=== PATIENT | female | born 1955 | race Caucasian/White ===

== ENCOUNTER → 2018-03-25 21:23 | Outpatient (CLI) | payer OTHER, SELFPAY ==
[2018-03-25 21:36] LABS: Absolute Lymphocyte Count 1.68 X10^3/ul (0.83-4.51); Absolute Neutrophil Count 6.5 X10^3/uL (2.0-7.7); Basophil# 0.03 X10^3/uL; Basophil% 0.3 % (0-1); Eosinophil# 0.35 X10^3/uL; Eosinophils% 3.7 % (0-5); Hematocrit 43.3 % (37-47); Hemoglobin 15.4 g/dl (12.0-15.0); Lymphocyte # 1.68 X10^3/ul (4.0); Mean Corp Hgb Conc 35.6 g/gl (32-36); Mean Corpuscular Hgb 33.6 pg (27.0-32.0); Mean Corpuscular Volume 94.3 fL (81-99); Mean Platelet Vol. 11.6 fl (6.2-12.0); Monocyte# 0.79 X10^3/uL; Monocyte% 8.5 % (0-10); Neutrophil # 6.46 X10^3/uL (2.7-7.7); Neutrophil % 69.2 % (47-70); Platelet Count 276 K/mm3 (150-450); RBC Distribution Width CV 12.7 % (11.6-14.6); Red Blood Count 4.59 M/mm3 (4.2-5.4); White Blood Count 9.3 K/mm3 (4.4-11.0)
[2018-03-25 21:37] LABS: POSITIVE COUNT NO; POSITIVE DIFFERENTIAL NO; POSITIVE MORPHOLOGY NO
[2018-03-25 21:49] LABS: ALB/GLOB Ratio 1.1 RATIO (0.9-2.4); AST(SGOT) 16 U/L (15-37); Alanine Aminotransfer ALT/SGPT 25 U/L (13-56); Alkaline Phosphatase 50 U/L (45-117); Anion Gap 10 (5-15); BUN 32 mg/dL (7-18); BUN/Creat Ratio 21.5 RATIO (10-20); Calcium,Total 9.5 mg/dL (8.5-10.1); Chloride 104 mmol/L (98-107); Cholesterol 195 mg/dL (200); Creatinine, Serum 1.49 mg/dL (0.55-1.02); EST Glomerular Filtration Rate 38 mL/min (>60); Est Glom Filt Rate - Afr Amer 45 mL/min (>60); Globulin 3.6 g/dL (2.2-4.2); Glucose 101 mg/dL (74-106); High Density Lipoprotein 28 mg/dL; Magnesium 1.8 mg/dL (1.6-2.6); Potassium 4.2 mmol/L (3.5-5.1); Protein, Total 7.6 g/dL (6.4-8.2); Sodium Level 136 mmol/L (136-145); Triglycerides 344 mg/dL; Very Low Density Lipoprotein 69 mg/dL (5-40)
== END ==
PROVIDERS: Visit Provider Nurse Practitioner
DX: E83.42 Hypomagnesemia (principal); E78.5 Hyperlipidemia, unspecified; I10 Essential (primary) hypertension
CPT/HCPCS: 80053; 80061; 83735; 85025

== ENCOUNTER → 2018-08-09 14:17 | Outpatient (CLI) | payer OTHER, SELFPAY ==
[2018-05-20 20:04] VITALS: BMI 33.1
[2018-08-09 14:41] LABS: Cholesterol 203 mg/dL (200); High Density Lipoprotein 33 mg/dL; Triglycerides 214 mg/dL; Very Low Density Lipoprotein 43 mg/dL (5-40)
== END ==
PROVIDERS: Family Provider Nurse Practitioner; PCP Nurse Practitioner; Referring Provider Nurse Practitioner; Visit Provider Nurse Practitioner
DX: I10 Essential (primary) hypertension (principal)
CPT/HCPCS: 80061

== ENCOUNTER 2019-02-12 22:00 | Inpatient (IN) | payer OTHER, SELFPAY ==
[2019-02-06 18:35] VITALS: BMI 32.1
[2019-02-12 22:01] VITALS: BP 99/73; PULSE 90; RESP 18; TEMP 36.6; O2SAT 92; BMI 32.1
--- NOTE | 2019-02-12 22:46 | EKG12_ITS ---
Test Reason : DYSRHYTHMIA Blood Pressure : / mmHG Vent. Rate : 091 BPM Atrial Rate : 091 BPM P-R Int : 142 ms QRS Dur : 082 ms QT Int : 334 ms P-R-T Axes : 046 059 032 degrees QTc Int : 410 ms Normal sinus rhythm Normal ECG Confirmed by AAMIR OLVERA, ELLIE ([id number]), social media editor ZACH FRAZIER ([id number]) on 02/17/2019 10:35:59 AM Referred By: NED Confirmed By:NADYA RUTLEDGE MD
--- NOTE | 2019-02-12 22:50 | ED.RN ---
NO OLD EKGS IN MUSE
--- NOTE | 2019-02-12 22:54 | ED.DCSUM_ITS ---
History of Present Illness Chief Complaint: Anxiety Informant: Patient, Family Onset: Weeks - 2 Narrative: Patient presents with other daughter for increasing anxiety symptoms. Symptoms started 2 weeks ago after being and is normal. Started on a second round of steroids with injection. Reports that sciatica symptoms a month ago went through what sounds like Kenalog injection from PCP office and a 10-day course of steroids. States shortly after symptoms return in follow-up, reports was given another injection and after 2 doses of steroids, had increasing anxiety symptoms with palpitations and feeling jittery. Reports treated with Xanax twice a day for symptoms. States initially helping, however last couple days symptoms not improving. Reports had to return from vacation today came directly here due to symptoms. Daughter reports was having tingling numbness fingers and toes. Patient reports indigestion symptoms. Denies any amnesia or confusion. Denies suicidal homicidal ideations. Patient on thyroid medicines along with blood pressure Xarelto for history of PE. Patient denies any urinary symptoms. Denies chest pains or cough. Prior similar symptoms: No Past Medical History - Allergies and Home Meds Allergies/Adverse Reactions: Allergies simvastatin [From Zocor] Adverse Reaction (Severe, Verified 02/12/19 22:04) muscle cramps niapsan Allergy (Severe, Uncoded 02/12/19 22:04) Anaphylaxis Primary Care Physician: Teresa Rowe NP-C [Primary Care Provider] - Smoking Status: Former smoker Review of Systems All systems negative except as indicated General: Denies: Chills, Fever, Sweats Eyes: Denies: Visual changes - bilaterally, Diplopia ENT: Denies: Rhinorrhea, Sore throat Cardiovascular: Reports: Palpitations. Denies: Chest pain Respiratory: Denies: Dyspnea, Cough, Dyspnea on exertion Gastrointestinal: Denies: Abdominal pain, Nausea, Vomiting, Diarrhea, Melena, Hematochezia Genitourinary: Denies: Dysuria, Hematuria, Frequency Musculoskeletal: Denies: Back pain, Extremity Pain Skin: Denies: Rash, Wounds Neurological: Reports: Parasthesia. Denies: Headache, Weakness, Numbness Psych: Reports: Anxiety. Denies: Depression, Suicidal thoughts, Suicidal ideati ons Physical Exam Vital Signs/Narrative: Vital Signs Temp Pulse Resp BP Pulse Ox 02/12/19 22:01 97.8 F 90 18 99/73 92 Inital Vital Signs reviewed: Yes General: Well nourished, Well developed, No Acute Distress Head: Normocephalic, Atraumatic, - Eyes: Perrl, EOMI ENT: No rhinorrhea, - - Mild dry mucosa membranes. Neck: Supple, Nontender Cardiovascular: Regular rate, Regular rhythm, No murmurs Respiratory: No distress, CTA bilaterally, Chest nontender Abdomen: Soft, Nontender, Nondistended, Normal bowel sounds Back: Nontender, Normal Inspection Extremities: Nontender, No edema Skin: Normal color, No rash Neurological: Alert, Oriented x3, Cranial nerves II-XII grossly intact, Normal Strength, Normal Sensation Psychological: - - Affect mildly flat, no suicidal homicidal ideations. Diagnostic/Tx/Re-eval Abnormal Lab Results 02/12/19 02/12/19 02/12/19 23:05 23:05 23:13 WBC 10.9 RBC 3.83 L Hgb 11.7 L Hct 35.3 L MCV 92.2 MCH 30.5 MCHC 33.1 RDW Std Deviation 46.5 H RDW Coeff of Meka 13.7 Plt Count 347 MPV 10.5 Immature Gran % (Auto) 0.600 Neut % (Auto) 69.8 Lymph % (Auto) 15.1 L [place] % (Auto) 9.7 Eos % (Auto) 4.3 Baso % (Auto) 0.5 Absolute Neuts (auto) 7.6 Absolute Lymphs (auto) 1.64 Nucleated RBC % 0 Sodium 142 Potassium 6.1 H* Chloride 109 H Carbon Dioxide 24.0 Anion Gap 9 BUN 72 H Creatinine 2.90 H Estim Creat Clear Calc 16.92 Est GFR (MDRD) Af Amer 21 L Est GFR (MDRD) Non-Af 17 L BUN/Creatinine Ratio 24.8 H Glucose 97 Calcium 10.7 H TSH 19.90 H Free T4 0.93 Urine Color Yellow Urine Clarity Clear Urine pH 6.0 Ur Specific [place] 1.020 Urine Protein Negative Urine Glucose (UA) Normal Urine Ketones 5 H Urine Occult Blood 25 H Urine Nitrite Positive H Urine Bilirubin Negative Urine Urobilinogen Normal Ur Leukocyte Esterase 25 H Urine RBC 5-10 SEEN Urine WBC 0-5 SEEN Ur Squamous Epith Cells 0 SEEN Urine Bacteria 3+ Urine Mucus 0 SEEN - EKG Initial EKG Interpretation: Sinus Rhythm - Sinus rate of 91, no ST or T wave changes. - Medical Decision Making Patient vital signs stable, nontoxic. No suicidal homicidal ideations. Patient palpitations EKG was obtained shows no acute process. Reports vague symptoms with her medications, her symptoms appear side effects from her prednisone use and Xanax which were new to her. Discussed with patient family will screen out with laboratory studies and urine. Results did note urinary tract infection, daughter present states she had a significant UTI in the past without symptoms. I did send for urine culture and Rocephin was started. In addition her BMP was abnormal. She had acute kidney injury with creatinine of 2.9, was 1.49 in March 2018. She reports decreased oral intake, recent loose stools however not significant. Potassium nonhemolyzed was 6.1, she has a normal EKG. He was treated with aerosol treatments, Kayexalate secondary to this. Due to her acute kidney injury and her hyperkalemia will speak with hospitalist for admission. ED Disposition - Plan for ED Patient: Disposition: Acute Care Hospital [facility] Diagnosis: Acute kidney injury, Hyperkalemia, Urinary tract infection, Medication side effects Referrals: Teresa Rowe NP-C [Primary Care Provider] -
[2019-02-12 23:14] LABS: Absolute Lymphocyte Count 1.64 X10^3/uL (0.83-4.51); Absolute Neutrophil Count 7.6 X10^3/uL (2.0-7.7); Basophil# 0.05 X10^3/uL; Basophil% 0.5 % (0-1); Eosinophil# 0.47 X10^3/uL; Eosinophils% 4.3 % (0-5); Hematocrit 35.3 % (37-47); Hemoglobin 11.7 g/dL (12.0-15.0); Lymphocyte # 1.64 X10^3/ul (4.0); Lymphocyte % 15.1 % (19-41); Mean Corp Hgb Conc 33.1 g/dL (32-36); Mean Corpuscular Hgb 30.5 pg (27.0-32.0); Mean Corpuscular Volume 92.2 fL (81-99); Mean Platelet Vol. 10.5 fl (6.2-12.0); Monocyte# 1.05 X10^3/uL; Monocyte% 9.7 % (0-10); NRBC Flagged by Analyzer 0 % (0-5); Neutrophil # 7.61 X10^3/uL (2.7-7.7); Neutrophil % 69.8 % (47-70); Platelet Count 347 K/mm3 (150-450); RBC Distribution Width CV 13.7 % (11.6-14.6); RBC Distribution Width SD 46.5 fl (35.1-43.9); Red Blood Count 3.83 M/mm3 (4.2-5.4); White Blood Count 10.9 K/mm3 (4.4-11.0)
[2019-02-12 23:17] LABS: Mucous, Urine 0 SEEN /hpf (<or=2+); Squamous Epithelial Cells - UA 0 SEEN /hpf (5-10)
[2019-02-12 23:30] LABS: Color, Urine Yellow (Yellow); Glucose, Dipstick Normal (Normal); Ketone-Dipstick 5 mg/dl (Negative); Leukocyte Esterase-Dipstick 25 /ul (Negative); Nitrite-Dipstick Positive (Negative); Occult Blood-Urine 25 /ul (Negative); Protein-Dipstick Negative (Negative); Urine Bilirubin Dipstick Negative (Negative); Urine Clarity Clear (Clear); Urine Urobilinogen Normal (Normal)
[2019-02-12 23:37] LABS: White Blood Cells 0-5 SEEN /hpf (0-5)
[2019-02-12 23:38] LABS: Bacteria 3+ /hpf (None Seen); Red Blood Cells-Urine 5-10 SEEN /hpf (0-5)
[2019-02-12 23:50] LABS: Anion Gap 9 (5-15); BUN 72 mg/dL (7-18); BUN/Creat Ratio 24.8 RATIO (10-20); Calcium,Total 10.7 mg/dL (8.5-10.1); Chloride 109 mmol/L (98-107); EST Glomerular Filtration Rate 17 mL/min (>60); Est Glom Filt Rate - Afr Amer 21 mL/min (>60); Estimated Creatinine Clearance 16.92 ml/min; Glucose 97 mg/dL (74-106); Potassium 6.1 mmol/L (3.5-5.1); Sodium Level 142 mmol/L (136-145); T4 Free Direct 0.93 ng/dL (0.76-1.46)
--- NOTE | 2019-02-12 23:52 | ED.RN ---
lab called with critical lab results. potassium level 6.1. Dr. ambriz made aware no new orders at this time
[2019-02-13] VITALS (13 sets, daily range): BP systolic 96–111; BP diastolic 55–73; PULSE 77–92; RESP 16–23; TEMP 36.3–36.7; O2SAT 96–100; BMI 33.0; BMI 33.1
[2019-02-13] MEDS: Sodium Polystyrene Sulfonate 15 GM/60 ML UDC 30 GM PO (00:12)
[2019-02-13] MEDS: Polyethylene Glycol 3350 17 GM PACKET 34 GM PO (00:14)
--- NOTE | 2019-02-13 00:23 | HP.PCM_ITS ---
Problem List (1) Acute kidney injury Status: Acute (2) Hyperkalemia Status: Acute (3) Urinary tract infection Status: Acute Qualifiers: Urinary tract infection type: site unspecified (4) Hypothyroidism (acquired) Status: Chronic (5) Hyperlipidemia LDL goal <130 Status: Chronic (6) Tobacco abuse Status: Resolved (7) Hypertension Status: Chronic Qualifiers: Hypertension type: essential hypertension Qualified Code(s): I10 - Essential (primary) hypertension History of Present Illness Date of Admission: 02/13/19 Chief Complaint: Malaise, nausea, fatigue, anxiety The patient is a 63 y/o F w/ PMHx: HTN, Tobacco use, Fe Deficiency Anemia, Anxiety, Hypothyroidism, Idiopathic Parathyroidism, Hx PE who presents to the [facility] ED on 02/13/19 with history of approximately 10-day history of progressively worsening fatigue, malaise, nausea without emesis as well as anorexia with recent history of steroid burst therapy x2 per PCP for sciatica with notably increased anxiety following this however ongoing and myriad of symptoms with return recently from out of town where she had been vacationing. Work-up in the ED included T 97.8, heart rate 90, BP 99/73, respiratory rate 18, 92% on room air, CBC with W BC 10.9, hemoglobin 11.7, platelet 347 without market left shift, BMP with potassium 6.1, chloride 109, BUN/creatinine 72/2.90, calcium 10.7, TSH 19.90, free T4 0.93, urinalysis notable for acute UTI with urine culture pending per ED. Medications administered in the ED included Kayexalate, normal saline, polyethylene glycol, albuterol, Rocephin IV. Past Medical History Past Medical History (Chronic Problems): Chronic Problems (Last Updated 02/06/19 @ 18:51 by MARK Hardin) Hypothyroidism (acquired) (Chronic) Hyperlipidemia LDL goal <130 (Chronic) Hypertension (Chronic) Medical History: Medical History (Last Updated 02/06/19 @ 18:51 by MARK Hardin) Tobacco abuse (Acute) Z72.0 Anxiety F41.9 Hypothyroid E03.9 Idiopathic parathyroidism E20.9 Pulmonary embolism I26.99 Hypertension I10 Allergies simvastatin [From Zocor] Adverse Reaction (Severe, Verified 08/29/19 22:04) muscle cramps niapsan Allergy (Severe, Uncoded 02/12/19 22:04) Anaphylaxis Home Medications: Ambulatory Orders Medication Instructions Recorded cholecalciferol (vitamin D3) 2,000 2,000 unit PO QDAY 01/27/18 unit capsule ferrous sulfate 325 mg (65 mg 325 mg PO QDAY tab 01/27/18 iron) tablet,delayed release magnesium 400 mg (as magnesium 400 mg PO QDAY cap 01/27/18 oxide) capsule omega 6-qax-jep-fish oil 1,000 mg 3 cap PO DAILY cap 01/27/18 (120 mg-180 mg) capsule vitamin C 500 mg-multivitamin with 500 tab PO DAILY 01/27/18 minerals chewable tablet lisinopril 10 mg tablet 10 mg PO QDAY #90 tab 03/25/18 metoprolol succinate ER 50 mg 50 mg PO QDAY #90 tab 03/25/18 tablet,extended release 24 hr calcitriol 0.25 mcg capsule 0.25 mcg PO BID #180 cap 03/27/18 azelastine 137 mcg (0.1 %) nasal 2 spray INTRANASAL BID #30 ml 05/20/18 spray aerosol ezetimibe 10 mg tablet 10 mg PO QDAY #90 tab 08/11/18 bupropion HCl SR 150 mg tablet,12 150 mg PO QDAY 30 Days #30 tab 09/15/18 hr sustained-release alprazolam 0.5 mg tablet 0.5 mg PO BID PRN #60 tab 02/06/19 Levothyroxine Sodium 100 mcg PO MOTUWETHFRSA 02/12/19 Levothyroxine [Synthroid] 50 mcg PO FLETCHER 02/12/19 Surgical History: Surgical History (Last Reviewed 02/06/19 @ 14:47 by Ayala Duran) History of elective section Z98.891 S/P rotator cuff repair Z98.890 Surgical History: - - Right rotator cuff repair, x1, parathyroidectomy. Psychiatric History: Anxiety, Depression INSOLE REINFORCER History: No pertinent INSOLE REINFORCER history Lives: Spouse/ Significant Other Smoking Status: Former smoker - Patient quit cigarette tobacco usage approximately 1 year prior, prior to this with smoking 1/2 pack/day but in her youth had been smoking more and since a teenager. Tobacco Use: Non-smoker Alcohol: Occasional Drugs: None - *Family History Maternal Family History: Family History (Last Reviewed 02/06/19 @ 14:47 by Ayala Duran) Father Heart disease Mother Diabetes History Items: Diabetes, Hypertension Paternal Family History: Family History (Last Reviewed 02/06/19 @ 14:47 by Ayala Duran) Father Heart disease Mother Diabetes History Items: Heart Disease - Father with a history of DC, age is 78. Review of Systems Constitutional: Reports: Anorexia, Malaise, Weakness, Fatigue. Denies: Chills, Fever, Weight Change HEENT: Denies: Head Aches, Sinus Congestion, Sinus Drainage Cardiovascular: Denies: Chest Pain, Palpitations Respiratory: Denies: Cough, Shortness of breath at rest, Sputum production Gastrointestinal: Reports: Nausea. Denies: Abdominal Pain, Vomiting Genitourinary: Denies: Dysuria Musculoskeletal: Reports: Joint Pain, Leg Pain. Denies: Joint Tenderness Skin: Denies: Rash, Wounds Neurological: Denies: Numbness, Tingling, Focal weakness Psychiatric: Reports: Anxiety. Denies: Depression, Homicidal Ideations, Suicidal Ideations Hematologic/ Lymphatic: Reports: Anemia. Denies: Easy Bruising, Easy Bleeding VTE Information - Inpt Only VTE Present on Admission: No VTE Mechan Device Prophylaxis: SCD's VTE Pharm Prophylaxis ordered?: Yes Patient Problems: Active and Suspected Problems (Last Updated 02/06/19 @ 18:51 by MARK Hardin) Acute kidney injury (Acute) Hyperkalemia (Acute) Urinary tract infection (Acute) Medication side effects (Acute) Subjective: Seated upright in ED bed, fatigued appearance, no acute distress aside from noted nausea. Objective: Physical Examination: General: awake, alert, oriented x 3 and cooperative, seated upright in the ED bed, no acute distress aside from noted nausea. Skin: Very tanned skin color, turgor, no icterus, cyanosis. HEENT: AT/NC, EOMI, PERRLA, dry MM, no carotid bruits or JVD noted. Lungs: CTA bilaterally, moderate effort, moderate decrease BL bases, no rales, ronchi or wheezing. Heart: Regular rate and rhythm; no gallop, rub audible. Abdomen: soft, obese, NTTP, ND, normal BS, no HSM. Extremities: no cyanosis, clubbing, or edema. Neurological: patient awake, alert, oriented x 3; cognitive function intact; pupils equally reactive to light and accomodation; cranial nerves II-XII grossly normal, moving all 4 extremities, no focal deficits, strength moderately global decrease secondary to acute presentation. Psychiatric: affect appears fatigued, no acute evidence of depressive or anxiety feelings. - Physical Exam Vital Signs Temp Pulse Resp BP Pulse Ox 97.8 F 90 18 99/73 92 02/12/19 22:01 02/12/19 22:01 02/12/19 22:01 02/12/19 22:01 02/12/19 22:01 Oxygen Delivery Method Room Air Weight: 187 lb Body Mass Index (BMI) 32.1 Laboratory Tests Past 24 Hrs 02/12/19 02/12/19 02/12/19 23:05 23:05 23:13 WBC 10.9 RBC 3.83 L Hgb 11.7 L Hct 35.3 L MCV 92.2 MCH 30.5 MCHC 33.1 RDW Std Deviation 46.5 H RDW Coeff of Meka 13.7 Plt Count 347 MPV 10.5 Immature Gran % (Auto) 0.600 Neut % (Auto) 69.8 Lymph % (Auto) 15.1 L [place] % (Auto) 9.7 Eos % (Auto) 4.3 Baso % (Auto) 0.5 Absolute Neuts (auto) 7.6 Absolute Lymphs (auto) 1.64 Nucleated RBC % 0 Sodium 142 Potassium 6.1 H* Chloride 109 H Carbon Dioxide 24.0 Anion Gap 9 BUN 72 H Creatinine 2.90 H Estim Creat Clear Calc 16.92 Est GFR (MDRD) Af Amer 21 L Est GFR (MDRD) Non-Af 17 L BUN/Creatinine Ratio 24.8 H Glucose 97 Calcium 10.7 H TSH 19.90 H Free T4 0.93 Urine Color Yellow Urine Clarity Clear Urine pH 6.0 Ur Specific [place] 1.020 Urine Protein Negative Urine Glucose (UA) Normal Urine Ketones 5 H Urine Occult Blood 25 H Urine Nitrite Positive H Urine Bilirubin Negative Urine Urobilinogen Normal Ur Leukocyte Esterase 25 H Urine RBC 5-10 SEEN Urine WBC 0-5 SEEN Ur Squamous Epith Cells 0 SEEN Urine Bacteria 3+ Urine Mucus 0 SEEN Assessment/Plan All Active Problems (Last Updated 02/06/19 @ 18:51 by Teresa Rowe NP-C) Acute kidney injury (Acute) Hyperkalemia (Acute) Urinary tract infection (Acute) Medication side effects (Acute) Muscle spasm (Acute) Recurrent pain of right knee (Acute) Sciatica of left side (Acute) Anxiety (Acute) Pulmonary embolism (Acute) Bilateral hearing loss (Acute) Allergic rhinitis with postnasal drip (Acute) Bronchitis (Acute) Bilateral otitis media (Acute) Maxillary sinusitis (Acute) Adverse reaction to antidepressant drug (Acute) Tobacco abuse (Resolved) The patient is a 63 y/o F w/ PMHx: HTN, Tobacco use, Fe Deficiency Anemia, Anxiety, Hypothyroidism, Idiopathic Parathyroidism, Hx PE who presents to the [facility] ED on 02/13/19 with history of approximately 10-day history of progressively worsening fatigue, malaise, nausea without emesis as well as anorexia with recent history of steroid burst therapy x2 per PCP for sciatica with notably increased anxiety following this however ongoing and myriad of symptoms. 1. Acute Urinary Tract Infection: Will admit to PCU given noted hyperkalemia concurrently, UA upon ED evaluation remarkable, pending UCx, continue IVFs, monitor I/Os, continue IV Rocephin w/ transition as able pending sensitivities and speciation. 2. Acute kidney injury on possibly chronic kidney disease, unclear stage: Secondary to acute UTI as well as possibly nephrotoxic regimen for poor oral intake. Admission BUN/Cr 72/2.90, prior baseline creatinine noted to be 0.49 but only one single lab value noted. Will hydrate, continue treatment of noted UTI, hold nephrotoxic medications and repeat chemistry in AM. If no improvement would plan FeNa assessment. 3. Hyperkalemia: Admission potassium 6.1, kayexalate administered, will repeat BMP shortly and in a.m. 4. Hypercalcemia with history of idiopathic parathyroidism: s/p partial resection remotely. Admission calcium 10.7, dehydrated state with acute kidney injury, will aggressively hydrate, repeat BMP in a.m., last noted lab value remotely 9.5. Continued on calcitriol regimen. 5. Hypothyroidism: Patient was radiated in her youth. Patient TSH notably elevated however free T4 is normal and this is in the acute illness setting therefore would consider continuation of home Synthroid regimen with repeat thyroid function studies once acute illness has been resolved to determine if adjustments needed. 6. Anxiety and depression: Continue home bupropion regimen. 7. Hypertension: Continue home regimen including metoprolol, holding lisinopril given acute kidney injury as noted, PRN hydralazine. 8. Hyperlipidemia: We will continue home ezetimibi regimen. 9. Former tobacco use: Continue to encourage tobacco cessation. 10. Iron deficiency anemia: Admission hemoglobin 11.7, continue iron supplementation. 11. DVT prophylaxis: SCDs, heparin. Code Visit Inpatient E&M: 52074 Init Hosp L3
[2019-02-13] MEDS: Ceftriaxone 1 GM/50 ML BAG IV ×2 (00:33→21:43)
[2019-02-13] MEDS: Ondansetron 4 MG/2 ML Vial IV (00:52)
[2019-02-13] MEDS: 0.9% Normal Saline 1,000 ML 999 ML IV ×2 (02:50→04:07)
[2019-02-13 03:29] LABS: Absolute Lymphocyte Count 1.15 X10^3/uL (0.83-4.51); Absolute Neutrophil Count 6.2 X10^3/uL (2.0-7.7); Basophil# 0.04 X10^3/uL; Basophil% 0.5 % (0-1); Eosinophil# 0.24 X10^3/uL; Eosinophils% 2.8 % (0-5); Hemoglobin 11.2 g/dL (12.0-15.0); Lymphocyte # 1.15 X10^3/ul (4.0); Lymphocyte % 13.6 % (19-41); Mean Corp Hgb Conc 32.9 g/dL (32-36); Mean Corpuscular Hgb 30.6 pg (27.0-32.0); Mean Corpuscular Volume 92.9 fL (81-99); Mean Platelet Vol. 10.5 fl (6.2-12.0); Monocyte# 0.83 X10^3/uL; Monocyte% 9.8 % (0-10); NRBC Flagged by Analyzer 0 % (0-5); Neutrophil # 6.15 X10^3/uL (2.7-7.7); Neutrophil % 72.8 % (47-70); Platelet Count 260 K/mm3 (150-450); RBC Distribution Width CV 13.6 % (11.6-14.6); RBC Distribution Width SD 46.6 fl (35.1-43.9); Red Blood Count 3.66 M/mm3 (4.2-5.4); White Blood Count 8.5 K/mm3 (4.4-11.0)
[2019-02-13 03:56] LABS: Anion Gap 7 (5-15); BUN 72 mg/dL (7-18); BUN/Creat Ratio 29.1 RATIO (10-20); Calcium,Total 9.6 mg/dL (8.5-10.1); Chloride 113 mmol/L (98-107); Creatinine, Serum 2.47 mg/dL (0.55-1.02); EST Glomerular Filtration Rate 21 mL/min (>60); Est Glom Filt Rate - Afr Amer 25 mL/min (>60); Estimated Creatinine Clearance 19.03 ml/min; Glucose 111 mg/dL (74-106); Magnesium 1.3 mg/dL (1.6-2.6); Phosphorus 3.6 mg/dL (2.5-4.9); Potassium 5.2 mmol/L (3.5-5.1); Sodium Level 141 mmol/L (136-145)
[2019-02-13] MEDS: 0.9% Normal Saline 1,000 ML 150 ML IV ×3 (05:11→19:53)
[2019-02-13] MEDS: Levothyroxine 100 MCG Tablet PO (05:12)
[2019-02-13] MEDS: Ferrous Sulfate 325 MG Tablet PO (09:11)
[2019-02-13] MEDS: Heparin Injection (Vial) 5,000 UNIT/ML VIAL 5000 UNIT SC ×2 (09:11→21:40)
[2019-02-13] MEDS: Calcitriol 0.25 MCG Capsule PO ×2 (09:12→21:40)
[2019-02-13] MEDS: Ezetimibe 10 MG Tablet PO (09:12)
[2019-02-13] MEDS: buPROPion (SR) 150 MG Tablet.SA PO (09:12)
[2019-02-13] MEDS: Metoprolol(XL)Succ 50 MG Tablet PO (09:12)
--- NOTE | 2019-02-13 12:03 | CASEMGMT ---
MICHAEL GRIFFIN assessment: Face to Face with patient for initial transition planning/care coordination assessment. MICHAEL GRIFFIN introduced self and role at [facility], pt voices understanding and consents to assessment at this time. Pt is lying in bed in no distress at this time. Pt is A/Ox4 at this time and answers all questions appropriately at this time. Care providers, pharmacy, and demographics verified at this time. PCP: [facility] Specialists: Pt states no current specialists at this time. Preferred Pharmacy: [facility] Insurance: [employer] Prescription Benefit: [employer] Living Will/HPOA: Pt states does not have LW/HPOA but would like to complete at this time. Anthony SW aware, voices understanding. LNOK: Eagle Nichole, ; Argelia Pierre, daughter Living Arrangements: Pt states lives with in 2 story home and states no concerns at home at this time. Pt is independent with ADL's. Transportation: Pt states drives self and states no transportation concerns at this time. DME/HHC: Pt states does not have any DME and denies need for any at this time. Pt states no hx of HHC or SNF in the past. Pt states no concerns with going home at time of discharge. 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 Pt states does not smoke but does drink ETOH socially. Pt states no further concerns/needs at this time. CM to follow for any further discharge planning/needs. Advised pt to ask for CM if any further questions/concerns/needs arise, voices understanding. Pt Goal: Home Plan[place] MICHAEL GRIFFIN
--- NOTE | 2019-02-13 12:53 | CASEMGMT ---
SW assisted pt in completing LW/POA forms. Pt listed her Eagle Nichole as POA and her children as alternates. Originals and copies given to pt, and copies placed in chart. KRANTHI Smith
--- NOTE | 2019-02-13 14:01 | PN_ITS ---
<Swathi Davis - Last Filed: 02/13/19 14:07> Patient Problems: Active and Suspected Problems (Last Updated 02/06/19 @ 18:51 by MARK Hardin) Acute kidney injury (Acute) Hyperkalemia (Acute) Urinary tract infection (Acute) Medication side effects (Acute) Subjective: Patient seen and examined. Denies urinary symptoms. Denies fever, chills. Reports nausea has resolved. - Physical Exam General: Alert, Oriented x3, Cooperative HEENT: Atraumatic, PERRLA, EOMI, Normocephalic Neck: Supple, No JVD, Negative Carotid Bruits Lungs: Clear to auscultation, Normal air movement Cardiovascular: Regular rate, Regular Rhythm, Normal S1, Normal S2, No murmurs Abdomen: Bowel Sounds Present, Soft, Non Tender, Non-Distended, Obese Extremities: No clubbing, No cyanosis, No edema, Capillary Refill Less than 3 Seconds Skin: No rashes, No breakdown Musculoskeletal: No Tenderness to Palpation of Joints or Extremities Neurological: Cranial nerves II-XII grossly intact, Neuro grossly intact Psych/Mental Status: Normal Affect, Appropriate Vital Signs Temp Pulse Resp BP Pulse Ox 97.9 F 80 18 106/55 L 96 02/13/19 06:26 02/13/19 09:12 02/13/19 06:26 02/13/19 06:26 02/13/19 06:26 Oxygen Delivery Method Room Air Weight: 186 lb 11.704 oz Body Mass Index (BMI) 33.0 Intake and Output for Last 24 Hours 02/11/19 02/12/19 02/13/19 23:59 23:59 23:59 Intake Total 4742 / 4742 Balance 4742 / 4742 Microbiology Past 72 Hours 02/12/19 23:13 Urine Culture - Preliminary Urine, Clean Catch Presumptive E. coli Laboratory Tests Past 24 Hrs 02/12/19 02/12/19 02/12/19 23:05 23:05 23:13 WBC 10.9 RBC 3.83 L Hgb 11.7 L Hct 35.3 L MCV 92.2 MCH 30.5 MCHC 33.1 RDW Std Deviation 46.5 H RDW Coeff of Meka 13.7 Plt Count 347 MPV 10.5 Immature Gran % (Auto) 0.600 Neut % (Auto) 69.8 Lymph % (Auto) 15.1 L [place] % (Auto) 9.7 Eos % (Auto) 4.3 Baso % (Auto) 0.5 Absolute Neuts (auto) 7.6 Absolute Lymphs (auto) 1.64 Nucleated RBC % 0 Sodium 142 Potassium 6.1 H* Chloride 109 H Carbon Dioxide 24.0 Anion Gap 9 BUN 72 H Creatinine 2.90 H Estim Creat Clear Calc 16.92 Est GFR (MDRD) Af Amer 21 L Est GFR (MDRD) Non-Af 17 L BUN/Creatinine Ratio 24.8 H Glucose 97 Calcium 10.7 H Phosphorus Magnesium TSH 19.90 H Free T4 0.93 Urine Color Yellow Urine Clarity Clear Urine pH 6.0 Ur Specific [place] 1.020 Urine Protein Negative Urine Glucose (UA) Normal Urine Ketones 5 H Urine Occult Blood 25 H Urine Nitrite Positive H Urine Bilirubin Negative Urine Urobilinogen Normal Ur Leukocyte Esterase 25 H Urine RBC 5-10 SEEN Urine WBC 0-5 SEEN Ur Squamous Epith Cells 0 SEEN Urine Bacteria 3+ Urine Mucus 0 SEEN 02/13/19 02/13/19 03:22 03:22 WBC 8.5 RBC 3.66 L Hgb 11.2 L Hct 34.0 L MCV 92.9 MCH 30.6 MCHC 32.9 RDW Std Deviation 46.6 H RDW Coeff of Meka 13.6 Plt Count 260 MPV 10.5 Immature Gran % (Auto) 0.500 Neut % (Auto) 72.8 H Lymph % (Auto) 13.6 L [place] % (Auto) 9.8 Eos % (Auto) 2.8 Baso % (Auto) 0.5 Absolute Neuts (auto) 6.2 Absolute Lymphs (auto) 1.15 Nucleated RBC % 0 Sodium 141 Potassium 5.2 H Chloride 113 H Carbon Dioxide 21.0 Anion Gap 7 BUN 72 H Creatinine 2.47 H Estim Creat Clear Calc 19.03 Est GFR (MDRD) Af Amer 25 L Est GFR (MDRD) Non-Af 21 L BUN/Creatinine Ratio 29.1 H Glucose 111 H Calcium 9.6 Phosphorus 3.6 Magnesium 1.3 L TSH Free T4 Urine Color Urine Clarity Urine pH Ur Specific [place] Urine Protein Urine Glucose (UA) Urine Ketones Urine Occult Blood Urine Nitrite Urine Bilirubin Urine Urobilinogen Ur Leukocyte Esterase Urine RBC Urine WBC Ur Squamous Epith Cells Urine Bacteria Urine Mucus Medical Necessity - Tobacco Use Smoking Status: Former smoker Tobacco Use: Non-smoker Assessment/Plan All Active Problems (Last Updated 02/06/19 @ 18:51 by MARK Hardin) Acute kidney injury (Acute) Hyperkalemia (Acute) Urinary tract infection (Acute) Medication side effects (Acute) Muscle spasm (Acute) Recurrent pain of right knee (Acute) Sciatica of left side (Acute) Anxiety (Acute) Pulmonary embolism (Acute) Bilateral hearing loss (Acute) Allergic rhinitis with postnasal drip (Acute) Bronchitis (Acute) Bilateral otitis media (Acute) Maxillary sinusitis (Acute) Adverse reaction to antidepressant drug (Acute) Tobacco abuse (Resolved) 1. Acute E. coli urinary tract infection-urine culture with greater than 100,000 presumptive E. coli. Continue IV Rocephin. 2. Acute kidney injury on suspected chronic kidney disease, unclear stage- improving with IV fluids. Trend BMP. Bladder scan unremarkable. 3. Hyperkalemia as a result of HANS-IV fluids. Kayexalate 30 g x 1. Potassium improving. Trend BMP. 4. Hypercalcemia with history of idiopathic parathyroidism status post partial resection-continue Calcitrol regimen. IV fluids. Trend BMP. 5. Hypothyroidism-TSH elevated, T4 normal. Continue Synthroid regimen. Recommend repeat TSH as outpatient. 6. Anxiety/depression-continue home bupropion regimen. 7. Hypertension-stable, continue home metoprolol regimen. Lisinopril on hold given acute kidney injury. 8. Hyperlipidemia-continue home ezetimibe regimen. 9. Former tobacco use-encouraged continued cessation. 10. Iron deficiency anemia-at baseline, continue iron supplementation. DVT prophylaxis-heparin subcu This patient was seen by MARK Barton under the supervision of Dr. Delatorre. <David Delatrore - Last Filed: 02/13/19 14:16> Subjective: Seen and examined. Patient denies burning micturition, increased frequency or urgency, suprapubic/perineal pain or heaviness/discomfort. No fever or chills. Denies systemic symptoms of nausea, vomiting, headache or fever. Patient denies history of recent urethral instrumentation/catheterization or history of kidney stone or stricture. - Physical Exam General: Alert, Oriented x3, Cooperative HEENT: Atraumatic, PERRLA, EOMI, Normocephalic Neck: Supple, No JVD, Negative Carotid Bruits Lungs: Clear to auscultation, Normal air movement Cardiovascular: Regular rate, Regular Rhythm, Normal S1, Normal S2, No murmurs Abdomen: Bowel Sounds Present, Soft, Non Tender, Non-Distended, Obese Extremities: Capillary Refill Less than 3 Seconds, Edema Skin: No rashes, No breakdown Musculoskeletal: No Tenderness to Palpation of Joints or Extremities, Arthritic Changes Lymphatic: No Cervical, Supraclavicular, or Inguinal Adenopathy Neurological: Cranial nerves II-XII grossly intact, Deep Tendon Reflexes 2+/4 and Symmetrical, Neuro grossly intact, Motor Exam 5/5 strength throughout Psych/Mental Status: Normal Affect, Appropriate Vital Signs Temp Pulse Resp BP Pulse Ox 97.9 F 80 18 106/55 L 96 02/13/19 06:26 02/13/19 09:12 02/13/19 06:26 02/13/19 06:26 02/13/19 06:26 Oxygen Delivery Method Room Air Weight: 186 lb 11.704 oz Body Mass Index (BMI) 33.0 Intake and Output for Last 24 Hours 02/11/19 02/12/19 02/13/19 23:59 23:59 23:59 Intake Total 4742 / 4742 Balance 4742 / 4742 Microbiology Past 72 Hours 02/12/19 23:13 Urine Culture - Preliminary Urine, Clean Catch Presumptive E. coli Laboratory Tests Past 24 Hrs 02/12/19 02/12/19 02/12/19 23:05 23:05 23:13 WBC 10.9 RBC 3.83 L Hgb 11.7 L Hct 35.3 L MCV 92.2 MCH 30.5 MCHC 33.1 RDW Std Deviation 46.5 H RDW Coeff of Meka 13.7 Plt Count 347 MPV 10.5 Immature Gran % (Auto) 0.600 Neut % (Auto) 69.8 Lymph % (Auto) 15.1 L [place] % (Auto) 9.7 Eos % (Auto) 4.3 Baso % (Auto) 0.5 Absolute Neuts (auto) 7.6 Absolute Lymphs (auto) 1.64 Nucleated RBC % 0 Sodium 142 Potassium 6.1 H* Chloride 109 H Carbon Dioxide 24.0 Anion Gap 9 BUN 72 H Creatinine 2.90 H Estim Creat Clear Calc 16.92 Est GFR (MDRD) Af Amer 21 L Est GFR (MDRD) Non-Af 17 L BUN/Creatinine Ratio 24.8 H Glucose 97 Calcium 10.7 H Phosphorus Magnesium TSH 19.90 H Free T4 0.93 Urine Color Yellow Urine Clarity Clear Urine pH 6.0 Ur Specific [place] 1.020 Urine Protein Negative Urine Glucose (UA) Normal Urine Ketones 5 H Urine Occult Blood 25 H Urine Nitrite Positive H Urine Bilirubin Negative Urine Urobilinogen Normal Ur Leukocyte Esterase 25 H Urine RBC 5-10 SEEN Urine WBC 0-5 SEEN Ur Squamous Epith Cells 0 SEEN Urine Bacteria 3+ Urine Mucus 0 SEEN 02/13/19 02/13/19 03:22 03:22 WBC 8.5 RBC 3.66 L Hgb 11.2 L Hct 34.0 L MCV 92.9 MCH 30.6 MCHC 32.9 RDW Std Deviation 46.6 H RDW Coeff of Meka 13.6 Plt Count 260 MPV 10.5 Immature Gran % (Auto) 0.500 Neut % (Auto) 72.8 H Lymph % (Auto) 13.6 L [place] % (Auto) 9.8 Eos % (Auto) 2.8 Baso % (Auto) 0.5 Absolute Neuts (auto) 6.2 Absolute Lymphs (auto) 1.15 Nucleated RBC % 0 Sodium 141 Potassium 5.2 H Chloride 113 H Carbon Dioxide 21.0 Anion Gap 7 BUN 72 H Creatinine 2.47 H Estim Creat Clear Calc 19.03 Est GFR (MDRD) Af Amer 25 L Est GFR (MDRD) Non-Af 21 L BUN/Creatinine Ratio 29.1 H Glucose 111 H Calcium 9.6 Phosphorus 3.6 Magnesium 1.3 L TSH Free T4 Urine Color Urine Clarity Urine pH Ur Specific [place] Urine Protein Urine Glucose (UA) Urine Ketones Urine Occult Blood Urine Nitrite Urine Bilirubin Urine Urobilinogen Ur Leukocyte Esterase Urine RBC Urine WBC Ur Squamous Epith Cells Urine Bacteria Urine Mucus Assessment/Plan This patient was seen in conjunction with RESAW MACHINE OPERATOR, Swathi. I have independently interviewed and examined the patient and reviewed pertinent history, examination findings, laboratory and plan of management. I have reviewed the note and agree with the documented findings with the few additional points. In brief, patient is admitted for nonspecific symptoms of fatigue, malaise, nausea with anorexia with recent history of a steroid burst therapy for 2 weeks for sciatica. She does not have lower urinary tract symptoms including dysuria, increased frequency or urgency. No prior history of kidney stone or stricture or recent urethral instrumentation/catheterization. UA is positive of nitrite, WBC 0-5, RBC 5-10 cells. Admitted with acute kidney injury, BUN/creatinine 72/2.9, hyperkalemia K6 0.1/2 acute kidney injury on suspected CKD stage III with prior estimated creatinine clearance of 38 mL/min in March 2018. BUN/creatinine ratio suggestive of prerenal etiology and patient kidney function improved with IV fluid. Continue IV fluid. Hyperkalemia improved. In the absence of symptoms, positive nitrite, 3+ bacteriuria suggestive of asymptomatic bacteriuria. Preliminary urine culture is growing more than 100,000 CFU. For now, continue antibiotic until full culture is reported. Patient has other comorbidities of hypercalcemia secondary to idiopathic hyperparathyroidism status post partial resection, hypothyroidism, anxiety/depression, hypertension or dyslipidemia and sciatica. I have discussed my assessment with RESAW MACHINE OPERATORSwathi and orders have been reviewed. Code Visit Inpatient E&M: 45592 Subs Hosp L3
--- NOTE | 2019-02-13 19:17 | CPS ---
Patient sleeping at this time.
[2019-02-13] MEDS: 0.9% NaCl IVPB Med Flush (250 mL) 15 ML IV (19:43)
[2019-02-13] MEDS: 0.9% NaCl Peripheral Flush Adult/Peds IV (19:44)
[2019-02-14] VITALS (7 sets, daily range): BP systolic 113–130; BP diastolic 50–66; PULSE 80–91; RESP 16–18; TEMP 36.4–36.5; O2SAT 95–100
[2019-02-14] MEDS: 0.9% Normal Saline 1,000 ML 150 ML IV (02:35)
[2019-02-14] MEDS: Levothyroxine 100 MCG Tablet PO (06:32)
[2019-02-14 07:08] LABS: Anion Gap 6 (5-15); BUN 33 mg/dL (7-18); BUN/Creat Ratio 24.6 RATIO (10-20); Calcium,Total 7.5 mg/dL (8.5-10.1); Chloride 118 mmol/L (98-107); Creatinine, Serum 1.34 mg/dL (0.55-1.02); EST Glomerular Filtration Rate 42 mL/min (>60); Est Glom Filt Rate - Afr Amer 51 mL/min (>60); Estimated Creatinine Clearance 35.09 ml/min; Glucose 83 mg/dL (74-106); Potassium 4.9 mmol/L (3.5-5.1); Sodium Level 145 mmol/L (136-145)
[2019-02-14] MEDS: Ferrous Sulfate 325 MG Tablet PO (08:30)
--- NOTE | 2019-02-14 09:01 | DCINST_ITS ---
- Discharge Diagnoses Current Active Problems: Current Active and Chronic Problems (Last Updated 02/06/19 @ 18:51 by MARK Hardin) Acute kidney injury (Acute) Hyperkalemia (Acute) Urinary tract infection (Acute) Medication side effects (Acute) You will use the following diet at home:: Cardiac Discharge Activity: Return to Normal Activity Call your doctor if you observe: Shortness of breath, Dizziness, Fainting spells, Chest pain Additional Instructions: Recommend repeat BMP in 1 week by primary care provider. Allergies/Adverse Reactions: Allergies simvastatin [From Zocor] Adverse Reaction (Severe, Verified 02/12/19 22:04) muscle cramps niapsan Allergy (Severe, Uncoded 02/12/19 22:04) Anaphylaxis Medications to take at Discharge cholecalciferol (vitamin D3) 2,000 unit capsule 2,000 unit PO QDAY 01/27/18 ferrous sulfate 325 mg (65 mg iron) tablet,delayed release 325 mg PO QDAY tab 01/27/18 magnesium 400 mg (as magnesium oxide) capsule 400 mg PO QDAY cap 01/27/18 omega 5-osd-ipt-fish oil 1,000 mg (120 mg-180 mg) capsule 3 cap PO DAILY cap 01/27/18 vitamin C 500 mg-multivitamin with minerals chewable tablet 500 tab PO DAILY 01/27/18 lisinopril 10 mg tablet 10 mg PO QDAY #90 tab 03/25/18 metoprolol succinate ER 50 mg tablet,extended release 24 hr 50 mg PO QDAY #90 tab 03/25/18 calcitriol 0.25 mcg capsule 0.25 mcg PO BID #180 cap 03/27/18 azelastine 137 mcg (0.1 %) nasal spray aerosol 2 spray INTRANASAL BID #30 ml 05/20/18 ezetimibe 10 mg tablet 10 mg PO QDAY #90 tab 08/11/18 bupropion HCl SR 150 mg tablet,12 hr sustained-release 150 mg PO QDAY 30 Days #30 tab 09/15/18 alprazolam 0.5 mg tablet 0.5 mg PO BID PRN #60 tab 02/06/19 Levothyroxine Sodium 100 mcg PO MOTUWETHFRSA 02/12/19 Levothyroxine [Synthroid] 50 mcg PO FLETCHER 02/12/19 Cephalexin [Keflex] 500 mg PO Q8 #15 cap 02/14/19 The following prescriptions were given: Cephalexin [Keflex] 500 mg PO Q8 #15 cap Transmission Status: Pending to [facility]- [place], Primary Care Physician: Teresa Rowe NP-C [Primary Care Provider] - Please follow up with your Primary Care Physician in: 1 Week Test Results: Test results from this visit will be discussed in further detail at your follow- up appointment, if applicable. Proposed Discharge Date: 02/14/19
--- NOTE | 2019-02-14 09:04 | DS.PCM_ITS ---
<Swathi Davis - Last Filed: 02/14/19 09:10> Discharge Date and Diagnosis Date of Admission: 02/13/19 Date of Discharge: 02/14/19 - Primary Discharge Diagnosis Active and Suspected Problems (Last Updated 02/06/19 @ 18:51 by MARK Hardin) 1. Acute E. coli urinary tract infection 2. Acute kidney injury on suspected chronic kidney disease stage III 3. Hyperkalemia as a result of HANS, resolved 4. Hypercalcemia with history of idiopathic parathyroidism status post partial resection 5. Hypothyroidism 6. Anxiety/depression 7. Hypertension 8. Hyperlipidemia 9. Former tobacco use 10. Iron deficiency anemia - Secondary Discharge Diagnosis Chronic Problems (Last Updated 02/06/19 @ 18:51 by MARK Hardin) Hypothyroidism (acquired) (Chronic) Hyperlipidemia LDL goal <130 (Chronic) Hypertension (Chronic) Hospital Course and Treatment Operations: None Procedures: None Summary of Care Provided: The patient is a 63 year old F admitted 02/13/2019 due to malaise, nausea, fatigue. 1. Acute E. coli urinary tract infection-urine culture with greater than 100,000 presumptive E. coli. IV Rocephin during admission. Discharge on Keflex 500 mg every 8 hours for 5 days. Follow-up with primary care physician in 1 week. 2. Acute kidney injury on suspected chronic kidney disease, unclear stage- Bladder scan unremarkable. Creatinine improved from 2.9-1.3 with IV fluids. Recommend repeat BMP in 1 week by primary care provider. Suspect patient has chronic kidney disease stage III, recommend referral to senior office support assistant sosa for routine monitoring. 3. Hyperkalemia as a result of HANS-Kayexalate 30 g x 1. Resolved. 4. Hypercalcemia with history of idiopathic parathyroidism status post partial resection-continue Calcitrol regimen. Resolved. 5. Hypothyroidism-TSH elevated, T4 normal. Continue Synthroid regimen. Recommend repeat TSH as outpatient. 6. Anxiety/depression-continue home bupropion regimen. 7. Hypertension-stable, continue home metoprolol, lisinopril regimen. 8. Hyperlipidemia-continue home ezetimibe regimen. 9. Former tobacco use-encouraged continued cessation. 10. Iron deficiency anemia-at baseline, continue iron supplementation. 11. Hypomagnesia-replaced per protocol. General: Alert, Oriented x3, Cooperative HEENT: Atraumatic, PERRLA, EOMI, Normocephalic Neck: Supple, No JVD, Negative Carotid Bruits Lungs: Clear to auscultation, Normal air movement Cardiovascular: Regular rate, Regular Rhythm, Normal S1, Normal S2, No murmurs Abdomen: Bowel Sounds Present, Soft, Non Tender, Non-Distended, Obese Extremities: No clubbing, No cyanosis, No edema, Capillary Refill Less than 3 Seconds Skin: No rashes, No breakdown Musculoskeletal: No Tenderness to Palpation of Joints or Extremities Neurological: Cranial nerves II-XII grossly intact, Neuro grossly intact Psych/Mental Status: Normal Affect, Appropriate Patient seen and examined prior to discharge. Physical assessment as noted above. Patient is stable for discharge with follow up recommendations as noted above. This patient was seen by MARK Barton under the supervision of Dr. Delatorre. - Physical Exam Vital Signs Temp Pulse Resp BP Pulse Ox 97.5 F L 82 18 113/50 L 96 02/14/19 03:40 02/14/19 07:30 02/14/19 03:40 02/14/19 03:40 02/14/19 07:20 Oxygen Delivery Method Room Air Weight: 186 lb 11.704 oz Body Mass Index (BMI) 33.0 Intake and Output for Last 24 Hours 02/12/19 02/13/19 02/14/19 23:59 23:59 23:59 Intake Total 7320.75 / 7320.75 925.25 / 925.25 Balance 7320.75 / 7320.75 925.25 / 925.25 Microbiology Past 72 Hours 02/12/19 23:13 Urine Culture - Final Urine, Clean Catch Presumptive E. coli Laboratory Tests Past 24 Hrs 02/14/19 06:00 Sodium 145 Potassium 4.9 Chloride 118 H Carbon Dioxide 21.0 Anion Gap 6 BUN 33 H Creatinine 1.34 H Estim Creat Clear Calc 35.09 Est GFR (MDRD) Af Amer 51 L Est GFR (MDRD) Non-Af 42 L BUN/Creatinine Ratio 24.6 H Glucose 83 Calcium 7.5 L Discharge Diet: Low fat/ Low Cholesterol Discharge Activity: Return to Normal Activity Call your doctor if you observe: Shortness of breath, Dizziness, Fainting spells, Chest pain Home Medications: Medications to take at Discharge cholecalciferol (vitamin D3) 2,000 unit capsule 2,000 unit PO QDAY 01/27/18 ferrous sulfate 325 mg (65 mg iron) tablet,delayed release 325 mg PO QDAY tab 01/27/18 magnesium 400 mg (as magnesium oxide) capsule 400 mg PO QDAY cap 01/27/18 omega 7-ysa-jbr-fish oil 1,000 mg (120 mg-180 mg) capsule 3 cap PO DAILY cap 01/27/18 vitamin C 500 mg-multivitamin with minerals chewable tablet 500 tab PO DAILY 01/27/18 lisinopril 10 mg tablet 10 mg PO QDAY #90 tab 03/25/18 metoprolol succinate ER 50 mg tablet,extended release 24 hr 50 mg PO QDAY #90 tab 03/25/18 calcitriol 0.25 mcg capsule 0.25 mcg PO BID #180 cap 03/27/18 azelastine 137 mcg (0.1 %) nasal spray aerosol 2 spray INTRANASAL BID #30 ml 05/20/18 ezetimibe 10 mg tablet 10 mg PO QDAY #90 tab 08/11/18 bupropion HCl SR 150 mg tablet,12 hr sustained-release 150 mg PO QDAY 30 Days #30 tab 09/15/18 alprazolam 0.5 mg tablet 0.5 mg PO BID PRN #60 tab 02/06/19 Levothyroxine Sodium 100 mcg PO MOTUWETHFRSA 02/12/19 Levothyroxine [Synthroid] 50 mcg PO FLETCHER 02/12/19 Cephalexin [Keflex] 500 mg PO Q8 #15 cap 02/14/19 Following Prescrptions Were Given to Patient: Cephalexin [Keflex] 500 mg PO Q8 #15 cap Transmission Status: Received by [facility]- [place], Primary Care Physician: Teresa Rowe NP-C [Primary Care Provider] - Please follow up with your Primary Care Physician in: 1 Week Disposition: Home Minutes spent on discharge:: 35 Patient Condition:: Stable Medical Necessity - Tobacco Use Smoking Status: Former smoker Tobacco Use: Non-smoker Meaningful Use Info Meaningful Use Diagnoses (Choose all that apply): None applicable <David Delatorre - Last Filed: 02/14/19 10:14> Discharge Date and Diagnosis - Secondary Discharge Diagnosis Chronic Problems (Last Updated 02/06/19 @ 18:51 by Teresa Rowe, SUPERINTENDENT PLANT-C) Hypothyroidism (acquired) (Chronic) Hyperlipidemia LDL goal <130 (Chronic) Hypertension (Chronic) Hospital Course and Treatment Summary of Care Provided: This patient was seen in conjunction with Swathi GOLDSTEIN. I have independently interviewed and examined the patient and reviewed pertinent history, examination findings, laboratory and plan of management. I have reviewed the note and agree with the documented findings with the few additional points. In brief, patient is admitted for nonspecific symptoms of fatigue, malaise, nausea with anorexia with recent history of a steroid burst therapy for 2 weeks for sciatica. She does not have lower urinary tract symptoms including dysuria, increased frequency or urgency. No prior history of kidney stone or stricture or recent urethral instrumentation/catheterization. UA is positive of nitrite, WBC 0-5, RBC 5-10 cells. Admitted with acute kidney injury, BUN/creatinine 72/2.9, hyperkalemia K 6.1 suggestive of acute kidney injury on suspected CKD stage III with prior estimated creatinine clearance of 38 mL/min in March 2018. BUN/creatinine ratio suggestive of prerenal etiology and patient kidney function improved with IV fluid. Continue IV fluid. Hyperkalemia improved. In the absence of symptoms, positive nitrite, 3+ bacteriuria suggestive of asymptomatic bacteriuria or cystitis/UTI. Urine culture grows E. coli more than 100,000, pansensitive. Because of positive nitrite positivity for UTI and urine culture more than 100,000 colonies, it is decided to fully treat. Patient is discharged on Keflex 500 mg 3 times daily for 5 more days to complete a total of 7 days. Patient has other comorbidities of hypercalcemia secondary to idiopathic hyperparathyroidism status post partial resection, hypothyroidism, anxiety/depression, hypertension or dyslipidemia and sciatica. I have discussed my assessment with Swathi GOLDSTEIN and orders have been reviewed. [] Subjective: Seen and examined. Patient has some nasal allergy with history of chronic allergic rhinosinusitis. Patient denies burning micturition, increased frequency or urgency, suprapubic/perineal pain or heaviness/discomfort. No fever or chills. Denies systemic symptoms of nausea, vomiting, headache or fever. Objective: General: Alert, Oriented x3, Cooperative HEENT: Atraumatic, PERRLA, EOMI, Normocephalic Neck: Supple, No JVD, Negative Carotid Bruits Lungs: Clear to auscultation, Normal air movement Cardiovascular: Regular rate, Regular Rhythm, Normal S1, Normal S2, No murmurs Abdomen: Bowel Sounds Present, Soft, Non Tender, Non-Distended, Obese Extremities: Capillary Refill Less than 3 Seconds, Edema improved. Skin: No rashes, No breakdown Musculoskeletal: No Tenderness to Palpation of Joints or Extremities, Arthritic Changes Lymphatic: No Cervical, Supraclavicular, or Inguinal Adenopathy Neurological: Cranial nerves II-XII grossly intact, Deep Tendon Reflexes 2+/4 and Symmetrical, Neuro grossly intact, Motor Exam 5/5 strength throughout Psych/Mental Status: Normal Affect, Appropriate - Physical Exam General: Alert, Oriented x3, Cooperative HEENT: Atraumatic, PERRLA, EOMI, Normocephalic Neck: Supple, No JVD, Negative Carotid Bruits Lungs: Clear to auscultation, Normal air movement Cardiovascular: Regular rate, Regular Rhythm, Normal S1, Normal S2, No murmurs Abdomen: Bowel Sounds Present, Soft, Non Tender Extremities: Capillary Refill Less than 3 Seconds, Edema Skin: No rashes, No breakdown Musculoskeletal: No Tenderness to Palpation of Joints or Extremities Neurological: Cranial nerves II-XII grossly intact Psych/Mental Status: Normal Affect, Appropriate Vital Signs Temp Pulse Resp BP Pulse Ox 97.5 F L 82 18 113/50 L 96 02/14/19 03:40 02/14/19 07:30 02/14/19 03:40 02/14/19 03:40 02/14/19 07:20 Oxygen Delivery Method Room Air Weight: 186 lb 11.704 oz Body Mass Index (BMI) 33.0 Intake and Output for Last 24 Hours 02/12/19 02/13/19 02/14/19 23:59 23:59 23:59 Intake Total 7320.75 / 7320.75 1924. / 1924.25 Balance 7320.75 / 7320.75 1924. / 1924. Microbiology Past 72 Hours 02/12/19 23:13 Urine Culture - Final Urine, Clean Catch Presumptive E. coli Laboratory Tests Past 24 Hrs 02/14/19 06:00 Sodium 145 Potassium 4.9 Chloride 118 H Carbon Dioxide 21.0 Anion Gap 6 BUN 33 H Creatinine 1.34 H Estim Creat Clear Calc 35.09 Est GFR (MDRD) Af Amer 51 L Est GFR (MDRD) Non-Af 42 L BUN/Creatinine Ratio 24.6 H Glucose 83 Calcium 7.5 L Code Visit Inpatient E&M: 74493 Disch Hosp
[2019-02-14] MEDS: Calcitriol 0.25 MCG Capsule PO (10:12)
[2019-02-14] MEDS: buPROPion (SR) 150 MG Tablet.SA PO (10:13)
[2019-02-14] MEDS: Ezetimibe 10 MG Tablet PO (10:13)
[2019-02-14] MEDS: Metoprolol(XL)Succ 50 MG Tablet PO (10:13)
== END 2019-02-14 11:19 | disposition home or self-care (01) | DRG 690 ==
LOC: ED 02-13 00:17 → PCU 02-13 00:40
PROVIDERS: Nurse Practitioner Family; Admitting Provider Family Medicine; Emergency Provider Emergency Medicine; Family Provider Nurse Practitioner; PCP Nurse Practitioner; Visit Provider Internal Medicine
DX: N39.0 Urinary tract infection, site not specified (principal); N17.9 Acute kidney failure, unspecified; E03.9 Hypothyroidism, unspecified; E87.5 Hyperkalemia; F32.9 Major depressive disorder, single episode, unspecified; F41.9 Anxiety disorder, unspecified; E78.5 Hyperlipidemia, unspecified; B96.20 Unspecified Escherichia coli [E. coli] as the cause of diseases classified elsewhere; D50.9 Iron deficiency anemia, unspecified; I12.9 Hypertensive chronic kidney disease with stage 1 through stage 4 chronic kidney disease, or unspecified chronic kidney disease; N18.3 Chronic kidney disease, stage 3 (moderate); E21.3 Hyperparathyroidism, unspecified; Z87.891 Personal history of nicotine dependence; E83.42 Hypomagnesemia
CPT/HCPCS: 36415; 80048; 81001; 83735; 84100; 84439; 84443; 85025; 87086; 87088; 87186; 93005; 94640; 97802; 99285; 99406; J7030; J7050; A4216; J2405

== ENCOUNTER → 2019-02-23 23:03 | Outpatient (CLI) | payer OTHER, SELFPAY ==
[2019-02-13 02:07] VITALS: BMI 33.0
[2019-02-23 23:32] LABS: ALB/GLOB Ratio 1.1 RATIO (0.9-2.4); AST(SGOT) 16 U/L (15-37); Alanine Aminotransfer ALT/SGPT 25 U/L (13-56); Albumin, Serum 3.7 g/dL (3.2-5.0); Alkaline Phosphatase 44 U/L (45-117); Anion Gap 7 (5-15); BUN 27 mg/dL (7-18); Calcium,Total 9.2 mg/dL (8.5-10.1); Chloride 105 mmol/L (98-107); Creatinine, Serum 1.59 mg/dL (0.55-1.02); EST Glomerular Filtration Rate 35 mL/min (>60); Est Glom Filt Rate - Afr Amer 42 mL/min (>60); Globulin 3.3 g/dL (2.2-4.2); Glucose 89 mg/dL (74-106); Potassium 4.8 mmol/L (3.5-5.1); Sodium Level 134 mmol/L (136-145); Thyroid Stim Hormone (TSH) 7.67 uIU/mL (0.358-3.74)
[2019-02-25 12:19] LABS: Thyroid Peroxidase AB 14 IU/mL (0-34)
== END ==
PROVIDERS: Family Provider Nurse Practitioner; PCP Nurse Practitioner; Referring Provider Nurse Practitioner; Visit Provider Nurse Practitioner
DX: E03.9 Hypothyroidism, unspecified (principal); N17.9 Acute kidney failure, unspecified
CPT/HCPCS: 80053; 84443; 86376

== ENCOUNTER → 2019-04-18 00:04 | Outpatient (CLI) | payer OTHER, SELFPAY ==
[2019-04-17 15:28] VITALS: BMI 31.7
[2019-04-18 00:33] LABS: Absolute Lymphocyte Count 1.91 X10^3/uL (0.83-4.51); Absolute Neutrophil Count 5.6 X10^3/uL (2.0-7.7); Basophil# 0.06 X10^3/uL; Basophil% 0.7 % (0-1); Eosinophils% 3.5 % (0-5); Hematocrit 39.6 % (37-47); Hemoglobin 13.2 g/dL (12.0-15.0); Lymphocyte # 1.91 X10^3/ul (4.0); Lymphocyte % 22.1 % (19-41); Mean Corp Hgb Conc 33.3 g/dL (32-36); Mean Corpuscular Hgb 31.6 pg (27.0-32.0); Mean Corpuscular Volume 94.7 fL (81-99); Mean Platelet Vol. 11.1 fl (6.2-12.0); Monocyte# 0.77 X10^3/uL; Monocyte% 8.9 % (0-10); NRBC Flagged by Analyzer 0 % (0-5); Neutrophil # 5.58 X10^3/uL (2.7-7.7); Neutrophil % 64.3 % (47-70); Platelet Count 286 K/mm3 (150-450); RBC Distribution Width CV 14.6 % (11.6-14.6); RBC Distribution Width SD 48.5 fl (35.1-43.9); Red Blood Count 4.18 M/mm3 (4.2-5.4); White Blood Count 8.7 K/mm3 (4.4-11.0)
[2019-04-18 01:00] LABS: ALB/GLOB Ratio 1.1 RATIO (0.9-2.4); AST(SGOT) 15 U/L (15-37); Alanine Aminotransfer ALT/SGPT 20 U/L (13-56); Albumin, Serum 3.7 g/dL (3.2-5.0); Alkaline Phosphatase 48 U/L (45-117); Anion Gap 6 (5-15); BUN 32 mg/dL (7-18); BUN/Creat Ratio 19.9 RATIO (10-20); Calcium,Total 9.7 mg/dL (8.5-10.1); Chloride 106 mmol/L (98-107); Cholesterol 190 mg/dL (200); Creatinine, Serum 1.61 mg/dL (0.55-1.02); EST Glomerular Filtration Rate 34 mL/min (>60); Est Glom Filt Rate - Afr Amer 41 mL/min (>60); Globulin 3.5 g/dL (2.2-4.2); Glucose 97 mg/dL (74-106); High Density Lipoprotein 31 mg/dL; Potassium 5.3 mmol/L (3.5-5.1); Protein, Total 7.2 g/dL (6.4-8.2); Sodium Level 138 mmol/L (136-145); Thyroid Stim Hormone (TSH) 0.75 uIU/mL (0.358-3.74); Triglycerides 286 mg/dL; Very Low Density Lipoprotein 57 mg/dL (5-40)
== END ==
LOC: OLS.AHF 00:04 → LABSPEC 10:45
PROVIDERS: Family Provider Nurse Practitioner; PCP Nurse Practitioner; Referring Provider Nurse Practitioner; Visit Provider Nurse Practitioner
DX: I10 Essential (primary) hypertension (principal); E03.9 Hypothyroidism, unspecified; E78.5 Hyperlipidemia, unspecified
CPT/HCPCS: 80053; 80061; 84443; 85025

== ENCOUNTER → 2019-07-01 11:15 | Outpatient (CLI) | payer OTHER, SELFPAY ==
[2019-04-17 15:28] VITALS: BMI 31.7
--- NOTE | 2019-07-01 11:25 | US_ITS ---
STUDY: RENAL ULTRASOUND - COMPLETE REASON FOR EXAM: Female, 64 years old. CKD TECHNIQUE: Ultrasound evaluation of the kidneys was performed with real-time and static velazco-scale imaging. COMPARISON: None available. FINDINGS: RIGHT KIDNEY: Normal location of the right kidney, which is normal in size. The right kidney measures cm. There is a 2.3 cm cyst and 1.4 cm cyst. There is no right renal mass or cyst. There are no right renal calculi. There is no right hydronephrosis. LEFT KIDNEY: Normal location of the left kidney, which is normal in size. The left kidney measures cm. There is a 1.6 cm cyst and 1.2 cm cyst. There is no left renal mass or cyst. There are no left renal calculi. There is no left hydronephrosis. AORTA: No evidence of abdominal aortic aneurysm. I.V.C.: The IVC is patent. BLADDER: The urinary bladder is partially distended and appears unremarkable. US/Kidney and Bladder IMPRESSION: No acute renal pathology identified. Bilateral renal cysts. Electronically Signed: Gume Dalal, at 20:55 EST Tel , Service support ,
[2019-07-01 12:34] LABS: Absolute Lymphocyte Count 1.17 X10^3/uL (0.83-4.51); Absolute Neutrophil Count 5.2 X10^3/uL (2.0-7.7); Basophil# 0.05 X10^3/uL; Basophil% 0.7 % (0-1); Eosinophil# 0.23 X10^3/uL; Eosinophils% 3.2 % (0-5); Hemoglobin 13.9 g/dL (12.0-15.0); Lymphocyte # 1.17 X10^3/ul (4.0); Mean Corp Hgb Conc 32.3 g/dL (32-36); Mean Corpuscular Hgb 29.4 pg (27.0-32.0); Mean Corpuscular Volume 90.9 fL (81-99); Mean Platelet Vol. 10.3 fl (6.2-12.0); Monocyte# 0.62 X10^3/uL; Monocyte% 8.5 % (0-10); NRBC Flagged by Analyzer 0 % (0-5); Neutrophil # 5.15 X10^3/uL (2.7-7.7); Neutrophil % 70.6 % (47-70); Platelet Count 278 K/mm3 (150-450); RBC Distribution Width CV 13.2 % (11.6-14.6); RBC Distribution Width SD 43.8 fl (35.1-43.9); Red Blood Count 4.73 M/mm3 (4.2-5.4); White Blood Count 7.3 K/mm3 (4.4-11.0)
[2019-07-01 13:07] LABS: Vitamin D,25 Hydroxy 41.9 ng/mL (29.95-100.01)
[2019-07-01 13:12] LABS: Albumin, Serum 3.7 g/dL (3.2-5.0); BUN 26 mg/dL (7-18); BUN/Creat Ratio 18.3 RATIO (10-20); Calcium,Total 9.5 mg/dL (8.5-10.1); Chloride 108 mmol/L (98-107); Creatinine, Serum 1.42 mg/dL (0.55-1.02); EST Glomerular Filtration Rate 39 mL/min (>60); Est Glom Filt Rate - Afr Amer 48 mL/min (>60); Glucose 99 mg/dL (74-106); Phosphorus 2.5 mg/dL (2.5-4.9); Potassium 4.4 mmol/L (3.5-5.1); Sodium Level 137 mmol/L (136-145)
[2019-07-01 14:39] LABS: Microalbumin,Random Urine < 5.0 mg/L (NO RANGE EST.); Protein, Urine (Random) < 6.0 mg/dL (<11.9)
[2019-07-03 09:51] LABS: Vitamin D 1,25-Dihydroxy 42.2 pg/mL (19.9-79.3)
== END ==
PROVIDERS: Family Provider Nurse Practitioner; PCP Nurse Practitioner; Referring Provider Pediatrics Pediatric Nephrology; Visit Provider Pediatrics Pediatric Nephrology
DX: N18.3 Chronic kidney disease, stage 3 (moderate) (principal); D64.9 Anemia, unspecified; E21.3 Hyperparathyroidism, unspecified
CPT/HCPCS: 36415; 76770; 80069; 82043; 82306; 82570; 82652; 83970; 84156; 84443; 85025

== ENCOUNTER → 2019-07-10 17:26 | Outpatient (CLI) | payer OTHER, SELFPAY ==
[2019-07-10 15:54] VITALS: BMI 32.9
--- NOTE | 2019-07-10 17:38 | RAD_ITS ---
STUDY: X-RAY - RIGHT KNEE REASON FOR EXAM: Female, 64 years old. RIGHT KNEE PAIN TECHNIQUE: 4 view(s) of the knee. COMPARISON: None. FINDINGS: Normal visualized distal femur. Normal visualized proximal tibia and fibula. Normal proximal tibiofibular articulation. There is severe degenerative arthrosis of the medial femorotibial compartment with severe joint space narrowing. There is mild degenerative arthrosis of the lateral femorotibial compartment. There is moderate degenerative arthrosis of the patellofemoral articulation. 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 The soft tissue structures are unremarkable. RAD/Knee 4 or More Views IMPRESSION: CPPD with severe arthrosis per Electronically Signed: Leo Glass MD at 17:07 EST Tel , Service support ,
--- NOTE | 2019-07-10 17:45 | RAD_ITS ---
STUDY: X-RAY - LUMBAR SPINE REASON FOR EXAM: Female, 64 years old. LOWER BACK PAIN TECHNIQUE: 5 view(s) of the lumbar spine were obtained. COMPARISON: None FINDINGS: Normal lumbar lordosis. Moderate levoscoliosis centered at L3. There is a normal alignment of the vertebrae. There is multilevel endplate spondylosis of the lumbar vertebrae. There is multi-level degenerative disc disease with multi-level disc space narrowing. The soft tissue structures are unremarkable. RAD/L/S Spine Min 4 Views IMPRESSION: Moderate levoscoliosis with moderate degenerative disc disease. Electronically Signed: eLo Glass MD at 17:02 EST Tel , Service support ,
== END ==
LOC: RAD 17:28
PROVIDERS: PCP Nurse Practitioner; Referring Provider Nurse Practitioner; Visit Provider Nurse Practitioner
DX: M54.32 Sciatica, left side (principal); M54.14 Radiculopathy, thoracic region; M25.561 Pain in right knee
CPT/HCPCS: 72110; 73564

== ENCOUNTER → 2019-10-21 13:13 | Outpatient (CLI) | payer OTHER, SELFPAY ==
[2019-09-28 15:07] VITALS: BMI 33.6
[2019-10-21 12:03] VITALS: BMI 33.6
--- NOTE | 2019-10-21 13:14 | CT_ITS ---
STUDY: CT SCAN LOWER EXTREMITY RIGHT REASON FOR EXAM: Female, 64 years old. RIGHT KNEE PAIN. DI PROTOCOL RADIATION DOSAGE (If Supplied By Facility): CTDIvol = ( 30.70 ) mGy, DLP = ( 1907.97 ) mGycm. Individualized dose optimization techniques were used for this CT.? TECHNIQUE: Multiple axial tomographic images of the right hip, knee and ankle joints were obtained. Sagittal and coronal reconstruction were obtained as well. COMPARISON: None. FINDINGS: There is evidence of chondrocalcinosis of the right hip joint with marginal bony spur formation along the medial and lateral aspect of the femoral head as well as the acetabulum. Moderate degree of joint space narrowing. Marked degree of joint space narrowing involving the medial compartment of the knee joint with a bony spur formation of the distal medial femoral condyle and medial tibial plateau. Chondrocalcinosis of the medial and lateral menisci. Degenerative spur formation along the lateral femoral condyle as well as the lateral tibial plateau. Mild degree of degenerative changes of the patellofemoral joint. Imaging of the ankle shows no significant degenerative changes. CT/Extremity Lower without Contra IMPRESSION: Marked degree of joint space narrowing involving the medial compartment of knee joint with evidence of bony spur formation and chondrocalcinosis of the medial and lateral menisci. Electronically Signed: Tommie Avalos, at 13:54 EDT , Service support ,
== END ==
PROVIDERS: PCP Nurse Practitioner; Referring Provider Orthopaedic Surgery; Visit Provider Orthopaedic Surgery
DX: M25.561 Pain in right knee (principal)
CPT/HCPCS: 73700

== ENCOUNTER → 2019-11-04 12:30 | Outpatient (CLI) | payer OTHER, SELFPAY ==
[2019-11-03 10:11] VITALS: BMI 33.6
--- NOTE | 2019-11-04 12:32 | ECHOCS_ITS ---
Reason For Study: Abn. EKG, Pre-op clearance Procedure This was a 2D Doppler, Color Flow transthoracic echocardiogram. The study was technically difficult. Exam performed in department. Left Ventricle Normal LV size. Left ventricular systolic function is normal. The estimated ejection fraction is 60 %. No regional wall motion abnormalities noted. Right Ventricle Normal RV size. Normal systolic function. Atria Normal left atrium. Mitral Valve Mitral valve not well visualized. Tricuspid Valve Normal tricuspid valve. Aortic Valve The aortic valve is not well visualized. Great Vessels Normal aortic root. Pericardium/Pleural No pericardial effusion. Medication 22 gauge I.V. with prn adaptor inserted into right arm. Diluted definity 3ml given slow IV push to enhance endocardial definition. MMode/2D Measurements & Calculations LVIDd: 3.4 cm IVSd: 1.2 cm Ao root diam: 3.1 cm LVIDs: 2.2 cm LVPWd: 1.1 cm RVDd: 2.8 cm FS: 34.0 % LAV(MOD-bp): 30.0 ml LA A4 area: 15.4 cm2 LA dimension(2D): 3.9 cm LAV(MOD-bp) Indexed: 15.9 ml/m2 LAV(MOD-sp2): 21.7 ml LAV(MOD-sp4): 36.2 ml RA A4 area: 12.0 cm2 Doppler Measurements & Calculations MV E max jay: 46.7 cm/sec Lat Peak E' Ajy: 7.6 cm/sec Med Peak E' Jay: 6.7 cm/sec MV A max jay: 78.6 cm/sec E/E' lat: 6.2 E/E' med: 7.0 MV E/A: 0.59 Ao V2 max: 101.3 cm/sec LV V1 max: 78.9 cm/sec PA V2 max: 62.0 cm/sec Ao max P.1 mmHg LV V1 max P.5 mmHg Interpretation Summary Normal LV size. Left ventricular systolic function is normal. The estimated ejection fraction is 60 %. Contrast injection was performed. Ordering Physician: Jay Martinez Referring Physician: Teresa Rowe Performed By: Katarina Ch RDCS
== END ==
PROVIDERS: PCP Nurse Practitioner; Referring Provider Internal Medicine Cardiovascular Disease; Visit Provider Internal Medicine Cardiovascular Disease
DX: Z01.818 Encounter for other preprocedural examination (principal); R94.31 Abnormal electrocardiogram [ECG] [EKG]; E78.5 Hyperlipidemia, unspecified; Z86.711 Personal history of pulmonary embolism; M11.861 Other specified crystal arthropathies, right knee; M25.561 Pain in right knee; M54.16 Radiculopathy, lumbar region; I12.9 Hypertensive chronic kidney disease with stage 1 through stage 4 chronic kidney disease, or unspecified chronic kidney disease; N18.9 Chronic kidney disease, unspecified
CPT/HCPCS: 93306; Q9957; A4216; C8929

== ENCOUNTER 2019-11-05 09:45 | Observation (INO) | payer OTHER, SELFPAY ==
[2019-10-21 12:03] VITALS: BMI 33.6
--- NOTE | 2019-10-30 12:50 | EKG12_ITS ---
Test Reason : PRE OP Blood Pressure : / mmHG Vent. Rate : 063 BPM Atrial Rate : 063 BPM P-R Int : 160 ms QRS Dur : 094 ms QT Int : 420 ms P-R-T Axes : 023 001 002 degrees QTc Int : 429 ms Normal sinus rhythm Inferior infarct , age undetermined Abnormal ECG Confirmed by AAMIR OLVERA, ELLIE ([id number]), editorial project manager VIRI TRAMMELL ([id number]) on 11/02/2019 1:11:10 PM Referred By: Wayne Vieira Confirmed By:NADYA RUTLEDGE MD
[2019-10-30 13:00] LABS: Hematocrit 39.9 % (37-47); Hemoglobin 13.3 g/dL (12.0-15.0); Mean Corp Hgb Conc 33.3 g/dL (32-36); Mean Corpuscular Hgb 30.7 pg (27.0-32.0); Mean Corpuscular Volume 92.1 fL (81-99); Mean Platelet Vol. 10.2 fl (6.2-12.0); Platelet Count 191 K/mm3 (150-450); RBC Distribution Width CV 13.5 % (11.6-14.6); RBC Distribution Width SD 44.4 fl (35.1-43.9); Red Blood Count 4.33 M/mm3 (4.2-5.4); White Blood Count 5.5 K/mm3 (4.4-11.0)
[2019-10-30 14:08] LABS: Anion Gap 4 (5-15); BUN 36 mg/dL (7-18); BUN/Creat Ratio 22.1 RATIO (10-20); Calcium,Total 9.5 mg/dL (8.5-10.1); Chloride 106 mmol/L (98-107); Creatinine, Serum 1.63 mg/dL (0.55-1.02); EST Glomerular Filtration Rate 34 mL/min (>60); Est Glom Filt Rate - Afr Amer 41 mL/min (>60); Glucose 89 mg/dL (74-106); Sodium Level 137 mmol/L (136-145); Thyroid Stim Hormone (TSH) 0.79 uIU/mL (0.358-3.74)
[2019-11-03 10:11] VITALS: BMI 33.6
[2019-11-05] VITALS (13 sets, daily range): BP systolic 93–155; BP diastolic 67–95; PULSE 62–91; RESP 14–18; TEMP 36.3–37.1; O2SAT 94–100; BMI 33.3
[2019-11-05] MEDS: Acetaminophen 500 MG Tablet 1000 MG PO ×3 (06:11→21:53)
[2019-11-05] MEDS: Gabapentin 600 MG Tablet PO (06:12)
[2019-11-05] MEDS: Scopolamine 1mg/72hr Patch 1 PATCH TRANSDERM. (06:12)
[2019-11-05] MEDS: Lactated Ringers 1,000 ML 100 ML IV (06:29)
[2019-11-05] MEDS: Lactated Ringers 1,000 ML 125 ML IV ×3 (07:00→19:34)
[2019-11-05 07:10] LABS: Bedside Glucose 98 mg/dL (70-110)
[2019-11-05 07:12] LABS: Magnesium 1.7 mg/dL (1.6-2.6)
--- NOTE | 2019-11-05 07:26 | PCM.HP.BLA ---
History and Physical Date of Admission: 11/05/19 Intake Vital Signs 10/21/19 BMI 33.6 Intake Visit Reasons: right knee Chief Complaint: Referral from Dr. Rowe right knee pain Allergies simvastatin [From Zocor] Adverse Reaction (Severe, Verified 02/12/19 22:04) muscle cramps niapsan Allergy (Severe, Uncoded 02/12/19 22:04) Anaphylaxis HPI right knee: Details: Parts of this documentation were recorded by a scribe, this documentation accurately reflects the service provided and the decisions made by , Wayne Vieira DO 10/21/19 0755. MELONIE LU is a 64 year old F here today for chronic right knee pain her symptoms have getting progressive Joe worse this is significantly affecting her activities of daily living and cannot walk or do things that she enjoys. Ortho Exam Right Knee Knee ROM: No ROM-Extension -20 to 0 (5), No ROM-Flexion 0-140 (105) Examination: Yes Med jt line tenderness, Yes Pain with flexion Stability: 2+: Valgus 30 (4mm gap d/t jt space narrowing) KNEE: Right Knee Skin/Wound: No erythema, No ecchymosis, No swelling Homans Sign: No Knee ROM: Yes ROM-Extension -20 to 0, No ROM-Flexion 0-140 (118) Examination: Yes Med jt line tenderness, Yes Lat jt line tenderness Stability: NML: Anterior Drawer, NML: Posterior Drawer, NML: Varus 30, 2+: Valgus 30 (medial gapping d/t joint space narrowing) Patella Translation: 1 Patella Grind: Yes KNEE: no joint effusion no sign of infection no gross motor deficits intact sensation palpable pedal pulses Office Procedures Iovera Details:: Preoperative diagnosis : Postoperative diagnosis: Same Procedure: Cryotherapy with Iovera device to anterior femoral cutaneous nerve and 2 branches of the infrapatellar saphenous nerve III nerves in total Description of procedure: Patient was brought back to the procedure room the operative extremity was identified by both patient and physician. The PIP flexion crease was measured to the midpoint of the patella and this distance was divided in 3 resulting in 10 cm location proximal to the midpoint of the patella. This line was extended medial and lateral to the extent of the edges of the patella. This was our treatment line for the anterior femoral cutaneous nerve. A second treatment line was made 5 cm medial to the inferior pole of the patella and 5 cm distally. The leg was prepped with alcohol and Betadine. Lidocaine with epi was used along the treatment lines. Using the Iovera device treatment lines were treated with 1 minute cycles. Reproduction of paresthesias was monitored in the area of nerve distribution. Once all 3 nerves were treated across the 2 treatment lines patient was cleaned and a light dressing with 4 x 4 and Raheem wrap was applied. Patient tolerated the procedure without complication. Supplemental Info 07/10/2019 x-ray right knee severe [id number] medial compartment moderate patellofemoral spurring chondrocalcinosis lateral compartment with mild spurring Assessment & Plan Problems 1. Chronic pain of right knee M25.561; G89.29 2. Primary osteoarthritis of right knee M17.11 Plan Iovera treatment performed today without issue. Once again discussed risk benefits alternatives of total knee arthroplasty including risk of bleeding infection nerve artery tissue damage need for further surgery continue pain postoperative stiffness and expected postoperative course. We discussed the use of robotic assisted surgery We discussed the risk of COVID-19 contamination in the hospital and the potential consequences of ventilator assisted support were as a risk. Patient wishes to assume this risk considering her severe worsening symptoms that are affecting her activities of daily living. We will schedule her for November 05, 2019 all NSAIDs need to be stopped 7 days prior to surgery. Orders Orders: Iovera Today M25.569 Coding Level of Care Code Attention Tyler Diagnoses Chronic pain of right knee M25.561; G89.29 ??Laterality: right Primary osteoarthritis of right knee M17.11 ??Osteoarthritis type: primary I have re-examined the patient. There are no clinical changes since date of exam Essential Procedure Criteria Procedure Essential: Yes Criteria Note: [In addition to standard risk risk of COVID-19 exposure and potential consequences including respiratory failure ventilation and patient wishes to assume this risk secondary to ongoing progressive worsening symptoms that are limiting activities of daily living.] Risk to Patient if Procedure Delayed: Presence of severe symptoms causing an inability to perform ADL's
[2019-11-05] MEDS: Cefazolin 2 GM in 0.9% Normal Saline 100 ML IV (07:40)
[2019-11-05] MEDS: dexAMETHasone 10 MG/ML Vial IV (07:51)
[2019-11-05] MEDS: Magnesium Sulfate 4gm/100mL 4 GM/100 ML IV.SOLN. IV (07:58)
[2019-11-05] MEDS: Bupivacaine 0.5% PF 10 ML VIAL (09:07)
[2019-11-05] MEDS: 0.9% Normal Saline (Pres. free 10 ML Vial (09:07)
[2019-11-05] MEDS: Betamethasone/Betamethasone 30 MG/5 ML Vial (09:07)
[2019-11-05] MEDS: Epinephrine (1 mg/ml) 1 MG/ML VIAL (09:07)
--- NOTE | 2019-11-05 09:46 | RAD_ITS ---
STUDY: X-RAY - RIGHT KNEE REASON FOR EXAM: Female, 64 years old. Postop from knee replacement surgery TECHNIQUE: 2 view(s) of the knee. COMPARISON: 07/10/2019 FINDINGS: Patient is status post right knee replacement surgery. Components demonstrate anatomic alignment. No plain film evidence of postoperative complication. Normal postoperative soft tissue swelling and subcutaneous emphysema. RAD/Knee 1 or 2 Views IMPRESSION: Replaced right knee joint demonstrates anatomic alignment. No plain film evidence of postoperative complication Electronically Signed: James Watkins MD at 10:34 EDT , Service support ,
--- NOTE | 2019-11-05 09:53 | OP.PCM_ITS ---
Report of Operation Date of Procedure: 11/05/19 Description of Surgical Findings:: Preoperative diagnosis: Right knee DJD Postoperative diagnosis: Same Procedure: Right total knee arthroplasty CT guided Robotic Assisted Implant: Srinivas triathlon press fit femoral component size 2, press-fit tibial baseplate size 3, press fit asymmetric patella size 29, polyethylene X3 size 9 CS Anesthesia: Spinal with adductor canal block Tourniquet time: 15 minutes at 300 mmHg Complications: None Condition: Stable to PACU Estimated blood loss: 75 cc Indication for procedure: This is a 64-year-old female with long standing degenerative joint disease of the knee who has failed conservative treatment and wished to proceed with elective total knee arthroplasty. Risk benefits and alternatives were reviewed including; risk of bleeding, infection, nerve artery and tissue damage, continued pain, postoperative stiffness, venous thromboembolism, need for postoperative rehabilitation, mechanical feel to the knee, and expected postoperative course. The operative CT and templating was performed with component sizing In addition to standard risk risk of COVID-19 exposure and potential consequences including respiratory failure ventilation and patient wishes to assume this risk secondary to ongoing progressive worsening symptoms that are limiting activities of daily living. Procedure: The patient was met in the preoperative holding area. The operative extremity was identified by both patient and physician and was marked. Patient was met by anesthesia. An adductor canal block was placed by anesthesia postoperatively the patient was brought back to the operating room on a wheeled cart and transferred to the operating table in the supine position. Anesthesia was started. A well-padded tourniquet was placed on the operative extremity. The patient was prepped and draped in the usual sterile fashion. A timeout was called to ensure the proper patient procedure and extremity were being contemplated. An Esmarch was used to exsanguinate the extremity. The tourniquet was inflated. A 10 blade scalpel was used to make a midline incision down through the skin and subcutaneous tissue. Skin retractors placed. Bovie was used to perform meticulous hemostasis. full-thickness flaps were elevated medial and lateral along the joint capsule. A deep blade scalpel was used to perform a medial parapatellar arthrotomy. The knee was brought to full extension. A Bovie was used to release the soft tissues off the most proximal aspect of the medial tibial plateau a three-quarter inch curved osteotome was also used for this process. The infrapatellar fat pad was excised. The fat pad was excised partially anterior lateral portion the anterior medial was elevated from the femur. At this point our intra-articular femoral array was placed of a 45 degree angle proximal and posterior to the medial epicondyle. Our tibial array was placed greater than 1 hands breath below the incision at a 20 degree angle stab incisions were used for this case were attached and checked with the robotic software. Tourniquet was let down . at this point registration hairston were taken throughout the knee as well as checkpoints placed in the femur and tibia once the knee was registered then tensioned the medial and lateral ligaments in extension and 90 degrees of flexion. We then used these numbers to adjust our components within parameters to balance the knee in both flexion and extension once this was done on our monitor we then proceeded with using the robotic arm to make our tibial plateau cut and anterior posterior and chamfer cuts on the femur we then trialed and achieved the desired plan with a well- balanced knee. Lug holes were drilled in the femur the tibia preparation was completed with a fin punch and the patella was prepared by first using a caliper to ensure sufficient bone stock and a patellar reamer to remove the desired amount of bone locals were drilled for an asymmetric poly-. We then brought the knee through range of motion with excellent patellar tracking. We thoroughly irrigated the knee with a trial components were removed a posterior capsular injection with her standard cocktail was performed the aqua Genesis was also used to aid in hemostasis. Betadine rinse was allowed to sit and washed out components were press-fit into place. Aricept rinse was then used followed by several more rate liters of irrigation after it was allowed to sit. Joint capsule was closed with #1 Ethibond [id number]-fyndq's followed by Vicryl in the subcutaneous tissues staple in the skin arrays and checkpoints were removed prior to closure all counts were correct stab incisions were closed with a stable standard dressing in the form of Mepilex for the main incision Xeroform 4 x 4 and Tegaderm over pin site holes thigh-high SHANDRA hose applied over top of dressing. Patient tolerated the procedure well she was directed to PACU in stable condition no intraoperative complications
[2019-11-05] MEDS: Cefazolin 1 GM/50 ML BAG IV ×2 (12:49→22:42)
[2019-11-05] MEDS: HYDROmorphone 0.5 MG/0.5 ML SYRINGE IV (13:11)
[2019-11-05] MEDS: 0.9% Saline Lock 10 ML Syringe IV (13:11)
[2019-11-05] MEDS: Azelastine HCl NASAL.SRY 2 SPRAY NASAL ×2 (13:14→21:52)
[2019-11-05] MEDS: Ferrous Sulfate 325 MG Tablet PO (13:16)
[2019-11-05] MEDS: Ezetimibe 10 MG Tablet PO (13:16)
[2019-11-05] MEDS: oxyCODONE 5 MG Tablet PO ×2 (15:04→19:33)
--- NOTE | 2019-11-05 15:44 | CPS ---
patient had covid swab done yesterday in the drive up clinic, before surgery
[2019-11-05] MEDS: Calcitriol 0.25 MCG Capsule PO (21:53)
[2019-11-05] MEDS: Senna/Docusate Sodium 1 Tablet 2 TABLET PO (21:53)
[2019-11-05] MEDS: buPROPion (SR) 150 MG Tablet.SA PO (21:54)
[2019-11-06] MEDS: oxyCODONE 5 MG Tablet PO ×2 (00:32→06:52)
[2019-11-06 02:02] VITALS: BP 158/91; PULSE 84; RESP 18; TEMP 36.4; O2SAT 97
[2019-11-06] MEDS: cycloBENZAPRine HCl 5 MG TABLET PO (02:02)
[2019-11-06] MEDS: HYDROmorphone 0.5 MG/0.5 ML SYRINGE IV (03:54)
[2019-11-06] MEDS: Rivaroxaban 10 MG Tablet PO (06:12)
[2019-11-06] MEDS: Levothyroxine 112 MCG Tablet PO (06:13)
[2019-11-06] MEDS: Acetaminophen 500 MG Tablet 1000 MG PO ×2 (06:13→13:32)
[2019-11-06] MEDS: Cefazolin 1 GM/50 ML BAG IV (06:13)
[2019-11-06] MEDS: 0.9% Saline Lock 10 ML Syringe IV (06:55)
[2019-11-06 07:43] LABS: Hematocrit 36.6 % (37-47); Hemoglobin 12.2 g/dL (12.0-15.0); Mean Corp Hgb Conc 33.3 g/dL (32-36); Mean Corpuscular Hgb 30.7 pg (27.0-32.0); Mean Platelet Vol. 10.5 fl (6.2-12.0); Platelet Count 234 K/mm3 (150-450); RBC Distribution Width CV 13.2 % (11.6-14.6); RBC Distribution Width SD 43.8 fl (35.1-43.9); Red Blood Count 3.98 M/mm3 (4.2-5.4); White Blood Count 13.6 K/mm3 (4.4-11.0)
[2019-11-06 08:12] LABS: Anion Gap 10 (5-15); BUN 20 mg/dL (7-18); BUN/Creat Ratio 13.9 RATIO (10-20); Calcium,Total 9.4 mg/dL (8.5-10.1); Chloride 104 mmol/L (98-107); Creatinine, Serum 1.44 mg/dL (0.55-1.02); EST Glomerular Filtration Rate 39 mL/min (>60); Est Glom Filt Rate - Afr Amer 47 mL/min (>60); Estimated Creatinine Clearance 32.22 ml/min; Glucose 168 mg/dL (74-106); Potassium 4.1 mmol/L (3.5-5.1); Sodium Level 137 mmol/L (136-145)
[2019-11-06 10:35] VITALS: BP 170/77; PULSE 88; RESP 18; TEMP 36.6; O2SAT 96
[2019-11-06] MEDS: buPROPion (SR) 150 MG Tablet.SA PO (10:35)
[2019-11-06] MEDS: Calcitriol 0.25 MCG Capsule PO (10:35)
[2019-11-06 10:36] VITALS: PULSE 50
[2019-11-06] MEDS: Senna/Docusate Sodium 1 Tablet 2 TABLET PO (10:36)
[2019-11-06] MEDS: Metoprolol(XL)Succ 50 MG Tablet PO (10:36)
[2019-11-06] MEDS: Azelastine HCl NASAL.SRY 2 SPRAY NASAL (10:37)
[2019-11-06] MEDS: Ezetimibe 10 MG Tablet PO (10:37)
[2019-11-06] MEDS: Magnesium Oxide 400 MG Tablet PO (10:48)
--- NOTE | 2019-11-06 10:55 | PCM.DC.ORTHO ---
Discharge Diet: No Restrictions Weight Bearing Status: Weight bearing as tolerated Call your doctor if you observe: Shortness of breath, Chest pain Additional Instructions: Ice and elevate one week while not ambulating. Ambulation is encouraged. Weightbearing as tolerated. Use assistive devise for stability. Encourage FULL knee extension and flexion 1 time EVERY time you get up and down and MULTIPLE times per day. No showering 72 hours after surgery. Begin showering postop day #3. Remove the dressing prior to shower and gently wash with warm water and antibacterial soap then pat dry and place abdominal pad (or plain gauze) and SHANDRA hose over top. This is to be done daily. Do not submerge for 3 weeks. If not showering daily after the initial 72 hours then you must clean incision and change dressing daily. Do not allow animals near the incision area. Keep clean. Follow anticoagulation recommendations as prescribed. Start physical therapy. If you are not currently scheduled for physical therapy or you are unsure of appointment time please call office [facility] to arrange. Call Dr. Vieira with any concerns. Allergies/Adverse Reactions: Allergies simvastatin [From Zocor] Adverse Reaction (Severe, Verified 11/03/19 10:12) muscle cramps niapsan Allergy (Severe, Uncoded 11/03/19 10:12) Anaphylaxis Medications to take at Discharge cholecalciferol (vitamin D3) 50 mcg (2,000 unit) capsule 2,000 unit PO QDAY 01/27/18 ferrous sulfate 325 mg (65 mg iron) tablet,delayed release 325 mg PO QDAY tab 01/27/18 magnesium oxide 400 mg PO QDAY cap 01/27/18 omega 6-sbo-fcg-fish oil 1,000 mg (120 mg-180 mg) capsule 3 cap PO DAILY cap 01/27/18 vitamin F-ulblvynmwbfz-buhwrxg 500 mg-multivitamin with minerals chewable tablet 500 tab PO DAILY 01/27/18 azelastine 137 mcg (0.1 %) nasal spray aerosol 2 spray INTRANASAL BID #30 ml 05/20/18 levothyroxine 112 mcg tablet 112 mcg PO DAILY #90 tab 04/18/19 bupropion HCl 150 mg tablet,12 hr sustained-release 150 mg PO BID #180 tab 07/10/19 calcitriol 0.25 mcg capsule 0.25 mcg PO BID #180 cap 07/10/19 ezetimibe 10 mg tablet 10 mg PO QDAY #90 tab 07/10/19 metoprolol succinate 50 mg tablet,extended release 24 hr 50 mg PO QDAY #90 tab 07/10/19 rivaroxaban 20 mg tablet 20 mg PO QDAY #30 tab 07/10/19 alprazolam 0.5 mg tablet 0.5 mg PO BID PRN #60 tab 07/13/19 cyclobenzaprine 5 mg tablet 5 mg PO TID PRN #90 tab 07/31/19 Acetaminophen [Tylenol] 1,000 mg PO Q6H PRN #100 tab 11/06/19 Oxycodone [Oxyir] 5 - 10 mg PO Q4H PRN PRN #60 tablet 11/06/19 The following prescriptions were given: Oxycodone [Oxyir] 5 - 10 mg PO Q4H PRN PRN #60 tablet PRN Reason: Pain Score 4-10/10 Transmission Status: Received by [id number] Acetaminophen [Tylenol] 1,000 mg PO Q6H PRN #100 tab Transmission Status: Pending to [id number] Orders to be completed after discharge: Basic Metabolic Profile (BMP) Time Frame: 10/23/19, Facility: [facility] [place], Location: Laboratory CBC-Complete Blood Cnt No Diff Time Frame: 10/23/19, Facility: [facility] [place], Location: Laboratory Thyroid Stim Hormone (TSH) Time Frame: 10/23/19, Facility: [facility] [place], Location: Laboratory Primary Care Physician: Teresa Rowe NP-C [Primary Care Provider] - Test Results: Test results from this visit will be discussed in further detail at your follow-up appointment, if applicable. Please Follow Up With: Wayne Vieira DO - 2 weeks
--- NOTE | 2019-11-06 11:20 | CASEMGMT ---
MICHAEL GRIFFIN Face to Face with patient for initial transition planning/care coordination assessment. RN CM introduced self and role at [facility]. Patient sitting in chair, alert and oriented. Patient willing to participate in assessment and is able to answer all questions appropriately. Care providers, pharmacy, and demographics verified. Patient wishes to discharge home and is setup with outpatient therapy at [facility] in [place]. Patient states she has no further needs or concerns at this time. CM to follow for discharge planning needs that may arise. PCP: [facility] Specialists: jes Vieira; melonie Vargas Preferred Pharmacy: [facility] Insurance: [employer] Prescription Benefit: yes Living Will/HPOA: yes, [place] LNOK: Living Arrangements: Patient lives with in multi story house with bed and bath on main level of home with 3 steps and railing. Patient states she is independent at home prior to surgery Transportation: DME/HHC: Patient has raised toilet, cane, and walker at home. Patient is setup with [facility] for outpatient therapy. Disposition Plan: Patient to discharge home with outpatient therapy, family support, and follow-up plans in place. Leeann CAPUTO, RN, CM
--- NOTE | 2019-11-06 12:25 | DS.PCM_ITS ---
Discharge Date and Diagnosis Date of Admission: 11/05/19 Date of Discharge: 11/06/19 - Secondary Discharge Diagnosis Chronic Problems: Chronic Problems (Last Reviewed 11/03/19 @ 11:[address] 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 Patient wished to undergo elective robotic assisted total knee arthroplasty and underwent the aforementioned procedure on the admission date without complications. patient did receive pre-and postoperative antibiotics which were discontinued within 23 hours postoperatively. patient did receive a spinal anesthesia and a adductor canal block and the pain was controlled postoperatively with p.o. and IV pain medication. There was minimal intraoperative blood loss he did receive 2 g of tranexamic acid and his vital signs and labs were stable postoperatively and patient did not require a blood transfusion. patient was seen by physical therapy and did progress with his ambulation. Postoperatively was started on both mechanical and chemical DVT prophylaxis for which patient will continue home dose of Xarelto Mepilex AG dressing will stay on for 72 hours postope ratively at which time patient will begin showering on postop day #3 with daily dressing changes. Encouraged patient to achieve full range of motion as soon as possible, Patient will start outpatient physical therapy and will follow-up in the office in 2 weeks for wound check. There is no intrahospital complications . - Physical Exam Vitals/I&O's: Vital Signs Temp Pulse Resp BP Pulse Ox 97.9 F 50 L 18 170/77 H 96 11/06/19 10:35 11/06/19 10:36 11/06/19 10:35 11/06/19 10:35 11/06/19 10:35 Oxygen Flow Rate (L/min) 6 Oxygen Delivery Method Room Air Weight: 188 lb 4.396 oz Body Mass Index (BMI) 33.3 Intake and Output for Last 24 Hours 11/04/19 11/05/19 11/06/19 23:59 23:59 23:59 Intake Total 4426.25 / 46.1857. / 1857. Balance 44. / 4625.1857. / 1857. General: Alert, Oriented x3, Cooperative, No apparent distress Extremities: - - Dressing clean dry and intact neurovascular intact compartments soft Microbiology Past 72 Hours 11/04/19 11:52 Mucosa - Nasopharyngeal Coronavirus COVID-19 PCR - Final Laboratory Results 11/06/19 07:11: WBC 13.6 H, RBC 3.98 L, Hgb 12.2, Hct 36.6 L, MCV 92.0, MCH 30.7, MCHC 33.3, RDW Std Deviation 43.8, RDW Coeff of Meka 13.2, Plt Count 234, MPV 10.5 11/06/19 07:11: Sodium 137, Potassium 4.1, Chloride 104, Carbon Dioxide 23.0, Anion Gap 10, BUN 20 H, Creatinine 1.44 H, Estim Creat Clear Calc 32.22, Est GFR (MDRD) Af Amer 47 L, Est GFR (MDRD) Non-Af 39 L, BUN/Creatinine Ratio 13.9, Glucose 168 H, Calcium 9.4 Current Medications Acetaminophen (Tylenol) 1,000 mg PO Q8 [facility] Last Admin: 11/06/19 06:13 Dose: 1,000 mg Documented by: Azelastine HCl (Astelin) 2 spray NASAL BID [facility] Last Admin: 11/06/19 10:37 Dose: 2 sprays Documented by: Bupropion HCl (Wellbutrin Sr (150mg Tablets)) 150 mg PO BID [facility] Last Admin: 11/06/19 10:35 Dose: 150 mg Documented by: Calcitriol (Rocaltrol) 0.25 mcg PO BID [facility] Last Admin: 11/06/19 10:35 Dose: 0.25 mcg Documented by: Cyclobenzaprine HCl (Cyclobenzaprine Hcl) 5 mg PO TID PRN PRN PRN Reason: muscle spasm Last Admin: 11/06/19 02:02 Dose: 5 mg Documented by: Ezetimibe (Zetia) 10 mg PO DAILY [facility] Last Admin: 11/06/19 10:37 Dose: 10 mg Documented by: Ferrous Sulfate (Ferrous Sulfate) 325 mg PO DAILY@1200 [facility] Last Admin: 11/05/19 13:16 Dose: 325 mg Documented by: Hydromorphone HCl (Dilaudid Inj) 0.5 mg IV Q2H PRN PRN PRN Reason: Pain Score 6-10/10 Last Admin: 11/06/19 03:54 Dose: 0.5 mg Documented by: Insulin Human Lispro (Humalog Kwikpen (Bkc)) 1 - 6 unit SC Q4H PRN PRN; Protocol PRN Reason: BG>/= 180, SEE PROTOCOL Levothyroxine Sodium (Synthroid) 112 mcg PO DAILY@0600 [facility] Last Admin: 11/06/19 06:13 Dose: 112 mcg Documented by: Magnesium Oxide (Mag-Ox 400) 400 mg PO DAILY [facility] Last Admin: 11/06/19 10:48 Dose: 400 mg Documented by: Metoprolol Succinate (Toprol Xl (Beta Bebo)) 50 mg PO DAILY [facility] Last Admin: 11/06/19 10:36 Dose: 50 mg Documented by: Ondansetron HCl (Zofran) 4 mg IV Q6H PRN PRN PRN Reason: NAUSEA Oxycodone HCl (Oxyir) 5 - 10 mg PO Q4H PRN PRN PRN Reason: Pain Score 4-10/10 Last Admin: 11/06/19 06:52 Dose: 10 mg Documented by: Rivaroxaban (Xarelto) 10 mg PO DAILY [facility] Last Admin: 11/06/19 06:12 Dose: 10 mg Documented by: Senna/Docusate Sodium (Senokot-S, Naomi-Colace) 2 tablet PO BID [facility] Last Admin: 11/06/19 10:36 Dose: 2 tablet Documented by: Sodium Chloride () 10 - 40 ml IV UD PRN PRN Reason: SALINE FLUSH Last Admin: 11/06/19 06:55 Dose: 10 ml Documented by: Discharge Diet: No Restrictions Weight Bearing Status: Weight bearing as tolerated Call your doctor if you observe: Shortness of breath, Chest pain Home Medications: Medications to take at Discharge cholecalciferol (vitamin D3) 50 mcg (2,000 unit) capsule 2,000 unit PO QDAY 01/27/18 ferrous sulfate 325 mg (65 mg iron) tablet,delayed release 325 mg PO QDAY tab 01/27/18 magnesium oxide 400 mg PO QDAY cap 01/27/18 omega 3-nwm-vmt-fish oil 1,000 mg (120 mg-180 mg) capsule 3 cap PO DAILY cap 01/27/18 vitamin J-bxydsqjjrhtu-auzmgoi 500 mg-multivitamin with minerals chewable tablet 500 tab PO DAILY 01/27/18 azelastine 137 mcg (0.1 %) nasal spray aerosol 2 spray INTRANASAL BID #30 ml 05/20/18 levothyroxine 112 mcg tablet 112 mcg PO DAILY #90 tab 04/18/19 bupropion HCl 150 mg tablet,12 hr sustained-release 150 mg PO BID #180 tab 07/10/19 calcitriol 0.25 mcg capsule 0.25 mcg PO BID #180 cap 07/10/19 ezetimibe 10 mg tablet 10 mg PO QDAY #90 tab 07/10/19 metoprolol succinate 50 mg tablet,extended release 24 hr 50 mg PO QDAY #90 tab 07/10/19 rivaroxaban 20 mg tablet 20 mg PO QDAY #30 tab 07/10/19 alprazolam 0.5 mg tablet 0.5 mg PO BID PRN #60 tab 07/13/19 cyclobenzaprine 5 mg tablet 5 mg PO TID PRN #90 tab 07/31/19 Acetaminophen [Tylenol] 1,000 mg PO Q6H PRN #100 tab 11/06/19 Oxycodone [Oxyir] 5 - 10 mg PO Q4H PRN PRN #60 tab 11/06/19 Following Prescrptions Were Given to Patient: Oxycodone [Oxyir] 5 - 10 mg PO Q4H PRN PRN #60 tab PRN Reason: Pain Score 4-10/10 Transmission Status: Received by [id number] Acetaminophen [Tylenol] 1,000 mg PO Q6H PRN #100 tab Transmission Status: Received by [id number] Other Amb Orders: Basic Metabolic Profile (BMP) Time Frame: 10/23/19, Facility: [facility], Location: Laboratory CBC-Complete Blood Cnt No Diff Time Frame: 10/23/19, Facility: [facility], Location: Laboratory Thyroid Stim Hormone (TSH) Time Frame: 10/23/19, Facility: [facility], Location: Laboratory Primary Care Physician: Teresa Rowe NP-C [Primary Care Provider] - Please Follow Up With: Wayne Vieira DO - 2 weeks Additional Instructions: Ice and elevate one week while not ambulating. Ambulation is encouraged. Weightbearing as tolerated. Use assistive devise for stability. Encourage FULL knee extension and flexion 1 time EVERY time you get up and down and MULTIPLE times per day. No showering 72 hours after surgery. Begin showering postop day #3. Remove the dressing prior to shower and gently wash with warm water and antibacterial soap then pat dry and place abdominal pad (or plain gauze) and SHANDRA hose over top. This is to be done daily. Do not submerge for 3 weeks. If not showering daily after the initial 72 hours then you must clean incision and change dressing daily. Do not allow animals near the incision area. Keep clean. Follow anticoagulation recommendations as prescribed. Start physical therapy. If you are not currently scheduled for physical therapy or you are unsure of appointment time please call office [facility] to arrange. Call Dr. Vieira with any concerns. Medical Necessity - Tobacco Use Smoking Status: Former smoker Tobacco Use: Non-smoker Meaningful Use Info Meaningful Use Diagnoses (Choose all that apply): None applicable
[2019-11-06] MEDS: Ferrous Sulfate 325 MG Tablet PO (13:32)
== END 2019-11-06 14:06 | disposition home or self-care (01) ==
LOC: SDC 10:10 → MS3 11-06 07:08
PROVIDERS: Anesthesiology; Admitting Provider Orthopaedic Surgery; PCP Nurse Practitioner; Referring Provider Orthopaedic Surgery; Visit Provider Orthopaedic Surgery
PROC: 0SRC0JZ Replacement of Right Knee Joint with Synthetic Substitute, Open Approach (ICD-10-PCS; CPT 27447; principal; 2019-11-05 07:00)
DX: M17.11 Unilateral primary osteoarthritis, right knee (principal); M25.561 Pain in right knee; G89.29 Other chronic pain; I12.9 Hypertensive chronic kidney disease with stage 1 through stage 4 chronic kidney disease, or unspecified chronic kidney disease; N18.9 Chronic kidney disease, unspecified; E78.5 Hyperlipidemia, unspecified; M54.40 Lumbago with sciatica, unspecified side; Z79.899 Other long term (current) drug therapy; Z87.891 Personal history of nicotine dependence
CPT/HCPCS: 27447; 36415; 73560; 80048; 82962; 83735; 84443; 85027; 87081; 87635; 93005; 96361; 96365; 96366; 96375; 96376; 97110; 97161; 97166; 97530; 97535; 99218; 99251; C1776; G2023; J7120; A4216; G0378; G0379; G0463; J0702; J2405; J3475; J3490; U0004

== ENCOUNTER → 2019-12-01 20:45 | Outpatient (CLI) | payer OTHER, SELFPAY ==
[2019-12-01 18:39] VITALS: BMI 33.8
== END ==
PROVIDERS: PCP Nurse Practitioner; Referring Provider Nurse Practitioner; Visit Provider Nurse Practitioner
DX: R31.9 Hematuria, unspecified (principal)
CPT/HCPCS: 87086; 87088

== ENCOUNTER → 2019-12-07 20:24 | Outpatient (CLI) | payer OTHER, SELFPAY ==
[2019-12-07 17:25] VITALS: BMI 33.5
== END ==
PROVIDERS: PCP Nurse Practitioner; Referring Provider Nurse Practitioner; Visit Provider Nurse Practitioner
DX: R31.9 Hematuria, unspecified (principal)
CPT/HCPCS: 87086; 87088

== ENCOUNTER → 2019-12-11 14:20 | Outpatient (CLI) | payer OTHER, SELFPAY ==
[2019-12-07 17:25] VITALS: BMI 33.5
--- NOTE | 2019-12-11 14:21 | CT_ITS ---
STUDY: CT ABDOMEN AND PELVIS WITHOUT CONTRAST REASON FOR EXAM: Female, 64 years old. HEMATURIA, LOWER ABDOMINAL PAIN. RADIATION DOSAGE (If Supplied By Facility): CTDIvol = ( 10.02 ) mGy, DLP = ( 515.57 ) mGycm TECHNIQUE: Transaxial images were obtained from the dome of the diaphragm to the symphysis pubis without oral contrast, and without intravenous contrast. Sagittal and coronal images were reconstructed. Individualized dose optimization techniques were used for this CT. COMPARISON: None. FINDINGS: There are chronic interstitial fibrotic changes of the lung bases. There are calcified coronary vessels. The first image shows a possible left breast mass that is incompletely imaged. Normal liver. There are multiple gallstones. Normal spleen. Normal pancreas. Normal bilateral adrenal glands. No obstructive uropathy, there are bilateral isodense exophytic likely cysts in both kidneys that cannot be accurately evaluated without IV contrast. Largest on the left side measures 1.28 cm, largest on the right measures 1.22 cm. Normal visualized stomach. Normal small intestine. Normal colon. There is non-visualization of the appendix. There is diffuse atherosclerotic calcification of the abdominal aorta, without a demonstrated aneurysm. Normal inferior vena cava. Normal retroperitoneum. Normal urinary bladder. Uterus is still present, the endometrium cannot be directly evaluated with CT. There is also a 3.4 x 2.4 cm left ovarian cyst that should be further evaluated with dedicated pelvic sonogram. Normal abdominal wall. There are diffuse degenerative changes of the visualized lumbar spine and pelvis. CT/Abdomen/Pelvis without Cont IMPRESSION: No obstructive uropathy or bladder abnormality. There are likely bilateral renal cysts that cannot be accurately evaluated without IV contrast. Colonic diverticulosis Uterus is still present, the endometrium cannot be accurately evaluated with CT. There is also a 3.4 x 2.4 cm left ovarian cyst. Both need further evaluation with dedicated pelvic ultrasound Calcified coronary vessels Degenerative bony changes Possible left breast mass Electronically Signed: James Watkins MD at 14:49 EDT , Service support ,
== END ==
PROVIDERS: PCP Nurse Practitioner; Referring Provider Nurse Practitioner; Visit Provider Nurse Practitioner
DX: N20.0 Calculus of kidney (principal); R31.9 Hematuria, unspecified
CPT/HCPCS: 74176

== ENCOUNTER → 2020-01-14 14:27 | Outpatient (CLI) | payer MEDICARE, OTHER, SELFPAY ==
[2020-01-11 15:44] VITALS: BMI 32.4
[2020-01-16 08:38] LABS: Cancer Antigen 125 11.3 U/mL (0.0-38.1)
== END ==
PROVIDERS: PCP Nurse Practitioner; Visit Provider Obstetrics & Gynecology
DX: N83.209 Unspecified ovarian cyst, unspecified side (principal)
CPT/HCPCS: 36415; 86304

== ENCOUNTER → 2020-01-19 08:53 | Outpatient (CLI) | payer OTHER, MEDICARE, SELFPAY ==
[2020-01-11 15:44] VITALS: BMI 32.4
[2020-01-18 20:09] VITALS: BMI 32.4
--- NOTE | 2020-01-19 08:58 | US_ITS ---
STUDY: ULTRASOUND BREAST - LEFT REASON FOR EXAM: Female, 64 years old. Abnormal mammogram. TECHNIQUE: Axial and longitudinal images of the LEFT breast were performed with a high resolution ultrasound transducer. # OF IMAGES: 49 COMPARISON: Comparison is made with prior mammogram done earlier in the day. FINDINGS: LEFT Breast: The lower half of the left breast was examined by ultrasound. There is homogeneous thyroid gland tissue. No sonographic abnormality is seen. US/Breast Limited Unilateral IMPRESSION: No sonographic abnormality is seen. ASSESSMENT CATEGORY: No sonographic abnormality is seen. Electronically Signed: Tommie Avalos, at 10:57 EDT , Service support ,
--- NOTE | 2020-01-19 08:58 | BI_ITS ---
MAMMOGRAPHY - BILATERAL DIAGNOSTIC REASON FOR EXAM: Female, 64 years old. Possible left breast mass seen on recent CT scan. PERTINENT HISTORY: Non-contributory. TECHNIQUE: Digital bilateral breast manoj (3D mammographic acquisition) in the CC and MLO projections. 2-D mediolateral oblique (MLO) and craniocaudad (CC) views of both breasts were obtained. CAD: Full Field Digital Mammography with Computer Added Detection was performed. COMPARISON: Comparison is made with prior outside examination dated 10/08/2012. FINDINGS: Breast Composition: The breasts are heterogeneously dense, which may obscure small masses. There are no dominant masses or suspicious calcifications. No other significant abnormalities are identified. There has been no significant change since the prior study. BI/DIAG MAMM W/CAD, BILAT IMPRESSION: Stable bilateral diagnostic mammogram. Targeted ultrasound of the inferior half of the left breast is recommended. ASSESSMENT CATEGORY: BIRADS Category 0: Incomplete. Need additional imaging evaluation. A letter regarding these results will be sent to the patient by the facility within 30 days. Approximately 10% of breast cancers are not detected by mammography. A normal mammogram should not delay biopsy of a clinically suspicious abnormality. Electronically Signed: Tommie Avalos, at 10:26 EDT , Service support ,
== END ==
PROVIDERS: PCP Nurse Practitioner; Referring Provider Obstetrics & Gynecology; Visit Provider Obstetrics & Gynecology
DX: R92.8 Other abnormal and inconclusive findings on diagnostic imaging of breast (principal)
CPT/HCPCS: 76642; 77062; 77066; G0279

== ENCOUNTER → 2020-02-01 16:56 | Outpatient (CLI) | payer MEDICARE, OTHER, SELFPAY ==
[2020-01-26 13:46] VITALS: BMI 32.4
--- NOTE | 2020-02-01 17:02 | MRI_ITS ---
STUDY: MRI LUMBAR SPINE WITHOUT CONTRAST REASON FOR EXAM: Female, 64 years old. back pain radiating down L leg x 1 year TECHNIQUE: Standardized fat and water weighted pulse sequences were obtained in the sagittal and axial planes. COMPARISON: Lumbar spine 07/10/2019 FINDINGS: T12-L1: Normal endplates. Normal disc height, desiccation and normal morphology. Normal bilateral facet joints. Normal central canal and bilateral lateral recesses. Normal bilateral intervertebral neural foramina. Normal lumbar lordosis. There is no substantial scoliosis. Normal conus medullaris that terminates at T12-L1 L1-2: Normal endplates. Normal disc height, desiccation and mild annular bulge.. Normal bilateral facet joints. Normal central canal and bilateral lateral recesses. Normal bilateral intervertebral neural foramina. L2-3: Normal endplates. Normal disc height, desiccation and minor annular bulge with tiny left paracentral disc extrusion with inferior migration of disc family.. Normal bilateral facet joints. Normal central canal and bilateral lateral recesses. Normal bilateral intervertebral neural foramina. L3-4: Narrowed disc space with desiccation of the disc and minor annular bulge with small right foraminal disc protrusion. Bilateral facet arthropathy and thickening of ligamenta flava greater on the right. Normal central canal. Mild right lateral recess and moderate neuroforaminal stenosis. Mild left neuroforaminal encroachment. L4-5: Normal endplates. Normal disc height, desiccation and moderate annular bulge. Bilateral facet arthropathy and thickening of ligamenta flava greater on the left. Mild narrowing of the central canal. Moderate bilateral recess and neuroforaminal stenosis slightly greater on the left L5-S1: Normal endplates. Normal disc height, desiccation and mild annular bulge with left foraminal disc protrusion.. Facet arthropathy and thickening of ligamenta flava greater on the left. Normal central canal. Mild right lateral recess and neuroforaminal stenosis. Moderate left lateral recess stenosis and moderate to severe left neuroforaminal stenosis. Normal visualized sacral ala. Small TARLOV cyst noted in the left sacral canal Normal visualized paraspinous soft tissue structures. MRI/Spine Lumbar (Routine) IMPRESSION: No evidence for acute fracture or other significant bony pathology Spondylosis and multilevel spinal stenosis secondary to disc disease and bony hypertrophy most severe on the left at L4-5 and L5-S1. Findings as above Electronically Signed: Gume Camacho MD at 20:11 EDT , Service support ,
== END ==
PROVIDERS: PCP Nurse Practitioner; Referring Provider Anesthesiology Pain Medicine; Visit Provider Anesthesiology Pain Medicine
DX: M54.9 Dorsalgia, unspecified (principal); M79.605 Pain in left leg
CPT/HCPCS: 72148

== ENCOUNTER → 2020-06-06 17:16 | Outpatient (CLI) | payer MEDICARE, OTHER, SELFPAY | PROVIDERS: PCP Nurse Practitioner; Referring Provider Nurse Practitioner; Visit Provider Nurse Practitioner | DX: U07.1 COVID-19 (principal) | CPT/HCPCS: 87635; C9803; U0003 ==

== ENCOUNTER → 2020-07-28 13:06 | Outpatient (CLI) | payer MEDICARE, OTHER, SELFPAY ==
[2020-07-28 15:17] LABS: Amphetamine Urine VISTA NEGATIVE (<1000 ng/mL); Barbiturate Urine VISTA NEGATIVE (< 200 ng/mL); Benzodiazepine Urine VISTA NEGATIVE (< 200 ng/mL); Cocaine Urine VISTA NEGATIVE (< 300 ng/mL); Ecstacy Urine VISTA POSITIVE (< 500 ng/mL); Methadone Urine VISTA NEGATIVE (< 300 ng/mL); PCP Urine VISTA NEGATIVE (< 25 ng/mL); THC Urine VISTA NEGATIVE (< 50 ng/mL); Vista UDS pH Range 5
== END ==
PROVIDERS: PCP Nurse Practitioner; Referring Provider Anesthesiology Pain Medicine; Visit Provider Anesthesiology Pain Medicine
DX: F11.20 Opioid dependence, uncomplicated (principal)
CPT/HCPCS: 80307

== ENCOUNTER → 2020-10-27 21:14 | Outpatient (CLI) | payer MEDICARE, OTHER, SELFPAY ==
[2020-10-27 15:18] VITALS: BMI 33.6
[2020-10-27 21:26] LABS: Absolute Lymphocyte Count 1.07 X10^3/uL (0.83-4.51); Absolute Neutrophil Count 3.5 X10^3/uL (2.0-7.7); Basophil# 0.03 X10^3/uL; Basophil% 0.6 % (0-1); Eosinophil# 0.11 X10^3/uL; Eosinophils% 2.1 % (0-5); Hematocrit 38.1 % (37-47); Hemoglobin 12.4 g/dL (12.0-15.0); Lymphocyte # 1.07 X10^3/ul (0.83-4.51); Lymphocyte % 20.2 % (19-41); Mean Corp Hgb Conc 32.5 g/dL (32-36); Mean Corpuscular Hgb 33.2 pg (27.0-32.0); Mean Corpuscular Volume 101.9 fL (81-99); Mean Platelet Vol. 10.4 fl (6.2-12.0); Monocyte# 0.57 X10^3/uL; Monocyte% 10.8 % (0-10); NRBC Flagged by Analyzer 0 % (0-5); Neutrophil # 3.51 X10^3/uL (2.7-7.7); Neutrophil % 66.1 % (47-70); Platelet Count 295 K/mm3 (150-450); RBC Distribution Width CV 13.5 % (11.6-14.6); RBC Distribution Width SD 49.7 fl (35.1-43.9); Red Blood Count 3.74 M/mm3 (4.2-5.4); White Blood Count 5.3 K/mm3 (4.4-11.0)
[2020-10-27 21:42] LABS: ALB/GLOB Ratio 1.2 RATIO (0.9-2.4); AST(SGOT) 16 U/L (15-37); Alanine Aminotransfer ALT/SGPT 27 U/L (13-56); Albumin, Serum 3.7 g/dL (3.2-5.0); Alkaline Phosphatase 53 U/L (45-117); Anion Gap 7 (5-15); BUN 40 mg/dL (7-18); Calcium,Total 9.1 mg/dL (8.5-10.1); Chloride 107 mmol/L (98-107); Cholesterol 187 mg/dL (200); Creatinine, Serum 1.48 mg/dL (0.55-1.02); EST Glomerular Filtration Rate 38 mL/min (>60); Est Glom Filt Rate - Afr Amer 45 mL/min (>60); Globulin 3.1 g/dL (2.2-4.2); Glucose 94 mg/dL (74-106); High Density Lipoprotein 32 mg/dL; Potassium 4.4 mmol/L (3.5-5.1); Protein, Total 6.8 g/dL (6.4-8.2); Sodium Level 139 mmol/L (136-145); Triglycerides 368 mg/dL; Very Low Density Lipoprotein 74 mg/dL (5-40)
== END ==
PROVIDERS: PCP Nurse Practitioner; Visit Provider Nurse Practitioner
DX: I10 Essential (primary) hypertension (principal); E78.5 Hyperlipidemia, unspecified
CPT/HCPCS: 80053; 80061; 85025

== ENCOUNTER → 2020-12-29 22:18 | Outpatient (CLI) | payer MEDICARE, OTHER, SELFPAY ==
[2020-12-29 16:16] VITALS: BMI 32.1
[2020-12-29 22:48] LABS: International Normalized Ratio 1.9; Prothrombin Time (Protime)PT. 21.3 SECONDS (11.7-14.9)
== END ==
PROVIDERS: PCP Nurse Practitioner; Visit Provider Nurse Practitioner
DX: R79.1 Abnormal coagulation profile (principal); I27.82 Chronic pulmonary embolism
CPT/HCPCS: 85610

== ENCOUNTER → 2021-03-10 22:39 | Outpatient (CLI) | payer MEDICARE, OTHER, SELFPAY ==
[2021-03-10 23:28] LABS: ALB/GLOB Ratio 0.8 RATIO (0.9-2.4); AST(SGOT) 20 U/L (15-37); Alanine Aminotransfer ALT/SGPT 26 U/L (13-56); Albumin, Serum 3.5 g/dL (3.2-5.0); Alkaline Phosphatase 63 U/L (45-117); Anion Gap 5 (5-15); BUN 29 mg/dL (7-18); BUN/Creat Ratio 16.8 RATIO (10-20); Chloride 105 mmol/L (98-107); Cholesterol 200 mg/dL (200); Creatinine, Serum 1.73 mg/dL (0.55-1.02); EST Glomerular Filtration Rate 31 mL/min (>60); Est Glom Filt Rate - Afr Amer 38 mL/min (>60); Globulin 4.2 g/dL (2.2-4.2); Glucose 131 mg/dL (74-106); High Density Lipoprotein 31 mg/dL; Potassium 4.6 mmol/L (3.5-5.1); Protein, Total 7.7 g/dL (6.4-8.2); Sodium Level 137 mmol/L (136-145); Thyroid Stim Hormone (TSH) 0.29 uIU/mL (0.358-3.74); Triglycerides 282 mg/dL; Very Low Density Lipoprotein 56 mg/dL (5-40)
== END ==
PROVIDERS: PCP Nurse Practitioner; Referring Provider Nurse Practitioner; Visit Provider Nurse Practitioner
DX: I10 Essential (primary) hypertension (principal); E03.9 Hypothyroidism, unspecified; E78.5 Hyperlipidemia, unspecified
CPT/HCPCS: 80053; 80061; 84443

== ENCOUNTER 2021-09-04 21:25 | Outpatient (CLI) | payer MEDICARE, OTHER, SELFPAY | END 2021-09-04 23:59 | disposition home or self-care (01) | PROVIDERS: PCP Nurse Practitioner; Visit Provider Nurse Practitioner | DX: N30.90 Cystitis, unspecified without hematuria (principal) | CPT/HCPCS: 87077; 87086; 87088; 87186 ==

== ENCOUNTER → 2022-01-05 | Outpatient (CLI) | payer MEDICARE, OTHER, SELFPAY ==
[2022-01-06 00:25] LABS: Absolute Lymphocyte Count 1.94 X10^3/uL (0.83-4.51); Absolute Neutrophil Count 8.7 X10^3/uL (2.0-7.7); Basophil# 0.03 X10^3/uL; Basophil% 0.2 % (0-1); Eosinophil# 0.24 X10^3/uL; Eosinophils% 1.9 % (0-5); Hematocrit 38.9 % (37-47); Hemoglobin 12.6 g/dL (12.0-15.0); Lymphocyte # 1.94 X10^3/ul (0.83-4.51); Lymphocyte % 15.7 % (19-41); Mean Corp Hgb Conc 32.4 g/dL (32-36); Mean Corpuscular Hgb 30.7 pg (27.0-32.0); Mean Corpuscular Volume 94.6 fL (81-99); Monocyte# 1.34 X10^3/uL; Monocyte% 10.8 % (0-10); NRBC Flagged by Analyzer 0 % (0-5); Neutrophil # 8.71 X10^3/uL (2.7-7.7); Neutrophil % 70.4 % (47-70); Platelet Count 519 K/mm3 (150-450); RBC Distribution Width CV 14.5 % (11.6-14.6); RBC Distribution Width SD 49.3 fl (35.1-43.9); Red Blood Count 4.11 M/mm3 (4.2-5.4); White Blood Count 12.4 K/mm3 (4.4-11.0)
[2022-01-06 00:46] LABS: ALB/GLOB Ratio 0.8 RATIO (0.9-2.4); AST(SGOT) 33 U/L (15-37); Alanine Aminotransfer ALT/SGPT 49 U/L (13-56); Albumin, Serum 3.2 g/dL (3.2-5.0); Alkaline Phosphatase 54 U/L (45-117); Anion Gap 6 (5-15); BUN 27 mg/dL (7-18); BUN/Creat Ratio 17.3 RATIO (10-20); Calcium,Total 9.9 mg/dL (8.5-10.1); Chloride 100 mmol/L (98-107); Creatinine, Serum 1.56 mg/dL (0.55-1.02); EST Glomerular Filtration Rate 35 mL/min (>60); Est Glom Filt Rate - Afr Amer 43 mL/min (>60); Globulin 3.9 g/dL (2.2-4.2); Glucose 80 mg/dL (74-106); Magnesium 1.5 mg/dL (1.6-2.6); Protein, Total 7.1 g/dL (6.4-8.2); Sodium Level 131 mmol/L (136-145)
== END | disposition home or self-care (01) ==
PROVIDERS: PCP Nurse Practitioner; Visit Provider Nurse Practitioner
DX: N28.9 Disorder of kidney and ureter, unspecified (principal); E83.42 Hypomagnesemia; M25.561 Pain in right knee
CPT/HCPCS: 80053; 83735; 85025

== ENCOUNTER → 2022-02-01 | Outpatient (CLI) | payer MEDICARE, OTHER, SELFPAY | END | disposition home or self-care (01) | PROVIDERS: PCP Nurse Practitioner; Visit Provider Nurse Practitioner | DX: N30.90 Cystitis, unspecified without hematuria (principal) | CPT/HCPCS: 87077; 87086; 87088; 87186 ==

== ENCOUNTER → 2022-02-20 | Outpatient (CLI) | payer MEDICARE, OTHER, SELFPAY ==
[2022-02-20 21:55] LABS: Absolute Lymphocyte Count 1.26 X10^3/uL (0.83-4.51); Absolute Neutrophil Count 4.2 X10^3/uL (2.0-7.7); Basophil# 0.05 X10^3/uL; Basophil% 0.8 % (0-1); Eosinophil# 0.25 X10^3/uL; Eosinophils% 3.8 % (0-5); Hematocrit 41.4 % (37-47); Hemoglobin 13.4 g/dL (12.0-15.0); Lymphocyte # 1.26 X10^3/ul (0.83-4.51); Lymphocyte % 19.3 % (19-41); Mean Corp Hgb Conc 32.4 g/dL (32-36); Mean Corpuscular Hgb 30.5 pg (27.0-32.0); Mean Corpuscular Volume 94.3 fL (81-99); Mean Platelet Vol. 11.4 fl (6.2-12.0); Monocyte# 0.76 X10^3/uL; Monocyte% 11.6 % (0-10); NRBC Flagged by Analyzer 0 % (0-5); Neutrophil % 64.2 % (47-70); Platelet Count 271 K/mm3 (150-450); RBC Distribution Width CV 13.5 % (11.6-14.6); RBC Distribution Width SD 46.7 fl (35.1-43.9); Red Blood Count 4.39 M/mm3 (4.2-5.4); White Blood Count 6.5 K/mm3 (4.4-11.0)
[2022-02-20 22:21] LABS: AST(SGOT) 24 U/L (15-37); Alanine Aminotransfer ALT/SGPT 40 U/L (13-56); Albumin, Serum 3.8 g/dL (3.2-5.0); Alkaline Phosphatase 61 U/L (45-117); Anion Gap 6 (5-15); BUN 36 mg/dL (7-18); BUN/Creat Ratio 18.8 RATIO (10-20); Calcium,Total 10.8 mg/dL (8.5-10.1); Chloride 106 mmol/L (98-107); Cholesterol 182 mg/dL (200); Creatinine, Serum 1.91 mg/dL (0.55-1.02); EST Glomerular Filtration Rate 28 mL/min (>60); Est Glom Filt Rate - Afr Amer 34 mL/min (>60); Globulin 3.7 g/dL (2.2-4.2); Glucose 90 mg/dL (74-106); High Density Lipoprotein 36 mg/dL; Potassium 5.4 mmol/L (3.5-5.1); Protein, Total 7.5 g/dL (6.4-8.2); Sodium Level 138 mmol/L (136-145); Thyroid Stim Hormone (TSH) 0.06 uIU/mL (0.358-3.74); Triglycerides 177 mg/dL; Very Low Density Lipoprotein 35 mg/dL (5-40)
[2022-02-22 14:16] LABS: Magnesium 1.5 mg/dL (1.6-2.6)
== END | disposition home or self-care (01) ==
PROVIDERS: Visit Provider Nurse Practitioner
DX: E83.42 Hypomagnesemia (principal); I27.82 Chronic pulmonary embolism; I10 Essential (primary) hypertension; E03.9 Hypothyroidism, unspecified
CPT/HCPCS: 80053; 80061; 83735; 84443; 85025

== ENCOUNTER → 2022-03-06 | Outpatient (CLI) | payer MEDICARE, OTHER, SELFPAY ==
[2022-03-06 16:37] LABS: Amphetamine Urine VISTA NEGATIVE (<1000 ng/mL); Barbiturate Urine VISTA NEGATIVE (< 200 ng/mL); Benzodiazepine Urine VISTA POSITIVE (< 200 ng/mL); Cocaine Urine VISTA NEGATIVE (< 300 ng/mL); Ecstacy Urine VISTA POSITIVE (< 500 ng/mL); Methadone Urine VISTA NEGATIVE (< 300 ng/mL); PCP Urine VISTA NEGATIVE (< 25 ng/mL); THC Urine VISTA NEGATIVE (< 50 ng/mL); Vista UDS pH Range 7
== END | disposition home or self-care (01) ==
PROVIDERS: PCP Nurse Practitioner; Visit Provider Anesthesiology Pain Medicine
DX: F11.20 Opioid dependence, uncomplicated (principal)
CPT/HCPCS: 80307

== ENCOUNTER → 2022-03-07 | Outpatient (CLI) | payer MEDICARE, OTHER, SELFPAY ==
[2022-03-07 21:33] LABS: Absolute Lymphocyte Count 1.05 X10^3/uL (0.83-4.51); Absolute Neutrophil Count 5.2 X10^3/uL (2.0-7.7); Basophil# 0.03 X10^3/uL; Basophil% 0.4 % (0-1); Eosinophil# 0.22 X10^3/uL; Hematocrit 40.2 % (37-47); Hemoglobin 13.2 g/dL (12.0-15.0); Lymphocyte # 1.05 X10^3/ul (0.83-4.51); Lymphocyte % 14.4 % (19-41); Mean Corp Hgb Conc 32.8 g/dL (32-36); Mean Corpuscular Hgb 30.7 pg (27.0-32.0); Mean Corpuscular Volume 93.5 fL (81-99); Mean Platelet Vol. 11.1 fl (6.2-12.0); Monocyte# 0.77 X10^3/uL; Monocyte% 10.6 % (0-10); NRBC Flagged by Analyzer 0 % (0-5); Neutrophil # 5.18 X10^3/uL (2.7-7.7); Neutrophil % 71.2 % (47-70); Platelet Count 274 K/mm3 (150-450); RBC Distribution Width SD 43.8 fl (35.1-43.9); White Blood Count 7.3 K/mm3 (4.4-11.0)
[2022-03-07 21:47] LABS: ALB/GLOB Ratio 0.9 RATIO (0.9-2.4); AST(SGOT) 22 U/L (15-37); Alanine Aminotransfer ALT/SGPT 44 U/L (13-56); Albumin, Serum 3.5 g/dL (3.2-5.0); Alkaline Phosphatase 66 U/L (45-117); Anion Gap 8 (5-15); BUN 31 mg/dL (7-18); BUN/Creat Ratio 20.3 RATIO (10-20); Calcium,Total 10.1 mg/dL (8.5-10.1); Chloride 105 mmol/L (98-107); Creatinine, Serum 1.53 mg/dL (0.55-1.02); EST Glomerular Filtration Rate 36 mL/min (>60); Est Glom Filt Rate - Afr Amer 43 mL/min (>60); Globulin 3.7 g/dL (2.2-4.2); Glucose 103 mg/dL (74-106); Magnesium 1.5 mg/dL (1.6-2.6); Potassium 4.4 mmol/L (3.5-5.1); Protein, Total 7.2 g/dL (6.4-8.2); Sodium Level 140 mmol/L (136-145)
== END | disposition home or self-care (01) ==
PROVIDERS: PCP Nurse Practitioner; Visit Provider Nurse Practitioner
DX: E83.42 Hypomagnesemia (principal); N28.9 Disorder of kidney and ureter, unspecified; I10 Essential (primary) hypertension
CPT/HCPCS: 80053; 83735; 85025

== ENCOUNTER → 2022-04-11 | Outpatient (CLI) | payer MEDICARE, OTHER, SELFPAY ==
[2022-04-11 22:11] LABS: Absolute Neutrophil Count 23.4 X10^3/uL (2.0-7.7); Basophil% 0.4 % (0-1); Eosinophil# 0.17 X10^3/uL; Eosinophils% 0.6 % (0-5); Hematocrit 43.5 % (37-47); Hemoglobin 14.4 g/dL (12.0-15.0); Lymphocyte % 3.3 % (19-41); Mean Corp Hgb Conc 33.1 g/dL (32-36); Mean Corpuscular Hgb 30.4 pg (27.0-32.0); Mean Corpuscular Volume 91.8 fL (81-99); Mean Platelet Vol. 10.3 fl (6.2-12.0); Monocyte# 2.56 X10^3/uL; Monocyte% 9.3 % (0-10); NRBC Flagged by Analyzer 0 % (0-5); Neutrophil % 84.7 % (47-70); POSITIVE DIFFERENTIAL YES; Platelet Count 329 K/mm3 (150-450); RBC Distribution Width CV 13.2 % (11.6-14.6); RBC Distribution Width SD 44.5 fl (35.1-43.9); Red Blood Count 4.74 M/mm3 (4.2-5.4); White Blood Count 27.6 K/mm3 (4.4-11.0)
[2022-04-11 22:12] LABS: Differential Indicated SCAN CRITERIA MET
[2022-04-11 22:26] LABS: ALB/GLOB Ratio 0.7 RATIO (0.9-2.4); AST(SGOT) 10 U/L (15-37); Alanine Aminotransfer ALT/SGPT 22 U/L (13-56); Alkaline Phosphatase 92 U/L (45-117); Anion Gap 7 (5-15); BUN 34 mg/dL (7-18); BUN/Creat Ratio 17.5 RATIO (10-20); Calcium,Total 9.5 mg/dL (8.5-10.1); Chloride 99 mmol/L (98-107); Creatinine, Serum 1.94 mg/dL (0.55-1.02); EST Glomerular Filtration Rate 27 mL/min (>60); Est Glom Filt Rate - Afr Amer 33 mL/min (>60); Globulin 4.2 g/dL (2.2-4.2); Glucose 111 mg/dL (74-106); Lipase 67 U/L (73-393); Protein, Total 7.2 g/dL (6.4-8.2); Sodium Level 130 mmol/L (136-145)
[2022-04-11 22:38] LABS: Differential Comment SCANNED
[2022-04-13 15:42] LABS: Pathologist Review Reviewed
== END | disposition home or self-care (01) ==
PROVIDERS: PCP Nurse Practitioner; Visit Provider Nurse Practitioner
DX: R10.30 Lower abdominal pain, unspecified (principal); R11.10 Vomiting, unspecified; R19.7 Diarrhea, unspecified
CPT/HCPCS: 80053; 83690; 85025

== ENCOUNTER 2022-04-12 11:29 | Inpatient (IN) | payer MEDICARE, OTHER, SELFPAY ==
[2022-04-12 11:30] VITALS: BP 111/67; PULSE 111; RESP 16; TEMP 36.6; O2SAT 95; BMI 28.3
--- NOTE | 2022-04-12 11:48 | CT_ITS ---
STUDY: CT ABDOMEN AND PELVIS WITHOUT CONTRAST REASON FOR EXAM: Female, 66 years old. 4 day history of lower abdominal pain and diarrhea. Chronic kidney disease. RADIATION DOSAGE (If Supplied By Facility): CTDIvol = ( 13.03 ) mGy, DLP = ( 610.44 ) mGycm TECHNIQUE: Transaxial images were obtained from the dome of the diaphragm to the symphysis pubis without oral contrast, and without intravenous contrast. Sagittal and coronal images were reconstructed. Individualized dose optimization techniques were used for this CT. COMPARISON: Comparison is made with prior study dated 12/11/2019. FINDINGS: The visualized lung bases are unremarkable. The visualized portions of the heart are within normal limits. Normal liver. There are multiple small gallstones. Normal spleen. Normal pancreas. Normal bilateral adrenal glands. Stable small bilateral renal cysts. Nonspecific bilateral perinephric stranding. Normal visualized stomach. Normal small intestine. Circumferential thickening with increased markings in the surrounding peritoneal fat involving the colon more pronounced in the left hemicolon suggestive of colitis. Sigmoid diverticulosis. The appendix is visualized and appears normal. There is diffuse atherosclerotic calcification of the abdominal aorta and its major visceral branches, without a demonstrated aneurysm. Normal inferior vena cava. Normal retroperitoneum. Normal urinary bladder. There is a 3.4 cm x 3.2 cm cyst in the left ovary. This is essentially unchanged. Normal abdominal wall. Normal osseous structures. CT/Abdomen/Pelvis without Cont IMPRESSION: Findings suggestive of colitis. Small bilateral renal cysts and nonspecific bilateral perinephric stranding. Left ovarian cyst. Electronically Signed: Tommie Avalos MD at 12:52 EDT ,
--- NOTE | 2022-04-12 11:59 | EDS_ITS ---
HPI History of Present Illness Chief Complaint: Abn Labs Narrative Narrative: 66-year-old female presented with diarrhea and high white blood cell count of 27,000. She was referred to the ER by her primary care physician. She had lab work done yesterday which shows she is dehydrated as well. Patient admits to having diarrhea. She has a history of C. difficile colitis several months ago which resolved. She was weaned from oral vancomycin. Patient also states that she had recent antibiotics by her ENT doctor last week. She states she was on cefdinir for an otitis media. Now she has diarrhea. She does states she has abdominal pain in the lower abdomen as well as nausea and dry heaves. She has history of DVT/PE and is on Coumadin. [facility] Medical History Acute kidney injury Adverse reaction to antidepressant drug Allergic rhinitis with postnasal drip Anxiety Anxiety Bilateral hearing loss C. 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 Deep vein thrombosis, lower left extremity Diverticulitis Essential (primary) hypertension History of pulmonary embolus (PE) (2009) Hyperkalemia Hyperlipidemia LDL goal <130 Hypomagnesemia Hypothyroidism (acquired) Idiopathic parathyroidism Iron deficiency anemia Knee pain, right Medication side effects Polycystic kidney disease Home Medications cholecalciferol (vitamin D3) 50 mcg (2,000 unit) capsule 2,000 unit PO QDAY vitamin 01/27/18 [History Last Taken 02/12/19] omega 9-zmp-sur-fish oil 1,000 mg (120 mg-180 mg) capsule (Fish Oil) 3 cap PO DAILY heart health 01/27/18 [History Last Taken 02/12/19] vitamin C 500 mg-multivitamin with minerals chewable tablet 500 tab PO DAILY vitamin 01/27/18 [History Last Taken Unknown] acetaminophen 500 mg tablet 1,000 mg PO Q6H PRN #100 tabs 11/06/19 [Rx Last Taken Unknown] tramadol 50 mg tablet 50 mg PO TID PRN Pain 10/27/20 [History Last Taken Unknown] albuterol sulfate 90 mcg/actuation aerosol inhaler (ProAir HFA) 2 puff inhalation Q4H PRN shortness of breath or wheezing #8.5 grams 07/05/21 [Rx Last Taken Unknown] calcitriol 0.25 mcg capsule 0.25 mcg PO BID #180 caps 07/05/21 [Rx Last Taken Unknown] bupropion HCl 150 mg tablet,12 hr sustained-release 150 mg PO BID #180 tabs 11/02/21 [Rx Last Taken Unknown] cyclobenzaprine 5 mg tablet 5 mg PO BID PRN muscle spasm #180 tabs 11/02/21 [Rx Last Taken Unknown] alprazolam 0.5 mg tablet 0.5 mg PO DAILY PRN anxiety #30 tabs 02/20/22 [Rx Last Taken Unknown] ezetimibe 10 mg tablet 10 mg PO QDAY #90 tabs 02/20/22 [Rx Last Taken Unknown] metoprolol succinate 50 mg tablet,extended release 24 hr 50 mg PO QDAY #90 tabs 02/20/22 [Rx Last Taken Unknown] levothyroxine 100 mcg tablet 100 mcg PO QDAY #90 tabs 02/23/22 [Rx Last Taken Unknown] ondansetron 8 mg disintegrating tablet 8 mg PO Q12H PRN nausea and vomiting #30 tabs 04/11/22 [Rx Last Taken Unknown] cefdinir 300 mg capsule 300 mg PO BID 04/12/22 [History Last Taken Unknown] warfarin 5 mg tablet 2.5 mg PO THSA 04/12/22 [History Last Taken Unknown] warfarin 5 mg tablet 5 mg PO SUMOTUWEFR 04/12/22 [History Last Taken Unknown] Allergy/AdvReac Type Severity Reaction Status Date / Time metronidazole [From Flagyl] AdvReac Severe diarrhea Verified 04/12/22 11:32 and hypokalcemia peripheral neuropathy simvastatin [From Zocor] AdvReac Severe muscle Verified 04/12/22 11:32 cramps niapsan Allergy Severe Anaphylaxis Uncoded 03/24/21 12:54 Family History Father , at age 78 of [place] Heart disease Mother Diabetes Surgical History History of elective section History of repair of rotator cuff History of total right knee replacement (TKR) S/P rotator cuff repair Social History Smoking Status: Former smoker quit date: 03/30/18 Electronic Cigarette Use: not used second hand exposure: No alcohol intake: current alcohol intake frequency: a few times a month substance use type: does not use ROS ROS ED Constitutional Constitutional ED: Denies chills or fever(s) Eyes Eyes: Denies change in vision ENT ENT ED: Denies rhinorrhea or sore throat Cardiovascular Cardiovascular: Denies chest pain or palpitations Respiratory/Chest Respiratory/Chest: Denies cough or dyspnea Gastrointestinal Gastrointestinal: Reports abdominal pain, diarrhea and nausea Genitourinary Genitourinary ED: Denies dysuria or hematuria Musculoskeletal Musculoskeletal: Denies arthralgias or back pain Integumentary Denies abscess or Abrasions Neurologic Neurologic: Denies headache(s) Psychiatric Psychiatric: Denies anxiety or depression Endocrine Endocrinology: Denies cold intolerance or heat intolerance EXAM Physical Exam Const Vital Signs: 04/12/22 11:30 04/12/22 11:39 04/12/22 13:29 Temperature 97.9 F Temperature Source Temporal Pulse Rate 111 H 80 Respiratory Rate 16 Respiratory Effort Normal Non-Labored Respiratory Pattern Normal Blood Pressure 111/67 100/79 Blood Pressure Mean 81 86 Pulse Ox 95 Oxygen Delivery Method Room Air 04/12/22 14:58 Temperature 97.8 F Temperature Source Temporal Pulse Rate 87 Respiratory Rate 16 Respiratory Effort Respiratory Pattern Blood Pressure 112/71 Blood Pressure Mean 84 Pulse Ox 98 Oxygen Delivery Method Room Air Positive well nourished General Appearance ED: NAD; Negative for pallor HEENT Reports dry mucous membranes Mouth ED: Yes dry mucous membranes Mouth: dry mucous membranes Eyes PERRL and EOMs intact bilaterally General Eye ED: Negative for pale conjunctiva or scleral icterus Neck no lymphadenopathy Chest Wall inspection of chest normal Resp normal respiratory effort and clear to auscultation bilaterally Auscultation: Negative for rales, rhonchi or wheezes Cardio regular rate and regular rhythm GI Palpation: tender LLQ and suprapubic Back/Spine no CVA tenderness Neuro oriented x3 and CN's II-XII intact bilaterally Sensorium / Orientation: alert Motor Exam: strength 5/5 throughout Psych mental status grossly normal Skin no rashes or lesions noted and no wounds General Skin Exam: Negative for jaundice or pallor MDM MDM MDM Narrative Medical decision making narrative: Patient with history of C. difficile a few months ago presenting with diarrhea and abdominal pain as well as nausea. She was on cefdinir last week for otitis media. There is a high suspicion for C. difficile colitis given her white blood cell count is 27,000. Creatinine tested yesterday was 1.94 which is elevated. Patient will be given IV fluids, morphine, Zofran. Blood work is obtained and patient still has a leukocytosis of 26.7. Hemoglobin hematocrit are stable. Platelets are normal. Creatinine slightly increased at 2.08 and is higher than her baseline. She is given IV fluids. Sodium slightly low at 132. Bilirubin that was high yesterday but is normal now. Urinalysis negative for infection. INR is normal at 2.4. CT of the abdomen pelvis shows colitis. Given the patient has a history of C. difficile colitis and was on antibiotics last week with a leukocytosis of 27,000 and diarrhea I suspect she likely has C. difficile again. This was sent but is pending. Patient required another dose of Dilaudid to control her pain while she was here. I recommended admission to the hosp ital. She is amenable to this. I spoke with the hospitalist who will admit her. Impression: 1. Abdominal pain 2. History of C. difficile colitis 3. Diarrhea 4. Leukocytosis 5. HANS Lab Data Attestation: I reviewed the patient's lab results. Labs: Laboratory Results - last 24 hr 04/12/22 04/12/22 04/12/22 12:10 12:10 12:10 WBC 26.7 H RBC 4.51 Hgb 14.0 Hct 40.3 MCV 89.4 MCH 31.0 MCHC 34.7 RDW Std Deviation 42.9 RDW Coeff of [place] 13.2 Plt Count 277 MPV 9.9 Immature Gran % (Auto) 1.100 H Neut % (Auto) 89.8 H Lymph % (Auto) 2.4 L [place] % (Auto) 6.1 Eos % (Auto) 0.3 Baso % (Auto) 0.3 Absolute Neuts (auto) 24.0 H Absolute Lymphs (auto) 0.65 L Nucleated RBC % 0 Differential Comment SCANNED Diff Path Review October foll PT 26.1 H INR 2.4 Sodium 132 L Potassium 4.1 Chloride 101 Carbon Dioxide 21.0 Anion Gap 10 BUN 39 H Creatinine 2.08 H Estim Creat Clear Calc 21.71 Est GFR (MDRD) Af Amer 31 L Est GFR (MDRD) Non-Af 25 L BUN/Creatinine Ratio 18.8 Glucose 112 H Calcium 9.2 Total Bilirubin 0.80 AST 11 L ALT 18 Alkaline Phosphatase 77 Total Protein 6.7 Albumin 2.5 L Globulin 4.2 Albumin/Globulin Ratio 0.6 L Urine Color Urine Clarity Urine pH Ur Specific [place] Urine Protein Urine Glucose (UA) Urine Ketones Urine Occult Blood Urine Nitrite Urine Bilirubin Urine Urobilinogen Ur Leukocyte Esterase Urine RBC Urine WBC Ur Squamous Epith Cells Urine Bacteria Urine Mucus 04/12/22 13:05 WBC RBC Hgb Hct MCV MCH MCHC RDW Std Deviation RDW Coeff of [place] Plt Count MPV Immature Gran % (Auto) Neut % (Auto) Lymph % (Auto) [place] % (Auto) Eos % (Auto) Baso % (Auto) Absolute Neuts (auto) Absolute Lymphs (auto) Nucleated RBC % Differential Comment Diff Path Review PT INR Sodium Potassium Chloride Carbon Dioxide Anion Gap BUN Creatinine Estim Creat Clear Calc Est GFR (MDRD) Af Amer Est GFR (MDRD) Non-Af BUN/Creatinine Ratio Glucose Calcium Total Bilirubin AST ALT Alkaline Phosphatase Total Protein Albumin Globulin Albumin/Globulin Ratio Urine Color YELLOW Urine Clarity Clear Urine pH 5.0 Ur Specific [place] 1.020 Urine Protein 15 H Urine Glucose (UA) Normal Urine Ketones Negative Urine Occult Blood Negative Urine Nitrite Negative Urine Bilirubin Negative Urine Urobilinogen 1 H Ur Leukocyte Esterase Negative Urine RBC 0 SEEN Urine WBC 0 SEEN Ur Squamous Epith Cells 0 SEEN Urine Bacteria 0 SEEN Urine Mucus 0 SEEN Radiography Diagnostic Testing: Clinical Impression(s) from Imaging Studies Abdomen/Pelvis CT 04/12/22 11:48 IMPRESSION: Findings suggestive of colitis. Small bilateral renal cysts and nonspecific bilateral perinephric stranding. Left ovarian cyst. Electronically Signed: Tommie Avalos MD at 12:52 EDT , Discharge Plan Triage Chief Complaint: Abn Labs ED Provider: Medardo Johnson Dx/Rx/DC Orders Prescriptions: No Action omega 4-njl-kos-fish oil [Fish Oil] 1,000 mg (120 mg-180 mg) capsule 3 cap PO DAILY cholecalciferol (vitamin D3) 2,000 unit capsule 2,000 unit PO QDAY vitamin C 500 mg-multivitamin with minerals chewable tablet 500 mg tablet,chewable 500 tab PO DAILY tramadol 50 mg tablet 50 mg PO TID PRN (Reason: Pain) calcitriol 0.25 mcg capsule 0.25 mcg PO BID Qty: 180 2RF albuterol sulfate [ProAir HFA] 90 mcg/actuation HFA aerosol inhaler 2 puff INHALATION Q4H PRN (Reason: shortness of breath or wheezing) Qty: 8.5 3RF metoprolol succinate 50 mg tablet extended release 24 hr 50 mg PO QDAY Qty: 90 3RF ezetimibe 10 mg tablet 10 mg PO QDAY Qty: 90 3RF alprazolam 0.5 mg tablet 0.5 mg PO DAILY PRN (Reason: anxiety) Qty: 30 5RF ondansetron 8 mg tablet,disintegrating 8 mg PO Q12H PRN (Reason: nausea and vomiting) Qty: 30 0RF acetaminophen 500 MG tablet 1,000 mg PO Q6H PRN Qty: 100 0RF cefdinir 300 mg capsule 300 mg PO BID warfarin 5 mg tablet 2.5 mg PO THSA warfarin 5 mg tablet 5 mg PO SUMOTUWEFR bupropion HCl 150 mg tablet sustained-release 12 hr 150 mg PO BID Qty: 180 3RF cyclobenzaprine 5 mg tablet 5 mg PO BID PRN (Reason: muscle spasm) Qty: 180 3RF levothyroxine 100 mcg tablet 100 mcg PO QDAY Qty: 90 3RF Primary Care Provider: Teresa Rowe NP Referrals: Teresa Rowe NP, [employer] [Primary Care Provider] -
[2022-04-12] MEDS: Morphine 4 MG/ML Syringe IV (12:07)
[2022-04-12] MEDS: Ondansetron 4 MG/2 ML Vial IV (12:07)
[2022-04-12] MEDS: 0.9% Normal Saline 1,000 ML 999 ML IV (12:07)
[2022-04-12 12:23] LABS: Absolute Lymphocyte Count 0.65 X10^3/uL (0.83-4.51); Basophil# 0.09 X10^3/uL; Basophil% 0.3 % (0-1); Eosinophil# 0.09 X10^3/uL; Eosinophils% 0.3 % (0-5); Hematocrit 40.3 % (37-47); Lymphocyte # 0.65 X10^3/ul (0.83-4.51); Lymphocyte % 2.4 % (19-41); Mean Corp Hgb Conc 34.7 g/dL (32-36); Mean Corpuscular Volume 89.4 fL (81-99); Mean Platelet Vol. 9.9 fl (6.2-12.0); Monocyte# 1.63 X10^3/uL; Monocyte% 6.1 % (0-10); NRBC Flagged by Analyzer 0 % (0-5); Neutrophil # 23.95 X10^3/uL (2.7-7.7); Neutrophil % 89.8 % (47-70); POSITIVE DIFFERENTIAL YES; Platelet Count 277 K/mm3 (150-450); RBC Distribution Width CV 13.2 % (11.6-14.6); RBC Distribution Width SD 42.9 fl (35.1-43.9); Red Blood Count 4.51 M/mm3 (4.2-5.4); White Blood Count 26.7 K/mm3 (4.4-11.0)
[2022-04-12 12:26] LABS: Differential Indicated SCAN CRITERIA MET
[2022-04-12 12:33] LABS: ALB/GLOB Ratio 0.6 RATIO (0.9-2.4); AST(SGOT) 11 U/L (15-37); Alanine Aminotransfer ALT/SGPT 18 U/L (13-56); Albumin, Serum 2.5 g/dL (3.2-5.0); Alkaline Phosphatase 77 U/L (45-117); Anion Gap 10 (5-15); BUN 39 mg/dL (7-18); BUN/Creat Ratio 18.8 RATIO (10-20); Calcium,Total 9.2 mg/dL (8.5-10.1); Chloride 101 mmol/L (98-107); Creatinine, Serum 2.08 mg/dL (0.55-1.02); EST Glomerular Filtration Rate 25 mL/min (>60); Est Glom Filt Rate - Afr Amer 31 mL/min (>60); Estimated Creatinine Clearance 21.71 ml/min; Globulin 4.2 g/dL (2.2-4.2); Glucose 112 mg/dL (74-106); Potassium 4.1 mmol/L (3.5-5.1); Protein, Total 6.7 g/dL (6.4-8.2); Sodium Level 132 mmol/L (136-145)
[2022-04-12 12:50] LABS: International Normalized Ratio 2.4; Prothrombin Time (Protime)PT. 26.1 SECONDS (11.7-14.9)
[2022-04-12 12:53] LABS: Differential Comment SCANNED
[2022-04-12 13:19] LABS: Bacteria 0 SEEN /hpf (None Seen); Mucous, Urine 0 SEEN /hpf (<or=2+); Red Blood Cells-Urine 0 SEEN /hpf (0-5); Squamous Epithelial Cells - UA 0 SEEN /hpf (5-10); White Blood Cells 0 SEEN /hpf (0-5)
[2022-04-12 13:29] VITALS: BP 100/79; PULSE 80
[2022-04-12] MEDS: HYDROmorphone 1 MG/ML Syringe IV (13:29)
[2022-04-12 13:35] LABS: Color, Urine YELLOW (Yellow); Glucose, Dipstick Normal (Normal); Ketone-Dipstick Negative (Negative); Leukocyte Esterase-Dipstick Negative /ul (Negative); Nitrite-Dipstick Negative (Negative); Occult Blood-Urine Negative /ul (Negative); Protein-Dipstick 15 mg/dl (Negative); Urine Bilirubin Dipstick Negative (Negative); Urine Clarity Clear (Clear); Urine Urobilinogen 1 mg/dl (Normal)
[2022-04-12 14:58] VITALS: BP 112/71; PULSE 87; RESP 16; TEMP 36.6; O2SAT 98
--- NOTE | 2022-04-12 15:10 | PCM.HP.STD ---
HPI - General General Date of Admission: 04/12/22 HPI Narrative MELONIE LU, is a 66 F who presents to the hospital with 4 days of cramping abdominal pain and diarrhea. She has currently been on cefdinir so far for 7 days for otitis media and a perforated eardrum. She did not take her dose of cefdinir last night secondary to her diarrhea. She does have a history of C. difficile colitis, she was admitted to the hospital in [place] a few months ago for C. difficile and was treated with oral vancomycin. She states that she did not have the severity of abdominal cramping and that the diarrhea this time is different than it was the last time. She denies any blood in her stools, she has been having some dry heaves but no emesis. In the ER she was found to have a significant leukocytosis and a slight bump in her creatinine. CT scan demonstrated circumferential thickening in her left colon with some stranding on both the right side and the left side of her colon. REPLACED BY [facility] Medical History Acute kidney injury Adverse reaction to antidepressant drug Allergic rhinitis with postnasal drip Anxiety Anxiety Bilateral hearing loss C. 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 Deep vein thrombosis, lower left extremity Diverticulitis Essential (primary) hypertension History of pulmonary embolus (PE) (2009) Hyperkalemia Hyperlipidemia LDL goal <130 Hypomagnesemia Hypothyroidism (acquired) Idiopathic parathyroidism Iron deficiency anemia Knee pain, right Medication side effects Polycystic kidney disease Home Medications cholecalciferol (vitamin D3) 50 mcg (2,000 unit) capsule 2,000 unit PO QDAY vitamin 01/27/18 [History Last Taken 02/12/19] omega 5-sct-oez-fish oil 1,000 mg (120 mg-180 mg) capsule (Fish Oil) 3 cap PO DAILY heart health 01/27/18 [History Last Taken 02/12/19] vitamin C 500 mg-multivitamin with minerals chewable tablet 500 tab PO DAILY vitamin 01/27/18 [History Last Taken Unknown] acetaminophen 500 mg tablet 1,000 mg PO Q6H PRN #100 tabs 11/06/19 [Rx Last Taken Unknown] tramadol 50 mg tablet 50 mg PO TID PRN Pain 10/27/20 [History Last Taken Unknown] albuterol sulfate 90 mcg/actuation aerosol inhaler (ProAir HFA) 2 puff inhalation Q4H PRN shortness of breath or wheezing #8.5 grams 07/05/21 [Rx Last Taken Unknown] calcitriol 0.25 mcg capsule 0.25 mcg PO BID #180 caps 07/05/21 [Rx Last Taken Unknown] bupropion HCl 150 mg tablet,12 hr sustained-release 150 mg PO BID #180 tabs 11/02/21 [Rx Last Taken Unknown] cyclobenzaprine 5 mg tablet 5 mg PO BID PRN muscle spasm #180 tabs 11/02/21 [Rx Last Taken Unknown] alprazolam 0.5 mg tablet 0.5 mg PO DAILY PRN anxiety #30 tabs 02/20/22 [Rx Last Taken Unknown] ezetimibe 10 mg tablet 10 mg PO QDAY #90 tabs 02/20/22 [Rx Last Taken Unknown] metoprolol succinate 50 mg tablet,extended release 24 hr 50 mg PO QDAY #90 tabs 02/20/22 [Rx Last Taken Unknown] levothyroxine 100 mcg tablet 100 mcg PO QDAY #90 tabs 02/23/22 [Rx Last Taken Unknown] ondansetron 8 mg disintegrating tablet 8 mg PO Q12H PRN nausea and vomiting #30 tabs 04/11/22 [Rx Last Taken Unknown] cefdinir 300 mg capsule 300 mg PO BID 04/12/22 [History Last Taken Unknown] warfarin 5 mg tablet 2.5 mg PO THSA 04/12/22 [History Last Taken Unknown] warfarin 5 mg tablet 5 mg PO SUMOTUWEFR 04/12/22 [History Last Taken Unknown] Allergy/AdvReac Type Severity Reaction Status Date / Time metronidazole [From Flagyl] AdvReac Severe diarrhea Verified 04/12/22 11:32 and hypokalcemia peripheral neuropathy simvastatin [From Zocor] AdvReac Severe muscle Verified 04/12/22 11:32 cramps niapsan Allergy Severe Anaphylaxis Uncoded 03/24/21 12:54 Family History Father , at age 78 of [place] Heart disease Mother Diabetes Surgical History History of elective section History of repair of rotator cuff History of total right knee replacement (TKR) S/P rotator cuff repair Social History Smoking Status: Former smoker quit date: 03/30/18 Electronic Cigarette Use: not used second hand exposure: No alcohol intake: current alcohol intake frequency: a few times a month substance use type: does not use ROS Constitutional Constitutional: Denies chills, fatigue, fever(s) or malaise Eyes Eyes: Denies blurry vision ENT HEENT: Denies headache(s) or nasal discharge Cardiovascular Cardiovascular: Denies chest pain, dyspnea on exertion or syncope Respiratory/Chest Respiratory/Chest: Denies cough, shortness of breath at rest or shortness of breath with exertion Gastrointestinal Gastrointestinal: Reports abdominal pain, diarrhea and nausea; Denies constipation, hematemesis, hematochezia, melena or vomiting Genitourinary Genitourinary: Denies dysuria Neurologic Neurologic: Denies focal weakness, numbness or tremor(s) Psychiatric Psychiatric: Denies anxiety or depression Vital Signs Vital Signs Vital Signs: 04/12/22 11:30 04/12/22 11:39 04/12/22 13:29 Temperature 97.9 F Temperature Source Temporal Pulse Rate 111 H 80 Respiratory Rate 16 Respiratory Effort Normal Non-Labored Respiratory Pattern Normal Blood Pressure 111/67 100/79 Blood Pressure Mean 81 86 Pulse Ox 95 Oxygen Delivery Method Room Air 04/12/22 14:58 Temperature 97.8 F Temperature Source Temporal Pulse Rate 87 Respiratory Rate 16 Respiratory Effort Respiratory Pattern Blood Pressure 112/71 Blood Pressure Mean 84 Pulse Ox 98 Oxygen Delivery Method Room Air Weight Weight: 160 lb Body Mass Index (BMI) 28.3 Physical Exam Narrative General: Alert, Oriented x3, Cooperative, No apparent distress HEENT: Atraumatic, PERRLA, EOMI, Normocephalic Oral: Dry mucosa Neck: Supple, No JVD Lungs: Clear to auscultation, Normal air movement, No rhonchi, No wheeze, No rales Cardiovascular: Regular rate, Regular Rhythm, Normal S1, Normal S2, No murmurs Abdomen: Soft, left lower quadrant tenderness, Non-Distended, No Hepato-splenomegaly Extremities: No edema, Capillary Refill Less than 3 Seconds Skin: No rashes, No breakdown Musculoskeletal: No Tenderness to Palpation of Joints or Extremities Neurological: Cranial nerves II-XII grossly intact, Motor Exam 5/5 strength throughout, Sensory exam intact to light touch and pain Psych/Mental Status: Normal Affect, Appropriate Results Lab / Micro Data Result Diagrams: 04/12/22 12:10 04/12/22 12:10 Labs: Laboratory Results - last 24 hr 04/12/22 12:10: PT 26.1 H, INR 2.4 04/12/22 12:10: WBC 26.7 H, RBC 4.51, Hgb 14.0, Hct 40.3, MCV 89.4, MCH 31.0, MCHC 34.7, RDW Std Deviation 42.9, RDW Coeff of [place]ek[place] 13.2, Plt Count 277, MPV 9.9, Immature Gran % (Auto) 1.100 H, Neut % (Auto) 89.8 H, Lymph % (Auto) 2.4 L, [place] % (Auto) 6.1, Eos % (Auto) 0.3, Baso % (Auto) 0.3, Absolute Neuts (auto) 24.0 H, Absolute Lymphs (auto) 0.65 L, Nucleated RBC % 0, Differential Comment SCANNED, Diff Path Review October04/12/22 12:10: Sodium 132 L, Potassium 4.1, Chloride 101, Carbon Dioxide 21.0, Anion Gap 10, BUN 39 H, Creatinine 2.08 H, Estim Creat Clear Calc 21.71, Est GFR (MDRD) Af Amer 31 L, Est GFR (MDRD) Non-Af 25 L, BUN/Creatinine Ratio 18.8, Glucose 112 H, Calcium 9.2, Total Bilirubin 0.80, AST 11 L, ALT 18, Alkaline Phosphatase 77, Total Protein 6.7, Albumin 2.5 L, Globulin 4.2, Albumin/Globulin Ratio 0.6 L 04/12/22 13:05: Urine Color YELLOW, Urine Clarity Clear, Urine pH 5.0, Ur Specific [place] 1.020, Urine Protein 15 H, Urine Glucose (UA) Normal, Urine Ketones Negative, Urine Occult Blood Negative, Urine Nitrite Negative, Urine Bilirubin Negative, Urine Urobilinogen 1 H, Ur Leukocyte Esterase Negative, Urine RBC 0 SEEN, Urine WBC 0 SEEN, Ur Squamous Epith Cells 0 SEEN, Urine Bacteria 0 SEEN, Urine Mucus 0 SEEN Micro: Microbiology 04/12/22 13:05 Stool Stool Lactoferrin - Final Radiology Impression Abdomen/Pelvis CT 04/12/22 11:48 IMPRESSION: Findings suggestive of colitis. Small bilateral renal cysts and nonspecific bilateral perinephric stranding. Left ovarian cyst. Electronically Signed: Tommie Avalos MD at 12:52 EDT , Assessment & Plan Assessment/Plan (1) Colitis: PLAN: Plan 1. Infectious colitis with dehydration ? Will place on a clear liquid diet and start on IV fluids ? Her stool lactoferrin is positive, will start her on Zosyn as she has a peripheral neuropathy whenever she takes Flagyl ? C. difficile testing and enteric pathogens are pending ? Continue with pain meds 2. History of PE ? This was around 2009, she was advised to remain on anticoagulation indefinitely ? Resume her warfarin will follow INR 3. HTN/HLD ? Blood pressure current stable ? Continue with her home metoprolol ? Continue with her Zetia 4. Hypothyroidism ? Stable ? Continue with Synthroid 5. Anxiety/depression/chronic back pain ? Stable ? Can resume her Flexeril as well as her psych meds DVT: Coumadin Charges/Coding Visit Charges Inpatient E&M: 10878 Init Hosp L2
[2022-04-12 16:04] VITALS: BP 112/71; PULSE 87; RESP 16; TEMP 36.6; O2SAT 98
--- NOTE | 2022-04-12 16:16 | NURSING ---
MED SURG KOTSONIS INFECTIOUS COLILTIS
[2022-04-12 16:42] VITALS: BMI 29.2
[2022-04-12 17:24] VITALS: BP 125/73; PULSE 106; RESP 18; TEMP 37.9; O2SAT 97
[2022-04-12] MEDS: 0.9% Normal Saline 1,000 ML 100 ML IV (17:41)
[2022-04-12] MEDS: Morphine 2 MG/ML Syringe IV (20:22)
[2022-04-12] MEDS: 0.9% Saline Lock 10 ML Syringe IV (20:22)
[2022-04-12 20:27] VITALS: BP 131/90; PULSE 106; RESP 18; TEMP 37.7; O2SAT 93
[2022-04-12] MEDS: buPROPion (SR) 150 MG Tablet.SA PO (21:55)
[2022-04-12] MEDS: ALPRAZolam 0.5 MG Tablet PO (22:07)
[2022-04-12] MEDS: traMADol 50 MG Tablet PO (22:07)
[2022-04-13] VITALS (10 sets, daily range): BP systolic 94–149; BP diastolic 48–106; PULSE 106–115; RESP 16–18; TEMP 36.6–38.8; O2SAT 93–97
[2022-04-13] MEDS: 0.9% Normal Saline 1,000 ML 100 ML IV ×3 (03:23→21:27)
[2022-04-13] MEDS: Morphine 2 MG/ML Syringe IV (03:24)
[2022-04-13] MEDS: 0.9% Saline Lock 10 ML Syringe IV (03:24)
[2022-04-13 05:09] LABS: Absolute Lymphocyte Count 0.34 X10^3/uL (0.83-4.51); Absolute Neutrophil Count 27.4 X10^3/uL (2.0-7.7); Basophil% 0.3 % (0-1); Eosinophil# 0.01 X10^3/uL; Hematocrit 36.2 % (37-47); Hemoglobin 12.2 g/dL (12.0-15.0); Lymphocyte # 0.34 X10^3/ul (0.83-4.51); Lymphocyte % 1.1 % (19-41); Mean Corp Hgb Conc 33.7 g/dL (32-36); Mean Corpuscular Hgb 30.6 pg (27.0-32.0); Mean Corpuscular Volume 90.7 fL (81-99); Mean Platelet Vol. 10.3 fl (6.2-12.0); Monocyte% 7.5 % (0-10); NRBC Flagged by Analyzer 0 % (0-5); Neutrophil # 27.36 X10^3/uL (2.7-7.7); Neutrophil % 88.9 % (47-70); POSITIVE COUNT YES; POSITIVE DIFFERENTIAL YES; Platelet Count 235 K/mm3 (150-450); RBC Distribution Width CV 13.1 % (11.6-14.6); RBC Distribution Width SD 42.7 fl (35.1-43.9); Red Blood Count 3.99 M/mm3 (4.2-5.4)
[2022-04-13 05:12] LABS: Differential Indicated SCAN CRITERIA MET
[2022-04-13 05:13] LABS: White Blood Count 30.8 K/mm3 (4.4-11.0)
[2022-04-13 05:14] LABS: International Normalized Ratio 2.5
[2022-04-13 05:31] LABS: Anion Gap 10 (5-15); BUN 34 mg/dL (7-18); BUN/Creat Ratio 19.9 RATIO (10-20); Chloride 105 mmol/L (98-107); Creatinine, Serum 1.71 mg/dL (0.55-1.02); EST Glomerular Filtration Rate 32 mL/min (>60); Est Glom Filt Rate - Afr Amer 38 mL/min (>60); Estimated Creatinine Clearance 26.41 ml/min; Glucose 137 mg/dL (74-106); Sodium Level 133 mmol/L (136-145)
[2022-04-13 05:32] LABS: Differential Comment SCANNED
[2022-04-13] MEDS: Levothyroxine 100 MCG Tablet PO (05:53)
[2022-04-13] MEDS: traMADol 50 MG Tablet PO ×3 (05:58→21:25)
[2022-04-13] MEDS: buPROPion (SR) 150 MG Tablet.SA PO ×2 (10:50→21:25)
[2022-04-13] MEDS: Acetaminophen 325 MG Tablet 650 MG PO (10:50)
[2022-04-13] MEDS: Vancomycin 125 MG/5 ML Susp PO.SYRINGE PO ×2 (10:50→18:17)
[2022-04-13] MEDS: Ezetimibe 10 MG Tablet PO (10:50)
--- NOTE | 2022-04-13 12:00 | CASEMGMT ---
RN CM Face to Face with patient for initial transition planning/care coordination assessment. RN CM introduced self and role at [facility]. Patient lying in bed, alert and oriented, at bedside. Patient willing to participate in assessment and is able to answer all questions appropriately. Care providers, pharmacy, and demographics verified. Patient wishes to discharge home, denies need for home health at this time. Patient states she has no further needs or concerns at this time. CM to follow for discharge planning needs that may arise. PCP: Jae GOLDSTEIN Specialists: NEGRA Mohamud; Jen, Pain Preferred Pharmacy: [facility]; [facility] retail at discharge Insurance: [facility], [facility] Prescription Benefit: yes Living Will/HPOA: yes, YENNI Alcaraz LNOK: Living Arrangements: Patient lives with in a 3 story home. Patient is independent and able to ambulate stairs. Transportation: self, DME/HHC: patient states she has shower chair. Patient has had [facility] in the past. Disposition Plan: Patient to discharge home with family support and follow-up plans in place. Leeann CAPUTO, RN, CM
[2022-04-13 15:52] LABS: Pathologist Review Reviewed
--- NOTE | 2022-04-13 16:11 | CON.PCM.ID_ITS ---
Assessment & Plan Assessment/Plan (1) C. difficile colitis: PLAN: 2nd episode of cdiff. Given long vanc taper with first episode. CT sh owed colitis. On po vanc. Ok to stop zosyn tomorrow if improving. Will follow, thank you HPI Consult Data Date of Consult: 04/13/22 HPI Narrative HPI Narrative: MELONIE LU, is a 66 F who presented with about 4 days mild diarrhea and progressive severe lower abd pain. No fever, no blood in stool. Dx with cdiff towards end of January, given long vanc taper. This was 1st cdiff episode. Recently dx with bilat ear infection, given omnicef then diarrhea started. Admitted here, CT showed colitis, put on po vanc and iv zosyn. Feeling about t he same. Full ROS performed and neg except as noted above. [facility] Medical History Acute kidney injury Adverse reaction to antidepressant drug Allergic rhinitis with postnasal drip Anxiety Anxiety Bilateral hearing loss C. 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 Deep vein thrombosis, lower left extremity Diverticulitis Essential (primary) hypertension History of pulmonary embolus (PE) (2009) Hyperkalemia Hyperlipidemia LDL goal <130 Hypomagnesemia Hypothyroidism (acquired) Idiopathic parathyroidism Iron deficiency anemia Knee pain, right Medication side effects Polycystic kidney disease Home Medications cholecalciferol (vitamin D3) 50 mcg (2,000 unit) capsule 2,000 unit PO DAILY vitamin 01/27/18 [History Last Taken 2 Days Ago ~04/10/22] tramadol 50 mg tablet 50 mg PO BID PRN Pain 10/27/20 [History Last Taken 2 Days Ago ~04/10/22] albuterol sulfate 90 mcg/actuation aerosol inhaler (ProAir HFA) 2 puff inhalation Q4H PRN shortness of breath or wheezing #8.5 grams 07/05/21 [Rx Last Taken Unknown] calcitriol 0.25 mcg capsule 0.25 mcg PO BID #180 caps 07/05/21 [Rx Last Taken 2 Days Ago ~04/10/22] alprazolam 0.5 mg tablet 0.5 mg PO DAILY PRN anxiety #30 tabs 02/20/22 [Rx Last Taken Unknown] ondansetron 8 mg disintegrating tablet 8 mg PO Q12H PRN nausea and vomiting #30 tabs 04/11/22 [Rx Last Taken 04/12/22] acetaminophen 500 mg tablet 1,000 mg PO DAILY PRN PRN Pain 04/12/22 [History Las t Taken 04/12/22] bupropion HCl 150 mg tablet,12 hr sustained-release 150 mg PO BID DEPRESSION 04/12/22 [History Last Taken 2 Days Ago ~04/10/22] cefdinir 300 mg capsule 300 mg PO BID 04/12/22 [History Last Taken 2 Days Ago ~04/10/22] ezetimibe 10 mg tablet 10 mg PO DAILY 04/12/22 [History Last Taken 2 Days Ago ~04/10/22] levothyroxine 100 mcg tablet 100 mcg PO DAILY THYROID 04/12/22 [History Last Taken 04/11/22] metoprolol succinate 50 mg tablet,extended release 24 hr 50 mg PO DAILY BLOOD PRESSURE 04/12/22 [History Last Taken 2 Days Ago ~04/10/22] warfarin 5 mg tablet 2.5 mg PO THSA 04/12/22 [History Last Taken 04/07/22] warfarin 5 mg tablet 5 mg PO SUMOTUWEFR 04/12/22 [History Last Taken 04/11/22] Allergy/AdvReac Type Severity Reaction Status Date / Time metronidazole [From Flagyl] AdvReac Severe diarrhea Verified 04/12/22 11:32 and hypokalcemia peripheral neuropathy simvastatin [From Zocor] AdvReac Severe muscle Verified 04/12/22 11:32 cramps niapsan Allergy Severe Anaphylaxis Uncoded 03/24/21 12:54 Family History Father , at age 78 of [place] Heart disease Mother Diabetes Surgical History History of elective section History of repair of rotator cuff History of total right knee replacement (TKR) S/P rotator cuff repair Social History Smoking Status: Former smoker quit date: 03/30/18 Electronic Cigarette Use: not used second hand exposure: No alcohol intake: current alcohol intake frequency: a few times a month substance use type: does not use Physical Exam Const alert and oriented x3 Constitutional Narrative: uncomfortable General Appearance: cooperative HEENT normocephalic and head/scalp atraumatic Eyes PERRL and EOMs intact bilaterally Neck supple and No nodes Resp normal air movement and clear to auscultation bilaterally Cardio regular rate and regular rhythm GI soft to palpation and non-distended GI Narrative: moderately tender to touch Extremity General Extremity: Negative for edema Skin no rashes or lesions noted Neuro CN's II-XII intact bilaterally Lab / Micro Data Attestation: I reviewed the patient's lab results. Result Diagrams: 04/13/22 04:25 04/13/22 04:25 Labs: Laboratory Results - last 24 hr 04/12/22 12:10: Diff Path Review Reviewed 04/13/22 04:25: WBC 30.8 H*, RBC 3.99 L, Hgb 12.2, Hct 36.2 L, MCV 90.7, MCH 30.6, MCHC 33.7, RDW Std Deviation 42.7, RDW Coeff of [place] 13.1, Plt Count 235, MPV 10.3, Immature Gran % (Auto) 2.200 H, Neut % (Auto) 88.9 H, Lymph % (Auto) 1.1 L, [place] % (Auto) 7.5, Eos % (Auto) 0.0, Baso % (Auto) 0.3, Absolute Neuts (auto) 27.4 H, Absolute Lymphs (auto) 0.34 L, Nucleated RBC % 0, Differential Comment SCANNED, Diff Path Review October04/13/22 04:25: PT 27.0 H, INR 2.5 04/13/22 04:25: Sodium 133 L, Potassium 4.0, Chloride 105, Carbon Dioxide 18.0 L , Anion Gap 10, BUN 34 H, Creatinine 1.71 H, Estim Creat Clear Calc 26.41, Est GFR (MDRD) Af Amer 38 L, Est GFR (MDRD) Non-Af 32 L, BUN/Creatinine Ratio 19.9, Glucose 137 H, Calcium 8.0 L Micro: Microbiology 04/12/22 13:05 Stool Stool Lactoferrin - Final 04/12/22 13:05 Stool Enteric Bacteriology - Final 04/12/22 13:05 Stool C. difficile GDH Antigen & Toxins - Final 04/12/22 13:05 Stool C. difficile DNA Amplification - Final
--- NOTE | 2022-04-13 16:28 | PCM.PN.HOSP ---
Subjective Subjective Patient was seen and examined today, her white blood cell count today was 30.8. I talked with the patient and her who was in the room at the time my examination. Patient's C. difficile antigen was positive but the toxin was negative, after discussing the case with infectious diseases, it was recommended that the patient be treated for C. difficile colitis, I stopped her Zosyn and placed her on oral vancomycin. Objective Data Objective Data Vital Signs: Vital Signs Temp Pulse Resp BP Pulse Ox O2 Del Method 98.5 F 106 H 16 114/64 97 Room Air 04/13/22 14:52 04/13/22 14:52 04/13/22 14:52 04/13/22 14:52 04/13/22 14:52 04/13/22 14:52 Oxygen Delivery Method Room Air Weight: 75 kg Body Mass Index (BMI) 29.2 Intake & Output: Intake and Output for Last 24 Hours 04/11/22 04/12/22 04/13/22 23:59 23:59 23:59 Intake Total 1250 / 1750 3925 / 3925 Balance 1250 / 1750 3925 / 3925 Lab / Micro Data Result Diagrams: 04/13/22 04:25 04/13/22 04:25 Labs: Laboratory Results - last 24 hr 04/12/22 12:10: Diff Path Review Reviewed 04/13/22 04:25: WBC 30.8 H*, RBC 3.99 L, Hgb 12.2, Hct 36.2 L, MCV 90.7, MCH 30.6, MCHC 33.7, RDW Std Deviation 42.7, RDW Coeff of [place] 13.1, Plt Count 235, MPV 10.3, Immature Gran % (Auto) 2.200 H, Neut % (Auto) 88.9 H, Lymph % (Auto) 1.1 L, [place] % (Auto) 7.5, Eos % (Auto) 0.0, Baso % (Auto) 0.3, Absolute Neuts (auto) 27.4 H, Absolute Lymphs (auto) 0.34 L, Nucleated RBC % 0, Differential Comment SCANNED, Diff Path Review October04/13/22 04:25: PT 27.0 H, INR 2.5 04/13/22 04:25: Sodium 133 L, Potassium 4.0, Chloride 105, Carbon Dioxide 18.0 L, Anion Gap 10, BUN 34 H, Creatinine 1.71 H, Estim Creat Clear Calc 26.41, Est GFR (MDRD) Af Amer 38 L, Est GFR (MDRD) Non-Af 32 L, BUN/Creatinine Ratio 19.9, Glucose 137 H, Calcium 8.0 L Micro: Microbiology 04/12/22 13:05 Stool Stool Lactoferrin - Final 04/12/22 13:05 Stool Enteric Bacteriology - Final 04/12/22 13:05 Stool C. difficile GDH Antigen & Toxins - Final 04/12/22 13:05 Stool C. difficile DNA Amplification - Final Physical Exam Const alert, oriented x3, no apparent distress and healthy appearing General Appearance: cooperative, well kempt and well developed Orientation / Consciousness: awake, oriented to person, oriented to place and oriented to time HEENT normocephalic and moist oral mucous membranes HEENT Narrative: Patient is hard of hearing Head and Scalp: normocephalic Eyes PERRL, EOMs intact bilaterally and conjunctivae normal Neck supple, no JVD, thyroid normal and no carotid bruits General: trachea midline Resp normal respiratory effort, no retractions, no use of accessory muscles and clear to auscultation bilaterally Auscultation: Negative for rales, rhonchi or wheezes Cardio regular rate, regular rhythm, S1 normal heart sound, S2 normal heart sound, no murmurs, no rub and no gallops GI normal to inspection, nondistended, normoactive bowel sounds and non-distended Extremity no clubbing, cyanosis or edema Skin no rashes or lesions noted General Skin Exam: no breakdown Neuro oriented x3, CN's II-XII intact bilaterally, no focal motor deficits and no sensory deficits noted Sensorium / Orientation: awake and alert Speech: speech normal Psych affect normal Assessment & Plan Assessment/Plan (1) C. difficile colitis: PLAN: Plan 1. C. difficile colitis-patient will remain on oral vancomycin, she is on IV fluids presently, repeat labs in a.m. #2 chronic anticoagulation with warfarin secondary to past history of PE #3 Stage IIIb chronic kidney disease-complicates care, management, recovery, and prognosis #4 essential hypertension-patient will remain on present medication #5 hyperlipidemia-patient will remain on present medication Charges/Coding Visit Charges Inpatient E&M: 05331 Subs Hosp L2
[2022-04-13] MEDS: ALPRAZolam 0.5 MG Tablet PO (21:25)
[2022-04-14] MEDS: Vancomycin 125 MG/5 ML Susp PO.SYRINGE PO ×4 (00:40→17:13)
[2022-04-14] MEDS: Morphine 2 MG/ML Syringe IV ×2 (00:40→08:07)
[2022-04-14 05:06] VITALS: BP 111/53; PULSE 95; RESP 18; TEMP 36.4; O2SAT 97
[2022-04-14 05:11] VITALS: BP 111/53; PULSE 95; RESP 18; TEMP 36.4; O2SAT 97
[2022-04-14] MEDS: Levothyroxine 100 MCG Tablet PO (05:13)
[2022-04-14] MEDS: traMADol 50 MG Tablet PO (05:13)
[2022-04-14 06:04] LABS: Absolute Lymphocyte Count 0.42 X10^3/uL (0.83-4.51); Absolute Neutrophil Count 27.8 X10^3/uL (2.0-7.7); Basophil# 0.09 X10^3/uL; Basophil% 0.3 % (0-1); Eosinophil# 0.06 X10^3/uL; Eosinophils% 0.2 % (0-5); Hematocrit 33.8 % (37-47); Hemoglobin 11.3 g/dL (12.0-15.0); Lymphocyte # 0.42 X10^3/ul (0.83-4.51); Lymphocyte % 1.4 % (19-41); Mean Corp Hgb Conc 33.4 g/dL (32-36); Mean Corpuscular Hgb 30.7 pg (27.0-32.0); Mean Corpuscular Volume 91.8 fL (81-99); Mean Platelet Vol. 10.1 fl (6.2-12.0); Monocyte# 1.38 X10^3/uL; Monocyte% 4.6 % (0-10); NRBC Flagged by Analyzer 0 % (0-5); Neutrophil # 27.82 X10^3/uL (2.7-7.7); Neutrophil % 92.1 % (47-70); POSITIVE COUNT YES; POSITIVE DIFFERENTIAL YES; Platelet Count 231 K/mm3 (150-450); RBC Distribution Width CV 13.2 % (11.6-14.6); RBC Distribution Width SD 44.9 fl (35.1-43.9); Red Blood Count 3.68 M/mm3 (4.2-5.4)
[2022-04-14 06:10] LABS: Differential Indicated SCAN CRITERIA MET; International Normalized Ratio 3.5; Prothrombin Time (Protime)PT. 35.2 SECONDS (11.7-14.9); White Blood Count 30.2 K/mm3 (4.4-11.0)
[2022-04-14 06:29] LABS: Anion Gap 8 (5-15); BUN 30 mg/dL (7-18); BUN/Creat Ratio 19.5 RATIO (10-20); Calcium,Total 7.4 mg/dL (8.5-10.1); Chloride 105 mmol/L (98-107); Creatinine, Serum 1.54 mg/dL (0.55-1.02); EST Glomerular Filtration Rate 36 mL/min (>60); Est Glom Filt Rate - Afr Amer 43 mL/min (>60); Estimated Creatinine Clearance 29.32 ml/min; Glucose 91 mg/dL (74-106); Potassium 3.7 mmol/L (3.5-5.1); Sodium Level 133 mmol/L (136-145)
[2022-04-14 06:38] LABS: Differential Comment SCANNED
[2022-04-14] MEDS: 0.9% Normal Saline 1,000 ML 100 ML IV (07:49)
[2022-04-14 08:00] VITALS: BP 134/65; PULSE 95; RESP 18; TEMP 37.2; O2SAT 96
[2022-04-14 09:47] VITALS: PULSE 95
[2022-04-14] MEDS: buPROPion (SR) 150 MG Tablet.SA PO ×2 (09:47→21:41)
[2022-04-14] MEDS: Metoprolol(XL)Succ 50 MG Tablet PO (09:47)
[2022-04-14] MEDS: Ezetimibe 10 MG Tablet PO (09:47)
[2022-04-14] MEDS: Morphine 4 MG/ML Syringe IV ×3 (12:17→21:46)
[2022-04-14] MEDS: 0.9% Saline Lock 10 ML Syringe IV (12:18)
[2022-04-14 14:00] VITALS: BP 105/77; PULSE 82; RESP 18; TEMP 36.6; O2SAT 100
--- NOTE | 2022-04-14 15:59 | PCM.PN.HOSP ---
Subjective Subjective Patient was seen and examined today, she is still complaining of abdominal discomfort but she states she is having less diarrhea. White count today was still elevated at 30.2. Her creatinine today was 1.54 which I believe is close to her baseline. Objective Data Objective Data Vital Signs: Vital Signs Temp Pulse Resp BP Pulse Ox O2 Del Method 98 F 82 18 105/77 100 Room Air 04/14/22 14:00 04/14/22 14:00 04/14/22 14:00 04/14/22 14:00 04/14/22 14:00 04/14/22 14:00 Oxygen Delivery Method Room Air Weight: 75 kg Body Mass Index (BMI) 29.2 Intake & Output: Intake and Output for Last 24 Hours 04/12/22 04/13/22 04/14/22 23:59 23:59 23:59 Intake Total 1250 / 1750 5026.67 / 5526.67 1999 Balance 1250 / 1750 5026.67 / 5526.67 1999 Lab / Micro Data Result Diagrams: 04/14/22 05:19 04/14/22 05:19 Labs: Laboratory Results - last 24 hr 04/14/22 05:19: PT 35.2 H, INR 3.5 04/14/22 05:19: WBC 30.2 H*, RBC 3.68 L, Hgb 11.3 L, Hct 33.8 L, MCV 91.8, MCH 30.7, MCHC 33.4, RDW Std Deviation 44.9 H, RDW Coeff of Mek[place] 13.2, Plt Count 231, MPV 10.1, Immature Gran % (Auto) 1.400 H, Neut % (Auto) 92.1 H, Lymph % (Auto) 1.4 L, [place] % (Auto) 4.6, Eos % (Auto) 0.2, Baso % (Auto) 0.3, Absolute Neuts (auto) 27.8 H, Absolute Lymphs (auto) 0.42 L, Nucleated RBC % 0, Differential Comment SCANNED, Diff Path Review October04/14/22 05:19: Sodium 133 L, Potassium 3.7, Chloride 105, Carbon Dioxide 20.0 L, Anion Gap 8, BUN 30 H, Creatinine 1.54 H, Estim Creat Clear Calc 29.32, Est GFR (MDRD) Af Amer 43 L, Est GFR (MDRD) Non-Af 36 L, BUN/Creatinine Ratio 19.5, Glucose 91, Calcium 7.4 L Micro: Microbiology 04/12/22 13:05 Stool Stool Lactoferrin - Final 04/12/22 13:05 Stool Enteric Bacteriology - Final 04/12/22 13:05 Stool C. difficile GDH Antigen & Toxins - Final 04/12/22 13:05 Stool C. difficile DNA Amplification - Final Physical Exam Narrative alert, oriented x3, no apparent distress and healthy appearing General Appearance: cooperative, well kempt and well developed Orientation / Consciousness: awake, oriented to person, oriented to place and oriented to time HEENT normocephalic and moist oral mucous membranes HEENT Narrative: Patient is hard of hearing Head and Scalp: normocephalic Eyes PERRL, EOMs intact bilaterally and conjunctivae normal Neck supple, no JVD, thyroid normal and no carotid bruits General: trachea midline Resp normal respiratory effort, no retractions, no use of accessory muscles and clear to auscultation bilaterally Auscultation: Negative for rales, rhonchi or wheezes Cardio regular rate, regular rhythm, S1 normal heart sound, S2 normal heart sound, no murmurs, no rub and no gallops GI normal to inspection, nondistended, normoactive bowel sounds and non-distended Extremity no clubbing, cyanosis or edema Skin no rashes or lesions noted General Skin Exam: no breakdown Neuro oriented x3, CN's II-XII intact bilaterally, no focal motor deficits and no sensory deficits noted Sensorium / Orientation: awake and alert Speech: speech normal Psych affect normal Assessment & Plan Assessment/Plan (1) C. difficile colitis: PLAN: Plan 1. C. difficile colitis-patient will remain on oral vancomycin, she is on IV fluids presently-I have decreased the IV fluids to 75 an hour, repeat labs in a.m. #2 chronic anticoagulation with warfarin secondary to past history of PE, INR remains therapeutic #3 Stage IIIb chronic kidney disease-complicates care, management, recovery, and prognosis #4 essential hypertension-patient will remain on present medication #5 hyperlipidemia-patient will remain on present medication Charges/Coding Visit Charges Inpatient E&M: 90124 Subs Hosp L2
[2022-04-14] MEDS: 0.9% Normal Saline 1,000 ML 75 ML IV (17:13)
[2022-04-14 21:35] VITALS: BP 125/69; PULSE 75; RESP 14; TEMP 36.8; O2SAT 96
[2022-04-15] VITALS (7 sets, daily range): BP systolic 127–142; BP diastolic 67–87; PULSE 70–82; RESP 16–18; TEMP 36–36.9; O2SAT 97–99
[2022-04-15] MEDS: ALPRAZolam 0.5 MG Tablet PO (00:04)
[2022-04-15] MEDS: Vancomycin 125 MG/5 ML Susp PO.SYRINGE PO ×4 (00:04→17:08)
[2022-04-15] MEDS: Levothyroxine 100 MCG Tablet PO (06:15)
[2022-04-15] MEDS: Morphine 4 MG/ML Syringe IV ×3 (06:16→21:06)
[2022-04-15] MEDS: 0.9% Normal Saline 1,000 ML 75 ML IV ×2 (06:18→21:08)
[2022-04-15 06:29] LABS: Absolute Lymphocyte Count 0.61 X10^3/uL (0.83-4.51); Absolute Neutrophil Count 19.8 X10^3/uL (2.0-7.7); Basophil# 0.07 X10^3/uL; Basophil% 0.3 % (0-1); Eosinophil# 0.26 X10^3/uL; Eosinophils% 1.2 % (0-5); Hematocrit 33.9 % (37-47); Hemoglobin 11.4 g/dL (12.0-15.0); Lymphocyte # 0.61 X10^3/ul (0.83-4.51); Lymphocyte % 2.7 % (19-41); Mean Corp Hgb Conc 33.6 g/dL (32-36); Mean Corpuscular Hgb 30.7 pg (27.0-32.0); Mean Corpuscular Volume 91.4 fL (81-99); Mean Platelet Vol. 9.8 fl (6.2-12.0); Monocyte# 1.31 X10^3/uL; Monocyte% 5.9 % (0-10); NRBC Flagged by Analyzer 0 % (0-5); Neutrophil # 19.83 X10^3/uL (2.7-7.7); Neutrophil % 88.5 % (47-70); Platelet Count 242 K/mm3 (150-450); RBC Distribution Width CV 13.6 % (11.6-14.6); RBC Distribution Width SD 45.9 fl (35.1-43.9); Red Blood Count 3.71 M/mm3 (4.2-5.4); White Blood Count 22.4 K/mm3 (4.4-11.0)
[2022-04-15 06:42] LABS: Prothrombin Time (Protime)PT. 39.8 SECONDS (11.7-14.9)
[2022-04-15 06:49] LABS: International Normalized Ratio 4.1
[2022-04-15] MEDS: buPROPion (SR) 150 MG Tablet.SA PO ×2 (09:33→21:00)
[2022-04-15] MEDS: Ezetimibe 10 MG Tablet PO (09:33)
[2022-04-15] MEDS: Metoprolol(XL)Succ 50 MG Tablet PO (09:33)
--- NOTE | 2022-04-15 11:48 | PCM.PN.HOSP ---
Subjective Subjective Patient was seen and examined today, she is still complaining of generalized abdominal pain, abdomen appears to be slightly distended today and tympanic. I encouraged the patient to get up and walk around today. Patient is still having diarrhea, her white blood cell count is improved today. I have decided to place the patient on Bentyl 20 mg 3 times daily for colon spasm. Objective Data Objective Data Vital Signs: Vital Signs Temp Pulse Resp BP Pulse Ox O2 Del Method 97.9 F 70 18 142/67 H 99 Room Air 04/15/22 09:28 04/15/22 09:33 04/15/22 09:28 04/15/22 09:28 04/15/22 09:28 04/15/22 09:35 Oxygen Delivery Method Room Air Weight: 75 kg Body Mass Index (BMI) 29.2 Intake & Output: Intake and Output for Last 24 Hours 04/13/22 04/14/22 04/15/22 23:59 23:59 23:59 Intake Total 5026.67 / 5526.67 3812.5 / 4087.5 1556.25 / 1556.25 Balance 5026.67 / 5526.67 3812.5 / 4087.5 1556.25 / 1556.25 Lab / Micro Data Result Diagrams: 04/15/22 05:40 04/14/22 05:19 Labs: Laboratory Results - last 24 hr 04/15/22 05:40: PT 39.8 H, INR 4.1 H* 04/15/22 05:40: WBC 22.4 H, RBC 3.71 L, Hgb 11.4 L, Hct 33.9 L, MCV 91.4, MCH 30.7, MCHC 33.6, RDW Std Deviation 45.9 H, RDW Coeff of [place] 13.6, Plt Count 242, MPV 9.8, Immature Gran % (Auto) 1.400 H, Neut % (Auto) 88.5 H, Lymph % (Auto) 2.7 L, [place] % (Auto) 5.9, Eos % (Auto) 1.2, Baso % (Auto) 0.3, Absolute Neuts (auto) 19.8 H, Absolute Lymphs (auto) 0.61 L, Nucleated RBC % 0 Micro: Microbiology 04/12/22 13:05 Stool Stool Lactoferrin - Final 04/12/22 13:05 Stool Enteric Bacteriology - Final 04/12/22 13:05 Stool C. difficile GDH Antigen & Toxins - Final 04/12/22 13:05 Stool C. difficile DNA Amplification - Final Physical Exam Narrative alert, oriented x3, no apparent distress and healthy appearing General Appearance: cooperative, well kempt and well developed Orientation / Consciousness: awake, oriented to person, oriented to place and oriented to time HEENT normocephalic and moist oral mucous membranes HEENT Narrative: Patient is hard of hearing Head and Scalp: normocephalic Eyes PERRL, EOMs intact bilaterally and conjunctivae normal Neck supple, no JVD, thyroid normal and no carotid bruits General: trachea midline Resp normal respiratory effort, no retractions, no use of accessory muscles and clear to auscultation bilaterally Auscultation: Negative for rales, rhonchi or wheezes Cardio regular rate, regular rhythm, S1 normal heart sound, S2 normal heart sound, no murmurs, no rub and no gallops GI Abdomen is slightly distended and tympanic, bowel sounds are present in all 4 quadrants, no rebound abdominal tenderness was noted Extremity no clubbing, cyanosis or edema Skin no rashes or lesions noted General Skin Exam: no breakdown Neuro oriented x3, CN's II-XII intact bilaterally, no focal motor deficits and no sensory deficits noted Sensorium / Orientation: awake and alert Speech: speech normal Psych affect normal Assessment & Plan Assessment/Plan (1) C. difficile colitis: PLAN: Plan 1. C. difficile colitis-patient will remain on oral vancomycin, she is on IV fluids presently-I have decreased the IV fluids to 75 an hour, repeat labs in a.m. I have decided to place patient on Bentyl 20 mg 3 times daily for colon spasm #2 chronic anticoagulation with warfarin secondary to past history of PE, INR today was elevated at 4.1, I will hold her Coumadin and recheck her INR tomorrow morning #3 Stage IIIb chronic kidney disease-complicates care, management, recovery, and prognosis #4 essential hypertension-patient will remain on present medication #5 hyperlipidemia-patient will remain on present medication Charges/Coding Visit Charges Inpatient E&M: 23090 Subs Hosp L2
[2022-04-15] MEDS: 0.9% Saline Lock 10 ML Syringe IV (12:18)
[2022-04-15] MEDS: Dicyclomine 10 MG Capsule 20 MG PO (15:34)
[2022-04-15] MEDS: BENZOCAINE/MENTHOL 1 LOZENGE MUCOUS MEM (15:34)
[2022-04-16] VITALS (7 sets, daily range): BP systolic 93–125; BP diastolic 58–65; PULSE 68–75; RESP 15–16; TEMP 36.3–36.8; O2SAT 97–100
[2022-04-16] MEDS: Vancomycin 125 MG/5 ML Susp PO.SYRINGE PO ×5 (00:02→23:30)
[2022-04-16] MEDS: ALPRAZolam 0.5 MG Tablet PO ×2 (00:02→23:30)
[2022-04-16] MEDS: BENZOCAINE/MENTHOL 1 LOZENGE MUCOUS MEM (04:23)
[2022-04-16] MEDS: Dicyclomine 10 MG Capsule 20 MG PO ×3 (05:30→16:10)
[2022-04-16] MEDS: Levothyroxine 100 MCG Tablet PO (05:30)
[2022-04-16 06:54] LABS: Absolute Lymphocyte Count 0.78 X10^3/uL (0.83-4.51); Absolute Neutrophil Count 10.9 X10^3/uL (2.0-7.7); Basophil# 0.04 X10^3/uL; Basophil% 0.3 % (0-1); Eosinophil# 0.25 X10^3/uL; Eosinophils% 1.9 % (0-5); Hematocrit 33.6 % (37-47); Hemoglobin 11.4 g/dL (12.0-15.0); Lymphocyte # 0.78 X10^3/ul (0.83-4.51); Lymphocyte % 5.9 % (19-41); Mean Corp Hgb Conc 33.9 g/dL (32-36); Mean Corpuscular Hgb 30.7 pg (27.0-32.0); Mean Corpuscular Volume 90.6 fL (81-99); Mean Platelet Vol. 10.1 fl (6.2-12.0); Monocyte# 1.09 X10^3/uL; Monocyte% 8.2 % (0-10); NRBC Flagged by Analyzer 0 % (0-5); Neutrophil # 10.94 X10^3/uL (2.7-7.7); Neutrophil % 82.7 % (47-70); Platelet Count 281 K/mm3 (150-450); RBC Distribution Width CV 13.7 % (11.6-14.6); RBC Distribution Width SD 45.3 fl (35.1-43.9); Red Blood Count 3.71 M/mm3 (4.2-5.4); White Blood Count 13.2 K/mm3 (4.4-11.0)
[2022-04-16 07:01] LABS: Prothrombin Time (Protime)PT. 47.8 SECONDS (11.7-14.9)
[2022-04-16 07:06] LABS: International Normalized Ratio 5.2
[2022-04-16] MEDS: Morphine 4 MG/ML Syringe IV (08:43)
[2022-04-16 09:09] LABS: Anion Gap 10 (5-15); BUN 16 mg/dL (7-18); BUN/Creat Ratio 14.8 RATIO (10-20); Calcium,Total 7.8 mg/dL (8.5-10.1); Chloride 109 mmol/L (98-107); Creatinine, Serum 1.08 mg/dL (0.55-1.02); EST Glomerular Filtration Rate 54 mL/min (>60); Est Glom Filt Rate - Afr Amer 65 mL/min (>60); Estimated Creatinine Clearance 41.81 ml/min; Glucose 79 mg/dL (74-106); Sodium Level 138 mmol/L (136-145)
[2022-04-16 09:38] LABS: Pathologist Review Reviewed
[2022-04-16] MEDS: Metoprolol(XL)Succ 50 MG Tablet PO (10:11)
[2022-04-16] MEDS: Ezetimibe 10 MG Tablet PO (10:11)
[2022-04-16] MEDS: buPROPion (SR) 150 MG Tablet.SA PO ×2 (10:12→21:04)
--- NOTE | 2022-04-16 10:12 | PCM.PN.HOSP ---
Subjective Subjective DOS: 04/16/2022 CC: Continued diarrhea Reports she continues to have significant amount of diarrhea, no nausea and has been tolerating her liquid diet but feels she could eat more. Abdominal pain still present and diffuse, she thinks may have slightly improved. Has been frustrated with her lack of significant improvement. Denies chest pain or shortness of breath. No problems with urination. Objective Data Objective Data Vital Signs: Vital Signs Temp Pulse Resp BP Pulse Ox O2 Del Method 98.3 F 70 16 125/63 H 100 Room Air 04/16/22 09:00 04/16/22 09:00 04/16/22 09:00 04/16/22 09:00 04/16/22 09:00 04/16/22 09:00 Oxygen Delivery Method Room Air Weight: 75 kg Body Mass Index (BMI) 29.2 Intake & Output: Intake and Output for Last 24 Hours 04/14/22 04/15/22 04/16/22 23:59 23:59 23:59 Intake Total 3812.5 / 4087.5 4156.25 / 4606.25 790 / 790 Balance 3812.5 / 4087.5 4156.25 / 4606.25 790 / 790 Lab / Micro Data Result Diagrams: 04/16/22 05:57 04/16/22 08:15 Labs: Laboratory Results - last 24 hr 04/13/22 04:25: Diff Path Review Reviewed 04/16/22 05:57: PT 47.8 H, INR 5.2 H* 04/16/22 05:57: WBC 13.2 H, RBC 3.71 L, Hgb 11.4 L, Hct 33.6 L, MCV 90.6, MCH 30.7, MCHC 33.9, RDW Std Deviation 45.3 H, RDW Coeff of [place] 13.7, Plt Count 281, MPV 10.1, Immature Gran % (Auto) 1.000 H, Neut % (Auto) 82.7 H, Lymph % (Auto) 5.9 L, [place] % (Auto) 8.2, Eos % (Auto) 1.9, Baso % (Auto) 0.3, Absolute Neuts (auto) 10.9 H, Absolute Lymphs (auto) 0.78 L, Nucleated RBC % 0 04/16/22 08:15: Sodium 138, Potassium 3.0 L, Chloride 109 H, Carbon Dioxide 19.0 L, Anion Gap 10, BUN 16, Creatinine 1.08 H, Estim Creat Clear Calc 41.81, Est GFR (MDRD) Af Amer 65, Est GFR (MDRD) Non-Af 54 L, BUN/Creatinine Ratio 14.8, Glucose 79, Calcium 7.8 L Micro: Microbiology 04/12/22 13:05 Stool Stool Lactoferrin - Final 04/12/22 13:05 Stool Enteric Bacteriology - Final 04/12/22 13:05 Stool C. difficile GDH Antigen & Toxins - Final 04/12/22 13:05 Stool C. difficile DNA Amplification - Final Physical Exam Const alert and no apparent distress Constitutional Narrative: Oriented HEENT normocephalic and head/scalp atraumatic Eyes Eyes Narrative: EOM grossly intact, anicteric Neck supple Resp normal respiratory effort Cardio Cardio Narrative: No edema appreciated GI soft to palpation GI Narrative: Very mild tender to palpation throughout, no rebound, no guarding, no rigidity, nondistended Extremity Extremity Narrative: Ambulating without difficulty in the room Neuro moves all extremities Neuro Narrative: No overt focal deficits appreciated Psych Psych Narrative: Cooperative Assessment & Plan Assessment/Plan (1) C. difficile colitis: PLAN: Plan 1. Persistent diarrhea secondary to C. difficile colitis Continues to be on oral vancomycin She also continues to require IV fluids due to significant amount of diarrhea Was restarted on Bentyl for colonic spasms yesterday, reports she only got 2 doses Is unable to tell us if its been helpful Will advance diet to solids and see how she responds Given only liquid diet till this point as well as continued significant diarrhea not stable for discharge at this time #2 chronic anticoagulation with warfarin secondary to past history of PE, INR today was elevated at 5.2, Coumadin held, will continue to trend INR #3 Stage IIIb chronic kidney disease-complicates care, management, recovery, and prognosis #4 essential hypertension-patient will remain on present medication #5 hyperlipidemia-patient will remain on present medication #DVT ppx: Ambulatory Shruthi Del Castillo MD Charges/Coding Visit Charges Inpatient E&M: 08212 Subs Hosp L2
[2022-04-16] MEDS: 0.9% Normal Saline 1,000 ML 75 ML IV ×2 (11:23→23:31)
[2022-04-16 11:53] LABS: Pathologist Review Reviewed
[2022-04-16 12:26] LABS: Magnesium 1.4 mg/dL (1.6-2.6)
[2022-04-16] MEDS: Potassium Chloride Oral Tablet 20 MEQ 40 MEQ PO (12:32)
--- NOTE | 2022-04-16 13:33 | PCM.PN.ID ---
Physical Exam Narrative Feeling better, abd pain improved, no fever, appetite better, but still frequent diarrhea. Const alert and no apparent distress Resp normal air movement and clear to auscultation bilaterally Cardio regular rate and regular rhythm GI soft to palpation and non-distended GI Narrative: mild soreness Skin no rashes or lesions noted ID ID: Route of nutrition/ use of supplements: [] Nutritional Intake: [] IV Site: [] [place] Catheter: [] Assessment & Plan Assessment/Plan (1) C. difficile colitis: PLAN: 2nd episode of cdiff. Given long vanc taper with first episode. CT showed colitis. On po vanc. Sx improving, wbc much better. Will follow
[2022-04-16] MEDS: Acetaminophen 325 MG Tablet 650 MG PO ×2 (16:10→23:30)
[2022-04-16] MEDS: Magnesium Sulfate 4gm/100mL 4 GM/100 ML IV.SOLN. IV (17:05)
[2022-04-17] VITALS (9 sets, daily range): BP systolic 98–150; BP diastolic 63–94; PULSE 75–86; RESP 15–18; TEMP 36.2–37.3; O2SAT 97–99
[2022-04-17] MEDS: Dicyclomine 10 MG Capsule 20 MG PO ×4 (05:39→23:56)
[2022-04-17] MEDS: Levothyroxine 100 MCG Tablet PO (05:39)
[2022-04-17] MEDS: Vancomycin 125 MG/5 ML Susp PO.SYRINGE PO ×4 (05:39→23:53)
[2022-04-17] MEDS: 0.9% Normal Saline 1,000 ML 75 ML IV ×3 (05:41→22:34)
[2022-04-17 05:53] LABS: Absolute Lymphocyte Count 0.73 X10^3/uL (0.83-4.51); Absolute Neutrophil Count 7.3 X10^3/uL (2.0-7.7); Basophil# 0.03 X10^3/uL; Basophil% 0.3 % (0-1); Eosinophil# 0.23 X10^3/uL; Eosinophils% 2.5 % (0-5); Hematocrit 31.1 % (37-47); Hemoglobin 10.7 g/dL (12.0-15.0); Lymphocyte # 0.73 X10^3/ul (0.83-4.51); Lymphocyte % 7.8 % (19-41); Mean Corp Hgb Conc 34.4 g/dL (32-36); Mean Corpuscular Hgb 30.8 pg (27.0-32.0); Mean Corpuscular Volume 89.6 fL (81-99); Mean Platelet Vol. 9.7 fl (6.2-12.0); Monocyte# 0.94 X10^3/uL; Monocyte% 10.1 % (0-10); NRBC Flagged by Analyzer 0 % (0-5); Neutrophil # 7.29 X10^3/uL (2.7-7.7); Neutrophil % 78.4 % (47-70); Platelet Count 283 K/mm3 (150-450); RBC Distribution Width CV 13.6 % (11.6-14.6); RBC Distribution Width SD 44.9 fl (35.1-43.9); Red Blood Count 3.47 M/mm3 (4.2-5.4); White Blood Count 9.3 K/mm3 (4.4-11.0)
[2022-04-17 06:10] LABS: International Normalized Ratio 5.1; Prothrombin Time (Protime)PT. 46.7 SECONDS (11.7-14.9)
[2022-04-17 06:32] LABS: ALB/GLOB Ratio 0.6 RATIO (0.9-2.4); AST(SGOT) 19 U/L (15-37); Alanine Aminotransfer ALT/SGPT 21 U/L (13-56); Albumin, Serum 1.9 g/dL (3.2-5.0); Alkaline Phosphatase 62 U/L (45-117); Anion Gap 5 (5-15); BUN 12 mg/dL (7-18); BUN/Creat Ratio 10.8 RATIO (10-20); Calcium,Total 7.8 mg/dL (8.5-10.1); Chloride 114 mmol/L (98-107); Creatinine, Serum 1.11 mg/dL (0.55-1.02); EST Glomerular Filtration Rate 52 mL/min (>60); Est Glom Filt Rate - Afr Amer 63 mL/min (>60); Estimated Creatinine Clearance 40.68 ml/min; Globulin 3.3 g/dL (2.2-4.2); Glucose 83 mg/dL (74-106); Magnesium 1.9 mg/dL (1.6-2.6); Potassium 3.4 mmol/L (3.5-5.1); Protein, Total 5.2 g/dL (6.4-8.2); Sodium Level 141 mmol/L (136-145)
--- NOTE | 2022-04-17 09:14 | PCM.PN.HOSP ---
Subjective Subjective DOS: 04/17/2022 CC: Diarrhea Continues to abdominal pain and diarrhea, is slowly improving but is already had 6 bowel movements this morning. Remains on IV fluids. Abdominal pain diffuse and slightly better, still been requiring pain medication however. Infectious disease following. No chest pain or shortness of breath. Tolerated increase diet thus far, denied any overt nausea or vomiting. Objective Data Objective Data Vital Signs: Vital Signs Temp Pulse Resp BP Pulse Ox O2 Del Method 97.1 F L 78 16 98/85 H 98 Room Air 04/17/22 07:53 04/17/22 07:53 04/17/22 07:53 04/17/22 07:53 04/17/22 07:53 04/17/22 07:53 Oxygen Delivery Method Room Air Weight: 75 kg Body Mass Index (BMI) 29.2 Intake & Output: Intake and Output for Last 24 Hours 04/15/22 04/16/22 04/17/22 23:59 23:59 23:59 Intake Total 4156.25 / 4606.25 4441.25 / 4441.25 702.5 / 702.5 Balance 4156.25 / 4606.25 4441.25 / 4441.25 702.5 / 702.5 Lab / Micro Data Result Diagrams: 04/17/22 05:15 04/17/22 05:15 Labs: Laboratory Results - last 24 hr 04/13/22 04:25: Diff Path Review Reviewed 04/14/22 05:19: Diff Path Review Reviewed 04/16/22 08:15: Magnesium 1.4 L 04/17/22 05:15: PT 46.7 H, INR 5.1 H* 04/17/22 05:15: WBC 9.3, RBC 3.47 L, Hgb 10.7 L, Hct 31.1 L, MCV 89.6, MCH 30.8, MCHC 34.4, RDW Std Deviation 44.9 H, RDW Coeff of Meka 13.6, Plt Count 283, MPV 9.7, Immature Gran % (Auto) 0.900, Neut % (Auto) 78.4 H, Lymph % (Auto) 7.8 L, [place] % (Auto) 10.1 H, Eos % (Auto) 2.5, Baso % (Auto) 0.3, Absolute Neuts (auto) 7.3, Absolute Lymphs (auto) 0.73 L, Nucleated RBC % 0 04/17/22 05:15: Sodium 141, Potassium 3.4 L, Chloride 114 H, Carbon Dioxide 22.0, Anion Gap 5, BUN 12, Creatinine 1.11 H, Estim Creat Clear Calc 40.68, Est GFR (MDRD) Af Amer 63, Est GFR (MDRD) Non-Af 52 L, BUN/Creatinine Ratio 10.8, Glucose 83, Calcium 7.8 L, Magnesium 1.9, Total Bilirubin 0.30, AST 19, ALT 21, Alkaline Phosphatase 62, Total Protein 5.2 L, Albumin 1.9 L, Globulin 3.3, Albumin/Globulin Ratio 0.6 L Micro: Microbiology 04/12/22 13:05 Stool Stool Lactoferrin - Final 04/12/22 13:05 Stool Enteric Bacteriology - Final 04/12/22 13:05 Stool C. difficile GDH Antigen & Toxins - Final 04/12/22 13:05 Stool C. difficile DNA Amplification - Final Physical Exam Const alert and no apparent distress Constitutional Narrative: Oriented HEENT normocephalic and head/scalp atraumatic Eyes Eyes Narrative: EOM grossly intact, anicteric Neck supple Resp normal respiratory effort Cardio Cardio Narrative: No edema appreciated GI soft to palpation GI Narrative: Very mild tender to palpation throughout, no rebound, no guarding, no rigidity, nondistended Extremity Extremity Narrative: Ambulating without difficulty in the room Neuro moves all extremities Neuro Narrative: No overt focal deficits appreciated Psych Psych Narrative: Cooperative Assessment & Plan Assessment/Plan (1) C. difficile colitis: PLAN: Plan 1. Persistent diarrhea secondary to C. difficile colitis Continues to be on oral vancomycin She also continues to require IV fluids due to significant amount of diarrhea Was restarted on Bentyl for colonic spasms yesterday, reports she only got 2 doses Is unable to tell us if its been helpful Will advance diet to solids and see how she responds Given only liquid diet till this point as well as continued significant diarrhea not stable for discharge at this time 04/17/2022: Evaluated by infectious disease again yesterday. Plan to continue vancomycin and current management. Remains on fluid. Tolerating advance diet. Still frequent diarrhea but slightly more formed. Continue current management at this time. Given significant amount of diarrhea that is persisted not yet safe for discharge, will monitor closely #2 chronic anticoagulation with warfarin secondary to past history of PE, INR remains elevated, Coumadin held, will continue to trend INR #3 Stage IIIb chronic kidney disease-complicates care, management, recovery, and prognosis #4 essential hypertension-patient will remain on present medication #5 hyperlipidemia-patient will remain on present medication #DVT ppx: Ambulatory Shruthi Del Castillo MD Charges/Coding Visit Charges Inpatient E&M: 36330 Subs Hosp L2
--- NOTE | 2022-04-17 09:28 | NURSING ---
student nurse reports to this nurse current blood pressure. Nurse into see pt and noted she is awake alert oriented and asymptomatic she is eating breakfast.
[2022-04-17] MEDS: Potassium Chloride Oral Tablet 20 MEQ 40 MEQ PO (10:31)
[2022-04-17] MEDS: Metoprolol(XL)Succ 50 MG Tablet PO (10:31)
[2022-04-17] MEDS: buPROPion (SR) 150 MG Tablet.SA PO ×2 (10:32→21:47)
[2022-04-17] MEDS: Ezetimibe 10 MG Tablet PO (10:32)
[2022-04-17] MEDS: 0.9% Saline Lock 10 ML Syringe IV (10:44)
--- NOTE | 2022-04-17 10:44 | PCM.PN.ID ---
Physical Exam Narrative Feeling a little better. Diarrhea slowing, abd pain is less. Const alert and no apparent distress Resp normal air movement and clear to auscultation bilaterally Cardio regular rate and regular rhythm GI soft to palpation, non-tender and non-distended Skin no rashes or lesions noted ID ID: Route of nutrition/ use of supplements: [] Nutritional Intake: [] IV Site: [] Molina Catheter: [] Assessment & Plan Assessment/Plan (1) C. difficile colitis: PLAN: 2nd episode of cdiff. Given long vanc taper with first episode. CT showed colitis. On po vanc. Sx improving, wbc now normal. Given previous treatment with vanc taper, guidelines are to treat with dificid. Will order rx for discharge. Will follow
--- NOTE | 2022-04-17 13:21 | CASEMGMT ---
TC to [facility] pharmacy, pt dificid is not on formulary and [facility] pharmacy in not contracted with pt insurance. MICHAEL GRIFFIN in to pt room, pt would like meds to be sent to [facility] on [address] in [facility] in [place]. Pt states she had to jump through alot of hoops to get her vancomycin filled previously. Pt aware MICHAEL GRIFFIN will work on this. TC to [facility], spoke with Chemo, he will trf rx to [facility] in [place].
[2022-04-17] MEDS: traMADol 50 MG Tablet PO (21:46)
[2022-04-17] MEDS: ALPRAZolam 0.5 MG Tablet PO (23:53)
[2022-04-18] VITALS (7 sets, daily range): BP systolic 117–151; BP diastolic 61–106; PULSE 79–105; RESP 18; TEMP 36.6–37.5; O2SAT 97–100
[2022-04-18] MEDS: 0.9% Saline Lock 10 ML Syringe IV (01:30)
[2022-04-18] MEDS: Morphine 2 MG/ML Syringe IV (01:31)
[2022-04-18] MEDS: Morphine 4 MG/ML Syringe IV (05:23)
[2022-04-18 06:40] LABS: Absolute Lymphocyte Count 0.55 X10^3/uL (0.83-4.51); Absolute Neutrophil Count 12.1 X10^3/uL (2.0-7.7); Basophil# 0.06 X10^3/uL; Basophil% 0.4 % (0-1); Eosinophil# 0.18 X10^3/uL; Eosinophils% 1.3 % (0-5); Hematocrit 33.2 % (37-47); Hemoglobin 11.3 g/dL (12.0-15.0); Lymphocyte # 0.55 X10^3/ul (0.83-4.51); Lymphocyte % 3.8 % (19-41); Mean Corpuscular Hgb 30.5 pg (27.0-32.0); Mean Corpuscular Volume 89.5 fL (81-99); Mean Platelet Vol. 9.8 fl (6.2-12.0); Monocyte# 1.34 X10^3/uL; Monocyte% 9.3 % (0-10); NRBC Flagged by Analyzer 0 % (0-5); Neutrophil # 12.07 X10^3/uL (2.7-7.7); Neutrophil % 83.9 % (47-70); POSITIVE DIFFERENTIAL YES; Platelet Count 384 K/mm3 (150-450); RBC Distribution Width CV 13.4 % (11.6-14.6); RBC Distribution Width SD 43.7 fl (35.1-43.9); Red Blood Count 3.71 M/mm3 (4.2-5.4); White Blood Count 14.4 K/mm3 (4.4-11.0)
[2022-04-18 06:41] LABS: Differential Indicated SCAN CRITERIA MET
[2022-04-18 06:47] LABS: International Normalized Ratio 3.1; Prothrombin Time (Protime)PT. 31.6 SECONDS (11.7-14.9)
[2022-04-18] MEDS: Levothyroxine 100 MCG Tablet PO (06:51)
[2022-04-18] MEDS: Vancomycin 125 MG/5 ML Susp PO.SYRINGE PO ×4 (06:51→23:16)
[2022-04-18] MEDS: Dicyclomine 10 MG Capsule 20 MG PO ×4 (06:51→21:23)
[2022-04-18 07:11] LABS: Anion Gap 6 (5-15); BUN 8 mg/dL (7-18); BUN/Creat Ratio 8.8 RATIO (10-20); Chloride 109 mmol/L (98-107); Creatinine, Serum 0.91 mg/dL (0.55-1.02); EST Glomerular Filtration Rate 66 mL/min (>60); Est Glom Filt Rate - Afr Amer 79 mL/min (>60); Estimated Creatinine Clearance 49.62 ml/min; Glucose 108 mg/dL (74-106); Magnesium 1.4 mg/dL (1.6-2.6); Potassium 3.2 mmol/L (3.5-5.1); Sodium Level 137 mmol/L (136-145)
--- NOTE | 2022-04-18 08:01 | PN.HOSP_ITS ---
Subjective Subjective DOS: 04/18/2022 CC: Foot pain Reports that her feet have been hurting since yesterday. Denies any changes in pain in her back specifically, just reports her feet feel tender from the ankles down but denies any weakness. Had difficulty describing the pain but denied any specific distribution, may be slightly more tender around the big toes. Did take the morphine and also got Xanax last night. Did have a hard time sleeping now. Diarrhea is starting to improve in frequency and consistency. A little bit of nausea this morning but is tolerating p.o. better. Abdominal pain also improving Objective Data Objective Data Vital Signs: Vital Signs Temp Pulse Resp BP Pulse Ox O2 Del Method 99.5 F H 93 18 151/87 H 100 Room Air 04/18/22 04:00 04/18/22 04:00 04/18/22 04:00 04/18/22 04:00 04/18/22 04:00 04/18/22 04:00 Oxygen Delivery Method Room Air Weight: 75 kg Body Mass Index (BMI) 29.2 Intake & Output: Intake and Output for Last 24 Hours 04/16/22 04/17/22 04/18/22 23:59 23:59 23:59 Intake Total 4441.25 / 4441.25 3965.25 / 3965.25 Output Total 2 / 2 Balance 4441.25 / 4441.25 3965.25 / 3963.25 -2 / -2 Lab / Micro Data Result Diagrams: 04/18/22 06:05 04/18/22 06:05 Labs: Laboratory Results - last 24 hr 04/18/22 06:05: WBC 14.4 H, RBC 3.71 L, Hgb 11.3 L, Hct 33.2 L, MCV 89.5, MCH 30.5, MCHC 34.0, RDW Std Deviation 43.7, RDW Coeff of Meka 13.4, Plt Count 384, MPV 9.8, Immature Gran % (Auto) 1.300 H, Neut % (Auto) 83.9 H, Lymph % (Auto) 3.8 L, [place] % (Auto) 9.3, Eos % (Auto) 1.3, Baso % (Auto) 0.4, Absolute Neuts (auto) 12.1 H, Absolute Lymphs (auto) 0.55 L, Nucleated RBC % 0 04/18/22 06:05: Sodium 137, Potassium 3.2 L, Chloride 109 H, Carbon Dioxide 22.0, Anion Gap 6, BUN 8, Creatinine 0.91, Estim Creat Clear Calc 49.62, Est GFR (MDRD) Af Amer 79, Est GFR (MDRD) Non-Af 66, BUN/Creatinine Ratio 8.8 L, Glucose 108 H, Calcium 8.0 L, Magnesium 1.4 L 04/18/22 06:05: PT 31.6 H, INR 3.1 Micro: Microbiology 04/12/22 13:05 Stool Ova and Parasites - Final 04/12/22 13:05 Stool Stool Lactoferrin - Final 04/12/22 13:05 Stool Enteric Bacteriology - Final 04/12/22 13:05 Stool C. difficile GDH Antigen & Toxins - Final 04/12/22 13:05 Stool C. difficile DNA Amplification - Final Physical Exam Const alert and oriented x3 Constitutional Narrative: Laying in bed HEENT moist oral mucous membranes Eyes EOMs intact bilaterally Neck supple Resp normal respiratory effort and clear to auscultation bilaterally Cardio regular rate and regular rhythm GI soft to palpation, non-tender and non-distended Assessment & Plan Assessment/Plan (1) C. difficile colitis: PLAN: Plan 1. Persistent diarrhea secondary to C. difficile colitis Continues to be on oral vancomycin She also continues to require IV fluids due to significant amount of diarrhea Was restarted on Bentyl for colonic spasms yesterday, reports she only got 2 doses Is unable to tell us if its been helpful Will advance diet to solids and see how she responds Given only liquid diet till this point as well as continued significant diarrhea not stable for discharge at this time 04/17/2022: Evaluated by infectious disease again yesterday. Plan to continue vancomycin and current management. Remains on fluid. Tolerating advance diet. Still frequent diarrhea but slightly more formed. Continue current management at this time. Given significant amount of diarrhea that is persisted not yet safe for discharge, will monitor closely 04/18/2022: Abdominal pain is starting to improve as his stool frequency and consistency. Continue vancomycin #Feet pain Symmetric and bilateral, painful to even light touch. Strength equal in bilateral lower extremities, against resistance difficulty on ly due to pain in the feet, straight leg raise negative. No spinal tenderness MCP joints possibly somewhat better than rest of foot, will obtain uric acid Additionally will obtain Pro-Santiago as WBC count is slightly elevated again May impart be 2 foot cramps from hypokalemia and hypomagnesemia, replacing these If pain persists will likely start small dose of gabapentin however will treat cautiously as she is also on morphine and Xanax as needed, can consider topical once labs come back if no other etiology is found #2 chronic anticoagulation with warfarin secondary to past history of PE, INR re bertin elevated, Coumadin held, will continue to trend INR 04/18/2022: INR down to 3.1, was on 30 mg weekly before, will decrease by 5 mg overall still resumed the 5 mg Saturday, Saturday, Saturday, Saturday, Saturday and continue to monitor INR #3 Stage IIIb chronic kidney disease-complicates care, management, recovery, and prognosis #4 essential hypertension-patient will remain on present medication #5 hyperlipidemia-patient will remain on present medication #DVT ppx: Ambulatory Shruthi Del Castillo MD
[2022-04-18] MEDS: Metoprolol(XL)Succ 50 MG Tablet PO (09:46)
[2022-04-18] MEDS: buPROPion (SR) 150 MG Tablet.SA PO ×2 (09:46→21:50)
[2022-04-18] MEDS: Potassium Chloride Oral Tablet 20 MEQ 60 MEQ PO (09:46)
[2022-04-18] MEDS: Ezetimibe 10 MG Tablet PO (09:46)
[2022-04-18] MEDS: Magnesium Sulfate 4gm/100mL 4 GM/100 ML IV.SOLN. IV (09:47)
--- NOTE | 2022-04-18 10:58 | CASEMGMT ---
Addendum entered by Kamala Tucker 04/18/22 14:05: Discussed dificid with ID and cost that pt can not afford. Pt to be sent home with oral vanc instead. Original Note: TC to [facility] in [place], pt copay for Dificid is $1972.45. They do not have med in stock and would need to order if pt chooses to get med. MICHAEL GRIFFIN in to pt room, pt states she cannot afford this. Pt agreeable to MICHAEL GRIFFIN providing her information for a coupon. Entered information per Dificid's website and pt is not eligible d/t having insurance. Checked [facility] and cost is higher than copay.
[2022-04-18 11:17] LABS: Uric Acid 5.2 mg/dL (2.6-6.0)
[2022-04-18 11:24] LABS: Procalcitonin 0.24 ng/mL (0.00-0.09)
[2022-04-18] MEDS: traMADol 50 MG Tablet PO ×2 (11:34→21:23)
--- NOTE | 2022-04-18 13:32 | RAD_ITS ---
STUDY: X-RAY - LEFT FOOT CLINICAL: Female, 66 years old. L plantar pain TECHNIQUE: 2 view(s) of the foot. COMPARISON: None. FINDINGS: Normal talus, calcaneus, and tarsal bones. Normal visualized subtalar, talonavicular, calcaneocuboid, tarsal spurring of the tarsometatarsal articulations. Normal metatarsi. Mild degenerative changes of the metatarsophalangeal joint of the great toe. Normal tibial and fibular sesamoid bones. Normal interphalangeal joint of the great toe. Normal phalanges of the great toe. Normal second through fifth metatarsophalangeal joints. Normal interphalangeal joints and phalanges of the lesser toes. Prominent calcification of the plantar fascia in association with prominent spur consistent with plantar fasciitis RAD/Foot 2 Views IMPRESSION: Findings consistent with plantar fasciitis. No acute fracture or other significant bony pathology Electronically Signed: Gume Camacho MD at 20:42 EDT ,
--- NOTE | 2022-04-18 13:32 | RAD_ITS ---
STUDY: X-RAY - RIGHT FOOT CLINICAL: Female, 66 years old. SWOLLEN 1ST MCP JOINT TECHNIQUE: 2 view(s) of the foot. COMPARISON: None. FINDINGS: Normal talus, calcaneus, and tarsal bones. Normal visualized subtalar, talonavicular, calcaneocuboid, tarsal and tarsometatarsal articulations. There is subchondral lucency and cortical disruption of the lateral head of the first metatarsal possibly representing early changes of acute osteomyelitis Normal metatarsophalangeal joint of the great toe. Normal tibial and fibular sesamoid bones. Normal interphalangeal joint of the great toe. Normal phalanges of the great toe. Normal second through fifth metatarsophalangeal joints. Normal interphalangeal joints and phalanges of the lesser toes. Soft tissue swelling at the level of the first metacarpal phalangeal joint. RAD/Foot 2 Views IMPRESSION: Suspicious for acute osteomyelitis of the lateral head of the first metatarsal. MRI recommended for further assessment Electronically Signed: Gume Camacho MD at 20:13 EDT ,
[2022-04-18 13:35] LABS: Absolute Lymphocyte Count 0.51 X10^3/uL (0.83-4.51); Absolute Neutrophil Count 11.5 X10^3/uL (2.0-7.7); Basophil# 0.04 X10^3/uL; Basophil% 0.3 % (0-1); Eosinophils% 0.7 % (0-5); Hematocrit 32.5 % (37-47); Hemoglobin 11.2 g/dL (12.0-15.0); Lymphocyte # 0.51 X10^3/ul (0.83-4.51); Lymphocyte % 3.8 % (19-41); Mean Corp Hgb Conc 34.5 g/dL (32-36); Mean Corpuscular Hgb 30.4 pg (27.0-32.0); Mean Corpuscular Volume 88.1 fL (81-99); Mean Platelet Vol. 9.5 fl (6.2-12.0); Monocyte# 1.35 X10^3/uL; Monocyte% 9.9 % (0-10); NRBC Flagged by Analyzer 0 % (0-5); Neutrophil # 11.45 X10^3/uL (2.7-7.7); Neutrophil % 84.3 % (47-70); POSITIVE DIFFERENTIAL YES; Platelet Count 349 K/mm3 (150-450); RBC Distribution Width CV 13.5 % (11.6-14.6); RBC Distribution Width SD 43.8 fl (35.1-43.9); Red Blood Count 3.69 M/mm3 (4.2-5.4); White Blood Count 13.6 K/mm3 (4.4-11.0)
--- NOTE | 2022-04-18 13:37 | PN.ID_ITS ---
Physical Exam Narrative C/o new pain in bilateral feet. Diarrhea is about the same, no fever Const alert and no apparent distress General Appearance: cooperative Resp normal air movement and clear to auscultation bilaterally Cardio regular rate and regular rhythm GI soft to palpation, non-tender and non-distended Skin no rashes or lesions noted Skin Narrative: bilateral feet tender to touch ID ID: Route of nutrition/ use of supplements: [] Nutritional Intake: [] IV Site: [] Molina Catheter: [] Assessment & Plan Assessment/Plan (1) C. difficile colitis: PLAN: 2nd episode of cdiff. Given long vanc taper with first episode. CT showed colitis. On po vanc. Sx improving, wbc improved. Given previous theresa atment with vanc taper, will repeat taper. Unable to afford out of pocket for dificid. Will follow
[2022-04-18] MEDS: Ibuprofen 600 MG Tablet PO (13:40)
[2022-04-18] MEDS: Pregabalin 25 MG Capsule PO ×2 (13:40→21:24)
[2022-04-18 14:15] LABS: Differential Indicated SCAN CRITERIA MET
[2022-04-18 14:16] LABS: Differential Comment SCANNED
[2022-04-18 14:18] LABS: Erythrocyte Sedimentation Rate 40 mm/hr (0-30)
[2022-04-18] MEDS: 0.9% Normal Saline 1,000 ML 75 ML IV (21:22)
[2022-04-18] MEDS: ALPRAZolam 0.5 MG Tablet PO (21:23)
[2022-04-18] MEDS: Acetaminophen 325 MG Tablet 650 MG PO (21:24)
[2022-04-18] MEDS: MELATONIN 3 MG TABLET PO (21:24)
[2022-04-19] VITALS (8 sets, daily range): BP systolic 133–170; BP diastolic 70–87; PULSE 77–85; RESP 18; TEMP 36.7–37.6; O2SAT 94–100
[2022-04-19] MEDS: Acetaminophen 325 MG Tablet 650 MG PO (05:35)
[2022-04-19] MEDS: traMADol 50 MG Tablet PO ×2 (05:35→21:14)
[2022-04-19] MEDS: Levothyroxine 100 MCG Tablet PO (05:36)
[2022-04-19] MEDS: Vancomycin 125 MG/5 ML Susp PO.SYRINGE PO ×3 (05:36→17:04)
[2022-04-19] MEDS: Pregabalin 25 MG Capsule PO ×3 (05:36→21:14)
[2022-04-19] MEDS: Dicyclomine 10 MG Capsule 20 MG PO ×4 (05:39→21:14)
[2022-04-19 06:38] LABS: Absolute Lymphocyte Count 0.63 X10^3/uL (0.83-4.51); Absolute Neutrophil Count 11.7 X10^3/uL (2.0-7.7); Basophil# 0.04 X10^3/uL; Basophil% 0.3 % (0-1); Eosinophil# 0.18 X10^3/uL; Eosinophils% 1.3 % (0-5); Hematocrit 30.7 % (37-47); Hemoglobin 10.4 g/dL (12.0-15.0); Lymphocyte # 0.63 X10^3/ul (0.83-4.51); Lymphocyte % 4.5 % (19-41); Mean Corp Hgb Conc 33.9 g/dL (32-36); Mean Corpuscular Hgb 30.1 pg (27.0-32.0); Mean Platelet Vol. 9.6 fl (6.2-12.0); Monocyte# 1.18 X10^3/uL; Monocyte% 8.5 % (0-10); NRBC Flagged by Analyzer 0 % (0-5); Neutrophil # 11.66 X10^3/uL (2.7-7.7); Platelet Count 373 K/mm3 (150-450); RBC Distribution Width CV 13.8 % (11.6-14.6); RBC Distribution Width SD 44.3 fl (35.1-43.9); Red Blood Count 3.45 M/mm3 (4.2-5.4); White Blood Count 13.9 K/mm3 (4.4-11.0)
[2022-04-19 07:03] LABS: International Normalized Ratio 2.7; Prothrombin Time (Protime)PT. 28.7 SECONDS (11.7-14.9)
[2022-04-19 07:07] LABS: Anion Gap 4 (5-15); BUN 10 mg/dL (7-18); BUN/Creat Ratio 11.6 RATIO (10-20); Chloride 110 mmol/L (98-107); Creatinine, Serum 0.86 mg/dL (0.55-1.02); EST Glomerular Filtration Rate 70 mL/min (>60); Est Glom Filt Rate - Afr Amer 84 mL/min (>60); Estimated Creatinine Clearance 52.51 ml/min; Glucose 107 mg/dL (74-106); Magnesium 1.6 mg/dL (1.6-2.6); Potassium 3.4 mmol/L (3.5-5.1); Sodium Level 137 mmol/L (136-145)
[2022-04-19 07:17] LABS: Erythrocyte Sedimentation Rate 43 mm/hr (0-30)
--- NOTE | 2022-04-19 08:01 | PCM.PN.HOSP ---
Subjective Subjective DOS: 04/19/2022 CC: Toe pain Reports that her abdominal pain and diarrhea have been improving and she is tolerating p.o. however her right big toe and bottom of her left foot hurts though she feels she can somewhat stand on the left but is in too much pain to stand on the right. She denies any chest pain or shortness of breath. Denies any other concerns Objective Data Objective Data Vital Signs: Vital Signs Temp Pulse Resp BP Pulse Ox O2 Del Method 98.7 F 85 18 170/79 H 94 Room Air 04/19/22 03:30 04/19/22 03:30 04/19/22 03:30 04/19/22 03:30 04/19/22 03:30 04/19/22 03:30 Oxygen Delivery Method Room Air Weight: 75 kg Body Mass Index (BMI) 29.2 Intake & Output: Intake and Output for Last 24 Hours 04/17/22 04/18/22 04/19/22 23:59 23:59 23:59 Intake Total 3965.25 / 3965.25 1700 / 1700 120 / 120 Output Total 2 / 2 Balance 3965.25 / 3963.25 1698 / 1698 120 / 120 Lab / Micro Data Result Diagrams: 04/19/22 06:00 04/19/22 06:00 Labs: Laboratory Results - last 24 hr 04/18/22 06:05: Uric Acid 5.2 04/18/22 06:05: Procalcitonin 0.24 H 04/18/22 13:24: WBC 13.6 H, RBC 3.69 L, Hgb 11.2 L, Hct 32.5 L, MCV 88.1, MCH 30.4, MCHC 34.5, RDW Std Deviation 43.8, RDW Coeff of Meka 13.5, Plt Count 349, MPV 9.5, Immature Gran % (Auto) 1.000 H, Neut % (Auto) 84.3 H, Lymph % (Auto) 3.8 L, [place] % (Auto) 9.9, Eos % (Auto) 0.7, Baso % (Auto) 0.3, Absolute Neuts (auto) 11.5 H, Absolute Lymphs (auto) 0.51 L, Nucleated RBC % 0, Differential Comment SCANNED, ESR 40 H 04/18/22 13:24: C-React Prot Ext Range 54.10 H 04/19/22 06:00: PT 28.7 H, INR 2.7 04/19/22 06:00: WBC 13.9 H, RBC 3.45 L, Hgb 10.4 L, Hct 30.7 L, MCV 89.0, MCH 30.1, MCHC 33.9, RDW Std Deviation 44.3 H, RDW Coeff of Meka 13.8, Plt Count 373, MPV 9.6, Immature Gran % (Auto) 1.400 H, Neut % (Auto) 84.0 H, Lymph % (Auto) 4.5 L, [place] % (Auto) 8.5, Eos % (Auto) 1.3, Baso % (Auto) 0.3, Absolute Neuts (auto) 11.7 H, Absolute Lymphs (auto) 0.63 L, Nucleated RBC % 0, ESR 43 H 04/19/22 06:00: Sodium 137, Potassium 3.4 L, Chloride 110 H, Carbon Dioxide 23.0, Anion Gap 4 L, BUN 10, Creatinine 0.86, Estim Creat Clear Calc 52.51, Est GFR (MDRD) Af Amer 84, Est GFR (MDRD) Non-Af 70, BUN/Creatinine Ratio 11.6, Glucose 107 H, Calcium 8.0 L, Magnesium 1.6, C-React Prot Ext Range 102.00 H Micro: Microbiology 04/12/22 13:05 Stool Ova and Parasites - Final 04/12/22 13:05 Stool Stool Lactoferrin - Final 04/12/22 13:05 Stool Enteric Bacteriology - Final 04/12/22 13:05 Stool C. difficile GDH Antigen & Toxins - Final 04/12/22 13:05 Stool C. difficile DNA Amplification - Final Radiography Diagnostic Testing: Radiology Impression Foot X-Ray 04/18/22 13:32 IMPRESSION: Findings consistent with plantar fasciitis. No acute fracture or other significant bony pathology Electronically Signed: Gume Camacho MD at 20:42 EDT Reading Location ID and State: [address] [place] [address] , Service support , Foot X-Ray 04/18/22 13:32 IMPRESSION: Suspicious for acute osteomyelitis of the lateral head of the first metatarsal. MRI recommended for further assessment Electronically Signed: Gume Camacho MD at 20:13 EDT , Physical Exam Const alert and oriented x3 Constitutional Narrative: Laying in bed HEENT moist oral mucous membranes Eyes EOMs intact bilaterally Neck supple Resp normal respiratory effort Cardio regular rate and regular rhythm GI non-distended Extremity Extremity Narrative: Moving all extremities, pain on bottom of left foot and pain in right first MTP with some erythema Neuro Neuro Narrative: No overt focal neurologic deficits Psych affect normal Assessment & Plan Assessment/Plan (1) C. difficile colitis: PLAN: Plan 1. Persistent diarrhea secondary to C. difficile colitis Continues to be on oral vancomycin She also continues to require IV fluids due to significant amount of diarrhea Was restarted on Bentyl for colonic spasms yesterday, reports she only got 2 doses Is unable to tell us if its been helpful Will advance diet to solids and see how she responds Given only liquid diet till this point as well as continued significant diarrhea not stable for discharge at this time 04/17/2022: Evaluated by infectious disease again yesterday. Plan to continue vancomycin and current management. Remains on fluid. Tolerating advance diet. Still frequent diarrhea but slightly more formed. Continue current management at this time. Given significant amount of diarrhea that is persisted not yet safe for discharge, will monitor closely 04/18/2022: Abdominal pain is starting to improve as his stool frequency and consistency. Continue vancomycin 04/19/2022: Significantly improving, continue present management #Bilateral foot pain Symmetric and bilateral, painful to even light touch. Strength equal in bilateral lower extremities, against resistance difficulty only due to pain in the feet, straight leg raise negative. No spinal tenderness MCP joints possibly somewhat better than rest of foot, will obtain uric acid Additionally will obtain Pro-Santiago as WBC count is slightly elevated again May impart be 2 foot cramps from hypokalemia and hypomagnesemia, replacing these If pain persists will likely start small dose of gabapentin however will treat cautiously as she is also on morphine and Xanax as needed, can consider topical once labs come back if no other etiology is found 04/19/2022: X-ray of the left foot consistent with plantar fasciitis and x-ray of the right foot concerning for osteomyelitis of the lateral head of the first metatarsal. MRI however did not demonstrate osteomyelitis of the right first MTP but there was inflammation and concern for gout. Given pain and presentation do feel that this is consistent. Given concomitant C. difficile we will avoid prednisone, given elevated INR will try to avoid oral NSAIDs. We will start colchicine and for left-sided plantar pain will start topical NSAIDs. We will continue to trend ESR and CRP as well as other labs. Did discuss that colchicine could cause or contribute to diarrhea but it does not necessarily mean worsening of her C. difficile. Verbalized understanding #2 chronic anticoagulation with warfarin secondary to past history of PE, INR remains elevated, Coumadin held, will continue to trend INR 04/18/2022: INR down to 3.1, was on 30 mg weekly before, will decrease by 5 mg overall still resumed the 5 mg Saturday, Saturday, Saturday, Saturday, Saturday and continue to monitor INR 04/19: Given new problem the Coumadin was held yesterday, INR is within normal range now but given possible need for further intervention we will continue to hold off at this moment. #3 Stage IIIb chronic kidney disease-complicates care, management, recovery, and prognosis #4 essential hypertension-patient will remain on present medication #5 hyperlipidemia-patient will remain on present medication #DVT ppx: Ambulatory Shruthi Del Castillo MD Charges/Coding Visit Charges Inpatient E&M: 69203 Subs Hosp L2
--- NOTE | 2022-04-19 08:09 | MRI_ITS ---
STUDY: MRI RIGHT FOREFOOT WITH AND WITHOUT CONTRAST REASON FOR EXAM: Female, 66 years old. osteomyelitis toe TECHNIQUE: Standardized fat and water weighted pulse sequences were obtained in all 3 orthogonal planes, post contrast administration. IV 15cc clariscan was administered for the contrast portion of the examination. COMPARISON: None. FINDINGS: There are marginal erosions of the first metatarsal head with a joint of effusion of the metatarsophalangeal joint of the hallux with capsular distension. Normal tibial and fibular sesamoids, with normal sesamoids-first metatarsal articulations. Normal interphalangeal joint of the hallux. Normal proximal and distal phalanges of the great toe. Normal medial and lateral heads of the flexor hallucis brevis tendons. Normal flexor and extensor hallucis longus tendons. Normal second through fifth metatarsophalangeal (MTP) joints. Normal interphalangeal joints of the second through fifth toes. Normal proximal, middle and distal phalanges of the second through fifth toes. Normal flexor and extensor tendons of the second through fifth toes. Normal first through fourth intermetatarsal spaces. Normal visualized metatarsi. Normal intrinsic muscles of the forefoot. Dorsal soft tissue swelling. 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 No MR evidence of osteomyelitis. Electronically Signed: Leo Glass MD at 12:03 EDT ,
[2022-04-19] MEDS: buPROPion (SR) 150 MG Tablet.SA PO ×2 (08:33→21:14)
[2022-04-19] MEDS: Ezetimibe 10 MG Tablet PO (08:33)
[2022-04-19] MEDS: Metoprolol(XL)Succ 50 MG Tablet PO (08:33)
--- NOTE | 2022-04-19 09:39 | MRI_ITS ---
STUDY: MRI LEFT FOREFOOT WITH AND WITHOUT CONTRAST REASON FOR EXAM: Female, 66 years old. OSTEOMYELITIS TOE TECHNIQUE: Standardized fat and water weighted pulse sequences were obtained in all 3 orthogonal planes, post contrast administration. 15cc iv clariscan was administered for the contrast portion of the examination. COMPARISON: None. FINDINGS: Normal metatarsophalangeal joint of the hallux. Normal tibial and fibular sesamoids, with normal sesamoids-first metatarsal articulations. Normal interphalangeal joint of the hallux. Normal proximal and distal phalanges of the great toe. Normal medial and lateral heads of the flexor hallucis brevis tendons. Normal flexor and extensor hallucis longus tendons. Normal second through fifth metatarsophalangeal (MTP) joints. Normal interphalangeal joints of the second through fifth toes. Normal proximal, middle and distal phalanges of the second through fifth toes. Normal flexor and extensor tendons of the second through fifth toes. Normal first through fourth intermetatarsal spaces. Normal visualized metatarsi. Normal intrinsic muscles of the forefoot. Dorsal soft tissue swelling. MRI/Lower Ext No Joint W/WO Cont IMPRESSION: Normal unenhanced and enhanced MRI of the forefoot. Electronically Signed: Leo Glass MD at 12:06 EDT ,
[2022-04-19 09:59] LABS: Procalcitonin 0.22 ng/mL (0.00-0.09)
[2022-04-19] MEDS: Potassium Chloride Oral Tablet 20 MEQ 60 MEQ PO (11:57)
[2022-04-19] MEDS: Magnesium Sulfate 4gm/100mL 4 GM/100 ML IV.SOLN. IV (11:57)
[2022-04-19] MEDS: Morphine 4 MG/ML Syringe IV ×2 (12:06→15:17)
[2022-04-19] MEDS: 0.9% Saline Lock 10 ML Syringe IV ×2 (12:06→15:17)
[2022-04-19] MEDS: 0.9% Normal Saline 1,000 ML 75 ML IV (12:09)
[2022-04-19] MEDS: Colchicine 0.6 MG TABLET 1.2 MG PO (17:04)
[2022-04-19] MEDS: Arthritis Pain Compound 60 CLICK TUBE TOPICAL ×2 (17:04→21:15)
[2022-04-19] MEDS: Colchicine 0.6 MG TABLET PO (21:14)
[2022-04-19] MEDS: MELATONIN 3 MG TABLET PO (21:15)
[2022-04-19] MEDS: ALPRAZolam 0.5 MG Tablet PO (21:15)
[2022-04-20] VITALS (8 sets, daily range): BP systolic 138–156; BP diastolic 71–80; PULSE 91–104; RESP 16–20; TEMP 36.3–37.7; O2SAT 98–100
[2022-04-20] MEDS: Vancomycin 125 MG/5 ML Susp PO.SYRINGE PO ×4 (00:10→17:57)
--- NOTE | 2022-04-20 02:24 | NURSING ---
Pt called saying she fell getting up to the bedside commode. No injury noted. This RN asked patient to call for help when she needs to use the bedside commode.
[2022-04-20] MEDS: traMADol 50 MG Tablet PO ×2 (03:31→14:32)
[2022-04-20] MEDS: Pregabalin 25 MG Capsule PO ×3 (06:51→22:00)
[2022-04-20] MEDS: Dicyclomine 10 MG Capsule 20 MG PO ×4 (06:51→22:00)
[2022-04-20] MEDS: Levothyroxine 100 MCG Tablet PO (06:51)
[2022-04-20] MEDS: Arthritis Pain Compound 60 CLICK TUBE TOPICAL ×3 (06:53→22:05)
[2022-04-20 07:13] LABS: Absolute Lymphocyte Count 0.84 X10^3/uL (0.83-4.51); Absolute Neutrophil Count 11.1 X10^3/uL (2.0-7.7); Basophil# 0.03 X10^3/uL; Basophil% 0.2 % (0-1); Eosinophil# 0.19 X10^3/uL; Eosinophils% 1.4 % (0-5); Hematocrit 29.7 % (37-47); Hemoglobin 10.1 g/dL (12.0-15.0); Lymphocyte # 0.84 X10^3/ul (0.83-4.51); Lymphocyte % 6.4 % (19-41); Mean Corpuscular Hgb 30.2 pg (27.0-32.0); Mean Corpuscular Volume 88.9 fL (81-99); Mean Platelet Vol. 9.7 fl (6.2-12.0); Monocyte# 0.89 X10^3/uL; Monocyte% 6.8 % (0-10); NRBC Flagged by Analyzer 0 % (0-5); Neutrophil # 11.09 X10^3/uL (2.7-7.7); Neutrophil % 84.1 % (47-70); Platelet Count 425 K/mm3 (150-450); RBC Distribution Width CV 13.8 % (11.6-14.6); RBC Distribution Width SD 44.9 fl (35.1-43.9); Red Blood Count 3.34 M/mm3 (4.2-5.4); White Blood Count 13.2 K/mm3 (4.4-11.0)
[2022-04-20 07:48] LABS: International Normalized Ratio 1.6; Prothrombin Time (Protime)PT. 18.9 SECONDS (11.7-14.9)
[2022-04-20 07:49] LABS: Anion Gap 9 (5-15); BUN 9 mg/dL (7-18); BUN/Creat Ratio 10.2 RATIO (10-20); Chloride 104 mmol/L (98-107); Creatinine, Serum 0.88 mg/dL (0.55-1.02); EST Glomerular Filtration Rate 68 mL/min (>60); Est Glom Filt Rate - Afr Amer 82 mL/min (>60); Estimated Creatinine Clearance 51.32 ml/min; Glucose 94 mg/dL (74-106); Magnesium 1.6 mg/dL (1.6-2.6); Potassium 3.6 mmol/L (3.5-5.1); Sodium Level 135 mmol/L (136-145)
[2022-04-20 07:55] LABS: Erythrocyte Sedimentation Rate 44 mm/hr (0-30)
--- NOTE | 2022-04-20 09:02 | PN.HOSP_ITS ---
Subjective Subjective DOS: 04/20/2022 CC: Toe pain Reports doing much better from an diarrhea and abdominal pain perspective, eating better. Does have significant right toe pain and bottom of her left foot pain that are making it difficult for her to ambulate. Earlier she was holding onto the commode and was going to sit on it but it slid and she fell, does not feel like she hurt anything. Denies any legs giving out from under her. Denies any chest pain or shortness of breath Objective Data Objective Data Vital Signs: Vital Signs Temp Pulse Resp BP Pulse Ox O2 Del Method 98.8 F 93 20 H 138/80 H 98 Room Air 04/20/22 02:20 04/20/22 02:20 04/20/22 02:20 04/20/22 02:20 04/20/22 02:20 04/20/22 02:20 Oxygen Delivery Method Room Air Weight: 75 kg Body Mass Index (BMI) 29.2 Intake & Output: Intake and Output for Last 24 Hours 04/18/22 04/19/22 04/20/22 23:59 23:59 23:59 Intake Total 1700 / 1700 2977.50 / 3377.50 400 / 400 Output Total 2 / 2 Balance 1698 / 1698 2977.50 / 3377.50 400 / 400 Lab / Micro Data Result Diagrams: 04/20/22 06:05 04/20/22 06:00 Labs: Laboratory Results - last 24 hr 04/19/22 06:00: Procalcitonin 0.22 H 04/20/22 06:00: Sodium 135 L, Potassium 3.6, Chloride 104, Carbon Dioxide 22.0, Anion Gap 9, BUN 9, Creatinine 0.88, Estim Creat Clear Calc 51.32, Est GFR (MDRD) Af Amer 82, Est GFR (MDRD) Non-Af 68, BUN/Creatinine Ratio 10.2, Glucose 94, Calcium 8.0 L, Magnesium 1.6, C-React Prot Ext Range 100.00 H 04/20/22 06:05: PT 18.9 H, INR 1.6 04/20/22 06:05: WBC 13.2 H, RBC 3.34 L, Hgb 10.1 L, Hct 29.7 L, MCV 88.9, MCH 30.2, MCHC 34.0, RDW Std Deviation 44.9 H, RDW Coeff of Meka 13.8, Plt Count 425, MPV 9.7, Immature Gran % (Auto) 1.100 H, Neut % (Auto) 84.1 H, Lymph % (Auto) 6.4 L, [place] % (Auto) 6.8, Eos % (Auto) 1.4, Baso % (Auto) 0.2, Absolute Neuts (auto) 11.1 H, Absolute Lymphs (auto) 0.84, Nucleated RBC % 0, ESR 44 H Micro: Microbiology 04/12/22 13:05 Stool Ova and Parasites - Final 04/12/22 13:05 Stool Stool Lactoferrin - Final 04/12/22 13:05 Stool Enteric Bacteriology - Final 04/12/22 13:05 Stool C. difficile GDH Antigen & Toxins - Final 04/12/22 13:05 Stool C. difficile DNA Amplification - Final Radiography Diagnostic Testing: Radiology Impression Lower Extremity MRI 04/19/22 08:09 IMPRESSION: Suspect inflammatory arthritis of the first metatarsophalangeal joint, possibly gout. No MR evidence of osteomyelitis. Electronically Signed: Leo Glass MD at 12:03 EDT , Lower Extremity MRI 04/19/22 09:39 IMPRESSION: Normal unenhanced and enhanced MRI of the forefoot. Electronically Signed: Leo Glass MD at 12:06 EDT , Physical Exam Const alert and oriented x3 Constitutional Narrative: Laying in bed HEENT moist oral mucous membranes Eyes EOMs intact bilaterally Neck supple Resp normal respiratory effort Cardio regular rate and regular rhythm GI non-distended Extremity Extremity Narrative: Moving all extremities, pain on bottom of left foot and pain in right first MTP with some erythema Neuro Neuro Narrative: No overt focal neurologic deficits Psych Psych Narrative: Tearful at times Assessment & Plan Assessment/Plan (1) C. difficile colitis: PLAN: Plan 1. Persistent diarrhea secondary to C. difficile colitis Continues to be on oral vancomycin She also continues to require IV fluids due to significant amount of diarrhea Was restarted on Bentyl for colonic spasms yesterday, reports she only got 2 doses Is unable to tell us if its been helpful Will advance diet to solids and see how she responds Given only liquid diet till this point as well as continued significant diarrhea not stable for discharge at this time 04/17/2022: Evaluated by infectious disease again yesterday. Plan to continue vancomycin and current management. Remains on fluid. Tolerating advance diet. Still frequent diarrhea but slightly more formed. Continue current management at this time. Given significant amount of diarrhea that is persisted not yet safe for discharge, will monitor closely 04/18/2022: Abdominal pain is starting to improve as his stool frequency and consistency. Continue vancomycin 04/19/2022: Significantly improving, continue present management 04/20/2022: Continues to improve further, continue oral vancomycin for prolonged period, infectious disease following #Bilateral foot pain Symmetric and bilateral, painful to even light touch. Strength equal in bilateral lower extremities, against resistance difficulty only due to pain in the feet, straight leg raise negative. No spinal tenderness MCP joints possibly somewhat better than rest of foot, will obtain uric acid Additionally will obtain Pro-Santiago as WBC count is slightly elevated again May impart be 2 foot cramps from hypokalemia and hypomagnesemia, replacing these If pain persists will likely start small dose of gabapentin however will treat cautiously as she is also on morphine and Xanax as needed, can consider topical once labs come back if no other etiology is found 04/19/2022: X-ray of the left foot consistent with plantar fasciitis and x-ray of the right foot concerning for osteomyelitis of the lateral head of the first metatarsal. MRI however did not demonstrate osteomyelitis of the right first MTP but there was inflammation and concern for gout. Given pain and presentation do feel that this is consistent. Given concomitant C. difficile we will avoid prednisone, given elevated INR will try to avoid oral NSAIDs. We will start colchicine and for left-sided plantar pain will start topical NSAIDs. We will continue to trend ESR and CRP as well as other labs. Did discuss that colchicine could cause or contribute to diarrhea but it does not necessarily mean worsening of her C. difficile. Verbalized understanding 04/20/2022: ESR and CRP very slightly down, on colchicine now. Very slightly improved, still difficulty with ambulation. PT/OT consults, continue pain management. Pending improvement could potentially DC over the weekend once she is able to perform any kind of ambulation, as of now she has 3 floors at home and is unable to traverse them, no safe discharge plan. Will assess PT/OT recommendations #2 chronic anticoagulation with warfarin secondary to past history of PE, INR remains elevated, Coumadin held, will continue to trend INR 04/18/2022: INR down to 3.1, was on 30 mg weekly before, will decrease by 5 mg overall still resumed the 5 mg Saturday, Saturday, Saturday, Saturday, Saturday and continue to monitor INR 04/19: Given new problem the Coumadin was held yesterday, INR is within normal range now but given possible need for further intervention we will continue to hold off at this moment. 04/20/2022: Now that osteomyelitis is ruled out and INR is longer elevated will resume Coumadin 5 mg on Saturday, Saturday, Saturday, Saturday, Saturday and hold the smaller dose and the other 2 days given that she was supratherapeutic while admitted #3 Stage IIIb chronic kidney disease-complicates care, management, recovery, and prognosis #4 essential hypertension-patient will remain on present medication #5 hyperlipidemia-patient will remain on present medication #DVT ppx: Ambulatory Shruthi Del Castillo MD Charges/Coding Visit Charges Inpatient E&M: 22581 Subs Hosp L2
[2022-04-20] MEDS: Metoprolol(XL)Succ 50 MG Tablet PO (09:28)
[2022-04-20] MEDS: buPROPion (SR) 150 MG Tablet.SA PO ×2 (09:28→22:00)
[2022-04-20] MEDS: Ezetimibe 10 MG Tablet PO (09:28)
[2022-04-20] MEDS: Colchicine 0.6 MG TABLET PO ×2 (09:29→22:00)
--- NOTE | 2022-04-20 12:28 | PCM.PN.ID ---
Physical Exam Narrative Diarrhea resolved, no fever, ankles a little better Const alert and no apparent distress Resp normal air movement and clear to auscultation bilaterally Cardio regular rate and regular rhythm GI soft to palpation, non-tender and non-distended Skin no rashes or lesions noted ID ID: Route of nutrition/ use of supplements: [] Nutritional Intake: [] IV Site: [] Molina Catheter: [] Assessment & Plan Assessment/Plan (1) C. difficile colitis: PLAN: 2nd episode of cdiff. Given long vanc taper with first episode. CT showed colitis. On po vanc. Sx improving, wbc improved. Given previous treatment with vanc taper, will repeat taper. Unable to afford out of pocket for dificid. Wrote for long po vanc taper. Will follow as needed, d/w mental health case manager and primary team
--- NOTE | 2022-04-20 15:18 | CASEMGMT ---
Addendum entered by Ilsa Colunga 04/20/22 15:37: FWW Order sent to [facility] via [facility]. Liaison notified via email Original Note: MICHAEL CM to pt's room. Pt's present. Pt expressed feeling safe to return home. Pt denied needing HHC but does need a FWW. Pt DME choices provided. Pt chose [facility].
--- NOTE | 2022-04-20 15:49 | CASEMGMT ---
[place] [facility] Asked if traffic warehouse supervisor could get a walker from her office and bring to pt. Updated charge nurse.
[2022-04-20] MEDS: 0.9% Saline Lock 10 ML Syringe IV ×2 (17:58→22:16)
[2022-04-20] MEDS: Morphine 4 MG/ML Syringe IV (17:58)
[2022-04-20] MEDS: Morphine 2 MG/ML Syringe IV (22:16)
[2022-04-20] MEDS: MELATONIN 3 MG TABLET PO (22:16)
[2022-04-21] VITALS (9 sets, daily range): BP systolic 115–155; BP diastolic 65–80; PULSE 74–94; RESP 16–17; TEMP 36.9–37.8; O2SAT 98–100
[2022-04-21] MEDS: Vancomycin 125 MG/5 ML Susp PO.SYRINGE PO ×4 (00:17→17:55)
[2022-04-21] MEDS: Pregabalin 25 MG Capsule PO ×3 (05:01→22:33)
[2022-04-21] MEDS: Levothyroxine 100 MCG Tablet PO (05:01)
[2022-04-21] MEDS: traMADol 50 MG Tablet PO ×2 (05:02→15:08)
[2022-04-21] MEDS: Arthritis Pain Compound 60 CLICK TUBE TOPICAL ×3 (05:03→22:33)
[2022-04-21] MEDS: Dicyclomine 10 MG Capsule 20 MG PO ×4 (05:08→22:33)
[2022-04-21 06:40] LABS: Absolute Lymphocyte Count 0.84 X10^3/uL (0.83-4.51); Absolute Neutrophil Count 8.5 X10^3/uL (2.0-7.7); Basophil# 0.04 X10^3/uL; Basophil% 0.4 % (0-1); Eosinophil# 0.22 X10^3/uL; Eosinophils% 2.1 % (0-5); Hematocrit 29.7 % (37-47); Hemoglobin 9.8 g/dL (12.0-15.0); Lymphocyte # 0.84 X10^3/ul (0.83-4.51); Lymphocyte % 8.1 % (19-41); Mean Corpuscular Hgb 29.7 pg (27.0-32.0); Mean Platelet Vol. 9.7 fl (6.2-12.0); Monocyte# 0.73 X10^3/uL; NRBC Flagged by Analyzer 0 % (0-5); Neutrophil # 8.47 X10^3/uL (2.7-7.7); Neutrophil % 81.7 % (47-70); Platelet Count 443 K/mm3 (150-450); RBC Distribution Width CV 13.8 % (11.6-14.6); RBC Distribution Width SD 44.9 fl (35.1-43.9); White Blood Count 10.4 K/mm3 (4.4-11.0)
[2022-04-21 06:54] LABS: International Normalized Ratio 1.3
[2022-04-21 07:06] LABS: Erythrocyte Sedimentation Rate 52 mm/hr (0-30)
[2022-04-21 07:13] LABS: Anion Gap 7 (5-15); BUN 12 mg/dL (7-18); BUN/Creat Ratio 12.2 RATIO (10-20); Calcium,Total 7.9 mg/dL (8.5-10.1); Chloride 106 mmol/L (98-107); Creatinine, Serum 0.98 mg/dL (0.55-1.02); EST Glomerular Filtration Rate 60 mL/min (>60); Est Glom Filt Rate - Afr Amer 72 mL/min (>60); Estimated Creatinine Clearance 46.08 ml/min; Glucose 96 mg/dL (74-106); Magnesium 1.3 mg/dL (1.6-2.6); Potassium 3.6 mmol/L (3.5-5.1); Sodium Level 137 mmol/L (136-145)
--- NOTE | 2022-04-21 08:37 | PCM.PN.HOSP ---
Subjective Subjective DOS: 04/21/2022 CC: Toe pain Is improving but continues to have pain primarily in her right big toe. Was able to get up with physical therapy although slightly difficult. Still much better from a C. difficile perspective. Did not voice any other complaints this morning Objective Data Objective Data Vital Signs: Vital Signs Temp Pulse Resp BP Pulse Ox O2 Del Method 100 F H 81 16 124/75 H 98 Room Air 04/21/22 05:05 04/21/22 05:05 04/21/22 05:05 04/21/22 05:05 04/21/22 05:05 04/21/22 05:05 Oxygen Delivery Method Room Air Weight: 75 kg Body Mass Index (BMI) 29.2 Intake & Output: Intake and Output for Last 24 Hours 04/19/22 04/20/22 04/21/22 23:59 23:59 23:59 Intake Total 2977.50 / 3377.50 3200 / 3200 Output Total Balance 2977.50 / 3377.50 3200 / 3200 -1 / -1 Lab / Micro Data Result Diagrams: 04/21/22 05:40 04/21/22 05:40 Labs: Laboratory Results - last 24 hr 04/21/22 05:40: PT 16.0 H, INR 1.3 04/21/22 05:40: WBC 10.4, RBC 3.30 L, Hgb 9.8 L, Hct 29.7 L, MCV 90.0, MCH 29.7, MCHC 33.0, RDW Std Deviation 44.9 H, RDW Coeff of Meka 13.8, Plt Count 443, MPV 9.7, Immature Gran % (Auto) 0.700, Neut % (Auto) 81.7 H, Lymph % (Auto) 8.1 L, [place] % (Auto) 7.0, Eos % (Auto) 2.1, Baso % (Auto) 0.4, Absolute Neuts (auto) 8.5 H, Absolute Lymphs (auto) 0.84, Nucleated RBC % 0, ESR 52 H 04/21/22 05:40: Sodium 137, Potassium 3.6, Chloride 106, Carbon Dioxide 24.0, Anion Gap 7, BUN 12, Creatinine 0.98, Estim Creat Clear Calc 46.08, Est GFR (MDRD) Af Amer 72, Est GFR (MDRD) Non-Af 60, BUN/Creatinine Ratio 12.2, Glucose 96, Calcium 7.9 L, Magnesium 1.3 L, C-React Prot Ext Range 61.10 H Micro: Microbiology 04/12/22 13:05 Stool Ova and Parasites - Final 04/12/22 13:05 Stool Stool Lactoferrin - Final 04/12/22 13:05 Stool Enteric Bacteriology - Final 04/12/22 13:05 Stool C. difficile GDH Antigen & Toxins - Final 04/12/22 13:05 Stool C. difficile DNA Amplification - Final Physical Exam Const alert and oriented x3 Constitutional Narrative: Laying in bed HEENT moist oral mucous membranes Eyes EOMs intact bilaterally Neck supple Resp normal respiratory effort Cardio regular rate and regular rhythm GI non-distended Extremity Extremity Narrative: Moving all extremities, pain on bottom of left foot and pain in right first MTP with some erythema Neuro Neuro Narrative: No overt focal neurologic deficits Psych Psych Narrative: Cooperative Assessment & Plan Assessment/Plan (1) C. difficile colitis: PLAN: Plan #Bilateral foot pain Symmetric and bilateral, painful to even light touch. Strength equal in bilateral lower extremities, against resistance difficulty only due to pain in the feet, straight leg raise negative. No spinal tenderness MCP joints possibly somewhat better than rest of foot, will obtain uric acid Additionally will obtain Pro-Santiago as WBC count is slightly elevated again May impart be 2 foot cramps from hypokalemia and hypomagnesemia, replacing these If pain persists will likely start small dose of gabapentin however will treat cautiously as she is also on morphine and Xanax as needed, can consider topical once labs come back if no other etiology is found 04/19/2022: X-ray of the left foot consistent with plantar fasciitis and x-ray of the right foot concerning for osteomyelitis of the lateral head of the first metatarsal. MRI however did not demonstrate osteomyelitis of the right first MTP but there was inflammation and concern for gout. Given pain and presentation do feel that this is consistent. Given concomitant C. difficile we will avoid prednisone, given elevated INR will try to avoid oral NSAIDs. We will start colchicine and for left-sided plantar pain will start topical NSAIDs. We will continue to trend ESR and CRP as well as other labs. Did discuss that colchicine could cause or contribute to diarrhea but it does not necessarily mean worsening of her C. difficile. Verbalized understanding 04/20/2022: ESR and CRP very slightly down, on colchicine now. Very slightly improved, still difficulty with ambulation. PT/OT consults, continue pain management. Pending improvement could potentially DC over the weekend once she is able to perform any kind of ambulation, as of now she has 3 floors at home and is unable to traverse them, no safe discharge plan. Will assess PT/OT recommendations 04/21/2022: ESR very minutely increased but CRP has gone down by half. Is clinically improving as well. Worked with physical therapy yesterday. Depending how she progresses throughout the morning can consider DC today versus tomorrow. # Persistent diarrhea secondary to C. difficile colitis Continues to be on oral vancomycin She also continues to require IV fluids due to significant amount of diarrhea Was restarted on Bentyl for colonic spasms yesterday, reports she only got 2 doses Is unable to tell us if its been helpful Will advance diet to solids and see how she responds Given only liquid diet till this point as well as continued significant diarrhea not stable for discharge at this time 04/17/2022: Evaluated by infectious disease again yesterday. Plan to continue vancomycin and current management. Remains on fluid. Tolerating advance diet. Still frequent diarrhea but slightly more formed. Continue current management at this time. Given significant amount of diarrhea that is persisted not yet safe for discharge, will monitor closely 04/18/2022: Abdominal pain is starting to improve as his stool frequency and consistency. Continue vancomycin 04/19/2022: Significantly improving, continue present management 04/20/2022: Continues to improve further, continue oral vancomycin for prolonged period, infectious disease following 04/21: Vancomycin taper written per infectious disease # chronic anticoagulation with warfarin secondary to past history of PE, INR remains elevated, Coumadin held, will continue to trend INR 04/18/2022: INR down to 3.1, was on 30 mg weekly before, will decrease by 5 mg overall still resumed the 5 mg Saturday, Saturday, Saturday, Saturday, Saturday and continue to monitor INR 04/19: Given new problem the Coumadin was held yesterday, INR is within normal range now but given possible need for further intervention we will continue to hold off at this moment. 04/20/2022: Now that osteomyelitis is ruled out and INR is longer elevated will resume Coumadin 5 mg on Saturday, Saturday, Saturday, Saturday, Saturday and hold the smaller dose and the other 2 days given that she was supratherapeutic while admitted #Stage IIIb chronic kidney disease-complicates care, management, recovery, and prognosis #essential hypertension-patient will remain on present medication # hyperlipidemia-patient will remain on present medication #DVT ppx: Ambulatory Shruthi Del Castillo MD Charges/Coding Visit Charges Inpatient E&M: 69126 Subs Hosp L2
[2022-04-21] MEDS: buPROPion (SR) 150 MG Tablet.SA PO ×2 (10:08→22:33)
[2022-04-21] MEDS: Colchicine 0.6 MG TABLET PO ×2 (10:08→22:35)
[2022-04-21] MEDS: Potassium Chloride Oral Tablet 20 MEQ 40 MEQ PO (10:08)
[2022-04-21] MEDS: Metoprolol(XL)Succ 50 MG Tablet PO (10:08)
[2022-04-21] MEDS: Ezetimibe 10 MG Tablet PO (10:08)
[2022-04-21] MEDS: 0.9% Saline Lock 10 ML Syringe IV ×3 (10:09→20:35)
[2022-04-21] MEDS: Magnesium Sulfate 4gm/100mL 4 GM/100 ML IV.SOLN. IV (10:09)
[2022-04-21] MEDS: Morphine 4 MG/ML Syringe IV ×2 (11:14→20:34)
--- NOTE | 2022-04-21 12:03 | CASEMGMT ---
RN CM NOTE: RN CM to room and verified that walker has been delivered to pt's room. Charlene KAYN RN CM
[2022-04-21] MEDS: MELATONIN 3 MG TABLET PO (22:33)
[2022-04-22] MEDS: Vancomycin 125 MG/5 ML Susp PO.SYRINGE PO ×3 (00:27→12:18)
[2022-04-22 03:35] VITALS: BP 111/57; PULSE 71; RESP 14; TEMP 36.6; O2SAT 95
[2022-04-22 03:37] VITALS: BP 111/57; PULSE 71; RESP 14; TEMP 36.6; O2SAT 95
[2022-04-22] MEDS: Levothyroxine 100 MCG Tablet PO (06:33)
[2022-04-22] MEDS: Pregabalin 25 MG Capsule PO (06:33)
[2022-04-22] MEDS: Arthritis Pain Compound 60 CLICK TUBE TOPICAL (06:33)
[2022-04-22] MEDS: Dicyclomine 10 MG Capsule 20 MG PO ×2 (06:33→12:18)
[2022-04-22 07:23] LABS: Absolute Lymphocyte Count 0.89 X10^3/uL (0.83-4.51); Absolute Neutrophil Count 6.5 X10^3/uL (2.0-7.7); Basophil# 0.04 X10^3/uL; Basophil% 0.5 % (0-1); Eosinophil# 0.24 X10^3/uL; Eosinophils% 2.9 % (0-5); Hematocrit 35.5 % (37-47); Hemoglobin 11.4 g/dL (12.0-15.0); Lymphocyte # 0.89 X10^3/ul (0.83-4.51); Lymphocyte % 10.7 % (19-41); Mean Corp Hgb Conc 32.1 g/dL (32-36); Mean Corpuscular Hgb 29.5 pg (27.0-32.0); Mean Platelet Vol. 9.6 fl (6.2-12.0); Monocyte# 0.63 X10^3/uL; Monocyte% 7.6 % (0-10); NRBC Flagged by Analyzer 0 % (0-5); Neutrophil # 6.45 X10^3/uL (2.7-7.7); Neutrophil % 77.7 % (47-70); Platelet Count 505 K/mm3 (150-450); RBC Distribution Width CV 13.7 % (11.6-14.6); RBC Distribution Width SD 45.9 fl (35.1-43.9); Red Blood Count 3.86 M/mm3 (4.2-5.4); White Blood Count 8.3 K/mm3 (4.4-11.0)
[2022-04-22 07:27] LABS: Erythrocyte Sedimentation Rate 53 mm/hr (0-30)
[2022-04-22 07:36] LABS: Anion Gap 8 (5-15); BUN 12 mg/dL (7-18); BUN/Creat Ratio 11.8 RATIO (10-20); Calcium,Total 8.6 mg/dL (8.5-10.1); Chloride 101 mmol/L (98-107); Creatinine, Serum 1.02 mg/dL (0.55-1.02); EST Glomerular Filtration Rate 57 mL/min (>60); Est Glom Filt Rate - Afr Amer 69 mL/min (>60); Estimated Creatinine Clearance 44.27 ml/min; Glucose 91 mg/dL (74-106); Magnesium 1.8 mg/dL (1.6-2.6); Potassium 4.1 mmol/L (3.5-5.1); Sodium Level 135 mmol/L (136-145)
[2022-04-22 08:06] LABS: International Normalized Ratio 1.3; Prothrombin Time (Protime)PT. 15.4 SECONDS (11.7-14.9)
[2022-04-22 08:32] VITALS: BP 160/79; PULSE 80; RESP 16; TEMP 36.6; O2SAT 99
[2022-04-22 08:43] VITALS: PULSE 80
[2022-04-22] MEDS: Metoprolol(XL)Succ 50 MG Tablet PO (08:43)
[2022-04-22] MEDS: Ezetimibe 10 MG Tablet PO (08:43)
[2022-04-22] MEDS: buPROPion (SR) 150 MG Tablet.SA PO (08:43)
[2022-04-22] MEDS: Colchicine 0.6 MG TABLET PO (08:43)
[2022-04-22] MEDS: traMADol 50 MG Tablet PO (09:00)
[2022-04-22 10:00] VITALS: BP 127/71; PULSE 78; RESP 16; TEMP 36.4; O2SAT 98
--- NOTE | 2022-04-22 11:47 | DCINST_ITS ---
Discharge Instructions Diet Discharge Diet: No restrictions Activity Discharge Activity: - (Return to normal activity as tolerated, can use walker at this time) Follow Up Care Test Results: Test results from this visit will be discussed in further detail at your follow- up appointment, if applicable. Discharge Plan Admission Admit Date/Time: 04/12/22 14:45 Primary Reason for Your Visit: Diarrhea Attending Provider: Shruthi Del Castillo Primary Care Provider: Tersea Rowe NP Consulting Providers: Jose Healy ; Crispin Back ; Andrew Dill Instructions Additional Instructions / Restrictions: *Please take this with you to your next doctors appointment* ?Your INR was supratherapeutic on admission and was held. It was restarted at a lower dose but you are not yet therapeutic again. Would advise taking warfarin 5 mg p.o. Saturday, Saturday, Saturday, Saturday, Saturday. Will need INR checked in 3 days. Please call PCP upon discharge to schedule hospital follow-up appointment within 1 week and to obtain lab work. ?You have been discharged on an oral antibiotic, vancomycin (Firvanq), he will take 125 mg 4 times a day for 5 days followed by 125 mg 2 times a day for 7 days then 125 mg once a day for 7 days and then you will take 125 mg every 2 days for 14 days. This was called into your preferred pharmacy on file ?You will also be sent home with a prescription for 1 week of Bentyl which you were taking for abdominal cramps. You will likely not need to be on this long- term, discussed with your primary care physician at your hospital follow-up appointment ?You will be given 3 days of oxycodone for pain control of your gout flare. ? He will also be given 4 days of Lyrica to further assist in pain control. ?Would recommend resuming your as needed tramadol after oxycodone prescription is done ?It is not advised to take Xanax/alprazolam while taking concomitant opioid prescription. Would advise not taking these together. ? Additionally you will have 3 more days of colchicine twice daily. If flare has not completely resolved, please contact your primary care physician as he may need a longer course ? You were using a topical arthritis cream for your feet during admission. You can obtain Voltaren gel [id number] and continue to use this at home until pain resolves/improves ? You can also continue Tylenol for pain control but would recommend against ibuprofen or other NSAIDs due to your kidneys ? You can continue your home bupropion, vitamin D, Synthroid, ezetimibe, metoprolol -Please call your primary care provider's office upon discharge to schedule a hospital follow up within 1 week. -For any concerning signs or symptoms please call 911 or proceed to the nearest emergency department Discharge Orders/Prescriptions Prescriptions: New Firvanq 25 mg/mL Recon Soln 125 mg PO Q6 33 Days Qty: 275 0RF Rx Instructions: take 125mg 4x/day for 5 days then 125mg 2x/day for 7 days then 125mg 1x/day for 7 days then 125mg every 2 days for 14 days Arthritis Pain Compound 0 click topical TID 5 Days 0RF colchicine 0.6 mg Capsule 0.6 mg PO BID 3 Days Qty: 6 0RF dicyclomine 10 mg Capsule 20 mg PO ACHS 7 Days Qty: 28 0RF pregabalin 25 mg Capsule 25 mg PO TID 4 Days Qty: 12 0RF oxycodone 5 mg capsule 10 mg PO BID PRN (Reason: pain) 3 Days Qty: 12 0RF Rx Instructions: Take 1-2 tabs twice daily as needed for pain 6-10 Continued cholecalciferol (vitamin D3) 2,000 unit capsule 2,000 unit PO DAILY calcitriol 0.25 mcg capsule 0.25 mcg PO BID Qty: 180 2RF albuterol sulfate [ProAir HFA] 90 mcg/actuation HFA aerosol inhaler 2 puff INHALATION Q4H PRN (Reason: shortness of breath or wheezing) Qty: 8.5 3RF alprazolam 0.5 mg tablet 0.5 mg PO DAILY PRN (Reason: anxiety) Qty: 30 5RF ondansetron 8 mg tablet,disintegrating 8 mg PO Q12H PRN (Reason: nausea and vomiting) Qty: 30 0RF warfarin 5 mg tablet 5 mg PO SUMOTUWEFR bupropion HCl 150 mg tablet sustained-release 12 hr 150 mg PO BID metoprolol succinate 50 mg tablet extended release 24 hr 50 mg PO DAILY acetaminophen 500 MG tablet 1,000 mg PO DAILY PRN PRN (Reason: Pain) levothyroxine 100 mcg tablet 100 mcg PO DAILY ezetimibe 10 mg tablet 10 mg PO DAILY Held tramadol 50 mg tablet 50 mg PO BID PRN (Reason: Pain) Hold Instructions: Resume on 04/26/22. Would recommend resuming your as needed tramadol after oxycodone prescription is done Discontinued cefdinir 300 mg capsule 300 mg PO BID warfarin 5 mg tablet 2.5 mg PO THSA Referrals / Follow Up: Teresa Rowe NP, [employer] [Primary Care Provider] - Within 1 Week Disposition Disposition (needs filled in before D/C Order can be placed): Home, Self Care
--- NOTE | 2022-04-22 12:11 | PCM.DC.SUM ---
Providers Date of Admission: 04/12/22 Date of Discharge: 04/22/22 Primary Care Physician: MARK Hardin Consultations 04/13/22 09:58 Consult: Infectious Disease Routine Consulting Provider: Crispin Back Reason for Consult: infectious colitis EMERGENT Consult: No MD Notified: Yes Date Notified: 04/13/22 Time Notified: 10:01 Method of Notification: Verbal Comments:: Dr. Armas notified via TC. Reason For Visit: INFECTIOUS COLITIS Diagnosis Discharge Diagnosis (1) C. difficile colitis: Status: Acute Code(s): A04.72 - Enterocolitis due to Clostridium difficile, not specified as recurrent (2) Gout attack: Status: Acute Code(s): M10.9 - Gout, unspecified Plan #Bilateral foot pain # Persistent diarrhea secondary to C. difficile colitis # chronic anticoagulation with warfarin secondary to past history of PE #Stage IIIb chronic kidney disease #essential hypertension # hyperlipidemia Medications at Discharge Home Medications cholecalciferol (vitamin D3) 50 mcg (2,000 unit) capsule 2,000 unit PO DAILY vitamin 01/27/18 tramadol 50 mg tablet 50 mg PO BID PRN Pain 10/27/20 albuterol sulfate 90 mcg/actuation aerosol inhaler (ProAir HFA) 2 puff inhalation Q4H PRN shortness of breath or wheezing #8.5 grams 07/05/21 calcitriol 0.25 mcg capsule 0.25 mcg PO BID #180 caps 07/05/21 alprazolam 0.5 mg tablet 0.5 mg PO DAILY PRN anxiety #30 tabs 02/20/22 ondansetron 8 mg disintegrating tablet 8 mg PO Q12H PRN nausea and vomiting #30 tabs 04/11/22 acetaminophen 500 mg tablet 1,000 mg PO DAILY PRN PRN Pain 04/12/22 bupropion HCl 150 mg tablet,12 hr sustained-release 150 mg PO BID DEPRESSION 04/12/22 ezetimibe 10 mg tablet 10 mg PO DAILY 04/12/22 levothyroxine 100 mcg tablet 100 mcg PO DAILY THYROID 04/12/22 metoprolol succinate 50 mg tablet,extended release 24 hr 50 mg PO DAILY BLOOD PRESSURE 04/12/22 warfarin 5 mg tablet 5 mg PO SUMOTUWEFR 04/12/22 vancomycin 25 mg/mL oral solution (Firvanq) 125 mg (5 mL) PO Q6 33 days #275 mL 04/18/22 Arthritis Pain Compound 0 click topical TID 5 days 04/22/22 colchicine 0.6 mg capsule 0.6 mg PO BID 3 days #6 caps 04/22/22 dicyclomine 10 mg capsule 20 mg PO ACHS 7 days #28 caps 04/22/22 oxycodone 5 mg capsule 10 mg PO BID PRN pain 3 days #12 caps 04/22/22 pregabalin 25 mg capsule 25 mg PO TID 4 days #12 caps 04/22/22 Hospital Course Summary of Care Provided Minutes Spent on Discharge: 40 Hospital Course: Ms. Nichole is a 66-year-old female with a history of C. 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 She had been on cefdinir for 7 days for otitis media and perforated eardrum. She did have a history of C. difficile and was admitted to the hospital a few months ago in [place] for that and treated with oral vancomycin. CT scan demonstrated circumferential thickening of the left colon with some stranding on both the right and left side. She was diagnosed with a first recurrence of C. difficile and started again on oral vancomycin. Dificid was offered but she was unable to afford this [id number] so prolonged Vanco taper was planned. This was planned in conjunction with infectious disease who saw her while she was admitted. After diarrhea and abdominal pain improved she did have an episode of acute right first MTP pain and plantar pain on her left foot. Was found to have plantar fasciitis on the left and imaging appeared consistent with a gout flare on the right. Had elevated ESR and CRP. Did not appear to have septic arthritis and responded to colchicine. She improved and while she still had pain was agreeable to continuing colchicine as an outpatient with oral pain medication and following up closely with her primary care provider. Of note she did have a supratherapeutic INR and her Coumadin was held. When it went back within range it continued to be held because there was concern that she had osteo in her right toe and possible need for intervention. Ultimately that was ruled out and she was resumed back on the lower dose given the previous supratherapeutic INR. Advised to get labs with PCP in 3 days as below. Discharge and directions provided for patient as below: *Please take this with you to your next doctors appointment* ?Your INR was supratherapeutic on admission and was held. It was restarted at a lower dose but you are not yet therapeutic again. Would advise taking warfarin 5 mg p.o. Saturday, Saturday, Saturday, Saturday, Saturday. Will need INR checked in 3 days. Please call PCP upon discharge to schedule hospital follow-up appointment within 1 week and to obtain lab work. ?You have been discharged on an oral antibiotic, vancomycin (Firvanq), he will take 125 mg 4 times a day for 5 days followed by 125 mg 2 times a day for 7 days then 125 mg once a day for 7 days and then you will take 125 mg every 2 days for 14 days. This was called into your preferred pharmacy on file ?You will also be sent home with a prescription for 1 week of Bentyl which you were taking for abdominal cramps. You will likely not need to be on this long-term, discussed with your primary care physician at your hospital follow-up appointment ?You will be given 3 days of oxycodone for pain control of your gout flare. ? He will also be given 4 days of Lyrica to further assist in pain control. ?Would recommend resuming your as needed tramadol after oxycodone prescription is done ?It is not advised to take Xanax/alprazolam while taking concomitant opioid prescription. Would advise not taking these together. ? Additionally you will have 3 more days of colchicine twice daily. If flare has not completely resolved, please contact your primary care physician as he may need a longer course ? You were using a topical arthritis cream for your feet during admission. You can obtain Voltaren gel [id number] and continue to use this at home until pain resolves/improves ? You can also continue Tylenol for pain control but would recommend against ibuprofen or other NSAIDs due to your kidneys ? You can continue your home bupropion, vitamin D, Synthroid, ezetimibe, metoprolol -Please call your primary care provider's office upon discharge to schedule a hospital follow up within 1 week. -For any concerning signs or symptoms please call 911 or proceed to the nearest emergency department Physical Exam Const alert and oriented x3 Constitutional Narrative: Laying in bed HEENT moist oral mucous membranes Eyes EOMs intact bilaterally Neck supple Resp normal respiratory effort Cardio regular rate and regular rhythm GI non-distended Extremity Extremity Narrative: Moving all extremities, pain on bottom of left foot and pain in right first MTP with some erythema but significantly improving, was able to tolerate palpation today Neuro Neuro Narrative: No overt focal neurologic deficits Psych Psych Narrative: Cooperative Weight / BMI Weight Weight: 75 kg Body Mass Index (BMI) 29.2 ABG / Lab / Microbiology Data Result Diagrams: 04/22/22 06:35 04/22/22 06:35 Laboratory: Laboratory Results - last 24 hr 04/22/22 06:35: PT 15.4 H, INR 1.3 04/22/22 06:35: WBC 8.3, RBC 3.86 L, Hgb 11.4 L, Hct 35.5 L, MCV 92.0, MCH 29.5, MCHC 32.1, RDW Std Deviation 45.9 H, RDW Coeff of Mek[place] 13.7, Plt Count 505 H, MPV 9.6, Immature Gran % (Auto) 0.600, Neut % (Auto) 77.7 H, Lymph % (Auto) 10.7 L, [place] % (Auto) 7.6, Eos % (Auto) 2.9, Baso % (Auto) 0.5, Absolute Neuts (auto) 6.5, Absolute Lymphs (auto) 0.89, Nucleated RBC % 0, ESR 53 H 04/22/22 06:35: Sodium 135 L, Potassium 4.1, Chloride 101, Carbon Dioxide 26.0, Anion Gap 8, BUN 12, Creatinine 1.02, Estim Creat Clear Calc 44.27, Est GFR (MDRD) Af Amer 69, Est GFR (MDRD) Non-Af 57 L, BUN/Creatinine Ratio 11.8, Glucose 91, Calcium 8.6, Magnesium 1.8, C-React Prot Ext Range 24.90 H Microbiology: Microbiology 04/19/22 08:48 Blood Culture (Wb) - Left Forearm Blood Culture - Preliminary No growth in 48 hours. 04/19/22 08:43 Blood Culture (Wb) - Anticubital Left Blood Culture - Preliminary No growth in 48 hours. 04/12/22 13:05 Stool Ova and Parasites - Final 04/12/22 13:05 Stool Stool Lactoferrin - Final 04/12/22 13:05 Stool Enteric Bacteriology - Final 04/12/22 13:05 Stool C. difficile GDH Antigen & Toxins - Final 04/12/22 13:05 Stool C. difficile DNA Amplification - Final D/C Instructions Discharge Diet: No restrictions Meaningful Use Info Meaningful Use Diagnoses (Choose all that apply): None applicable Discharge Plan Admission Admit Date/Time: 04/12/22 14:45 Primary Reason for Your Visit: Diarrhea Attending Provider: Shruthi Del Castillo Primary Care Provider: Teresa Rowe NP Consulting Providers: Jose Healy ; Crispin Back ; Andrew Dill Instructions Patient Instructions: ED Gout, Eating to Prevent Gout, C diff, C. Diff Prevent Infection, Clostridium Difficile Infection Additional Instructions / Restrictions: *Please take this with you to your next doctors appointment* ?Your INR was supratherapeutic on admission and was held. It was restarted at a lower dose but you are not yet therapeutic again. Would advise taking warfarin 5 mg p.o. Saturday, Saturday, Saturday, Saturday, Saturday. Will need INR checked in 3 days. Please call PCP upon discharge to schedule hospital follow-up appointment within 1 week and to obtain lab work. ?You have been discharged on an oral antibiotic, vancomycin (Firvanq), he will take 125 mg 4 times a day for 5 days followed by 125 mg 2 times a day for 7 days then 125 mg once a day for 7 days and then you will take 125 mg every 2 days for 14 days. This was called into your preferred pharmacy on file ?You will also be sent home with a prescription for 1 week of Bentyl which you were taking for abdominal cramps. You will likely not need to be on this long-term, discussed with your primary care physician at your hospital follow-up appointment ?You will be given 3 days of oxycodone for pain control of your gout flare. ? He will also be given 4 days of Lyrica to further assist in pain control. ?Would recommend resuming your as needed tramadol after oxycodone prescription is done ?It is not advised to take Xanax/alprazolam while taking concomitant opioid prescription. Would advise not taking these together. ? Additionally you will have 3 more days of colchicine twice daily. If flare has not completely resolved, please contact your primary care physician as he may need a longer course ? You were using a topical arthritis cream for your feet during admission. You can obtain Voltaren gel [id number] and continue to use this at home until pain resolves/improves ? You can also continue Tylenol for pain control but would recommend against ibuprofen or other NSAIDs due to your kidneys ? You can continue your home bupropion, vitamin D, Synthroid, ezetimibe, metoprolol -Please call your primary care provider's office upon discharge to schedule a hospital follow up within 1 week. -For any concerning signs or symptoms please call 911 or proceed to the nearest emergency department Discharge Orders/Prescriptions Prescriptions: New Firvanq 25 mg/mL Recon Soln 125 mg PO Q6 33 Days Qty: 275 0RF Rx Instructions: take 125mg 4x/day for 5 days then 125mg 2x/day for 7 days then 125mg 1x/day for 7 days then 125mg every 2 days for 14 days Arthritis Pain Compound 0 click topical TID 5 Days 0RF colchicine 0.6 mg Capsule 0.6 mg PO BID 3 Days Qty: 6 0RF dicyclomine 10 mg Capsule 20 mg PO ACHS 7 Days Qty: 28 0RF pregabalin 25 mg Capsule 25 mg PO TID 4 Days Qty: 12 0RF oxycodone 5 mg capsule 10 mg PO BID PRN (Reason: pain) 3 Days Qty: 12 0RF Rx Instructions: Take 1-2 tabs twice daily as needed for pain 6-10 Continued cholecalciferol (vitamin D3) 2,000 unit capsule 2,000 unit PO DAILY calcitriol 0.25 mcg capsule 0.25 mcg PO BID Qty: 180 2RF albuterol sulfate [ProAir HFA] 90 mcg/actuation HFA aerosol inhaler 2 puff INHALATION Q4H PRN (Reason: shortness of breath or wheezing) Qty: 8.5 3RF alprazolam 0.5 mg tablet 0.5 mg PO DAILY PRN (Reason: anxiety) Qty: 30 5RF ondansetron 8 mg tablet,disintegrating 8 mg PO Q12H PRN (Reason: nausea and vomiting) Qty: 30 0RF warfarin 5 mg tablet 5 mg PO SUMOTUWEFR bupropion HCl 150 mg tablet sustained-release 12 hr 150 mg PO BID metoprolol succinate 50 mg tablet extended release 24 hr 50 mg PO DAILY acetaminophen 500 MG tablet 1,000 mg PO DAILY PRN PRN (Reason: Pain) levothyroxine 100 mcg tablet 100 mcg PO DAILY ezetimibe 10 mg tablet 10 mg PO DAILY Held tramadol 50 mg tablet 50 mg PO BID PRN (Reason: Pain) Hold Instructions: Resume on 04/26/22. Would recommend resuming your as needed tramadol after oxycodone prescription is done Discontinued cefdinir 300 mg capsule 300 mg PO BID warfarin 5 mg tablet 2.5 mg PO [facility] Referrals / Follow Up: Teresa Rowe NP, [employer] [Primary Care Provider] - Within 1 Week Disposition Disposition (needs filled in before D/C Order can be placed): Home, Self Care Charges/Coding Visit Charges Inpatient E&M: 82037 Disch Hosp
== END 2022-04-22 14:34 | disposition home or self-care (01) | DRG 373 ==
LOC: ED 15:34 → MS3 16:37
PROVIDERS: Internal Medicine; Admitting Provider Family Medicine; Emergency Provider Student in an Organized Health Care Education/Training Program; PCP Nurse Practitioner; Visit Provider Internal Medicine
DX: A04.72 Enterocolitis due to Clostridium difficile, not specified as recurrent (principal); E03.9 Hypothyroidism, unspecified; N18.32 Chronic kidney disease, stage 3b; E78.5 Hyperlipidemia, unspecified; H66.90 Otitis media, unspecified, unspecified ear; I10 Essential (primary) hypertension; E86.0 Dehydration; I12.9 Hypertensive chronic kidney disease with stage 1 through stage 4 chronic kidney disease, or unspecified chronic kidney disease; K58.9 Irritable bowel syndrome, unspecified; E87.6 Hypokalemia; M72.2 Plantar fascial fibromatosis; F41.9 Anxiety disorder, unspecified; M10.9 Gout, unspecified; Z87.891 Personal history of nicotine dependence; Z79.2 Long term (current) use of antibiotics; Z79.01 Long term (current) use of anticoagulants; R79.1 Abnormal coagulation profile
CPT/HCPCS: 36415; 73620; 73720; 74176; 80048; 80053; 81001; 83630; 83690; 83735; 84145; 84550; 85025; 85610; 85652; 86140; 87040; 87177; 87209; 87493; 87506; 97110; 97116; 97162; 97166; 97530; 97535; 99284; A9575; J7030; J7050; A4216; J2405

== ENCOUNTER → 2022-05-08 | Outpatient (CLI) | payer MEDICARE, OTHER, SELFPAY ==
[2022-05-08 23:21] LABS: ALB/GLOB Ratio 0.9 RATIO (0.9-2.4); AST(SGOT) 19 U/L (15-37); Alanine Aminotransfer ALT/SGPT 26 U/L (13-56); Albumin, Serum 3.6 g/dL (3.2-5.0); Alkaline Phosphatase 69 U/L (45-117); Anion Gap 7 (5-15); BUN 36 mg/dL (7-18); BUN/Creat Ratio 18.9 RATIO (10-20); Calcium,Total 10.2 mg/dL (8.5-10.1); Chloride 104 mmol/L (98-107); EST Glomerular Filtration Rate 28 mL/min (>60); Est Glom Filt Rate - Afr Amer 34 mL/min (>60); Globulin 4.1 g/dL (2.2-4.2); Glucose 117 mg/dL (74-106); Potassium 4.7 mmol/L (3.5-5.1); Protein, Total 7.7 g/dL (6.4-8.2); Sodium Level 140 mmol/L (136-145); Uric Acid 8.8 mg/dL (2.6-6.0)
== END | disposition home or self-care (01) ==
PROVIDERS: PCP Nurse Practitioner; Visit Provider Nurse Practitioner
DX: M10.9 Gout, unspecified (principal)
CPT/HCPCS: 80053; 84550

== ENCOUNTER → 2022-06-01 | Outpatient (CLI) | payer MEDICARE, OTHER, SELFPAY ==
[2022-06-01 22:06] LABS: Uric Acid 4.8 mg/dL (2.6-6.0)
== END | disposition home or self-care (01) ==
PROVIDERS: PCP Nurse Practitioner; Visit Provider Nurse Practitioner
DX: M10.9 Gout, unspecified (principal)
CPT/HCPCS: 84550

== ENCOUNTER 2022-06-05 20:24 | Inpatient (IN) | payer MEDICARE, OTHER, SELFPAY ==
[2022-06-05 20:25] VITALS: BP 91/64; PULSE 61; RESP 15; TEMP 36.1; O2SAT 97; BMI 28.5
[2022-06-05 20:32] VITALS: BMI 26.9
[2022-06-05 20:33] VITALS: BP 116/61; PULSE 104; RESP 18
--- NOTE | 2022-06-05 20:44 | EKG12_ITS ---
Test Reason : DYSRHYTHMIA Blood Pressure : / mmHG Vent. Rate : 096 BPM Atrial Rate : 096 BPM P-R Int : 152 ms QRS Dur : 084 ms QT Int : 354 ms P-R-T Axes : 031 035 031 degrees QTc Int : 447 ms Normal sinus rhythm Normal ECG Confirmed by OLGA OLVERA, EDIN ([id number]), primer expeditor and drier MARIO ANG ([id number]) on 06/06/2022 11:14:30 AM Referred By: PL Confirmed By:EDIN ESPINOZA MD
--- NOTE | 2022-06-05 20:46 | CT_ITS ---
EXAM: CT HEAD WITHOUT INTRAVENOUS CONTRAST CLINICAL INDICATION: weakness TECHNIQUE: Multiple axial images were obtained of the head without intravenous contrast. CTDIvol = ( 44.99 ) mGy, DLP = ( 914.22 ) mGycm This CT exam was performed using one or more of the following dose reduction techniques: automated exposure control, adjustment of the mA and/or kV according to patient size, and/or use of iterative reconstruction technique. This report was created using [employer] report generation technology. COMPARISON: None. FINDINGS: BRAIN AND EXTRA-AXIAL SPACES: No acute intracranial hemorrhage, mass effect or edema. No evidence of acute cortical stroke. Periventricular small vessel ischemic change. No midline shift or hydrocephalus. Diffuse parenchymal atrophy. Posterior fossa structures are unremarkable. Basal cisterns are patent. BONES/JOINTS: Unremarkable. No discrete lytic or blastic abnormalities. VASCULATURE: Atherosclerotic calcifications of the carotid siphons and vertebrobasilar arteries. SINUSES: Unremarkable as visualized. Clear. MASTOID AIR CELLS: Visualized sinuses and mastoid air cells are clear. ORBITS: Visualized globes, extraocular muscles, optic nerves and retrobulbar fat appear unremarkable. CT/Brain/Head without Contrast IMPRESSION: 1. No evidence of acute intracranial pathology. 2. Diffuse involutional changes and chronic ischemic small vessel white matter disease. Electronically Signed: Len Pratt MD at 21:22 [facility] ,
[2022-06-05] MEDS: Ondansetron 4 MG/2 ML Vial IV (20:55)
[2022-06-05] MEDS: 0.9% Normal Saline 1,000 ML 1000 ML IV (20:55)
[2022-06-05 20:56] LABS: Absolute Lymphocyte Count 0.69 X10^3/uL (0.83-4.51); Absolute Neutrophil Count 30.3 X10^3/uL (2.0-7.7); Basophil# 0.14 X10^3/uL; Basophil% 0.4 % (0-1); Eosinophil# 0.01 X10^3/uL; Hematocrit 41.8 % (37-47); Hemoglobin 13.4 g/dL (12.0-15.0); Lymphocyte # 0.69 X10^3/ul (0.83-4.51); Mean Corp Hgb Conc 32.1 g/dL (32-36); Mean Corpuscular Hgb 29.5 pg (27.0-32.0); Mean Corpuscular Volume 92.1 fL (81-99); Mean Platelet Vol. 10.8 fl (6.2-12.0); Monocyte% 6.5 % (0-10); NRBC Flagged by Analyzer 0 % (0-5); Neutrophil # 30.25 X10^3/uL (2.7-7.7); Neutrophil % 89.2 % (47-70); POSITIVE COUNT YES; POSITIVE DIFFERENTIAL YES; Platelet Count 324 K/mm3 (150-450); RBC Distribution Width CV 14.3 % (11.6-14.6); RBC Distribution Width SD 48.1 fl (35.1-43.9); Red Blood Count 4.54 M/mm3 (4.2-5.4)
[2022-06-05 21:00] LABS: Differential Indicated SCAN CRITERIA MET
[2022-06-05 21:00] LABS: Bedside Glucose 113 mg/dL (74-106)
[2022-06-05 21:02] LABS: White Blood Count 33.9 K/mm3 (4.4-11.0)
--- NOTE | 2022-06-05 21:04 | RAD_ITS ---
EXAM: XR CHEST, 1 VIEW CLINICAL INDICATION: cough TECHNIQUE: Frontal view of the chest. This report was created using [employer] report generation technology. COMPARISON: None. FINDINGS: LUNGS AND PLEURAL SPACES: Unremarkable. No consolidation or edema. No pneumothorax. No effusion. HEART: Unremarkable. Cardiac silhouette not enlarged. MEDIASTINUM: Central airways and mediastinal contour are unremarkable. BONES/JOINTS: Degenerative changes of the spine. Diffuse osteopenia. Multiple suture anchors project over the humeral head. SOFT TISSUES: Unremarkable. VASCULATURE: Atherosclerotic calcifications of the nonenlarged thoracic aortic arch. RAD/Chest 1 View (Portable) IMPRESSION: No acute disease. Electronically Signed: Len Pratt MD at 21:28 EST ,
--- NOTE | 2022-06-05 21:05 | EDS_ITS ---
HPI History of Present Illness Chief Complaint: Neuro S/Sx Informant: patient and family Narrative Narrative: Patient came in today because her [id number] was concerned about some left facial droop. This was noticed about 4:00. Triage note also mentions that the patient states she has had left-sided weakness. When I ask her this she denies it. She states sometimes she gets some tingling feelings in her hands but this is chronic intermittent and on both sides. It is not going on now. Patient states she looked in the mirror and really did not think her face was drooping but was not sure. Patient does state that she started with flulike symptoms on . She has had a very mild nonproductive cough. She has had some myalgias. She has mostly had nausea vomiting. No urinary symptoms. No diarrhea. She states her abdomen is sore but not painful. She did call her doctor and started Tamiflu yesterday. She has had more nausea and vomiting since starting the Tamiflu. Of note, the patient is chronically on Coumadin for prior PE. [facility] Medical History Acute kidney injury Adverse reaction to antidepressant drug Allergic rhinitis with postnasal drip Anxiety Anxiety Bilateral hearing loss C. 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 Colitis Deep vein thrombosis, lower left extremity Diverticulitis Essential (primary) hypertension History of pulmonary embolus (PE) (2009) Hyperkalemia Hyperlipidemia LDL goal <130 Hypomagnesemia Hypothyroidism (acquired) Idiopathic parathyroidism Iron deficiency anemia Knee pain, right Medication side effects Polycystic kidney disease Home Medications cholecalciferol (vitamin D3) 50 mcg (2,000 unit) capsule 2,000 unit PO DAILY vitamin 01/27/18 [History Last Taken 2 Days Ago ~04/10/22] albuterol sulfate 90 mcg/actuation aerosol inhaler (ProAir HFA) 2 puff inhalation Q4H PRN shortness of breath or wheezing #8.5 grams 07/05/21 [Rx Last Taken Unknown] acetaminophen 500 mg tablet 1,000 mg PO DAILY PRN PRN Pain 04/12/22 [History Last Taken 04/12/22] bupropion HCl 150 mg tablet,12 hr sustained-release 150 mg PO BID DEPRESSION 04/12/22 [History Last Taken 2 Days Ago ~04/10/22] ezetimibe 10 mg tablet 10 mg PO DAILY 04/12/22 [History Last Taken 2 Days Ago ~04/10/22] levothyroxine 100 mcg tablet 100 mcg PO DAILY THYROID 04/12/22 [History Last Taken 04/11/22] metoprolol succinate 50 mg tablet,extended release 24 hr 50 mg PO DAILY BLOOD PRESSURE 04/12/22 [History Last Taken 2 Days Ago ~04/10/22] warfarin 5 mg tablet 5 mg PO DAILY 04/12/22 [History Last Taken 04/11/22] calcitriol 0.25 mcg capsule 0.25 mcg PO BID #180 caps 05/08/22 [Rx Last Taken Unknown] allopurinol 100 mg tablet 100 mg PO DAILY #90 tabs 05/11/22 [Rx Last Taken Unknown] oseltamivir 75 mg capsule 75 mg PO BID 5 days #10 caps 06/04/22 [Rx Last Taken Unknown] Lactobacil.acidophilus-Bifido.animalis 5 billion cell sprinkle capsule (Probiotic) 1 cap PO DAILY 06/05/22 [History Last Taken Unknown] alprazolam 0.5 mg tablet (Xanax) 0.5 mg PO DAILY 06/05/22 [History Last Taken Unknown] azelastine 205.5 mcg (0.15 %) nasal spray 2 spray intranasal BID 06/05/22 [History Last Taken Unknown] calcium 600 mg capsule 600 mg PO DAILY 06/05/22 [History Last Taken Unknown] cyclobenzaprine 5 mg tablet 5 mg PO QHS 06/05/22 [History Last Taken Unknown] diclofenac sodium 1 % topical gel ea topical 06/05/22 [History Last Taken Unknown] ferrous sulfate 325 mg (65 mg iron) tablet (Iron (ferrous sulfate)) 325 mg PO DAILY 06/05/22 [History Last Taken Unknown] fluticasone propionate 50 mcg/actuation nasal spray,suspension 2 spray intranasal DAILY 06/05/22 [History Last Taken Unknown] magnesium gluconate 30 mg tablet 30 mg PO BID 06/05/22 [History Last Taken Unknown] melatonin 3 mg tablet 3 mg PO QHS 06/05/22 [History Last Taken Unknown] tramadol 50 mg tablet 50 mg PO TID PRN Pain 06/05/22 [History Last Taken Unkn own] vit C 30 mg-s.allen 250 mg-celery seed 75 mg-grape seed extrt capsule ([place]) cap PO 06/05/22 [History Last Taken Unknown] Allergy/AdvReac Type Severity Reaction Status Date / Time niacin Allergy Anaphylaxis Verified 06/05/22 20:32 [From Niaspan Extended-Release] metronidazole [From Flagyl] AdvReac Severe diarrhea Verified 06/05/22 20:32 and hypokalcemia peripheral neuropathy simvastatin [From Zocor] AdvReac Severe muscle Verified 06/05/22 20:32 cramps Family History Father , at age 78 of [place] Heart disease Mother Diabetes Surgical History History of elective section History of repair of rotator cuff History of total right knee replacement (TKR) S/P rotator cuff repair Social History Smoking Status: Former smoker quit date: 03/30/18 Electronic Cigarette Use: not used second hand exposure: No alcohol intake: current alcohol intake frequency: a few times a month substance use type: does not use ROS ROS ED Constitutional Constitutional ED: Reports subjective; Denies chills or fever(s) Eyes Eyes: Denies blurry vision, change in vision or diplopia ENT ENT ED: Reports rhinorrhea; Denies sore throat Cardiovascular Cardiovascular: Denies chest pain or palpitations Respiratory/Chest Respiratory/Chest: Reports cough; Denies dyspnea Gastrointestinal Gastrointestinal: Reports nausea and vomiting; Denies diarrhea Genitourinary Genitourinary ED: Denies dysuria or hematuria Musculoskeletal Musculoskeletal: Reports arthralgias and myalgias Integumentary Denies rash Neurologic Neurologic: Reports other Details: See history of present illness peer ; Denies headache(s) or weakness Endocrine Endocrinology: Denies polydipsia or polyuria Hematologic/Lymphatic Hematologic/Lymphatic: Reports easy bleeding and easy bruising Allergic/Immunologic Allergic/Immunologic ED: Denies urticaria EXAM Physical Exam Const Vital Signs: 06/05/22 20:25 06/05/22 20:33 06/05/22 22:25 Temperature 96.9 F L 98.0 F Temperature Source Temporal Temporal Pulse Rate 61 104 H 96 Respiratory Rate 15 18 18 Blood Pressure 91/64 116/61 115/77 Blood Pressure Mean 73 79 89 Pulse Ox 97 100 Oxygen Delivery Method Room Air Room Air Room Air Positive well nourished and well developed General Appearance ED: well developed and NAD; Negative for cyanotic or diaphoretic HEENT Reports dry mucous membranes HEENT Narrative: Patient's mucous membranes are quite dry. The lips on the corner of her mouth stick together. But I do not see any facial droop. Mouth ED: Yes dry mucous membranes Mouth: dry mucous membranes Eyes EOMs intact bilaterally Eyes Narrative: No visual field deficit by confrontation General Eye ED: Negative for pale conjunctiva or scleral icterus Neck no lymphadenopathy Chest Wall inspection of chest normal Resp normal respiratory effort and clear to auscultation bilaterally Auscultation: Negative for rales, rhonchi or wheezes Cardio regular rate, regular rhythm and no murmurs GI normal to inspection, nondistended, normoactive bowel sounds GI Narrative: Bowel sounds are slightly decreased. Patient states her abdomen is sore but there is no area of tenderness. Back/Spine no CVA tenderness Extremity normal to inspection General Extremety ED: Negative for edema or tenderness General Extremity: Negative for edema Neuro oriented x3 Neuro Narrative: Patient is alert and oriented x3. Patient can for her brow, close her eyes tightly, smile and puff out her cheeks. I am not seeing any asymmetry. There is no weakness or sensory changes in the extremities. No visual loss. Her speech is clear and appropriate. No confusion. She has an NIH of 0. Sensorium / Orientation: alert; Negative for orientation impaired Psych mental status grossly normal Skin no rashes or lesions noted MDM MDM MDM Narrative Medical decision making narrative: Patient's exam and history is not really consistent with stroke. Her CT head is also negative. Her NIH is 0. Patient's chest x-ray shows no acute process. CBC shows significantly elevated white count at 33.9. Platelets and hemoglobin are normal. Although her hemoglobin is higher than normal likely due to hemoconcentration. Electrolytes show minimally low sodium. She does have an acute kidney injury with a creatinine of 2.98. Liver function test show no marked abnormalities. Lipase is negative. Her INR is elevated at 5.9 but there is no indication of bleeding. Viral studies are negative. With her having continued symptoms, negative viral studies and abdominal discomfort with nausea and vomiting I did do a scan of her abdomen. This shows some a sending and descending colitis. It is unclear if this is early reactivation of her C. difficile colitis or another source. She did just wean off of her antibiotics for C. difficile colitis about 2 weeks ago. She has not been on any other antibiotics. However she states she is not having watery or foul-smelling diarrhea that she had with C. difficile colitis. She states she is having soft bowel movements but they are just occasional. She is not eating and drinking much. Discussed case with hospitalist. We will send off stool studies. We will send off blood cultures. Antibiotics requested and ordered. Patient will be admitted due to her persistent nausea and vomiting, dehydration with acute kidney injury, high white count and abnormal CT. Lab Data Attestation: I reviewed the patient's lab results. Labs: Laboratory Results - last 24 hr 06/05/22 06/05/22 06/05/22 20:33 20:40 20:40 WBC 33.9 H* RBC 4.54 Hgb 13.4 Hct 41.8 MCV 92.1 MCH 29.5 MCHC 32.1 RDW Std Deviation 48.1 H RDW Coeff of Mek[place] 14.3 Plt Count 324 MPV 10.8 Immature Gran % (Auto) 1.900 H Neut % (Auto) 89.2 H Lymph % (Auto) 2.0 L Delta % (Auto) 6.5 Eos % (Auto) 0.0 Baso % (Auto) 0.4 Absolute Neuts (auto) 30.3 H Absolute Lymphs (auto) 0.69 L Nucleated RBC % 0 Differential Comment SEE COMMENTS Diff Path Review May foll RBC Morphology N CHROM Anisocytosis RARE Macrocytosis RARE PT INR Sodium 135 L Potassium 3.8 Chloride 101 Carbon Dioxide 23.0 Anion Gap 11 BUN 44 H Creatinine 2.98 H Estim Creat Clear Calc 14.95 Est GFR (MDRD) Af Amer 20 L Est GFR (MDRD) Non-Af 17 L BUN/Creatinine Ratio 14.8 Glucose 129 H Calcium 9.6 Total Bilirubin 0.50 AST 7 L ALT 15 Alkaline Phosphatase 82 Total Protein 7.7 Albumin 3.1 L Globulin 4.6 H Albumin/Globulin Ratio 0.7 L Lipase 31 L POC Glucose 113 H 06/05/22 20:40 WBC RBC Hgb Hct MCV MCH MCHC RDW Std Deviation RDW Coeff of [place]ek[place] Plt Count MPV Immature Gran % (Auto) Neut % (Auto) Lymph % (Auto) Delta % (Auto) Eos % (Auto) Baso % (Auto) Absolute Neuts (auto) Absolute Lymphs (auto) Nucleated RBC % Differential Comment Diff Path Review RBC Morphology Anisocytosis Macrocytosis PT 52.6 H INR 5.9 H* Sodium Potassium Chloride Carbon Dioxide Anion Gap BUN Creatinine Estim Creat Clear Calc Est GFR (MDRD) Af Amer Est GFR (MDRD) Non-Af BUN/Creatinine Ratio Glucose Calcium Total Bilirubin AST ALT Alkaline Phosphatase Total Protein Albumin Globulin Albumin/Globulin Ratio Lipase POC Glucose Radiography Diagnostic Testing: Clinical Impression(s) from Imaging Studies Brain CT 06/05/22 20:46 IMPRESSION: 1. No evidence of acute intracranial pathology. 2. Diffuse involutional changes and chronic ischemic small vessel white matter disease. Electronically Signed: Len Pratt MD at 21:22 EST , Chest X-Ray 06/05/22 21:04 IMPRESSION: No acute disease. Electronically Signed: Len Pratt MD at 21:28 EST , Abdomen/Pelvis CT 06/05/22 21:49 IMPRESSION: 1. Diffuse thickening of the wall the cecum and ascending colon as well as the descending colon which may be due to colitis. 2. High and low density masses in the kidneys which are stable from the reference exam. If indicated further evaluation with ultrasound may be beneficial. 3. Fluid density mass left hemipelvis which may represent an ovarian cyst. Electronically Signed: Jm Joe MD at 22:29 EST , See above MDM. EKG Initial EKG: Comments: EKG done for generalized weakness read by me shows normal sinus rhythm with overall rate of 96. No ectopy. There are some mild nonspecific ST and T wave changes but no sign of infarct. NC interval, QRS duration and QTc normal. Discharge Plan Triage Chief Complaint: Neuro S/Sx ED Provider: Jose Juarez Dx/Rx/DC Orders Clinical Impression: Acute kidney injury, Colitis, Dehydration, Leukocytosis Prescriptions: No Action cholecalciferol (vitamin D3) 2,000 unit capsule 2,000 unit PO DAILY albuterol sulfate [ProAir HFA] 90 mcg/actuation HFA aerosol inhaler 2 puff INHALATION Q4H PRN (Reason: shortness of breath or wheezing) Qty: 8.5 3RF calcitriol 0.25 mcg capsule 0.25 mcg PO BID Qty: 180 3RF allopurinol 100 mg tablet 100 mg PO DAILY Qty: 90 3RF warfarin 5 mg tablet 5 mg PO DAILY bupropion HCl 150 mg tablet sustained-release 12 hr 150 mg PO BID metoprolol succinate 50 mg tablet extended release 24 hr 50 mg PO DAILY acetaminophen 500 MG tablet 1,000 mg PO DAILY PRN PRN (Reason: Pain) levothyroxine 100 mcg tablet 100 mcg PO DAILY ezetimibe 10 mg tablet 10 mg PO DAILY calcium 600 mg Capsule 600 mg PO DAILY melatonin 3 mg Tablet 3 mg PO QHS tramadol 50 mg Tablet 50 mg PO TID PRN (Reason: Pain) alprazolam [Xanax] 0.5 mg Tablet 0.5 mg PO DAILY ferrous sulfate [Iron (ferrous sulfate)] 325 mg (65 mg iron) Tablet 325 mg PO DAILY fluticasone propionate 50 mcg/actuation [place],Suspension 2 spray INTRANASAL DAILY Rx Instructions: administer into each nostril cyclobenzaprine 5 mg Tablet 5 mg PO QHS magnesium gluconate 30 mg Tablet 30 mg PO BID diclofenac sodium [Voltaren] 1 % Gel TOPICAL Tart Allen [id number] mg Capsule PO azelastine 205.5 mcg (0.15 %) [place],Non-Aerosol 2 spray INTRANASAL BID Rx Instructions: administer into each nostril Probiotic 5 billion cell Capsule, Sprinkle 1 cap PO DAILY oseltamivir 75 mg capsule 75 mg PO BID 5 Days Qty: 10 0RF Primary Care Provider: Teresa Rowe NP Referrals: Teresa Rowe NP, [employer] [Primary Care Provider] - Disposition Disposition: [facility]
[2022-06-05 21:10] LABS: Prothrombin Time (Protime)PT. 52.6 SECONDS (11.7-14.9)
[2022-06-05 21:13] LABS: ALB/GLOB Ratio 0.7 RATIO (0.9-2.4); AST(SGOT) 7 U/L (15-37); Alanine Aminotransfer ALT/SGPT 15 U/L (13-56); Albumin, Serum 3.1 g/dL (3.2-5.0); Alkaline Phosphatase 82 U/L (45-117); Anion Gap 11 (5-15); BUN 44 mg/dL (7-18); BUN/Creat Ratio 14.8 RATIO (10-20); Calcium,Total 9.6 mg/dL (8.5-10.1); Chloride 101 mmol/L (98-107); Creatinine, Serum 2.98 mg/dL (0.55-1.02); EST Glomerular Filtration Rate 17 mL/min (>60); Est Glom Filt Rate - Afr Amer 20 mL/min (>60); Estimated Creatinine Clearance 14.95 ml/min; Globulin 4.6 g/dL (2.2-4.2); Glucose 129 mg/dL (74-106); International Normalized Ratio 5.9; Lipase 31 U/L (73-393); Potassium 3.8 mmol/L (3.5-5.1); Protein, Total 7.7 g/dL (6.4-8.2); Sodium Level 135 mmol/L (136-145)
[2022-06-05 21:22] LABS: Differential Comment SEE COMMENTS
[2022-06-05 21:23] LABS: Anisocytosis RARE; Macrocytosis RARE; Red Cell Morphology N CHROM NORMAL (NORM C&C)
--- NOTE | 2022-06-05 21:49 | CT_ITS ---
EXAM: CT ABDOMEN AND PELVIS WITHOUT INTRAVENOUS CONTRAST CLINICAL INDICATION: pain TECHNIQUE: Helically acquired images were obtained of the abdomen and pelvis without intravenous contrast. This CT exam was performed using one or more of the following dose reduction techniques: automated exposure control, adjustment of the mA and/or kV according to patient size, and/or use of iterative reconstruction technique. This report was created using Jogg report generation technology. COMPARISON: 04/12/2022 FINDINGS: LOWER THORAX: There is minimal scarring at the lung bases. No cardiomegaly. No significant pericardial effusion. ABDOMEN: LIVER: Unremarkable. Homogeneous. GALLBLADDER AND BILE DUCTS: Several gallstones are present but no inflammation. No gallbladder distention or wall edema. No intra- or extrahepatic biliary ductal dilation. PANCREAS: Unremarkable. No focal cystic mass. SPLEEN: Unremarkable. Normal size without focal cystic or solid mass. ADRENALS: Unremarkable. No nodules. KIDNEYS AND URETERS: There are small nonobstructing calyceal stones. There are high and low density renal cysts. These are stable from the reference exam. If indicated further evaluation with ultrasound may be beneficial. STOMACH AND BOWEL: There is diffuse thickening of the wall the cecum and ascending colon. There is also thickening wall of the descending colon which may be due to colitis. There is no abscess or perforation. No stomach or bowel distention. PELVIS: APPENDIX: No evidence of acute appendicitis. BLADDER: Unremarkable. REPRODUCTIVE: There is a 3.4 x 3.7 cm low-density mass in the left hemipelvis which is stable and may represent a left ovarian cyst. ABDOMEN and PELVIS: INTRAPERITONEAL SPACE: Unremarkable. No ascites or other fluid collection. No free air. BONES/JOINTS: There is hardware in the lower lumbar spine. No suspicious lytic or blastic abnormality. SOFT TISSUES: Unremarkable. No discrete abdominal or pelvic wall hernia. VASCULATURE: Unremarkable. Abdominal aorta is non-dilated. LYMPH NODES: Unremarkable. No enlarged lymph nodes. CT/Abdomen/Pelvis without Cont IMPRESSION: 1. Diffuse thickening of the wall the cecum and ascending colon as well as the descending colon which may be due to colitis. 2. High and low density masses in the kidneys which are stable from the reference exam. If indicated further evaluation with ultrasound may be beneficial. 3. Fluid density mass left hemipelvis which may represent an ovarian cyst. Electronically Signed: Jm Joe MD at 22:29 EST ,
[2022-06-05 22:25] VITALS: BP 115/77; PULSE 96; RESP 18; TEMP 36.7; O2SAT 100
[2022-06-05] MEDS: 0.9% Normal Saline 1,000 ML 500 ML IV (22:46)
[2022-06-05 23:00] VITALS: BP 108/63; PULSE 96; RESP 18; TEMP 36.7; O2SAT 98
[2022-06-05] MEDS: Morphine 4 MG/ML Syringe IV (23:00)
--- NOTE | 2022-06-05 23:19 | HP.PCM.HOS_ITS ---
HPI - General General Date of Admission: 06/05/22 Date of Service: 06/05/22 Chief Complaint: Nausea HPI Narrative MELONIE LU, is a 67 F with a significant history of pulmonary embolism on warfarin; polycystic kidney disease; hypertension and who was recently treated for C. difficile colitis presents to the emergency department with dry heaving. Associated with her symptoms is soreness of her abdomen. Her symptoms started 4 days ago. Today before presentation she called her PCP and she was started on a prescription for Tamiflu. She reports that her dry heaving has been worsening with starting Tamiflu. She reports a soft stools than usual however she denies diarrhea. She reports anorexia. She denies fever At the emergency department she was found to have extremely high white count. [facility] Medical History Acute kidney injury Adverse reaction to antidepressant drug Allergic rhinitis with postnasal drip Anxiety Anxiety Bilateral hearing loss C. 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 Colitis Deep vein thrombosis, lower left extremity Diverticulitis Essential (primary) hypertension History of pulmonary embolus (PE) (2009) Hyperkalemia Hyperlipidemia LDL goal <130 Hypomagnesemia Hypothyroidism (acquired) Idiopathic parathyroidism Iron deficiency anemia Knee pain, right Medication side effects Polycystic kidney disease Home Medications cholecalciferol (vitamin D3) 50 mcg (2,000 unit) capsule 2,000 unit PO DAILY vitamin 01/27/18 [History Last Taken 2 Days Ago ~04/10/22] albuterol sulfate 90 mcg/actuation aerosol inhaler (ProAir HFA) 2 puff inhalation Q4H PRN shortness of breath or wheezing #8.5 grams 07/05/21 [Rx Last Taken Unknown] acetaminophen 500 mg tablet 1,000 mg PO DAILY PRN PRN Pain 04/12/22 [History Last Taken 04/12/22] bupropion HCl 150 mg tablet,12 hr sustained-release 150 mg PO BID DEPRESSION 04/12/22 [History Last Taken 2 Days Ago ~04/10/22] ezetimibe 10 mg tablet 10 mg PO DAILY 04/12/22 [History Last Taken 2 Days Ago ~04/10/22] levothyroxine 100 mcg tablet 100 mcg PO DAILY THYROID 04/12/22 [History Last Taken 04/11/22] metoprolol succinate 50 mg tablet,extended release 24 hr 50 mg PO DAILY BLOOD PRESSURE 04/12/22 [History Last Taken 2 Days Ago ~04/10/22] warfarin 5 mg tablet 5 mg PO DAILY 04/12/22 [History Last Taken 04/11/22] calcitriol 0.25 mcg capsule 0.25 mcg PO BID #180 caps 05/08/22 [Rx Last Taken Unknown] allopurinol 100 mg tablet 100 mg PO DAILY #90 tabs 05/11/22 [Rx Last Taken Un known] oseltamivir 75 mg capsule 75 mg PO BID 5 days #10 caps 06/04/22 [Rx Last Taken Unknown] Lactobacil.acidophilus-Bifido.animalis 5 billion cell sprinkle capsule (Probiotic) 1 cap PO DAILY 06/05/22 [History Last Taken Unknown] alprazolam 0.5 mg tablet (Xanax) 0.5 mg PO DAILY 06/05/22 [History Last Taken Unknown] azelastine 205.5 mcg (0.15 %) nasal spray 2 spray intranasal BID 06/05/22 [History Last Taken Unknown] calcium 600 mg capsule 600 mg PO DAILY 06/05/22 [History Last Taken Unknown] cyclobenzaprine 5 mg tablet 5 mg PO QHS 06/05/22 [History Last Taken Unknown] diclofenac sodium 1 % topical gel ea topical 06/05/22 [History Last Taken Unknown] ferrous sulfate 325 mg (65 mg iron) tablet (Iron (ferrous sulfate)) 325 mg PO DAILY 06/05/22 [History Last Taken Unknown] fluticasone propionate 50 mcg/actuation nasal spray,suspension 2 spray intranasal DAILY 06/05/22 [History Last Taken Unknown] magnesium gluconate 30 mg tablet 30 mg PO BID 06/05/22 [History Last Taken Unknown] melatonin 3 mg tablet 3 mg PO QHS 06/05/22 [History Last Taken Unknown] tramadol 50 mg tablet 50 mg PO TID PRN Pain 06/05/22 [History Last Taken Unknown] vit C 30 mg-s.allen 250 mg-celery seed 75 mg-grape seed extrt capsule ([place]) cap PO 06/05/22 [History Last Taken Unknown] Allergy/AdvReac Type Severity Reaction Status Date / Time niacin Allergy Anaphylaxis Verified 06/05/22 20:32 [From Niaspan Extended-Release] metronidazole [From Flagyl] AdvReac Severe diarrhea Verified 06/05/22 20:32 and hypokalcemia peripheral neuropathy simvastatin [From Zocor] AdvReac Severe muscle Verified 06/05/22 20:32 cramps Family History Father , at age 78 of [place] Heart disease Mother Diabetes Surgical History History of elective section History of repair of rotator cuff History of total right knee replacement (TKR) S/P rotator cuff repair Social History Smoking Status: Former smoker quit date: 03/30/18 Electronic Cigarette Use: not used second hand exposure: No alcohol intake: current alcohol intake frequency: a few times a month substance use type: does not use ROS ROS Narrative Pertinent positives and pertinent negatives as noted in HPI. All other systems were reviewed and are negative Vital Signs Vital Signs Vital Signs: 06/05/22 20:25 06/05/22 20:33 06/05/22 22:25 Temperature 96.9 F L 98.0 F Temperature Source Temporal Temporal Pulse Rate 61 104 H 96 Respiratory Rate 15 18 18 Blood Pressure 91/64 116/61 115/77 Blood Pressure Mean 73 79 89 Pulse Ox 97 100 Oxygen Delivery Method Room Air Room Air Room Air Weight Weight: 69.1 kg Body Mass Index (BMI) 26.9 Physical Exam Narrative Physical exam: General: Well-nourished, well-developed. Head: Normocephalic, atraumatic, no tenderness Eyes: Vision is grossly intact. EOMI ENT, no trauma, moist mucous membranes, no rhinorrhea Neck: Nontender, No thyromegaly. CVS: Regular rate and rhythm. S1-S2 present. No murmur, gallop or rub. Respiratory : clear to auscultation bilaterally, chest wall nontender, no wheezing Abdomen: Soft, tender, nondistended, normal bowel sounds, no masses : Deferred Back: Nontender, no CVA tenderness. Extremities: Nontender full range of motion, no trauma Skin: Normal color, no trauma, abrasions Neuro: Alert, oriented, cranial nerves II through XII grossly intact. Psychiatry: Normal mood. Normal affect. Not depressed. Not anxious. Results Lab / Micro Data Result Diagrams: 06/05/22 20:40 06/05/22 20:40 Labs: Laboratory Results - last 24 hr 06/05/22 20:33: POC Glucose 113 H 06/05/22 20:40: WBC 33.9 H*, RBC 4.54, Hgb 13.4, Hct 41.8, MCV 92.1, MCH 29.5, MCHC 32.1, RDW Std Deviation 48.1 H, RDW Coeff of Mek[place] 14.3, Plt Count 324, MPV 10.8, Immature Gran % (Auto) 1.900 H, Neut % (Auto) 89.2 H, Lymph % (Auto) 2.0 L , [place] % (Auto) 6.5, Eos % (Auto) 0.0, Baso % (Auto) 0.4, Absolute Neuts (auto) 30.3 H, Absolute Lymphs (auto) 0.69 L, Nucleated RBC % 0, Differential Comment SEE COMMENTS, Diff Path Review Laurie jarvis, RBC Morphology N CHROM, Anisocytosis RARE, Macrocytosis RARE 06/05/22 20:40: Sodium 135 L, Potassium 3.8, Chloride 101, Carbon Dioxide 23.0, Anion Gap 11, BUN 44 H, Creatinine 2.98 H, Estim Creat Clear Calc 14.95, Est GFR (MDRD) Af Amer 20 L, Est GFR (MDRD) Non-Af 17 L, BUN/Creatinine Ratio 14.8, Glucose 129 H, Calcium 9.6, Total Bilirubin 0.50, AST 7 L, ALT 15, Alkaline Phosphatase 82, Total Protein 7.7, Albumin 3.1 L, Globulin 4.6 H, Albumin/Globulin Ratio 0.7 L, Lipase 31 L 06/05/22 20:40: PT 52.6 H, INR 5.9 H* Micro: Microbiology 06/05/22 20:52 Nasal Secretion SARS-CoV-2 & FLU Antigen (Rapid) - Final Radiology Impression Brain CT 06/05/22 20:46 IMPRESSION: 1. No evidence of acute intracranial pathology. 2. Diffuse involutional changes and chronic ischemic small vessel white matter disease. Electronically Signed: Len Pratt MD at 21:22 EST , Chest X-Ray 06/05/22 21:04 IMPRESSION: No acute disease. Electronically Signed: Len Pratt MD at 21:28 EST , Abdomen/Pelvis CT 06/05/22 21:49 IMPRESSION: 1. Diffuse thickening of the wall the cecum and ascending colon as well as the descending colon which may be due to colitis. 2. High and low density masses in the kidneys which are stable from the reference exam. If indicated further evaluation with ultrasound may be beneficial. 3. Fluid density mass left hemipelvis which may represent an ovarian cyst. Electronically Signed: Jm Joe MD at 22:29 EST , Assessment & Plan Assessment/Plan (1) Colitis: (2) Acute kidney injury: (3) Dehydration: PLAN: Plan Colitis Per radiologist there is diffuse thickening of the wall of the cecum, ascending colon as well as the descending colon. CT of abdomen and pelvis was visually and independent interpreted and I agree with radiologist interpretation. Review of records show the patient was admitted to our hospital ([facility]) on 04/12/2022 and discharged on 04/22/2022 for infectious colitis. She was discharged home on a tapered dose of vancomycin p.o. CBC showed a white count of 33,900. Bandemia of 1.9%. Review of records shows a previous highest white count of 30,800 and that was when patient had C. difficile. However patient has no loose stools and she is she denies that her stool smelling like C. difficile. Stool studies and C. difficile studies ordered emergency department, follow-up. Of note patient is allergic to metronidazole. In view of high white count patient has been started on Zosyn. Blood cultures were obtained in the emergency department, follow. Clear liquid diet. HANS/dehydration Baseline creatinine of less than 1 On presentation creatinine was 2.98. Baseline creatinine is less than 1. BUN is 44. BUN over creatinine is 14.8. Likely prerenal from decreased intake causing dehydration and now ATN. Gentle IV hydration. Avoid nephrotoxic's Trend BMP. History of PE/supratherapeutic INR INR on presentation was 5.9. Hold home Coumadin. Trend INR. DVT prophylaxis Not indicated as patient is supratherapeutic on INR Charges/Coding Visit Charges Inpatient E&M: 36689 Init Hosp L3
[2022-06-05 23:44] VITALS: BP 115/69; PULSE 94; RESP 18; TEMP 36.6; O2SAT 98
[2022-06-06] VITALS (9 sets, daily range): BP systolic 101–127; BP diastolic 58–80; PULSE 74–117; RESP 12–18; TEMP 36.6–37.9; O2SAT 91–100; BMI 29.0
[2022-06-06] MEDS: 0.9% Normal Saline 1,000 ML 100 ML IV ×3 (00:52→21:47)
[2022-06-06] MEDS: Acetaminophen 325 MG Tablet 650 MG PO (04:09)
[2022-06-06 05:21] LABS: Absolute Lymphocyte Count 0.35 X10^3/uL (0.83-4.51); Absolute Neutrophil Count 20.6 X10^3/uL (2.0-7.7); Basophil# 0.05 X10^3/uL; Basophil% 0.2 % (0-1); Eosinophil# 0.01 X10^3/uL; Hemoglobin 11.1 g/dL (12.0-15.0); Lymphocyte # 0.35 X10^3/ul (0.83-4.51); Lymphocyte % 1.6 % (19-41); Mean Corp Hgb Conc 31.7 g/dL (32-36); Mean Corpuscular Hgb 29.3 pg (27.0-32.0); Mean Corpuscular Volume 92.3 fL (81-99); Mean Platelet Vol. 10.6 fl (6.2-12.0); Monocyte# 0.84 X10^3/uL; Monocyte% 3.8 % (0-10); NRBC Flagged by Analyzer 0 % (0-5); Neutrophil # 20.57 X10^3/uL (2.7-7.7); Neutrophil % 93.7 % (47-70); POSITIVE DIFFERENTIAL YES; Platelet Count 235 K/mm3 (150-450); RBC Distribution Width CV 14.5 % (11.6-14.6); RBC Distribution Width SD 48.9 fl (35.1-43.9); Red Blood Count 3.79 M/mm3 (4.2-5.4)
[2022-06-06 05:26] LABS: Differential Indicated SCAN CRITERIA MET
[2022-06-06 05:44] LABS: International Normalized Ratio 7.2
[2022-06-06 05:55] LABS: Anion Gap 11 (5-15); BUN 43 mg/dL (7-18); BUN/Creat Ratio 18.3 RATIO (10-20); Calcium,Total 8.4 mg/dL (8.5-10.1); Chloride 105 mmol/L (98-107); Creatinine, Serum 2.35 mg/dL (0.55-1.02); EST Glomerular Filtration Rate 22 mL/min (>60); Est Glom Filt Rate - Afr Amer 27 mL/min (>60); Estimated Creatinine Clearance 18.95 ml/min; Glucose 174 mg/dL (74-106); Potassium 3.7 mmol/L (3.5-5.1); Sodium Level 136 mmol/L (136-145)
[2022-06-06 06:16] LABS: Differential Comment SCANNED
[2022-06-06] MEDS: Levothyroxine 100 MCG Tablet PO (06:33)
[2022-06-06] MEDS: traMADol 50 MG Tablet PO ×2 (06:55→17:11)
[2022-06-06] MEDS: Ferrous Sulfate 325 MG Tablet PO (08:43)
[2022-06-06] MEDS: Calcium (Elemental) 500 MG Tablet PO (08:44)
[2022-06-06] MEDS: Azelastine HCl NASAL.SRY 2 SPRAY NASAL ×2 (08:44→21:49)
[2022-06-06] MEDS: Ezetimibe 10 MG Tablet PO (08:45)
[2022-06-06] MEDS: Calcitriol 0.25 MCG Capsule PO ×2 (08:45→21:52)
[2022-06-06] MEDS: buPROPion (SR) 150 MG Tablet.SA PO ×2 (08:45→21:52)
[2022-06-06] MEDS: Metoprolol(XL)Succ 50 MG Tablet PO (08:45)
[2022-06-06] MEDS: Cholecalciferol (VIT D3) 25 MCG TABLET (1,000 UNITS) 50 MCG PO (08:45)
[2022-06-06] MEDS: Phytonadione (Vit K1) 5 MG TABLET PO (08:51)
[2022-06-06] MEDS: Fluticasone 0.05% 1 SPRAY NASAL.SRY 2 SPRAY NASAL (08:51)
[2022-06-06] MEDS: ALPRAZolam 0.5 MG Tablet PO (08:51)
[2022-06-06] MEDS: Morphine 2 MG/ML Syringe IV (10:42)
[2022-06-06] MEDS: 0.9% Saline Lock 10 ML Syringe IV (10:42)
--- NOTE | 2022-06-06 11:55 | CASEMGMT ---
RN CM Face to Face with patient for initial transition planning/care coordination assessment. RN CM introduced self and role at [facility]. Patient lying in bed, alert and oriented. Patient willing to participate in assessment and is able to answer all questions appropriately. Care providers, pharmacy, and demographics verified. Patient wishes to discharge home, denies need for home health at this time. Patient states she has no further needs or concerns at this time. CM to follow for discharge planning needs that may arise. PCP: ANGELITA Rowe Specialists: NEGRA Mohamud Pharmacy: [facility] Insurance: [facility] Prescription Benefit: yes Living Will/HPOA: yesn [place] Nichole LNOK: hsuband, daughter Living Arrangements: Patient lives with in a 2 story home. Patient states she is independent at home and able to ambulate stairs. Transportation: self, DME/HHC: Patient has shower chair, raised toilet, grab bars, walker at home. Disposition Plan: Patient to discharge home with family support and follow-up plans in place. Leeann CAPUTO, RN, CM
--- NOTE | 2022-06-06 12:39 | PN.HOSP_ITS ---
Subjective Subjective Continues to have some abdominal pain, this is reproducible whenever she engages her abdominal musculature Objective Data Objective Data Vital Signs: Vital Signs Temp Pulse Resp BP Pulse Ox O2 Del Method 98.0 F 117 H 14 120/80 98 Room Air 06/06/22 08:57 06/06/22 08:57 06/06/22 08:57 06/06/22 08:57 06/06/22 08:57 06/06/22 08:57 Oxygen Delivery Method Room Air Weight: 163 lb 12.855 oz Body Mass Index (BMI) 29.0 Intake & Output: Intake and Output for Last 24 Hours 06/05/22 06/06/22 06/07/22 03:59 03:59 03:59 Intake Total 2099 796.67 / 796.67 Output Total / Balance 2099 792.67 / 792.67 Lab / Micro Data Result Diagrams: 06/06/22 04:35 06/06/22 04:35 Labs: Laboratory Results - last 24 hr 06/05/22 20:33: POC Glucose 113 H 06/05/22 20:40: WBC 33.9 H*, RBC 4.54, Hgb 13.4, Hct 41.8, MCV 92.1, MCH 29.5, MCHC 32.1, RDW Std Deviation 48.1 H, RDW Coeff of Mek[place] 14.3, Plt Count 324, MPV 10.8, Immature Gran % (Auto) 1.900 H, Neut % (Auto) 89.2 H, Lymph % (Auto) 2.0 L , [place] % (Auto) 6.5, Eos % (Auto) 0.0, Baso % (Auto) 0.4, Absolute Neuts (auto) 30.3 H, Absolute Lymphs (auto) 0.69 L, Nucleated RBC % 0, Differential Comment SEE COMMENTS, Diff Path Review May foll, RBC Morphology N CHROM, Anisocytosis RARE, Macrocytosis RARE 06/05/22 20:40: Sodium 135 L, Potassium 3.8, Chloride 101, Carbon Dioxide 23.0, Anion Gap 11, BUN 44 H, Creatinine 2.98 H, Estim Creat Clear Calc 14.95, Est GFR (MDRD) Af Amer 20 L, Est GFR (MDRD) Non-Af 17 L, BUN/Creatinine Ratio 14.8, Glucose 129 H, Calcium 9.6, Total Bilirubin 0.50, AST 7 L, ALT 15, Alkaline Phosphatase 82, Total Protein 7.7, Albumin 3.1 L, Globulin 4.6 H, Albumin/Globulin Ratio 0.7 L, Lipase 31 L 06/05/22 20:40: PT 52.6 H, INR 5.9 H* 06/06/22 04:35: WBC 22.0 H, RBC 3.79 L, Hgb 11.1 L, Hct 35.0 L, MCV 92.3, MCH 29.3, MCHC 31.7 L, RDW Std Deviation 48.9 H, RDW Coeff of Meka 14.5, Plt Count 235, MPV 10.6, Immature Gran % (Auto) 0.700, Neut % (Auto) 93.7 H, Lymph % (Auto) 1.6 L, [place] % (Auto) 3.8, Eos % (Auto) 0.0, Baso % (Auto) 0.2, Absolute Neuts (auto) 20.6 H, Absolute Lymphs (auto) 0.35 L, Nucleated RBC % 0, Differential Comment SCANNED 06/06/22 04:35: PT 62.0 H, INR 7.2 H* 06/06/22 04:35: Sodium 136, Potassium 3.7, Chloride 105, Carbon Dioxide 20.0 L, Anion Gap 11, BUN 43 H, Creatinine 2.35 H, Estim Creat Clear Calc 18.95, Est GFR (MDRD) Af Amer 27 L, Est GFR (MDRD) Non-Af 22 L, BUN/Creatinine Ratio 18.3, Glucose 174 H, Calcium 8.4 L Micro: Microbiology 06/06/22 01:45 Interface Orders Stool Lactoferrin - Final 06/05/22 20:52 Nasal Secretion SARS-CoV-2 & FLU Antigen (Rapid) - Final Radiography Diagnostic Testing: Radiology Impression Brain CT 06/05/22 20:46 IMPRESSION: 1. No evidence of acute intracranial pathology. 2. Diffuse involutional changes and chronic ischemic small vessel white matter disease. Electronically Signed: Len Pratt MD at 21:22 EST , Chest X-Ray 06/05/22 21:04 IMPRESSION: No acute disease. Electronically Signed: Len Pratt MD at 21:28 EST , Abdomen/Pelvis CT 06/05/22 21:49 IMPRESSION: 1. Diffuse thickening of the wall the cecum and ascending colon as well as the descending colon which may be due to colitis. 2. High and low density masses in the kidneys which are stable from the reference exam. If indicated further evaluation with ultrasound may be beneficial. 3. Fluid density mass left hemipelvis which may represent an ovarian cyst. Electronically Signed: Jm Joe MD at 22:29 EST , Physical Exam Narrative General: Alert, Oriented x3, Cooperative, No apparent distress HEENT: Atraumatic, PERRLA, EOMI, Normocephalic Oral: Moist Mucosa Neck: Supple, No JVD Lungs: Clear to auscultation, Normal air movement, No rhonchi, No wheeze, No rales Cardiovascular: Regular rate, Regular Rhythm, Normal S1, Normal S2, No murmurs Abdomen: Soft, mildly tender, Non-Distended, No Hepato-splenomegaly Extremities: No edema, Capillary Refill Less than 3 Seconds Skin: No rashes, No breakdown Musculoskeletal: No Tenderness to Palpation of Joints or Extremities Neurological: Cranial nerves II-XII grossly intact, Motor Exam 5/5 strength throughout, Sensory exam intact to light touch and pain Psych/Mental Status: Normal Affect, Appropriate Assessment & Plan Assessment/Plan (1) Colitis: (2) Acute kidney injury: (3) Dehydration: PLAN: Plan 1. Acute colitis/HANS ? At this time not sure as to the etiology, she has been treated for C. difficile multiple times this point she might just be a carrier ? Stool studies and C. difficile testing are pending ? Continue with IV antibiotics as well as IV fluids ? Her renal function increased to about 2.98, it is trending downwards we will continue to monitor and support 2. HTN/HLD ? Blood pressures are stable ? Continue with her home blood pressure medications ? Continue with her home cholesterol medications 3. History of a PE ? INR supratherapeutic 4. Hypothyroidism ? Stable ? We will send thyroid 5. Anxiety/depression ? Stable ? Continue with her home medications DVT: Supratherapeutic INR Charges/Coding Visit Charges Inpatient E&M: 52935 Subs Hosp L2
[2022-06-06 13:53] LABS: Absolute Neutrophil Count 24.9 X10^3/uL (2.0-7.7); Basophil# 0.11 X10^3/uL; Basophil% 0.4 % (0-1); Eosinophil# 0.01 X10^3/uL; Hematocrit 33.7 % (37-47); Hemoglobin 11.3 g/dL (12.0-15.0); Lymphocyte % 1.5 % (19-41); Mean Corp Hgb Conc 33.5 g/dL (32-36); Mean Corpuscular Hgb 30.5 pg (27.0-32.0); Mean Corpuscular Volume 90.8 fL (81-99); Mean Platelet Vol. 10.1 fl (6.2-12.0); Monocyte# 1.74 X10^3/uL; Monocyte% 6.4 % (0-10); NRBC Flagged by Analyzer 0 % (0-5); POSITIVE DIFFERENTIAL YES; Platelet Count 220 K/mm3 (150-450); RBC Distribution Width CV 14.2 % (11.6-14.6); RBC Distribution Width SD 48.1 fl (35.1-43.9); Red Blood Count 3.71 M/mm3 (4.2-5.4); White Blood Count 27.3 K/mm3 (4.4-11.0)
[2022-06-06 14:01] LABS: Differential Indicated SCAN CRITERIA MET
[2022-06-06 14:23] LABS: Differential Comment SCANNED
[2022-06-06 15:32] LABS: Pathologist Review Reviewed
--- NOTE | 2022-06-06 16:27 | PCM.CONS.GEN ---
Assessment & Plan Assessment/Plan (1) C. difficile colitis: PLAN: sepsis due to cdiff colitis associated with HANS. Stop zosyn, cont po vanc. Will follow, thank you (2) Acute kidney injury: (3) Sepsis: HPI Consult Data Date of Consult: 06/06/22 HPI Narrative Reason for Consultation: colitis HPI Narrative: MELONIE LU, is a 67 F with admit early April with cdiff colitis, treated with long vanc taper as it was her 2nd episode. Completed abx. No other abx since that admit. Over past 4 days, reports intermittent progressing to continuous lower abd pain. Some loose stool, poor appetite, n/v. No fever, no blood in stool. Put on tamiflu by PCP without improvement. Some cough and headache. Covid Ag neg here. Admitted on po vanc and zosyn. Full ROS performed and neg except as noted above. [facility] Medical History Acute kidney injury Adverse reaction to antidepressant drug Allergic rhinitis with postnasal drip Anxiety Anxiety Bilateral hearing loss C. 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 Colitis Deep vein thrombosis, lower left extremity Diverticulitis Essential (primary) hypertension History of pulmonary embolus (PE) (2009) Hyperkalemia Hyperlipidemia LDL goal <130 Hypomagnesemia Hypothyroidism (acquired) Idiopathic parathyroidism Iron deficiency anemia Knee pain, right Medication side effects Polycystic kidney disease Home Medications cholecalciferol (vitamin D3) 50 mcg (2,000 unit) capsule 2,000 unit PO DAILY vitamin 01/27/18 [History Last Taken 2 Days Ago ~04/10/22] albuterol sulfate 90 mcg/actuation aerosol inhaler (ProAir HFA) 2 puff inhalation Q4H PRN shortness of breath or wheezing #8.5 grams 07/05/21 [Rx Last Taken Unknown] acetaminophen 500 mg tablet 1,000 mg PO DAILY PRN PRN Pain 04/12/22 [History Last Taken 04/12/22] bupropion HCl 150 mg tablet,12 hr sustained-release 150 mg PO BID DEPRESSION 04/12/22 [History Last Taken 2 Days Ago ~04/10/22] ezetimibe 10 mg tablet 10 mg PO DAILY 04/12/22 [History Last Taken 2 Days Ago ~04/10/22] levothyroxine 100 mcg tablet 100 mcg PO DAILY THYROID 04/12/22 [History Last Taken 04/11/22] metoprolol succinate 50 mg tablet,extended release 24 hr 50 mg PO DAILY BLOOD PRESSURE 04/12/22 [History Last Taken 2 Days Ago ~04/10/22] warfarin 5 mg tablet 5 mg PO DAILY 04/12/22 [History Last Taken 04/11/22] calcitriol 0.25 mcg capsule 0.25 mcg PO BID #180 caps 05/08/22 [Rx Last Taken Unknown] allopurinol 100 mg tablet 100 mg PO DAILY #90 tabs 05/11/22 [Rx Last Taken Unknown] oseltamivir 75 mg capsule 75 mg PO BID 5 days #10 caps 06/04/22 [Rx Last Taken Unknown] Lactobacil.acidophilus-Bifido.animalis 5 billion cell sprinkle capsule (Probiotic) 1 cap PO DAILY 06/05/22 [History Last Taken Unknown] alprazolam 0.5 mg tablet (Xanax) 0.5 mg PO DAILY 06/05/22 [History Last Taken Unknown] azelastine 205.5 mcg (0.15 %) nasal spray 2 spray intranasal BID 06/05/22 [History Last Taken Unknown] calcium 600 mg capsule 600 mg PO DAILY 06/05/22 [History Last Taken Unknown] cyclobenzaprine 5 mg tablet 5 mg PO QHS 06/05/22 [History Last Taken Unknown] diclofenac sodium 1 % topical gel ea topical BID gout 06/05/22 [History Last Taken 06/04/22] ferrous sulfate 325 mg (65 mg iron) tablet (Iron (ferrous sulfate)) 325 mg PO DAILY 06/05/22 [History Last Taken Unknown] fluticasone propionate 50 mcg/actuation nasal spray,suspension 2 spray intranasal DAILY 06/05/22 [History Last Taken Unknown] magnesium gluconate 30 mg tablet 30 mg PO BID 06/05/22 [History Last Taken Unknown] melatonin 3 mg tablet 3 mg PO QHS 06/05/22 [History Last Taken Unknown] tramadol 50 mg tablet 50 mg PO TID PRN Pain 06/05/22 [History Last Taken Unknown] vit C 30 mg-s.allen 250 mg-celery seed 75 mg-grape seed extrt capsule ([place]) cap PO 06/05/22 [History Last Taken Unknown] Allergy/AdvReac Type Severity Reaction Status Date / Time niacin Allergy Anaphylaxis Verified 06/05/22 20:32 [From Niaspan Extended-Release] metronidazole [From Flagyl] AdvReac Severe diarrhea Verified 06/05/22 20:32 and hypokalcemia peripheral neuropathy simvastatin [From Zocor] AdvReac Severe muscle Verified 06/05/22 20:32 cramps Family History Father , at age 78 of [place] Heart disease Mother Diabetes Surgical History History of elective section History of repair of rotator cuff History of total right knee replacement (TKR) S/P rotator cuff repair Social History Smoking Status: Former smoker quit date: 03/30/18 Electronic Cigarette Use: not used second hand exposure: No alcohol intake: current alcohol intake frequency: a few times a month substance use type: does not use Physical Exam Const alert and oriented x3 Constitutional Narrative: ill appearing General Appearance: cooperative HEENT normocephalic and head/scalp atraumatic Eyes PERRL and EOMs intact bilaterally Neck supple and No nodes Resp normal air movement and clear to auscultation bilaterally Cardio regular rate and regular rhythm GI soft to palpation and non-distended GI Narrative: lower abd mild soreness Extremity General Extremity: edema Skin no rashes or lesions noted Neuro CN's II-XII intact bilaterally Lab / Micro Data Attestation: I reviewed the patient's lab results. Result Diagrams: 06/06/22 13:47 06/06/22 04:35 Labs: Laboratory Results - last 24 hr 06/05/22 20:33: POC Glucose 113 H 06/05/22 20:40: WBC 33.9 H*, RBC 4.54, Hgb 13.4, Hct 41.8, MCV 92.1, MCH 29.5, MCHC 32.1, RDW Std Deviation 48.1 H, RDW Coeff of [place]ek[place] 14.3, Plt Count 324, MPV 10.8, Immature Gran % (Auto) 1.900 H, Neut % (Auto) 89.2 H, Lymph % (Auto) 2.0 L, [place] % (Auto) 6.5, Eos % (Auto) 0.0, Baso % (Auto) 0.4, Absolute Neuts (auto) 30.3 H, Absolute Lymphs (auto) 0.69 L, Nucleated RBC % 0, Differential Comment SEE COMMENTS, Diff Path Review Reviewed, RBC Morphology N CHROM, Anisocytosis RARE, Macrocytosis RARE 06/05/22 20:40: Sodium 135 L, Potassium 3.8, Chloride 101, Carbon Dioxide 23.0, Anion Gap 11, BUN 44 H, Creatinine 2.98 H, Estim Creat Clear Calc 14.95, Est GFR (MDRD) Af Amer 20 L, Est GFR (MDRD) Non-Af 17 L, BUN/Creatinine Ratio 14.8, Glucose 129 H, Calcium 9.6, Total Bilirubin 0.50, AST 7 L, ALT 15, Alkaline Phosphatase 82, Total Protein 7.7, Albumin 3.1 L, Globulin 4.6 H, Albumin/Globulin Ratio 0.7 L, Lipase 31 L 06/05/22 20:40: PT 52.6 H, INR 5.9 H* 06/06/22 04:35: WBC 22.0 H, RBC 3.79 L, Hgb 11.1 L, Hct 35.0 L, MCV 92.3, MCH 29.3, MCHC 31.7 L, RDW Std Deviation 48.9 H, RDW Coeff of [place] 14.5, Plt Count 235, MPV 10.6, Immature Gran % (Auto) 0.700, Neut % (Auto) 93.7 H, Lymph % (Auto) 1.6 L, [place] % (Auto) 3.8, Eos % (Auto) 0.0, Baso % (Auto) 0.2, Absolute Neuts (auto) 20.6 H, Absolute Lymphs (auto) 0.35 L, Nucleated RBC % 0, Differential Comment SCANNED 06/06/22 04:35: PT 62.0 H, INR 7.2 H* 06/06/22 04:35: Sodium 136, Potassium 3.7, Chloride 105, Carbon Dioxide 20.0 L, Anion Gap 11, BUN 43 H, Creatinine 2.35 H, Estim Creat Clear Calc 18.95, Est GFR (MDRD) Af Amer 27 L, Est GFR (MDRD) Non-Af 22 L, BUN/Creatinine Ratio 18.3, Glucose 174 H, Calcium 8.4 L 06/06/22 13:47: WBC 27.3 H, RBC 3.71 L, Hgb 11.3 L, Hct 33.7 L, MCV 90.8, MCH 30.5, MCHC 33.5 D, RDW Std Deviation 48.1 H, RDW Coeff of [place] 14.2, Plt Count 220, MPV 10.1, Immature Gran % (Auto) 0.700, Neut % (Auto) 91.0 H, Lymph % (Auto) 1.5 L, [place] % (Auto) 6.4, Eos % (Auto) 0.0, Baso % (Auto) 0.4, Absolute Neuts (auto) 24.9 H, Absolute Lymphs (auto) 0.40 L, Nucleated RBC % 0, Differential Comment SCANNED, Diff Path Review October Micro: Microbiology 06/06/22 01:45 Stool C. difficile GDH Antigen & Toxins - Final Toxigenic C. difficile 06/06/22 01:45 Stool C. difficile DNA Amplification - Final 06/06/22 01:45 Stool Enteric Bacteriology - Final 06/06/22 01:45 Interface Orders Stool Lactoferrin - Final 06/05/22 20:52 Nasal Secretion SARS-CoV-2 & FLU Antigen (Rapid) - Final Radiology Impression Brain CT 06/05/22 20:46 IMPRESSION: 1. No evidence of acute intracranial pathology. 2. Diffuse involutional changes and chronic ischemic small vessel white matter disease. Electronically Signed: Len Pratt MD at 21:22 EST , Chest X-Ray 06/05/22 21:04 IMPRESSION: No acute disease. Electronically Signed: Len Pratt MD at 21:28 EST , Abdomen/Pelvis CT 06/05/22 21:49 IMPRESSION: 1. Diffuse thickening of the wall the cecum and ascending colon as well as the descending colon which may be due to colitis. 2. High and low density masses in the kidneys which are stable from the reference exam. If indicated further evaluation with ultrasound may be beneficial. 3. Fluid density mass left hemipelvis which may represent an ovarian cyst. Electronically Signed: Jm Jeo MD at 22:29 EST ,
[2022-06-06] MEDS: Vancomycin 125 MG/5 ML Susp PO.SYRINGE PO ×2 (17:11→23:51)
[2022-06-06] MEDS: MELATONIN 3 MG TABLET PO (21:52)
[2022-06-06] MEDS: cycloBENZAPRine HCl 5 MG TABLET PO (21:52)
[2022-06-07] VITALS (8 sets, daily range): BP systolic 107–132; BP diastolic 48–64; PULSE 83–105; RESP 16–18; TEMP 36–37.9; O2SAT 93–98
[2022-06-07 06:11] LABS: International Normalized Ratio 2.1; Prothrombin Time (Protime)PT. 23.1 SECONDS (11.7-14.9)
[2022-06-07 06:29] LABS: Anion Gap 6 (5-15); BUN 36 mg/dL (7-18); BUN/Creat Ratio 28.3 RATIO (10-20); Calcium,Total 8.1 mg/dL (8.5-10.1); Chloride 108 mmol/L (98-107); Creatinine, Serum 1.27 mg/dL (0.55-1.02); EST Glomerular Filtration Rate 45 mL/min (>60); Est Glom Filt Rate - Afr Amer 54 mL/min (>60); Estimated Creatinine Clearance 35.07 ml/min; Glucose 109 mg/dL (74-106); Potassium 3.4 mmol/L (3.5-5.1); Sodium Level 133 mmol/L (136-145)
[2022-06-07] MEDS: Vancomycin 125 MG/5 ML Susp PO.SYRINGE PO ×3 (06:46→18:13)
[2022-06-07] MEDS: 0.9% Normal Saline 1,000 ML 100 ML IV ×2 (06:47→18:13)
[2022-06-07] MEDS: Levothyroxine 100 MCG Tablet PO (06:48)
[2022-06-07] MEDS: Azelastine HCl NASAL.SRY 2 SPRAY NASAL ×2 (09:09→20:51)
[2022-06-07] MEDS: Fluticasone 0.05% 1 SPRAY NASAL.SRY 2 SPRAY NASAL (09:09)
--- NOTE | 2022-06-07 09:09 | PN.HOSP_ITS ---
Subjective Subjective Doing well, no issues overnight. She is resting comfortably. Her C. difficile test did come back positive Objective Data Objective Data Vital Signs: Vital Signs Temp Pulse Resp BP Pulse Ox O2 Del Method 99.8 F H 99 16 111/59 L 98 Room Air 06/07/22 09:00 06/07/22 09:00 06/07/22 09:00 06/07/22 09:00 06/07/22 09:00 06/07/22 09:00 Oxygen Delivery Method Room Air Weight: 163 lb 12.855 oz Body Mass Index (BMI) 29.0 Intake & Output: Intake and Output for Last 24 Hours 06/06/22 06/07/22 06/08/22 03:59 03:59 03:59 Intake Total 2099 2490.00 / 2490.00 900 / 900 Output Total 4 / 4 Balance 2099 2486.00 / 2486.00 900 / 900 Lab / Micro Data Result Diagrams: 06/06/22 13:47 06/07/22 05:39 Labs: Laboratory Results - last 24 hr 06/05/22 20:40: Diff Path Review Reviewed 06/06/22 13:47: WBC 27.3 H, RBC 3.71 L, Hgb 11.3 L, Hct 33.7 L, MCV 90.8, MCH 30.5, MCHC 33.5 D, RDW Std Deviation 48.1 H, RDW Coeff of Meka 14.2, Plt Count 220, MPV 10.1, Immature Gran % (Auto) 0.700, Neut % (Auto) 91.0 H, Lymph % (Auto) 1.5 L, [place] % (Auto) 6.4, Eos % (Auto) 0.0, Baso % (Auto) 0.4, Absolute Neuts (auto) 24.9 H, Absolute Lymphs (auto) 0.40 L, Nucleated RBC % 0, Differe ntial Comment SCANNED, Diff Path Review October06/07/22 05:39: PT 23.1 H, INR 2.1 06/07/22 05:39: Sodium 133 L, Potassium 3.4 L, Chloride 108 H, Carbon Dioxide 19.0 L, Anion Gap 6, BUN 36 H, Creatinine 1.27 H, Estim Creat Clear Calc 35.07, Est GFR (MDRD) Af Amer 54 L, Est GFR (MDRD) Non-Af 45 L, BUN/Creatinine Ratio 28.3 H, Glucose 109 H, Calcium 8.1 L Micro: Microbiology 06/06/22 01:45 Stool C. difficile GDH Antigen & Toxins - Final Toxigenic C. difficile 06/06/22 01:45 Stool C. difficile DNA Amplification - Final 06/06/22 01:45 Stool Enteric Bacteriology - Final 06/06/22 01:45 Interface Orders Stool Lactoferrin - Final 06/05/22 20:52 Nasal Secretion SARS-CoV-2 & FLU Antigen (Rapid) - Final Physical Exam Narrative General: Alert, Oriented x3, Cooperative, No apparent distress HEENT: Atraumatic, PERRLA, EOMI, Normocephalic Oral: Moist Mucosa Neck: Supple, No JVD Lungs: Clear to auscultation, Normal air movement, No rhonchi, No wheeze, No rales Cardiovascular: Regular rate, Regular Rhythm, Normal S1, Normal S2, No murmurs Abdomen: Soft, mildly tender, Non-Distended, No Hepato-splenomegaly Extremities: No edema, Capillary Refill Less than 3 Seconds Skin: No rashes, No breakdown Musculoskeletal: No Tenderness to Palpation of Joints or Extremities Neurological: Cranial nerves II-XII grossly intact, Motor Exam 5/5 strength throughout, Sensory exam intact to light touch and pain Psych/Mental Status: Normal Affect, Appropriate Assessment & Plan Assessment/Plan (1) Colitis: (2) Acute kidney injury: (3) Dehydration: PLAN: Plan 1. Acute C. difficile colitis/HANS ? C. difficile test came back positive for both of the organism as well as for the toxin ? We will continue with the Zosyn for now will discontinue when she shows improvement but she was having fevers overnight ? Continue with p.o. vancomycin as well as IV fluids ? HANS is resolving, will continue to monitor ? Given her multiple episodes of C. difficile over the last 4 months will consult infectious disease for continued outpatient management 2. HTN/HLD ? Blood pressures are stable ? Continue with her home blood pressure medications ? Continue with her home cholesterol medications 3. History of a PE ? INR is now 2.1 after dose of p.o. vitamin K 4. Hypothyroidism ? Stable ? We will send thyroid 5. Anxiety/depression ? Stable ? Continue with her home medications DVT: Therapeutic INR Charges/Coding Visit Charges Inpatient E&M: 41671 Subs Hosp L2
[2022-06-07] MEDS: Allopurinol 100 MG Tablet PO (09:10)
[2022-06-07] MEDS: buPROPion (SR) 150 MG Tablet.SA PO ×2 (09:11→20:52)
[2022-06-07] MEDS: traMADol 50 MG Tablet PO (09:11)
[2022-06-07] MEDS: Ferrous Sulfate 325 MG Tablet PO (09:11)
[2022-06-07] MEDS: Metoprolol(XL)Succ 50 MG Tablet PO (09:11)
[2022-06-07] MEDS: Potassium Chloride Oral Tablet 20 MEQ 40 MEQ PO (09:11)
[2022-06-07] MEDS: Ezetimibe 10 MG Tablet PO (09:11)
[2022-06-07] MEDS: Calcium (Elemental) 500 MG Tablet PO (09:11)
[2022-06-07] MEDS: Cholecalciferol (VIT D3) 25 MCG TABLET (1,000 UNITS) 50 MCG PO (09:11)
[2022-06-07] MEDS: ALPRAZolam 0.5 MG Tablet PO (09:11)
[2022-06-07] MEDS: Calcitriol 0.25 MCG Capsule PO ×2 (09:11→20:52)
--- NOTE | 2022-06-07 11:10 | PCM.PN.ID ---
Physical Exam Narrative Feeling better, no fever, abd pain slightly better, diarrhea resolved. No BM but is passing flatus. Const alert and no apparent distress Resp normal air movement and clear to auscultation bilaterally Cardio regular rate and regular rhythm GI soft to palpation and non-distended GI Narrative: mild lower abd soreness Extremity General Extremity: Negative for edema Skin no rashes or lesions noted ID ID: Route of nutrition/ use of supplements: [] Nutritional Intake: [] IV Site: [] Molina Catheter: [] Assessment & Plan Assessment/Plan (1) C. difficile colitis: PLAN: sepsis due to cdiff colitis associated with HANS. Cont po vanc. Pain improved, diarrhea resolved, HANS better. (+) bowel sounds. Will follow (2) Acute kidney injury: (3) Sepsis:
[2022-06-07] MEDS: Acetaminophen 325 MG Tablet 650 MG PO (13:24)
--- NOTE | 2022-06-07 16:14 | NURSING ---
Gave report to Becca Dumont RN
[2022-06-07] MEDS: MELATONIN 3 MG TABLET PO (20:52)
[2022-06-07] MEDS: cycloBENZAPRine HCl 5 MG TABLET PO (20:52)
[2022-06-08] MEDS: Vancomycin 125 MG/5 ML Susp PO.SYRINGE PO ×5 (00:04→23:06)
[2022-06-08 03:11] VITALS: BP 110/95; PULSE 81; RESP 18; TEMP 37.3; O2SAT 100
[2022-06-08] MEDS: 0.9% Saline Lock 10 ML Syringe IV (03:23)
[2022-06-08] MEDS: 0.9% Normal Saline 1,000 ML 100 ML IV ×3 (04:16→22:47)
[2022-06-08] MEDS: Levothyroxine 100 MCG Tablet PO (06:18)
[2022-06-08] MEDS: traMADol 50 MG Tablet PO ×2 (06:23→23:06)
[2022-06-08 07:05] LABS: Absolute Lymphocyte Count 0.57 X10^3/uL (0.83-4.51); Absolute Neutrophil Count 18.4 X10^3/uL (2.0-7.7); Basophil# 0.06 X10^3/uL; Basophil% 0.3 % (0-1); Eosinophil# 0.19 X10^3/uL; Eosinophils% 0.9 % (0-5); Hemoglobin 10.6 g/dL (12.0-15.0); Lymphocyte # 0.57 X10^3/ul (0.83-4.51); Lymphocyte % 2.7 % (19-41); Mean Corp Hgb Conc 32.1 g/dL (32-36); Mean Corpuscular Hgb 29.1 pg (27.0-32.0); Mean Corpuscular Volume 90.7 fL (81-99); Mean Platelet Vol. 10.8 fl (6.2-12.0); Monocyte# 1.67 X10^3/uL; Monocyte% 7.9 % (0-10); NRBC Flagged by Analyzer 0.1 % (0-5); Neutrophil # 18.41 X10^3/uL (2.7-7.7); POSITIVE DIFFERENTIAL YES; Platelet Count 233 K/mm3 (150-450); RBC Distribution Width CV 14.2 % (11.6-14.6); RBC Distribution Width SD 47.7 fl (35.1-43.9); Red Blood Count 3.64 M/mm3 (4.2-5.4); White Blood Count 21.2 K/mm3 (4.4-11.0)
[2022-06-08 07:13] LABS: Differential Indicated SCAN CRITERIA MET
[2022-06-08 07:26] LABS: International Normalized Ratio 1.6; Prothrombin Time (Protime)PT. 18.4 SECONDS (11.7-14.9)
[2022-06-08 07:38] LABS: Anion Gap 7 (5-15); BUN 22 mg/dL (7-18); BUN/Creat Ratio 23.4 RATIO (10-20); Calcium,Total 8.3 mg/dL (8.5-10.1); Chloride 109 mmol/L (98-107); Creatinine, Serum 0.94 mg/dL (0.55-1.02); EST Glomerular Filtration Rate 63 mL/min (>60); Est Glom Filt Rate - Afr Amer 76 mL/min (>60); Estimated Creatinine Clearance 47.38 ml/min; Glucose 92 mg/dL (74-106); Magnesium 1.4 mg/dL (1.6-2.6); Phosphorus 1.5 mg/dL (2.5-4.9); Potassium 3.1 mmol/L (3.5-5.1); Sodium Level 135 mmol/L (136-145)
[2022-06-08] MEDS: Ferrous Sulfate 325 MG Tablet PO (08:32)
[2022-06-08] MEDS: buPROPion (SR) 150 MG Tablet.SA PO ×2 (08:33→22:46)
[2022-06-08] MEDS: Calcitriol 0.25 MCG Capsule PO ×2 (08:33→22:46)
[2022-06-08] MEDS: Cholecalciferol (VIT D3) 25 MCG TABLET (1,000 UNITS) 50 MCG PO (08:33)
[2022-06-08] MEDS: Allopurinol 100 MG Tablet PO (08:33)
[2022-06-08] MEDS: Calcium (Elemental) 500 MG Tablet PO (08:33)
[2022-06-08] MEDS: Ezetimibe 10 MG Tablet PO (08:34)
[2022-06-08] MEDS: ALPRAZolam 0.5 MG Tablet PO (08:39)
[2022-06-08 08:43] VITALS: BP 125/62; PULSE 92
[2022-06-08] MEDS: Metoprolol(XL)Succ 50 MG Tablet PO (08:43)
[2022-06-08 09:11] VITALS: BP 126/62; PULSE 92; RESP 18; TEMP 37; O2SAT 92
[2022-06-08 09:47] LABS: Pathologist Review Reviewed
--- NOTE | 2022-06-08 10:11 | PN.HOSP_ITS ---
Subjective Subjective Overall improving, she does have some abdominal discomfort but she has not required any further pain medication. Diarrhea is still about the same Objective Data Objective Data Vital Signs: Vital Signs Temp Pulse Resp BP Pulse Ox O2 Del Method 98.6 F 92 18 126/62 H 92 Room Air 06/08/22 09:11 06/08/22 09:11 06/08/22 09:11 06/08/22 09:11 06/08/22 09:11 06/08/22 09:11 Oxygen Delivery Method Room Air Weight: 163 lb 12.855 oz Body Mass Index (BMI) 29.0 Intake & Output: Intake and Output for Last 24 Hours 06/07/22 06/08/22 06/09/22 03:59 03:59 03:59 Intake Total 2490.00 / 2490.00 2780 / 2780 1350 / 1350 Output Total 4 / 4 Balance 2486.00 / 2486.00 2780 / 2780 1350 / 1350 Lab / Micro Data Result Diagrams: 06/08/22 06:30 06/08/22 06:30 Labs: Laboratory Results - last 24 hr 06/06/22 13:47: Diff Path Review Reviewed 06/08/22 06:30: PT 18.4 H, INR 1.6 06/08/22 06:30: WBC 21.2 H, RBC 3.64 L, Hgb 10.6 L, Hct 33.0 L, MCV 90.7, MCH 29.1, MCHC 32.1, RDW Std Deviation 47.7 H, RDW Coeff of Mek[place] 14.2, Plt Count 233, MPV 10.8, Immature Gran % (Auto) 1.200 H, Neut % (Auto) 87.0 H, Lymph % (Auto) 2.7 L, [place] % (Auto) 7.9, Eos % (Auto) 0.9, Baso % (Auto) 0.3, Absolute Neuts (auto) 18.4 H, Absolute Lymphs (auto) 0.57 L, Nucleated RBC % 0.1, Diff Path Review October06/08/22 06:30: Sodium 135 L, Potassium 3.1 L, Chloride 109 H, Carbon Dioxide 19.0 L, Anion Gap 7, BUN 22 H, Creatinine 0.94, Estim Creat Clear Calc 47.38, Est GFR (MDRD) Af Amer 76, Est GFR (MDRD) Non-Af 63, BUN/Creatinine Ratio 23.4 H , Glucose 92, Calcium 8.3 L, Phosphorus 1.5 L, Magnesium 1.4 L Micro: Microbiology 06/05/22 23:30 Blood Culture (Wb) - Left Hand Blood Culture - Preliminary No growth in 48 hours. 06/05/22 23:30 Blood Culture (Wb) - Anticubital Right Blood Culture - Preliminary No growth in 48 hours. 06/06/22 01:45 Stool C. difficile GDH Antigen & Toxins - Final Toxigenic C. difficile 06/06/22 01:45 Stool C. difficile DNA Amplification - Final 06/06/22 01:45 Stool Enteric Bacteriology - Final 06/06/22 01:45 Interface Orders Stool Lactoferrin - Final 06/05/22 20:52 Nasal Secretion SARS-CoV-2 & FLU Antigen (Rapid) - Final Physical Exam Narrative General: Alert, Oriented x3, Cooperative, No apparent distress HEENT: Atraumatic, PERRLA, EOMI, Normocephalic Oral: Moist Mucosa Neck: Supple, No JVD Lungs: Clear to auscultation, Normal air movement, No rhonchi, No wheeze, No rales Cardiovascular: Regular rate, Regular Rhythm, Normal S1, Normal S2, No murmurs Abdomen: Soft, mildly tender, Non-Distended, No Hepato-splenomegaly Extremities: No edema, Capillary Refill Less than 3 Seconds Skin: No rashes, No breakdown Musculoskeletal: No Tenderness to Palpation of Joints or Extremities Neurological: Cranial nerves II-XII grossly intact, Motor Exam 5/5 strength throughout, Sensory exam intact to light touch and pain Psych/Mental Status: Normal Affect, Appropriate Assessment & Plan Assessment/Plan (1) Colitis: (2) Acute kidney injury: (3) Dehydration: PLAN: Plan 1. Acute C. difficile colitis/HANS ? C. difficile test came back positive for both of the organism as well as for the toxin ? Continue with p.o. vancomycin as well as IV fluids ? HANS is resolving, will continue to monitor ? Given her multiple episodes of C. difficile over the last 4 months will consult infectious disease for continued outpatient management but she would like we need prolonged vancomycin on discharge 2. HTN/HLD ? Blood pressures are stable ? Continue with her home blood pressure medications ? Continue with her home cholesterol medications 3. History of a PE ? INR is now 1.6 after dose of p.o. vitamin K 4. Hypothyroidism ? Stable ? We will send thyroid 5. Anxiety/depression ? Stable ? Continue with her home medications DVT: Lovenox Charges/Coding Visit Charges Inpatient E&M: 46065 Subs Hosp L2
[2022-06-08 11:00] VITALS: BP 135/62; PULSE 84; RESP 15; TEMP 37.1; O2SAT 100
[2022-06-08] MEDS: Enoxaparin 40 MG/0.4 ML Syringe SC (11:04)
[2022-06-08] MEDS: Magnesium Sulfate 4gm/100mL 4 GM/100 ML IV.SOLN. IV (11:25)
--- NOTE | 2022-06-08 13:47 | PN.ID_ITS ---
Physical Exam Narrative No fever, still some abd pain and diarrhea. Const alert and no apparent distress Resp normal air movement and clear to auscultation bilaterally Cardio regular rate and regular rhythm GI soft to palpation and non-distended GI Narrative: less soreness in lower abd Extremity General Extremity: Negative for edema Skin no rashes or lesions noted ID ID: Route of nutrition/ use of supplements: [] Nutritional Intake: [] IV Site: [] Molina Catheter: [] Assessment & Plan Assessment/Plan (1) C. difficile colitis: PLAN: sepsis due to cdiff colitis associated with HANS. Cont po vanc. Pain improved, diarrhea about the same, HANS better. Will write for one week of difi odell at discharge given recurrent/worsening cdiff despite two courses of po vancomycin. Will follow (2) Acute kidney injury: (3) Sepsis:
[2022-06-08 14:12] LABS: Pathologist Review Reviewed
--- NOTE | 2022-06-08 14:18 | CASEMGMT ---
Addendum entered by Jose Ernst 06/08/22 15:15: Dr Back and Dr Healy made aware of cost of Dificid and no cheaper options. Per Dr Back, pt will need to discharge home on PO Vanco at current dose and CM to f/u with his office on Saturday or Saturday to inquire if they can assist w/pt getting the dificid. Kamala, [facility] RN GABY, made aware as pt has been now tx'd to [facility]. Addendum entered by Jose Ernst 06/08/22 14:45: Call placed to [facility] pharmacy help desk. Per pharmacy, there are no generic or cheaper alternatives to this medication. Message sent to Dr Back via Backline to notify him of same. Awaiting response. Original Note: MICHAEL GRIFFIN NOTE: Per Dr Back, he e-scribed Dificid to [facility]. RN GABY placed call to [facility] and spoke w/Charo. Per Charo, the Dificid does not require a prior auth, but there is a high co-pay of $1,706 for it. Clarke for Dificid checked on [facility] and cost would be approx $4,000. Charlene CAPUTO RN, CM
[2022-06-08 15:28] VITALS: BP 138/76; PULSE 78; RESP 18; TEMP 36.6; O2SAT 100
[2022-06-08 22:00] VITALS: BP 134/68; PULSE 79; RESP 18; TEMP 36.8; O2SAT 97
[2022-06-08] MEDS: cycloBENZAPRine HCl 5 MG TABLET PO (22:46)
[2022-06-08] MEDS: MELATONIN 3 MG TABLET PO (22:46)
[2022-06-09] MEDS: Acetaminophen 325 MG Tablet 650 MG PO (02:14)
[2022-06-09 02:15] VITALS: BP 137/69; PULSE 78; RESP 18; TEMP 36.5; O2SAT 98
[2022-06-09 05:57] LABS: Absolute Lymphocyte Count 0.85 X10^3/uL (0.83-4.51); Absolute Neutrophil Count 8.9 X10^3/uL (2.0-7.7); Basophil# 0.06 X10^3/uL; Basophil% 0.5 % (0-1); Eosinophil# 0.23 X10^3/uL; Hematocrit 31.8 % (37-47); Hemoglobin 10.2 g/dL (12.0-15.0); Lymphocyte # 0.85 X10^3/ul (0.83-4.51); Lymphocyte % 7.3 % (19-41); Mean Corp Hgb Conc 32.1 g/dL (32-36); Mean Corpuscular Hgb 29.3 pg (27.0-32.0); Mean Corpuscular Volume 91.4 fL (81-99); Mean Platelet Vol. 10.8 fl (6.2-12.0); Monocyte# 1.37 X10^3/uL; Monocyte% 11.8 % (0-10); NRBC Flagged by Analyzer 0 % (0-5); Neutrophil # 8.88 X10^3/uL (2.7-7.7); Neutrophil % 76.5 % (47-70); Platelet Count 240 K/mm3 (150-450); RBC Distribution Width CV 14.4 % (11.6-14.6); RBC Distribution Width SD 48.3 fl (35.1-43.9); Red Blood Count 3.48 M/mm3 (4.2-5.4); White Blood Count 11.6 K/mm3 (4.4-11.0)
[2022-06-09 06:16] LABS: International Normalized Ratio 1.4; Prothrombin Time (Protime)PT. 16.6 SECONDS (11.7-14.9)
[2022-06-09 06:23] LABS: Anion Gap 10 (5-15); BUN 14 mg/dL (7-18); BUN/Creat Ratio 18.4 RATIO (10-20); Calcium,Total 7.9 mg/dL (8.5-10.1); Chloride 109 mmol/L (98-107); Creatinine, Serum 0.76 mg/dL (0.55-1.02); EST Glomerular Filtration Rate 80 mL/min (>60); Est Glom Filt Rate - Afr Amer 97 mL/min (>60); Estimated Creatinine Clearance 44.54 ml/min; Glucose 76 mg/dL (74-106); Magnesium 1.9 mg/dL (1.6-2.6); Potassium 3.1 mmol/L (3.5-5.1); Sodium Level 136 mmol/L (136-145)
[2022-06-09 06:27] LABS: Phosphorus 2.1 mg/dL (2.5-4.9)
[2022-06-09] MEDS: Vancomycin 125 MG/5 ML Susp PO.SYRINGE PO ×2 (06:29→12:54)
[2022-06-09] MEDS: traMADol 50 MG Tablet PO (06:29)
[2022-06-09] MEDS: Levothyroxine 100 MCG Tablet PO (06:29)
[2022-06-09 08:15] VITALS: BP 133/87; PULSE 80; RESP 16; TEMP 36.5; O2SAT 100
[2022-06-09] MEDS: Ferrous Sulfate 325 MG Tablet PO (08:49)
[2022-06-09] MEDS: 0.9% Normal Saline 1,000 ML 100 ML IV (08:49)
[2022-06-09] MEDS: Allopurinol 100 MG Tablet PO (08:50)
[2022-06-09] MEDS: Calcium (Elemental) 500 MG Tablet PO (08:52)
[2022-06-09] MEDS: Calcitriol 0.25 MCG Capsule PO (08:52)
[2022-06-09] MEDS: Ezetimibe 10 MG Tablet PO (08:53)
[2022-06-09] MEDS: Cholecalciferol (VIT D3) 25 MCG TABLET (1,000 UNITS) 50 MCG PO (08:53)
[2022-06-09] MEDS: buPROPion (SR) 150 MG Tablet.SA PO (08:53)
[2022-06-09 08:54] VITALS: BP 133/87; PULSE 80
[2022-06-09] MEDS: Metoprolol(XL)Succ 50 MG Tablet PO (08:54)
[2022-06-09] MEDS: Enoxaparin 40 MG/0.4 ML Syringe SC (08:58)
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
--- NOTE | 2022-06-09 12:54 | PCM.DC ---
Discharge Instructions Diet Discharge Diet: Low fat / Low cholesterol Activity Discharge Activity: Return to Normal Activity Dressing / Incision Call your doctor if you observe: Fever of 101 or Higher, Shortness of breath, Dizziness, Fainting spells, Swelling in the ankles, Chest pain and Increased palpitations (irregular heartbeat) Follow Up Care Test Results: Test results from this visit will be discussed in further detail at your follow-up appointment, if applicable. Discharge Plan Admission Admit Date/Time: 06/05/22 23:07 Attending Provider: Jose Healy Primary Care Provider: Teresa Rowe NP Consulting Providers: Wayne Steinberg ; Crispin Back Instructions Additional Instructions / Restrictions: On Saturday call Dr. Back's office to see if they can get the fidaxomicin through your insurance in the meantime continue with p.o. vancomycin tablets for 10 days. If you are getting close to running out I would call your PCP or Dr. Back's office for another 18 to 20 days worth of p.o. vancomycin while waiting for the authorization for the fidaxomicin. Discharge Orders/Prescriptions Prescriptions: New Dificid 200 mg tablet 200 mg PO BID Qty: 14 0RF vancomycin 125 mg capsule 125 mg PO Q6H 10 Days Qty: 40 0RF Continued cholecalciferol (vitamin D3) 2,000 unit capsule 2,000 unit PO DAILY albuterol sulfate [ProAir HFA] 90 mcg/actuation HFA aerosol inhaler 2 puff INHALATION Q4H PRN (Reason: shortness of breath or wheezing) Qty: 8.5 3RF calcitriol 0.25 mcg capsule 0.25 mcg PO BID Qty: 180 3RF allopurinol 100 mg tablet 100 mg PO DAILY Qty: 90 3RF warfarin 5 mg tablet 5 mg PO DAILY bupropion HCl 150 mg tablet sustained-release 12 hr 150 mg PO BID metoprolol succinate 50 mg tablet extended release 24 hr 50 mg PO DAILY acetaminophen 500 MG tablet 1,000 mg PO DAILY PRN PRN (Reason: Pain) levothyroxine 100 mcg tablet 100 mcg PO DAILY ezetimibe 10 mg tablet 10 mg PO DAILY calcium 600 mg Capsule 600 mg PO DAILY melatonin 3 mg Tablet 3 mg PO QHS tramadol 50 mg Tablet 50 mg PO TID PRN (Reason: Pain) alprazolam [Xanax] 0.5 mg Tablet 0.5 mg PO DAILY ferrous sulfate [Iron (ferrous sulfate)] 325 mg (65 mg iron) Tablet 325 mg PO DAILY fluticasone propionate 50 mcg/actuation [place],Suspension 2 spray INTRANASAL DAILY Rx Instructions: administer into each nostril cyclobenzaprine 5 mg Tablet 5 mg PO QHS magnesium gluconate 30 mg Tablet 30 mg PO BID diclofenac sodium 1 % Gel TOPICAL BID [place] [id number] mg Capsule PO azelastine 205.5 mcg (0.15 %) [place],Non-Aerosol 2 spray INTRANASAL BID Rx Instructions: administer into each nostril Probiotic 5 billion cell Capsule, Sprinkle 1 cap PO DAILY oseltamivir 75 mg capsule 75 mg PO BID 5 Days Qty: 10 0RF Referrals / Follow Up: Crispin Back MD [Med Staff - Active Staff] - Within 2 Weeks Teresa Rowe NP, BOARDING KENNEL [employer] CATTERY OPERATOR-C [Primary Care Provider] - Within 1 Week Disposition Disposition (needs filled in before D/C Order can be placed): Home, Self Care
[2022-06-09 15:16] VITALS: BP 136/62; PULSE 88; RESP 16; TEMP 36.8; O2SAT 97
--- NOTE | 2022-06-09 17:13 | PCM.DC.SUM ---
Providers Date of Admission: 06/05/22 Primary Care Physician: MARK Hardin Consultations 06/06/22 14:46 Consult: Infectious Disease Routine Consulting Provider: Crispin Back Reason for Consult: positive cdiff EMERGENT Consult: No MD Notified: Yes Date Notified: 06/06/22 Time Notified: 14:58 Method of Notification: Text Reason For Visit: HANS, COLITIS Diagnosis Discharge Diagnosis (1) Colitis: Status: Acute Code(s): K52.9 - Noninfective gastroenteritis and colitis, unspecified (2) Acute kidney injury: Status: Acute Code(s): N17.9 - Acute kidney failure, unspecified (3) Dehydration: Status: Acute Code(s): E86.0 - Dehydration Plan 1. Acute C. difficile colitis/HANS ? C. difficile test came back positive for both of the organism as well as for the toxin ? Continue with p.o. vancomycin, will discontinue IV fluids ? HANS is resolved ? She requested transfer to [facility] however since she was improving and given the bed situation during the winter they declined to accept her as most of her care can be done as an outpatient. Infectious disease feels like it would be necessary for her to be on Dificid given her recurrent episodes of C. difficile. At the moment this appears to be because prohibitive for her so when she is ready for discharge we will plan for oral vancomycin and see if the infectious disease office staff would be able to file paperwork with the insurance company to make the medication more reasonably affordable. 2. HTN/HLD ? Blood pressures are stable ? Continue with her home blood pressure medications ? Continue with her home cholesterol medications 3. History of a PE ? INR is now 1.4 after dose of p.o. vitamin K 4. Hypothyroidism ? Stable ? We will send thyroid 5. Anxiety/depression ? Stable ? Continue with her home medications DVT: Lovenox Medications at Discharge Home Medications cholecalciferol (vitamin D3) 50 mcg (2,000 unit) capsule 2,000 unit PO DAILY vitamin 01/27/18 albuterol sulfate 90 mcg/actuation aerosol inhaler (ProAir HFA) 2 puff inhalation Q4H PRN shortness of breath or wheezing #8.5 grams 07/05/21 acetaminophen 500 mg tablet 1,000 mg PO DAILY PRN PRN Pain 04/12/22 bupropion HCl 150 mg tablet,12 hr sustained-release 150 mg PO BID DEPRESSION 04/12/22 ezetimibe 10 mg tablet 10 mg PO DAILY 04/12/22 levothyroxine 100 mcg tablet 100 mcg PO DAILY THYROID 04/12/22 metoprolol succinate 50 mg tablet,extended release 24 hr 50 mg PO DAILY BLOOD PRESSURE 04/12/22 warfarin 5 mg tablet 5 mg PO DAILY 04/12/22 calcitriol 0.25 mcg capsule 0.25 mcg PO BID #180 caps 05/08/22 allopurinol 100 mg tablet 100 mg PO DAILY #90 tabs 05/11/22 oseltamivir 75 mg capsule 75 mg PO BID 5 days #10 caps 06/04/22 Lactobacil.acidophilus-Bifido.animalis 5 billion cell sprinkle capsule (Probiotic) 1 cap PO DAILY 06/05/22 alprazolam 0.5 mg tablet (Xanax) 0.5 mg PO DAILY 06/05/22 azelastine 205.5 mcg (0.15 %) nasal spray 2 spray intranasal BID 06/05/22 calcium 600 mg capsule 600 mg PO DAILY 06/05/22 cyclobenzaprine 5 mg tablet 5 mg PO QHS 06/05/22 diclofenac sodium 1 % topical gel ea topical BID gout 06/05/22 ferrous sulfate 325 mg (65 mg iron) tablet (Iron (ferrous sulfate)) 325 mg PO DAILY 06/05/22 fluticasone propionate 50 mcg/actuation nasal spray,suspension 2 spray intranasal DAILY 06/05/22 magnesium gluconate 30 mg tablet 30 mg PO BID 06/05/22 melatonin 3 mg tablet 3 mg PO QHS 06/05/22 tramadol 50 mg tablet 50 mg PO TID PRN Pain 06/05/22 vit C 30 mg-s.allen 250 mg-celery seed 75 mg-grape seed extrt capsule ([place]) cap PO 06/05/22 fidaxomicin 200 mg tablet (Dificid) 200 mg PO BID #14 tabs 06/08/22 vancomycin 125 mg capsule 125 mg PO Q6H 10 days #40 caps 06/09/22 Hospital Course Operations None Procedures None Summary of Care Provided Minutes Spent on Discharge: 43 Hospital Course: Per HPI: MELONIE MTZIFFORD, is a 67 F with a significant history of pulmonary embolism on warfarin; polycystic kidney disease; hypertension and who was recently treated for C. difficile colitis presents to the emergency department with dry heaving.? Associated with her symptoms? is soreness of her abdomen. Her symptoms started 4 days ago.? Today before presentation she called her PCP and she was started on a prescription for Tamiflu.? She reports that her dry heaving has been worsening with starting Tamiflu. She reports a soft stools than usual however she denies diarrhea.? She reports anorexia.? She denies fever At the emergency department she was found to have extremely high white count. Hospital Course: 1. Acute C. difficile colitis/HANS?67-year-old female who has had several recurrent C. difficile infections presents to the hospital abdominal pain and diarrhea consistent with C. difficile. She was initially started on Zosyn for a CT scan finding of colitis and started on IV fluids. Her HANS resolved and her Zosyn was discontinued when her C. difficile test came back positive. Because of his recurrent she was initially can be started on fidaxomicin by ID however the cost of this was prohibitive for her and her so we will continue with p.o. vancomycin and will attempt to get a prior authorization through the infectious disease office if possible for for dactinomycin on Saturday. Of note they did asked to be transferred to [facility] however in discussion with the [facility] physicians, they felt that since she was stable and actually improving that they would not be able to take her secondary to the bed situation. I do recommend that she follow-up with her PCP in 3 to 5 days and that if she is unable to get the fidaxomicin filled then she needs to call her PCP to get another 18 to 20 days vancomycin tablets to complete course of 1 month. 2. History of PE?she is on Coumadin and on the day of discharge her INR was 1.4, given her diarrhea and her antibiotics I do recommend that she follow-up with her PCP to have a repeat INR drawn to monitor her INR level as it could potentially get out of control. 3. Hypertension, hyperlipidemia, hypothyroidism, anxiety, depression all chronic medical conditions which complicate her care. Her home medications were continued where appropriate Weight / BMI Weight Weight: 163 lb 12.855 oz Body Mass Index (BMI) 29.0 ABG / Lab / Microbiology Data Result Diagrams: 06/09/22 05:02 06/09/22 05:02 Laboratory: Laboratory Results - last 24 hr 06/09/22 05:02: PT 16.6 H, INR 1.4 06/09/22 05:02: WBC 11.6 H, RBC 3.48 L, Hgb 10.2 L, Hct 31.8 L, MCV 91.4, MCH 29.3, MCHC 32.1, RDW Std Deviation 48.3 H, RDW Coeff of [place] 14.4, Plt Count 240, MPV 10.8, Immature Gran % (Auto) 1.900 H, Neut % (Auto) 76.5 H, Lymph % (Auto) 7.3 L, Orange % (Auto) 11.8 H, Eos % (Auto) 2.0, Baso % (Auto) 0.5, Absolute Neuts (auto) 8.9 H, Absolute Lymphs (auto) 0.85, Nucleated RBC % 0 06/09/22 05:02: Sodium 136, Potassium 3.1 L, Chloride 109 H, Carbon Dioxide 17.0 L, Anion Gap 10, BUN 14, Creatinine 0.76, Estim Creat Clear Calc 44.54, Est GFR (MDRD) Af Amer 97, Est GFR (MDRD) Non-Af 80, BUN/Creatinine Ratio 18.4, Glucose 76, Calcium 7.9 L, Magnesium 1.9 06/09/22 05:02: Phosphorus 2.1 L Microbiology: Microbiology 06/05/22 23:30 Blood Culture (Wb) - Left Hand Blood Culture - Preliminary No growth in 48 hours. 06/05/22 23:30 Blood Culture (Wb) - Anticubital Right Blood Culture - Preliminary No growth in 48 hours. 06/06/22 01:45 Stool C. difficile GDH Antigen & Toxins - Final Toxigenic C. difficile 06/06/22 01:45 Stool C. difficile DNA Amplification - Final 06/06/22 01:45 Stool Enteric Bacteriology - Final 06/06/22 01:45 Interface Orders Stool Lactoferrin - Final 06/05/22 20:52 Nasal Secretion SARS-CoV-2 & FLU Antigen (Rapid) - Final D/C Instructions Discharge Diet: Low fat / Low cholesterol Call your doctor if you observe: Fever of 101 or Higher, Shortness of breath, Dizziness, Fainting spells, Swelling in the ankles, Chest pain and Increased palpitations (irregular heartbeat) Meaningful Use Info Meaningful Use Diagnoses (Choose all that apply): None applicable Discharge Plan Admission Admit Date/Time: 06/05/22 23:07 Attending Provider: Jose Healy Primary Care Provider: Teresa Rowe NP Consulting Providers: Wayne Steinberg ; Crispin Back Instructions Additional Instructions / Restrictions: On Saturday call Dr. Back's office to see if they can get the fidaxomicin through your insurance in the meantime continue with p.o. vancomycin tablets for 10 days. If you are getting close to running out I would call your PCP or Dr. Back's office for another 18 to 20 days worth of p.o. vancomycin while waiting for the authorization for the fidaxomicin. Discharge Orders/Prescriptions Prescriptions: New Dificid 200 mg tablet 200 mg PO BID Qty: 14 0RF vancomycin 125 mg capsule 125 mg PO Q6H 10 Days Qty: 40 0RF Continued cholecalciferol (vitamin D3) 2,000 unit capsule 2,000 unit PO DAILY albuterol sulfate [ProAir HFA] 90 mcg/actuation HFA aerosol inhaler 2 puff INHALATION Q4H PRN (Reason: shortness of breath or wheezing) Qty: 8.5 3RF calcitriol 0.25 mcg capsule 0.25 mcg PO BID Qty: 180 3RF allopurinol 100 mg tablet 100 mg PO DAILY Qty: 90 3RF warfarin 5 mg tablet 5 mg PO DAILY bupropion HCl 150 mg tablet sustained-release 12 hr 150 mg PO BID metoprolol succinate 50 mg tablet extended release 24 hr 50 mg PO DAILY acetaminophen 500 MG tablet 1,000 mg PO DAILY PRN PRN (Reason: Pain) levothyroxine 100 mcg tablet 100 mcg PO DAILY ezetimibe 10 mg tablet 10 mg PO DAILY calcium 600 mg Capsule 600 mg PO DAILY melatonin 3 mg Tablet 3 mg PO QHS tramadol 50 mg Tablet 50 mg PO TID PRN (Reason: Pain) alprazolam [Xanax] 0.5 mg Tablet 0.5 mg PO DAILY ferrous sulfate [Iron (ferrous sulfate)] 325 mg (65 mg iron) Tablet 325 mg PO DAILY fluticasone propionate 50 mcg/actuation [place],Suspension 2 spray INTRANASAL DAILY Rx Instructions: administer into each nostril cyclobenzaprine 5 mg Tablet 5 mg PO QHS magnesium gluconate 30 mg Tablet 30 mg PO BID diclofenac sodium 1 % Gel TOPICAL BID [place] [id number] mg Capsule PO azelastine 205.5 mcg (0.15 %) [place],Non-Aerosol 2 spray INTRANASAL BID Rx Instructions: administer into each nostril Probiotic 5 billion cell Capsule, Sprinkle 1 cap PO DAILY oseltamivir 75 mg capsule 75 mg PO BID 5 Days Qty: 10 0RF Referrals / Follow Up: Crispin Back MD [Med Staff - Active Staff] - Within 2 Weeks Treesa Rowe NP, HADOOP ENGINEER-C [Primary Care Provider] - Within 1 Week Disposition Disposition (needs filled in before D/C Order can be placed): Home, Self Care Charges/Coding Visit Charges Inpatient E&M: 52257 Disch Hosp
== END 2022-06-09 16:30 | disposition home or self-care (01) | DRG 872 ==
LOC: ED 23:18 → PCU 23:24 → MS3 06-08 14:44
PROVIDERS: Admitting Provider Hospitalist; Emergency Provider Emergency Medicine; PCP Nurse Practitioner; Visit Provider Family Medicine
DX: A41.4 Sepsis due to anaerobes (principal); A04.71 Enterocolitis due to Clostridium difficile, recurrent; N17.9 Acute kidney failure, unspecified; E03.9 Hypothyroidism, unspecified; E86.0 Dehydration; I10 Essential (primary) hypertension; M79.10 Myalgia, unspecified site; E78.5 Hyperlipidemia, unspecified; F41.9 Anxiety disorder, unspecified; Z79.01 Long term (current) use of anticoagulants; Z87.891 Personal history of nicotine dependence; F32.A Depression, unspecified; Z86.711 Personal history of pulmonary embolism
CPT/HCPCS: 36415; 70450; 71045; 74176; 80048; 80053; 82962; 83630; 83690; 83735; 84100; 85025; 85610; 87040; 87177; 87209; 87428; 87493; 87506; 93005; 97802; 99285; J7030; J7040; J7050; A4216; J2405

== ENCOUNTER → 2022-10-04 | Outpatient (CLI) | payer MEDICARE, OTHER, SELFPAY ==
[2022-10-04 15:16] LABS: Anion Gap 4 (5-15); BUN 37 mg/dL (7-18); BUN/Creat Ratio 22.6 RATIO (10-20); Calcium,Total 9.8 mg/dL (8.5-10.1); Chloride 108 mmol/L (98-107); Creatinine, Serum 1.64 mg/dL (0.55-1.02); EST Glomerular Filtration Rate 33 mL/min (>60); Est Glom Filt Rate - Afr Amer 40 mL/min (>60); Glucose 89 mg/dL (74-106); Potassium 4.2 mmol/L (3.5-5.1); Sodium Level 135 mmol/L (136-145); Uric Acid 4.8 mg/dL (2.6-6.0)
== END | disposition home or self-care (01) ==
LOC: LAB 13:56
PROVIDERS: PCP Nurse Practitioner; Referring Provider Internal Medicine Nephrology; Visit Provider Internal Medicine Nephrology
DX: N18.31 Chronic kidney disease, stage 3a (principal)
CPT/HCPCS: 36415; 80048; 84550

== ENCOUNTER → 2022-11-07 | Outpatient (CLI) | payer MEDICARE, OTHER, SELFPAY ==
[2022-11-07 15:57] LABS: Amphetamine Urine VISTA NEGATIVE (<1000 ng/mL); Barbiturate Urine VISTA NEGATIVE (< 200 ng/mL); Benzodiazepine Urine VISTA POSITIVE (< 200 ng/mL); Cocaine Urine VISTA NEGATIVE (< 300 ng/mL); Ecstacy Urine VISTA POSITIVE (< 500 ng/mL); Methadone Urine VISTA NEGATIVE (< 300 ng/mL); PCP Urine VISTA NEGATIVE (< 25 ng/mL); THC Urine VISTA NEGATIVE (< 50 ng/mL); Vista UDS pH Range 8
== END | disposition home or self-care (01) ==
PROVIDERS: PCP Nurse Practitioner; Referring Provider Anesthesiology Pain Medicine; Visit Provider Anesthesiology Pain Medicine
DX: F11.20 Opioid dependence, uncomplicated (principal)
CPT/HCPCS: 80307

== ENCOUNTER → 2023-01-10 | Outpatient (CLI) | payer MEDICARE, OTHER, SELFPAY ==
--- NOTE | 2023-01-10 09:06 | VDLE_ITS ---
Reason For Study: Right knee and thigh ecchymosis RIGHT GSV is normal. CFV is compressible, spontaneous, phasic, competent and demonstrates normal augmentation. FV is compressible, spontaneous, phasic, competent and demonstrates normal augmentation. POP V is compressible, spontaneous, phasic, competent and demonstrates normal augmentation. T/P Trunk is compressible. PTV is compressible. RT PerV is compressible. Procedure This is a venous duplex using B-mode, color flow and spectral Doppler. Exam performed in department. A preliminary report was called and/or faxed to [facility]. VL/Venous Duplex US, Unilateral Interpretation Summary Deep veins of the right lower extremity are patent and compressible segmentally . There is no evidence of right lower extremity deep vein thrombosis. Valvular competence meceh ears intact within the proximal deep venous system on the right . The right great saphenous vein a ppears patent and compressible segmentally. Ordering Physician: Teresa Rowe Referring Physician: Teresa Rowe Performed By: Leeann Thomas RVT
== END | disposition home or self-care (01) ==
LOC: CVS 09:05
PROVIDERS: PCP Nurse Practitioner; Referring Provider Nurse Practitioner; Visit Provider Nurse Practitioner
DX: I82.411 Acute embolism and thrombosis of right femoral vein (principal)
CPT/HCPCS: 93971

== ENCOUNTER → 2023-01-11 | Outpatient (CLI) | payer MEDICARE, OTHER, SELFPAY ==
[2023-01-11 20:50] LABS: Platelet Count 293 K/mm3 (150-450); RET-HE 35.3 pg (30-35); Reticulocyte Count 2.46 % (0.5-1.5)
[2023-01-11 21:00] LABS: International Normalized Ratio 2.4; Prothrombin Time (Protime)PT. 26.5 SECONDS (11.7-14.9)
[2023-01-11 21:03] LABS: ALB/GLOB Ratio 1.1 RATIO (0.9-2.4); AST(SGOT) 22 U/L (15-37); Alanine Aminotransfer ALT/SGPT 26 U/L (13-56); Albumin, Serum 3.7 g/dL (3.2-5.0); Alkaline Phosphatase 42 U/L (45-117); Anion Gap 4 (5-15); BUN 25 mg/dL (7-18); BUN/Creat Ratio 16.3 RATIO (10-20); Calcium,Total 10.5 mg/dL (8.5-10.1); Chloride 107 mmol/L (98-107); Creatinine, Serum 1.53 mg/dL (0.55-1.02); EST Glomerular Filtration Rate 36 mL/min (>60); Est Glom Filt Rate - Afr Amer 43 mL/min (>60); Globulin 3.3 g/dL (2.2-4.2); Glucose 88 mg/dL (74-106); Potassium 4.9 mmol/L (3.5-5.1); Sodium Level 137 mmol/L (136-145)
[2023-01-11 22:50] LABS: D-Dimer Quantitative (DVT/PE) < 0.27 FEU/ug/m (0.27-0.49)
== END | disposition home or self-care (01) ==
LOC: LABSPEC 20:41
PROVIDERS: PCP Nurse Practitioner; Visit Provider Nurse Practitioner
DX: Z86.711 Personal history of pulmonary embolism (principal); I82.419 Acute embolism and thrombosis of unspecified femoral vein; R58 Hemorrhage, not elsewhere classified
CPT/HCPCS: 80053; 85045; 85379; 85610

== ENCOUNTER → 2023-01-12 | Outpatient (CLI) | payer MEDICARE, OTHER, SELFPAY | END | disposition home or self-care (01) | LOC: LABSPEC 10:03 | PROVIDERS: PCP Nurse Practitioner; Referring Provider Nurse Practitioner; Visit Provider Nurse Practitioner | DX: R58 Hemorrhage, not elsewhere classified (principal); I82.419 Acute embolism and thrombosis of unspecified femoral vein ==

== ENCOUNTER → 2023-02-06 | Outpatient (CLI) | payer MEDICARE, OTHER, SELFPAY ==
[2023-02-06 16:27] LABS: Hematocrit 42.7 % (37-47); Hemoglobin 13.8 g/dL (12.0-15.0); Mean Corp Hgb Conc 32.3 g/dL (32-36); Mean Corpuscular Hgb 32.5 pg (27.0-32.0); Mean Corpuscular Volume 100.7 fL (81-99); Mean Platelet Vol. 10.3 fl (6.2-12.0); Platelet Count 252 K/mm3 (150-450); RBC Distribution Width CV 13.1 % (11.6-14.6); Red Blood Count 4.24 M/mm3 (4.2-5.4); White Blood Count 7.5 K/mm3 (4.4-11.0)
[2023-02-06 16:40] LABS: Color, Urine Yellow (Yellow); Glucose, Dipstick Normal (Normal); Ketone-Dipstick Negative (Negative); Leukocyte Esterase-Dipstick 500 /ul (Negative); Nitrite-Dipstick Positive (Negative); Occult Blood-Urine 25 /ul (Negative); Protein-Dipstick 30 mg/dl (Negative); Urine Bilirubin Dipstick Negative (Negative); Urine Clarity Cloudy (Clear); Urine Urobilinogen Normal (Normal)
[2023-02-06 16:49] LABS: Albumin, Serum 3.7 g/dL (3.2-5.0); BUN 27 mg/dL (7-18); BUN/Creat Ratio 15.5 RATIO (10-20); Calcium,Total 10.5 mg/dL (8.5-10.1); Chloride 109 mmol/L (98-107); Creatinine, Serum 1.74 mg/dL (0.55-1.02); EST Glomerular Filtration Rate 31 mL/min (>60); Est Glom Filt Rate - Afr Amer 37 mL/min (>60); Glucose 75 mg/dL (74-106); Phosphorus 2.9 mg/dL (2.5-4.9); Protein, Urine (Random) 18.4 mg/dL (<11.9); Protein:Creat Ratio 309 mg/g CRE (0-200); Sodium Level 138 mmol/L (136-145)
== END | disposition home or self-care (01) ==
LOC: LAB 15:50
PROVIDERS: PCP Nurse Practitioner; Referring Provider Internal Medicine Nephrology; Visit Provider Internal Medicine Nephrology
DX: N18.31 Chronic kidney disease, stage 3a (principal); D64.9 Anemia, unspecified
CPT/HCPCS: 36415; 80069; 81002; 82570; 84156; 85027

== ENCOUNTER → 2023-02-12 | Outpatient (CLI) | payer MEDICARE, OTHER, SELFPAY ==
[2023-02-12 17:35] LABS: Hematocrit 39.2 % (37-47); Hemoglobin 13.3 g/dL (12.0-15.0); Mean Corp Hgb Conc 33.9 g/dL (32-36); Mean Corpuscular Hgb 33.6 pg (27.0-32.0); Mean Platelet Vol. 10.3 fl (6.2-12.0); Platelet Count 257 K/mm3 (150-450); RBC Distribution Width CV 12.7 % (11.6-14.6); RBC Distribution Width SD 46.4 fl (35.1-43.9); Red Blood Count 3.96 M/mm3 (4.2-5.4); White Blood Count 7.5 K/mm3 (4.4-11.0)
[2023-02-12 17:50] LABS: CRP < 2.90 mg/L (0.0-3.0)
[2023-02-14 15:08] LABS: Endomysial Antibody IgA Negative (Negative); Immunoglobulin A 153 mg/dL (87-352); t-Transglutaminase IgA <2 U/mL (0-3)
== END | disposition home or self-care (01) ==
PROVIDERS: PCP Nurse Practitioner; Referring Provider Internal Medicine Gastroenterology; Visit Provider Internal Medicine Gastroenterology
DX: R19.7 Diarrhea, unspecified (principal)
CPT/HCPCS: 36415; 82784; 83516; 85027; 86140; 86255

== ENCOUNTER → 2023-02-14 | Outpatient (CLI) | payer MEDICARE, OTHER, SELFPAY | END | disposition home or self-care (01) | LOC: LABSPEC 09:23 | PROVIDERS: PCP Nurse Practitioner; Referring Provider Internal Medicine Gastroenterology; Visit Provider Internal Medicine Gastroenterology | DX: Z00.00 Encounter for general adult medical examination without abnormal findings (principal) ==

== ENCOUNTER → 2023-02-27 | Outpatient (CLI) | payer MEDICARE, OTHER, SELFPAY ==
[2023-02-27 21:20] LABS: Absolute Lymphocyte Count 1.21 X10^3/uL (0.83-4.51); Absolute Neutrophil Count 4.5 X10^3/uL (2.0-7.7); Basophil# 0.06 X10^3/uL; Basophil% 0.9 % (0-1); Hemoglobin 12.9 g/dL (12.0-15.0); Lymphocyte # 1.21 X10^3/ul (0.83-4.51); Lymphocyte % 18.4 % (19-41); Mean Corp Hgb Conc 33.1 g/dL (32-36); Mean Corpuscular Hgb 33.2 pg (27.0-32.0); Mean Corpuscular Volume 100.3 fL (81-99); Mean Platelet Vol. 10.6 fl (6.2-12.0); Monocyte# 0.63 X10^3/uL; Monocyte% 9.6 % (0-10); NRBC Flagged by Analyzer 0 % (0-5); Neutrophil # 4.45 X10^3/uL (2.7-7.7); Neutrophil % 67.5 % (47-70); Platelet Count 292 K/mm3 (150-450); RBC Distribution Width CV 12.9 % (11.6-14.6); RBC Distribution Width SD 47.2 fl (35.1-43.9); Red Blood Count 3.89 M/mm3 (4.2-5.4); White Blood Count 6.6 K/mm3 (4.4-11.0)
[2023-02-27 21:52] LABS: ALB/GLOB Ratio 1.2 RATIO (0.9-2.4); AST(SGOT) 17 U/L (15-37); Alanine Aminotransfer ALT/SGPT 21 U/L (13-56); Albumin, Serum 3.8 g/dL (3.2-5.0); Alkaline Phosphatase 40 U/L (45-117); Anion Gap 5 (5-15); BUN 34 mg/dL (7-18); BUN/Creat Ratio 17.6 RATIO (10-20); Calcium,Total 10.6 mg/dL (8.5-10.1); Chloride 107 mmol/L (98-107); Cholesterol 192 mg/dL (200); Creatinine, Serum 1.93 mg/dL (0.55-1.02); EST Glomerular Filtration Rate 27 mL/min (>60); Est Glom Filt Rate - Afr Amer 33 mL/min (>60); Globulin 3.3 g/dL (2.2-4.2); Glucose 91 mg/dL (74-106); High Density Lipoprotein 36 mg/dL; Potassium 4.5 mmol/L (3.5-5.1); Protein, Total 7.1 g/dL (6.4-8.2); Sodium Level 140 mmol/L (136-145); Thyroid Stim Hormone (TSH) 0.52 uIU/mL (0.358-3.74); Triglycerides 173 mg/dL; Very Low Density Lipoprotein 35 mg/dL (5-40)
== END | disposition home or self-care (01) ==
PROVIDERS: PCP Nurse Practitioner; Visit Provider Nurse Practitioner
DX: I10 Essential (primary) hypertension (principal); N28.9 Disorder of kidney and ureter, unspecified; E03.9 Hypothyroidism, unspecified; E78.5 Hyperlipidemia, unspecified; M25.561 Pain in right knee
CPT/HCPCS: 80053; 80061; 84443; 85025

== ENCOUNTER → 2023-07-02 | Outpatient (CLI) | payer MEDICARE, OTHER, SELFPAY ==
[2023-07-02 11:13] LABS: Prothrombin Time (Protime)PT. 13.3 SECONDS (11.7-14.9)
--- OUTSIDE RECORDS SUMMARY | 2023-07-02 11:33 | XMS RPT_ITS | CCD ---
Author Name Unknown Address [address] [place] [address] Organization [facility] Care Team Providers Care Director Of Rotc Name Role Phone Oneida Jennings Stephanie Unavailable Unavailable Unavailable Fabrice Madsen MD Unavailable Michaela HR OPERATIONS ADVISOR.Oneida ARAMBULA Primary Care Provide r Pradeep Harris MD Unavailable Michaela HR OPERATIONS ADVISOR.RALFOneida Stephanie Unavailable Derrick Aleman PT Unavailable PROVIDER, UNKNOWN Referring Unavailable Andrew Chino Attending Unavailable Michaela, Oneida Primary Care Unavailable Jose Churchill Attending Unavailable Michaela, Ms. Oneida L Primary Care Unavailab Jose Greene Referring Unavailable Jose Churchill Attending Unavailable Michaela, Ms. Oneida L Primary Care Unavailab Jose Greene Referring Unavailable Sofía, Dr. Tito Broderick Referring Unavail able Dr. Tito Gore Attending Unavail able Michaela, Ms. Oneida L Primary Care Unavailab katina Jennings, Ms. Oneida L Primary Care Unavailab katina CHURCHILL, MsChris LIRA Attending Unavail able KERLINE, Ms. JOSE LIRA Attending Unavail able Michaela, Ms. Oneida L Primary Care Unavailab le Michaela, Ms. Oneida L Primary Care Unavailab le Tito Gore Attending Unavailable Michaela HR OPERATIONS ADVISOR.RALF Oneida L Primary Care Provide r Pradeep Harris MD Unavailable Michaela HR OPERATIONS ADVISOR.RALF Oneida Stephanie Unavailable Love PT, Derrick Unavailable ONEIDA JENNINGS L Primary Care Unavailable JENNINGS, ONEIDA L Referring Unavailable JENNINGS, ONEIDA L Primary Care Unavailable ANGELES CAMERON K Referring Unavailable ANGELES CAMERON K Referring Unavailable JENNINGS, ONEIDA L Primary Care Unavailable MICHAELA ONEIDA L Primary Care Unavailable JEFF JENNINGSA L Referring Unavailable Unavailable Primary Care Provider Unavailez Carbone MD, Saira Aden Unavailable PROVIDER, UNKNOWN Admitting Unavailable PROVIDER, UNKNOWN Attending Unavailable PROVIDER, UNKNOWN Admitting Unavailable PROVIDER, UNKNOWN Attending Unavailable PROVIDER, UNKNOWN Admitting Unavailable PROVIDER, UNKNOWN Attending Unavailable PROVIDER, UNKNOWN Admitting Unavailable PROVIDER, UNKNOWN Attending Unavailable Allergies Allergy Classification Reported Allergen(s) Allergy Type Date of Onset Reaction(s) Facility (1 source) ENVIRONMENTAL ALLERGIES; Translations: [ENVIRONMENTAL ALLERGIES] food allergy 09-26-19 22 nasal congestion, runny nose, sneezing [facility] Work Phone: (6 sources) Fenofibrate; Translations: [FENOFIBRATE] Drug Allergy 11-19-19 14 Other: See Comments [facility] Work Phone: (7 sources) Niacin; Translations: [NIACIN] Drug Allergy 10-26-19 11 Anaphylaxis [facility] Work Phone: (5 sources) No Known Drug Allergies [Other] Propensity to adverse reactions 10-20-19 03 [facility] (1 source) OTHER; Translations: [OTHER] Propensity to adverse reactions (disorder) 10-20-19 03 [facility] Other [facility] (15 sources) Niacin Drug Allergy 10-26-19 11 Anaphylactic Shock [facility] Work Phone: Medications Current Medications Medication Drug Class(es) Dates Sig (Normalized) Sig (Original) allopurinol 100 mg oral tablet (15 sources) Xanthine Oxidase Inhibitor allopurinol (ZYLOPRIM) 100 MG tablet 1 Tablet. 0 Active ALPRAZolam 0.5 mg oral tablet (20 sources) Benzodiazepine Start: 07-28-2022 take 1 tablet by mouth once daily as needed ALPRAZolam (XANAX) 0.5 MG tablet Take 0.5 mg by mouth daily as needed. 0 07/28/2022 Active Completed/Discontinued Medications Medication Drug Class(es) Dates Sig (Normalized) Sig (Original) acetaminophen 500 mg oral tablet (8 sources) Start: 05-10-2021 take 1-2 tablets by mouth every six hours as needed for pain Acetaminophen Extra Strength 500 MG Oral Tablet TAKE 1 TO 2 TABLETS EVERY 6 HOURS NEEDED FOR PAIN Quantity: 240 Refills: 0 Ordered: 10-May-2021 DO Start : 10-May-2021 Active [id number] 200 actuat albuterol 0.09 mg/actuat metered dose inhaler (8 sources) beta2-Adrenergic Agonist Start: 06-03-2020 take 2 puff(s) by inhalation every four hours as needed for wheezing Albuterol Sulfate HFA 108 (90 Base) MCG/ACT Inhalation Aerosol Solution INHALE 2 PUFFS EVERY 4 HOURS NEEDED FOR WHEEZING / SHORTNESS OF BREATH Quantity: 8 Refills: 0 Ordered: 05-Oct-2020 DO Start : 03-Jun-2020 Active Problems Active Problems Problem Classification Problem Date Documented Da te Episodic/Chronic Anxiety disorders (20 sources) Anxiety; Translations: [Anxiety disorder, unspecified] Onset: 12-28-2021 12-28-2021 Chronic Chronic kidney disease (20 sources) Chronic kidney disease stage 3; Translations: [CKD (chronic kidney disease) stage 3, GFR 30-59 ml/min] Onset: 11-03-2012 12-29-2021 Chronic Disorders of lipid metabolism (20 sources) Hyperlipidemia; Translations: [Hyperlipidemia, unspecified] Onset: 10-25-2010 10-25-2010 Chronic Genitourinary congenital anomalies (5 sources) Multiple renal cysts; Translations: [Polycystic kidney, unspecified] Onset: 11-03-2012 12-29-2021 Chronic Gout and other crystal arthropathies (15 sources) Gout; Translations: [Gout, unspecified] Onset: 08-17-2022 08-17-2022 Chronic Osteoarthritis (4 sources) Unilateral primary osteoarthritis of first carpometacarpal joint, right hand; Translations: [Osteoarthrosis, localized, primary, hand] Onset: 09-25-2021 09-25-2021 Chronic Other acquired deformities (1 source) Other forms of scoliosis, lumbar region; Translations: [Other forms of scoliosis, lumbar region] Onset: 05-30-2021 Chronic Other acquired deformities (1 source) Spondylolysis, lumbar region; Translations: [Spondylolysis, lumbar region] Onset: 05-08-2022 Episodic Other acquired deformities (1 source) Spondylolysis, lumbosacral region; Translations: [Spondylolysis, lumbosacral region] Onset: 05-08-2022 Episodic Other and ill-defined cerebrovascular disease (2 sources) Cerebral ischemia; Translations: [Cerebral ischemia] Onset: 03-20-2022 Chronic Other connective tissue disease (9 sources) Synovial cyst of lumbar spine; Translations: [Synovial cyst, unspecified] Episodic Other connective tissue disease (1 source) History of lumbar fusion; Translations: [Arthrodesis status] Episodic Other ear and sense organ disorders (2 sources) Sensorineural hearing loss, unilateral, right ear, with restricted hearing on the contralateral side; Translations: [Snsrnrl hear loss, uni, r ear, with rstrcd hear cntra side] Onset: 03-20-2022 Chronic Other endocrine disorders (5 sources) Hypoparathyroidism; Translations: [Hypoparathyroidism, unspecified] Onset: 10-25-2010 10-25-2010 Chronic Other gastrointestinal disorders (2 sources) Diarrhea, unspecified; Translations: [Diarrhea of presumed infectious origin] Onset: 11-25-2021 Episodic Other gastrointestinal disorders (1 source) Diarrhea; Translations: [Diarrhea, unspecified] Episodic Other nervous system disorders (1 source) Lesion of ulnar nerve, left upper limb; Translations: [Lesion of ulnar nerve] Onset: 09-25-2021 09-25-2021 Chronic Other nervous system disorders (1 source) Lesion of ulnar nerve, right upper limb; Translations: [Lesion of ulnar nerve] Onset: 09-25-2021 09-25-2021 Chronic Other nervous system disorders (1 source) Carpal tunnel syndrome, left upper limb; Translations: [Carpal tunnel syndrome] Onset: 09-25-2021 09-25-2021 Chronic Other nervous system disorders (1 source) Carpal tunnel syndrome, right upper limb; Translations: [Carpal tunnel syndrome] Onset: 09-25-2021 09-25-2021 Chronic Other nervous system disorders (5 sources) Peripheral nerve disease ; Translations: [Polyneuropathy, unspecified] Onset: 12-28-2021 12-29-2021 Chronic Other nervous system disorders (5 sources) Chronic pain; Translations: [Other chronic pain] Onset: 12-28-2021 12-28-2021 Chronic Other nutritional; endocrine; and metabolic disorders (5 sources) Hypomagnesemia; Translations: [Hypomagnesemia] Onset: 12-27-2021 12-28-2021 Chronic Other nutritional; endocrine; and metabolic disorders (1 source) Overweight in adulthood with body mass index of 25 or more but less than 30; Translations: [Body mass index (BMI) 28.0-28.9, adult] Episodic Spondylosis; intervertebral disc disorders; other back problems (3 sources) Other spondylosis with radiculopathy, lumbar region; Translations: [Spondylosis without myelopathy or radiculopathy, lumbar region] Onset: 05-30-2021 Chronic Spondylosis; intervertebral disc disorders; other back problems (20 sources) Lumbar radiculopathy; Translations: [Thoracic or lumbosacral neuritis or radiculitis, unspecified] Onset: 08-01-2021 Episodic Thyroid disorders (20 sources) Acquired hypothyroidism; Translations: [Hypothyroidism, unspecified] Onset: 10-25-2010 12-28-2021 Chronic Past or Other Problems Problem Classification Problem Date Documented Da te Episodic/Chronic Abdominal pain (1 source) Left lower quadrant pain; Translations: [Abdominal pain, left lower quadrant] Onset: 11-25-2021 Episodic Acute and unspecified renal failure (5 sources) Acute injury of kidney; Translations: [Acute kidney failure, unspecified] Onset: 12-27-2021 12-28-2021 Episodic Deficiency and other anemia (5 sources) Iron deficiency anemia; Translations: [Iron deficiency anemia, unspecified] Onset: 12-28-2021 12-28-2021 Episodic Fluid and electrolyte disorders (5 sources) Hyperkalemia; Translations: [Hyperkalemia] Onset: 12-27-2021 12-28-2021 Episodic Intestinal infection (20 sources) Clostridium difficile diarrhea; Translations: [Enterocolitis due to Clostridium difficile, not specified as recurrent] Onset: 12-28-2021 12-28-2021 Episodic Other acquired deformities (1 source) Spondylolisthesis, lumbar region; Translations: [Spondylolisthesis, lumbar region] Onset: 08-01-2021 Episodic Other aftercare (5 sources) Long-term current use of anticoagulant; Translations: [skilled nursing (current) use of anticoagulants] Onset: 10-25-2010 06-12-2021 Episodic Other aftercare (20 sources) Anticoagulant effect; Translations: [Encounter for therapeutic drug level monitoring] Onset: 12-29-2021 12-29-2021 Episodic Other connective tissue disease (1 source) Arthrodesis status; Translations: [Arthrodesis status] Onset: 05-30-2021 Episodic Phlebitis; thrombophlebitis and thromboembolism (20 sources) H/O: Deep vein thrombosis; Translations: [Personal history of other venous thrombosis and embolism] Onset: 12-28-2021 12-28-2021 Episodic Unclassified (1 source) Problem Results Test Name Value Interpretation Reference Range Facil ity Vital Signs Date Time Vital Sign Value Performing Clinician Facility 09-06-2022 13:59-0400 Body height 160 cm Saira Carbone MD Work Phone: [facility] 09-06-2022 13:59-0400 Body mass index (BMI) [Ratio] 28.56 kg/m2 Saira Carbone MD Work Phone: [facility] 09-06-2022 13:59-0400 Body temperature 98.01 [degF] Saira Carbone MD Work Phone: [facility] 09-06-2022 13:59-0400 Body weight 73.12 kg Saira Carbone MD Work Phone: [facility] 09-06-2022 13:59-0400 Diastolic blood pressure 79 mm[Hg] Saira Carbone MD Work Phone: [facility] 09-06-2022 13:59-0400 Heart rate 69 /min Saira Carbone MD Work Phone: [facility] 09-06-2022 13:59-0400 SaO2% (BldA) [Mass fraction] 100 % Saira Carbone MD Work Phone: [facility] 09-06-2022 13:59-0400 Systolic blood pressure 154 mm[Hg] Saira Carbone MD Work Phone: [facility] 08-16-2022 13:18-0500 Body temperature 98.01 [degF] [facility] 13:18-0500 Body weight 72.76 kg Saira Carbone MD Work Phone: [facility] 08-16-2022 13:18-0500 Diastolic blood pressure 72 mm[Hg] Saira Carbone MD Work Phone: [facility] 08-16-2022 13:18-0500 Heart rate 75 /min Saira Carbone MD Work Phone: [facility] 08-16-2022 13:18-0500 SaO2% (BldA) [Mass fraction] 100 % Saira Carbone MD Work Phone: [facility] 08-16-2022 13:18-0500 Systolic blood pressure 152 mm[Hg] Saira Carbone MD Work Phone: [facility] 01-04-2022 10:48-0400 Body temperature 97.59 [degF] Derrick Rufener PT Work Phone: [facility] 01-04-2022 10:48-0400 Diastolic blood pressure 80 mm[Hg] Derrick Rufener PT Work Phone: [facility] 01-04-2022 10:48-0400 Heart rate 64 /min Derrick Rufener PT Work Phone: [facility] 01-04-2022 10:48-0400 Respiratory rate 16 /min Derrick Rufener PT Work Phone: [facility] 01-04-2022 10:48-0400 SaO2% (BldA) [Mass fraction] 99 % Derrick Rufener PT Work Phone: [facility] 01-04-2022 10:48-0400 Systolic blood pressure 126 mm[Hg] Derrick Rufener PT Work Phone: [facility] NEGATED: Highlighted [id number] 10:50-0400 Body height 158.75 cm [address] [facility] Work Phone: NEGATED: Highlighted [id number] 10:50-0400 Body height 159 [address] [facility] Work Phone: NEGATED: Highlighted [id number] 10:50-0400 Body mass index (BMI) [Ratio] 32.33 kg/m2 Allison Wilcox AT [facility] Work Phone: NEGATED: Highlighted [id number] 10:50-0400 Body weight 81.19 [address] [facility] Work Phone: NEGATED: Highlighted [id number] 10:50-0400 Body weight 81 [address] [facility] Work Phone: Encounters Encounter Date Encounter Type Care Provider Facility Start: 06-02-2023 Letter encounter Saira sanz MD Work Phone: [facility] Start: 02-23-2023 Letter encounter Saira sanz MD Work Phone: [facility] Start: 01-11-2023 Telephone encounter Karin mejia RN Work Phone: [facility] Infectious [facility] Procedures Date Procedure Procedure Detail Performing Clinician Start: 09-07-2022 Prepare fecal microb iota for instillation Saira Carbone MD Work Phone: Start: 09-25-2021 End: 09-26-2021 BP scrn no perf at interval Fabrice Madsen MD Work Phone: Start: 09-25-2021 End: 09-26-2021 Calc BMI abv up александр f/u Fabrice browning MD Work Phone: Start: 09-25-2021 End: 09-26-2021 Current tobacco non-user cad cap copd pv dm Fabrice Madsen MD Work Phone: Start: 09-25-2021 End: 09-26-2021 Docrev cur meds by sarah Madsen MD Work Phone: Start: 09-25-2021 End: 09-26-2021 Osteoarthritis symptoms&funcjal status asses Fabrice Madsen MD Work Phone: Start: 09-25-2021 End: 09-26-2021 Pain doc pos and plan Fabrice Madsen MD Work Phone: Start: 09-25-2021 End: 09-26-2021 Patient encounter procedure Fabrice Madsen MD Work Phone: Start: 09-25-2021 End: 09-25-2021 Radex hand minimum 3 views Fabrice Madsen MD Work Phone: Start: 10-17-2012 Mammography Derrick Rufen er PT Work Phone: NEGATED: Highlighted rowStart: 09-25-2021 End: 09-25-2021 Documentation of current medications Allison Wilcox AT Plan of Treatment Date Care Activity Detail Author Start: 02-28-2028 Cholesterol [Mass/volume] in Serum or Plasma Cholesterol [facility] Start: 02-21-2027 Cholesterol [Mass/volume] in Serum or Plasma Cholesterol [facility] Start: 12-29-2024 DIABETES SCREEN DIABETES SCREEN [facility] Start: 03-17-2023 Influenza vaccination Influenza Vaccine (#1) [facility] Start: 02-15-2023 COVID-19 Vaccine () COVID-19 Vaccine () [facility] Start: 02-15-2023 Influenza vaccination Influenza Vaccine (#1) [facility] Start: 12-29-2022 HEMOGLOBIN/HEMATOCRIT HEMOGLOBIN/HEMATOCRIT [facility] Start: 12-29-2022 SERUM CREATININE SERUM CREATININE [facility] Start: 05-14-2023 COLORECTAL CANCER SCREENING COLORECTAL CANCER SCREENING [facility] Start: 10-28-2022 FECAL OCCULT BLOOD FECAL OCCULT BLOOD [facility] Start: 10-28-2022 Screening for malignant neoplasm of colon [facility] Start: 09-06-2022 End: 09-06-2022 Patient encounter procedure 09/06/2022 Office Visit Infectious Diseases Saira Carbone MD [address] [place] [phone] [facility] Start: 05-08-2022 FUV, Provider: Tito Gore, Status: Pen, Time: 1:00 PM FUV, Provider: Tito Gore, Status: Pen, Time: 1:00 PM [id number] Work Phone: Start: 03-17-2022 Influenza vaccination Influenza Vaccine (#1) [facility] Start: 02-15-2022 Influenza vaccination INFLUENZA (#1) [facility] Start: 10-02-2021 End: 10-02-2021 Patient encounter procedure Appointment [facility] Work Phone: Start: 09-25-2021 End: 09-25-2021 EMG/NCT bilateral upper extremity EMG/NCT bilateral upper extremity [facility] Work Phone: Start: 08-01-2021 POV, Provider: Jose Churchill, Status: Pen, Time: 1:00 PM POV, Provider: Jose Churchill, Status: Pen, Time: 1:00 PM [id number] Work Phone: Start: 06-17-2021 ADVANCE DIRECTIVE DISCUSSION ADVANCE DIRECTIVE DISCUSSION [facility] Start: 06-17-2021 DEPRESSION ASSESSMENT DEPRESSION ASSESSMENT [facility] Start: 03-08-2021 COVID-19 VACCINE (3 - Booster for Moderna series) COVID-19 VACCINE (3 - Booster for Moderna series) [facility] Start: 12-15-2020 Annual wellness visit Annual Wellness Visit ([id number]) [facility] Start: 12-01-2020 COVID-19 VACCINE (3 - Booster for Moderna series) COVID-19 VACCINE (3 - Booster for Moderna series) [facility] Start: 2019 BONE DENSITY BONE DENSITY [facility] Start: 2019 Pneumococcal vaccination Pneumococcal Vaccine(s) (65+ yrs) (1 - PCV) [facility] Start: 2019 PNEUMOCOCCAL: 65+ (1 - PCV) PNEUMOCOCCAL: 65+ (1 - PCV) [facility] Start: 2019 Screening for osteoporosis Bone Densitometry [facility] Start: 09-17-2017 LIPID SCREEN LIPID SCREEN [facility] Start: 2014 RSV vaccine (optional 60+ years) RSV vaccine (optional 60+ years) [facility] Start: 10-17-2013 Mammography MAMMOGRAM [facility] Start: 2004 Shingles (RZV) Vaccine (1 of 2) Shingles (RZV) Vaccine (1 of 2) [facility] Start: 2004 SHINGRIX VACCINE (1 of 2) SHINGRIX VACCINE (1 of 2) [facility] Start: 1999 COLOGUARD (FIT-DNA) COLOGUARD (FIT-DNA) [facility] Start: 1999 Colonoscopy COLONOSCOPY [facility] Start: [address] COLONOGRAPHY [facility] Start: 1999 Screening for malignant neoplasm of colon [facility] Start: 1999 SIGMOIDOSCOPY SIGMOIDOSCOPY [facility] Start: 1994 Screening for malignant neoplasm of breast Mammography [facility] Start: 1973 Urine microalbumin profile DTAP,TDAP,TD (1 - Tdap) [facility] Start: 1972 ANNUAL PCP TEAM CHRONIC DISEASE VISIT ANNUAL PCP TEAM CHRONIC DISEASE VISIT [facility] Start: 1972 HEPATITIS C SCREENING HEPATITIS C SCREENING [facility] Start: 1972 Hepatitis C screening Hepatitis C Antibody [facility] Start: 1972 Tetanus + diphtheria + acellular pertussis vaccine (product) Tdap Booster [facility] Start: 1966 Adult depression screening assessment DEPRESSION SCREENING [facility] Start: 1954 Screening for malignant neoplasm of colon Colonoscopy [facility] Start: 1954 Thyroid stimulating hormone measurement TSH [facility] Inf agent det nuclei c acid clostridium amp probe CLOSTRIDIUM DIFFICILE Microbiology Routine Diarrhea, unspecified type 10/18/2022 4:40 PM EDT [employer] [facility] Immunization Date Immunization Notes Care Provider Fa cility 10-06-2020 Moderna COVID-19 Vaccine 100 MCG/0.5ML Intramuscular Suspension Oneida Jennings Work Phone: [facility] 09-08-2020 Moderna COVID-19 Vaccine 100 MCG/0.5ML Intramuscular Suspension Oneida Stephanie Jennings Work Phone: [id number] Work Phone: Payers Date Payer Category Payer Unknown 2021 Private Health Insurance [facility] AARP SUPPLEMENT [id number] 2021-Present [phone] [address] [place] [address] Indemnity [id number] 2021 Private Health Insurance [facility] AARP SUPPLEMENT [id number] 2021-Present [phone] [address] [place] [address] Indemnity [id number] 2021 Unknown [id number] 2019 Medicare MEDICARE MEDICAR E A AND B [id number] 2019-Present [phone] [place] [address] Medicare [id number] 2019 Medicare 2019 Medicare [id number] 1954 Unknown [id number] 1954 Unknown [id number] 1954 Unknown [id number] 1954 Unknown [id number] 1954 Unknown [id number] 1954 Unknown [id number] 1954 Unknown [id number] 1954 Unknown [id number] 1954 Unknown [id number] 1954 Unknown [id number] 1954 Unknown [id number] Social History Date Type Detail Facility Start: 04-05-2019 End: 12-27-2021 Tobacco smoking status NHIS Ex-smoker [facility] End: 12-28-2015 History of tobacco use Current smoker [facility] End: 12-28-2015 History of tobacco use Cigarette Smoker [facility] Start: 04-05-2019 End: 12-27-2021 Cigarettes smoked current (pack per day) - Reported 0.5 [facility] Start: 04-05-2019 End: 12-27-2021 Tobacco use and exposure Smokeless tobacco non-user [facility] Start: 12-28-2021 Alcohol intake Current drinke r of alcohol (finding) [facility] Start: 12-27-2021 History SDOH Alcohol Comment Social [facility] Start: 12-28-2021 End: 09-03-2022 History SDOH Financial 5 [facility] Start: 12-28-2021 End: 09-03-2022 History SDOH Food Worry 1 [facility] Start: 12-28-2021 End: 09-03-2022 History SDOH Transport Med 2 [facility] Start: 1955 Sex Assigned At Not on file [facility] Start: 12-17-2021 End: 12-28-2021 Exposure to SARS-CoV-2 (event) Not sure [facility] Tobacco smoking status NHIS Tobacco smoking consumption unknown [facility] Start: 09-03-2022 History SDOH Social [facility] Start: 09-03-2022 [facility] Start: 09-03-2022 [facility] Start: 10-08-2022 End: 10-18-2022 Exposure to SARS-CoV-2 (event) Unable to assess [facility] Gender identity [facility] on [facility] NEGATED: Highlighted rowStart: 09-25-2021 End: 09-25-2021 Alcohol intake Alcohol intake [facility] Work Phone: NEGATED: Highlighted rowStart: 09-25-2021 End: 09-25-[address] [facility] Work Phone: NEGATED: Highlighted rowStart: 09-25-2021 End: 09-25-2021 Details of drug misuse behavior Details of drug misuse behavior [facility] Work Phone: NEGATED: Highlighted rowStart: 09-25-2021 End: 09-25-2021 Employment detail Employment detail [facility] Work Phone: NEGATED: Highlighted rowStart: 09-25-2021 End: 09-25-[address] [facility] Work Phone: NEGATED: Highlighted rowStart: 09-25-2021 End: 09-25-2021 How many days of moderate to strenuous exercise, like a brisk walk, did you do in the last 7 days? How many days of moderate to strenuous exercise, like a brisk walk, did you do in the last 7 days? [facility] Work Phone: Clinical Notes 06-30-2021 to 01-11-2023 Telephone Encounter - Karin Sanches RN - 01/11/2023 3:05 PM EDTTelephone Encounter - Karin Sanches RN - 01/11/2023 3:05 PM EDTTelephone Encounter - Charo Redman RN - 12/20/2022 5:34 PM EDT Note Date & Type Note Facility 01-11-2023 Telephone encounter Note Notes from last [address] Carbone (10/09/22 and 09/06/22) faxed to patient's pcp at [phone] Karin Sanches RN [facility] 01-11-2023 Miscellaneous Notes Notes from last [address] Carbone (10/09/22 and 09/06/22) faxed to patient's pcp at [phone] Karin Sanches RN documented in this encounter [facility] 12-20-2022 Telephone encounter Note Images from the original note were not included. What is the need: Situation: Pt calling reporting she has missed call from the office. Wondering what that was about. Background: see [employer] messages from 12/07 Assessment: Message reads 12/20/22 4:32 PM Ashley, You will need to call medical records, , to have Dr. Carbone's notes faxed to Dr. Jennings. Lana Sanches RN Recommendation: Pt verbalized understanding of advice and denied any additional questions, concerns or needs at this time. Transferred to medical records. Charo Redman RN [facility] 12-20-2022 Miscellaneous Notes Images from the original note were not included. What is the need: Situation: Pt calling reporting she has missed call from the office. Wondering what that was about. Background: see [employer] messages from 12/07 Assessment: Message reads 12/20/22 4:32 PM Ashley, You will need to call medical records, , to have Dr. Carbone's notes faxed to Dr. Jennings. Lana Sanches RN Recommendation: Pt verbalized understanding of advice and denied any additional questions, concerns or needs at this time. Transferred to medical records. Charo Redman RN documented in this encounter [facility] 12-20-2022 Telephone encounter Note Chart reviewed, response sent to patient Time: 30min Patient ID confirmed by name and Lana Sanches RN [facility] Work Phone: 12-20-2022 Miscellaneous Notes Chart reviewed, response sent to patient Time: 30min Patient ID confirmed by name and Lana Sanches RN Chart reviewed, response sent to patient, and message forwarded to provider. Time: 30min Patient ID confirmed by name and Lana Sanches RN documented in this encounter [facility] 12-07-2022 Telephone encounter Note Chart reviewed, response sent to patient, and message forwarded to provider. Time: 30min Patient ID confirmed by name and Lana Sanches RN [facility] Work Phone: 12-07-2022 Miscellaneous Notes Chart reviewed, response sent to patient, and message forwarded to provider. Time: 30min Patient ID confirmed by name and Lana Sanches RN documented in this encounter [facility] 10-18-2022 History of Presen t illness Narrative Pt Eagle dropped off specimin. Patient was identified by name and date of . Fidelina Erwin documented in this encounter [facility] 10-08-2022 History of Presen t illness Narrative Documentation: Mode: Telephone Patient Patient Work Phone: Patient Cell Preferred phone: [phone] Consent: I confirmed patient understanding of the risks and benefits of telehealth visits and obtained consent to proceed with the telehealth visit. Location of Patient: Home of patient Patient called for follow up ID visit for: Diarrhea s/p fecal microbiota transplantation on 09/06/22 HPI (include location, severity, duration, timing, context, modifying factors, associated signs/symptoms): States had regular BM during first week after fecal microbiota transplantation however then starting having soft stools in the am, not really formed, more like mush. Frequency of stool after AM BM is inconsistent. On 09/26/22 had 9 BM but that was only one time. Typically 3 or less. Some cramping abdominal pain. No vomiting. Usually occurs after eating. Not getting worse but not getting better. No food associations. Started propecia (finasteride around August 2022). Also using topical Rogaine both for hair loss. Notes significant amount of gas still as well. Eating more fruits and vegetables post fecal microbiota transplantation. After her COVID infection she has been unable to eat yogurt. Current symptoms are not like previous C diff. States was on metamucil prior to fecal microbiota transplantation but stopped at some point. PAST MEDICAL, FAMILY & SOCIAL HISTORY: Reviewed and updated Rare alcohol REVIEW OF SYSTEMS: As above Previously on FODMOP diet\ PHYSICAL EXAMINATION: There were no vitals taken for this visit. 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 Formed BM during the week after fecal microbiota transplantation. Now with soft/somewhat mush stool every morning and inconsistently but mostly 2 or fewer times later in the day, typically after meals. Finasteride is new medication but does not typically cause GI symptoms. Advised patient to start metamucil 3-4 capsules daily and then adjust dose as needed. Continue this for at least 1-3 months then reevaluate. Advised patient to message me with how she is doing. Advised to monitor food intake and possibly moderate fruit and vegetable intake if she increased that significantly recently. Visit duration: 25 minutes including phone, chart review/documentation on day of visit. Saira Carbone MD documented in this encounter [facility] 10-01-2022 Telephone encounter Note Please call or message patient and advise her that we can set up a telemedicine visit to discuss her symptoms if they are continuing. Thanks Saira Carbone MD [facility] 10-01-2022 Miscellaneous Notes Please call or message patient and advise her that we can set up a telemedicine visit to discuss her symptoms if they are continuing. Thanks Saira Carbone MD Received VMM from Hina Nichole Patient s/p FMT on 09/06, called c/o diarrhea x 9 on 09/26 Called patient at number listed in demos. Identified self and purpose of call. IDd patient by name/. HIPPA compliant VMM left with request for a return Patient stated diarrhea has improved, has only had 1 today. Said it does seem to happen more in the evening after eating dinner. Patient advised to avoid spicy/fried foods, dairy products and drink fluids. Will forward message to Dr. Tona Sanches RN documented in this encounter [facility] 09-27-2022 Telephone encounter Note Received VMM from Hina Nichole Patient s/p FMT on 09/06, called c/o diarrhea x 9 on 09/26 Called patient at number listed in demos. Identified self and purpose of call. IDd patient by name/. HIPPA compliant VMM left with request for a return Patient stated diarrhea has improved, has only had 1 today. Said it does seem to happen more in the evening after eating dinner. Patient advised to avoid spicy/fried foods, dairy products and drink fluids. Will forward message to Dr. Tona Sanches RN [facility] 09-06-2022 Instructions Saira Carbone MD - 09/06/2022 2:48 PM EDT You can eat at 3:45 pm. Do not take any probiotics. Contact me if you are concerned about diarrhea or if you are concerned that C diff is back. Please contact me if anyone prescribes you an antibiotic. You can send my chart message or call [phone]. Avoid antibiotics unless absolutely necessary. documented in this encounter [facility] 09-06-2022 History of Presen t illness Narrative Patient here for follow up ID visit for: Recurrent C diff HPI (include location, severity, duration, timing, context, modifying factors, associated signs/symptoms): Here for fecal microbiota transplantation via capsules. Stopped vancomycin 2 days ago. Feeling well today. PAST MEDICAL, FAMILY & SOCIAL HISTORY: Updated. 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 All questions were answered. Patient took 38 capsules in clinic with no immediate adverse effects. Advised patient to contact me if there are any concerns that C diff infection is back or if there are any questions related to C diff or the procedure. Also advised patient to avoid antibiotics unless absolutely necessary. Advised that I am available for consultation if antibiotics are prescribed in the future and would strongly encourage contacting me. Follow up as needed. Saira Carbone MD Patient was identified by name and date of . Leyla Perez Patient at risk for falls:No Falls Risk protocol implemented: No Pt has not taken her BP medication today. MS documented in this encounter [facility] 09-03-2022 Telephone encounter Note Received VMM from Hina Nichole re: Medicare coverage for FMT Stated she called Medicare and was told billing code could not be verified. Patient advised to call [facility] billing at [phone] Lana Sanches RN [facility] 09-03-2022 Miscellaneous Notes Received VMM from Hina Nichole re: Medicare coverage for FMT Stated she called Medicare and was told billing code could not be verified. Patient advised to call [facility] billing at [phone] Lana Sanches RN documented in this encounter [facility] 08-20-2022 Telephone encounter Note Chart reviewed, response sent to patient, and message forwarded to provider. Time: 30min Patient ID confirmed by name and Lana Sanches RN [employer] Work Phone: 08-20-2022 Miscellaneous Notes Chart reviewed, response sent to patient, and message forwarded to provider. Time: 30min Patient ID confirmed by name and Lana Sanches RN documented in this encounter [facility] 08-16-2022 Note CPT 99514 billing co de for transplant material. I will send you the phone number for billing questions. Soonest I could do the procedure is 09/06/22. I will email you. [facility] 08-16-2022 Instructions Saira Carbone MD - 08/16/2022 2:01 PM EST CPT 18115 billing code for transplant material. I will send you the phone number for billing questions. Soonest I could do the procedure is 09/06/22. I will email you. documented in this encounter [facility] 08-16-2022 History of Presen t illness Narrative INITIAL VISIT/CONSULT Referred by: Dr. Angeles Negro MD: No primary care provider on file. Chief Complaint/Reason for Consult: Recurrent Clostridioides difficile infection This is a 67 year old female: Patient Active Problem List: Acquired hypothyroidism [E03.9] Anticoagulation goal of INR 2 to 3 [Z51.81, Z79.01] C. difficile diarrhea [A04.72] Hyperlipidemia with target low density lipoprotein (LDL) cholesterol less than 100 mg/dL [E78.5] Anxiety [F41.9] Personal history of DVT (deep vein thrombosis) [Z86.718] Stage 3a chronic kidney disease (HCC) [N18.31] Gout Apr 2022 diagnosed with gout. Started on allopurinol Past Surgical History: Procedure Laterality Date ARTHROPLASTY, TOTAL KNEE N/A SECTION N/A PARATHYROIDECTOMY N/A REPAIR, ROTATOR CUFF N/A 67 year old female with past medical history above HPI: Ear drum burst treated with an antibiotic. Trouble for about a year. October 2021 bad diarrhea. Treated with flagyl initially but feet swelled. A few days later changed to vancomycin 3-4 days after stopping treatment, C diff returns. Currently on oral vancomycin 250 mg 4 times per day. First diagnosis of CDI and treatment: October 2021 Symptoms of CDI: 10-12 times per day; abdominal cramping no blood or mucus. Recurrent episodes of CDI and treatment: at least 3 times Hospitalizations for CDI: 3 times related to dehydration Tried vanco pulse/taper?: did that twice and did well while on it. Fidaxomicin ever?: June ; relapsed 9 days after Previous GI symptoms: no Previous colonoscopy: 01/29/2022 and 08/08/2015 Previous non CDI antibiotics October 2021 Family history of GI problems: no Food allergies: no Probiotics: [employer] probiotic Additional history: Household members: no diarrhea Bleach cleaning at home?: yes Pets: no Last inpatient, ED or fpc contact: a few years prior Do you know anyone who had C diff? no Allergies Allergen Reactions Niacin Anaphylactic Shock Allergies confirmed as above: Yes Current Outpatient Medications Medication Sig Dispense Refill vancomycin (VANCOCIN) 125 MG capsule Take 1 Capsule by mouth daily. 10 Capsule 0 warfarin (COUMADIN) 5 MG tablet Take 1 Tablet by mouth daily. 30 Tablet 3 levothyroxine (SYNTHROID) 100 MCG tablet 1 tablet in the morning on an empty stomach magnesium oxide (MAG-OX) 400 MG tablet 1 Tablet. melatonin 3 MG TABS tablet Take by mouth. metoprolol (TOPROL-XL) 50 mg XL tablet 1 Tablet. vancomycin (VANCOCIN) 250 MG capsule TAKE 1 CAPSULE BY MOUTH FOUR TIMES DAILY FOR 14 DAYS tramadol (ULTRAM) 50 MG tablet Cholecalciferol 10 MCG (400 UNIT) CAPS 1 capsule allopurinol (ZYLOPRIM) 100 MG tablet 1 Tablet. ALPRAZolam (XANAX) 0.5 MG tablet Take 0.5 mg by mouth daily as needed. buPROPion SR (WELLBUTRIN SR) 150 MG SR tablet calcitriol (ROCALTROL) 0.25 MCG capsule ezetimibe (ZETIA) 10 MG tablet 1 Tablet. ferrous sulfate 325 (65 Fe) MG tablet 1 Tablet. No current facility-administered medications for this visit. PAST MEDICAL, FAMILY & SOCIAL HISTORY: Former smoker Immunization History Administered Date(s) Administered Moderna (primary 12+ yrs) COVID-19 vaccine, mRNA, spike protein, LNP, PF, 100 mcg/0.5 mL (IIH=252) 09/08/2020, 10/06/2020 PHYSICAL EXAMINATION: BP 152/72 Pulse 75 Temp 98 F (36.7 C) (Temporal) Wt 160 lb 6.4 oz (72.8 kg) SpO2 100% No distress Conjunctiva clear No visible rash DATA: Positive CDI test results: 06/09/22 pcr pos/toxin pos 07/30/22 pcr pos/toxin neg 10/29/21 pcr pos/toxin neg 11/25/21 H pylori stool antigen negative 10/28/21 fecal lactoferrin positive cryptosporidium/giardia negative ASSESSMENT/PLAN: 67 year old female with hx of hypothyroidism, HTN, HLD, anxiety, CKD stage 3, 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 Provided written information. Spent over 50% of visit counseling on CDI and possible treatment options. Patient agreeable to fecal microbiota transplantation via capsules using anonymous donor. Advised her to remain on oral vancomycin for now, but reduce dose to once daily. I will message her with possible dates for the procedure as well as phone number to call for estimated cost. Saira Carbone MD documented in this encounter [facility] 06-13-2022 Note HNO ID: [id number] Author: Cee Souza MD Service: ? Author Type: Physician Type: Progress Notes Filed: 06/13/2022 5:05 PM Note Text: Patient being referred by Oneida Jennings for recurrent C diff colitis. It looks like she had seen ID who recommended dificid which she could not afford. Will be happy to see her. Will have our schedulers arrange for next week. Cee Souza MD [facility] 06-13-2022 History of Presen t illness Narrative Patient being referred by Oneida Jennings for recurrent C diff colitis. It looks like she had seen ID who recommended dificid which she could not afford. Will be happy to see her. Will have our schedulers arrange for next week. Cee Souza MD documented in this encounter [facility] 01-04-2022 Miscellaneous Notes PT Agency Discharge after SOC. documented in this encounter [facility] 01-04-2022 Miscellaneous Notes SITUATION: spouse present during today's visit. patient reports she is getting around in the home well but is slowed down by BL toe pain.. BACKGROUND: Diagnoses (reason for Home Care): Acute kidney failure, unspecified Any one of the comorbidities from the list below may have a deleterious effect on the primary home care diagnosis. Chronic Anticoagulation Acquired Hypothyroidism Hyperlipidemia LDL Goal < 100 Hypoparathyroidism Polycystic Kidney Disease CKD (Chronic Kidney Disease) Stage 3, GFR 30-59 mL/min HANS (Acute Kidney Injury) Hypomagnesemia Hyperkalemia Peripheral Neuropathy Iron Deficiency Anemia Personal History of Dvt (Deep Vein Thrombosis) HX of C. Difficile Diarrhea () Anxiety Other Chronic Pain Anticoagulation Goal of INR 2 to 3 Weight Bearing or Surgical Precautions: NA ASSESSMENT: Patient evaluated by [facility] physical therapy. Reviewed and explained homecare services. Plan of care, goals, and visit frequency developed, reviewed, and agreed upon with patient and/or caregiver. Patient Goal: To get rid of BL foot pain Current Discharge Plan: independent with home exercise program. Anticipate discharge by 01/04/22. RECOMMENDATION: Next visit to focus on- NA. PT SOC only- no additional visits needed. Agreeable to PT; declining NA. See intervention summary for intervention/education details. documented in this encounter [facility] 01-03-2022 Miscellaneous Notes Patient declined PT SOC for today stating she has other appointments and is not available. Patient requests PT SOC be rescheduled for tomorrow. PT SOC has been rescheduled for tomorrow, 01/04/22. documented in this encounter [facility] 01-03-2022 Miscellaneous Notes Attempted to schedule SOC visit for today. Unable to complete due to patient/caregiver declined visit offered. SOC/REUBEN will be rescheduled for next available appointment (01/04/22). documented in this encounter [facility] 12-28-2021 Note HNO ID: [id number] Author: Tona Juan DO Service: Hospital Medicine Author Type: Physician Type: Progress Notes Filed: 12/28/2021 3:14 PM Note Text: DEPARTMENT OF HOSPITAL MEDICINE PROGRESS NOTE SERVICE DATE: 12/28/2021 SERVICE TIME: 2:59 PM Hospital Medicine/Primary Attending: Tona Juan DO NIGHT AND WEEKEND COVERAGE: WELLS COVERAGE: Days: [phone], please page attending physician. Nights: [phone], please page [place] [facility] Night coverage pager [phone]. Subjective INTERVAL HPI: feels better today. Still having tingling in her feet. Very little diarrhea over past 2 days. No fever or chills. Denies CP, SOB abd pain, N/V D/w GI PIT CLERK, Radha who saw her in the office. She has been having diarrhea since about 11/04/21. Stool studies were negative but c diff pcr returned positive. She had 3 ten days courses of flagyl. She was then started on vanco 250mg QID for 2 weeks planned course on 12/22/21. Labs were checked on Saturday and revealed the HANS and high potassium Current Facility-Administered Medications Medication Dose Route Frequency - NaCl 0.9% iv flush bag 20 mL INTRAVENOUS PRN - montelukast 10 mg tab(s) (SINGULAIR) 10 mg ORAL AT BEDTIME - ALPRAZolam 0.5 mg tab(s) (XANAX) 0.5 mg ORAL BID PRN - metoprolol succinate ER 50 mg tab(s) (TOPROL XL) 50 mg ORAL DAILY - ferrous sulfate 325 mg tab(s) 325 mg ORAL BID - ezetimibe 10 mg tab(s) (ZETIA) 10 mg ORAL DAILY - buPROPion SR 150 mg tab(s) (ZYBAN SR; WELLBUTRIN SR) 150 mg ORAL BID - traMADol 50 mg tab(s) (ULTRAM) 50 mg ORAL q 12 H PRN - cholecalciferol 2,000 Units tab(s) (VITAMIN D3) 2,000 Units ORAL DAILY - sodium chloride 0.9 % (flush) 3-5 mL (BD POSIFLUSH) 3-5 mL INTRAVENOUS q 12 H - aluminum-magnesium hydroxide-simethicone 200-200-20 mg/5 mL 30 mL (MAALOX,MYLANTA,MAG-AL PLUS) 30 mL ORAL q 6 H PRN - ondansetron orally disintegrating 4 mg tab(s) (ZOFRAN ODT) 4 mg ORAL q 6 H PRN Or - ondansetron (PF) 4 mg injection (ZOFRAN) 4 mg INTRAVENOUS q 6 H PRN - docusate sodium 100 mg cap(s) (COLACE) 100 mg ORAL BID PRN - acetaminophen 650 mg tab(s) (TYLENOL) 650 mg ORAL q 6 H PRN - melatonin 6 mg tab(s) 6 mg ORAL DAILY (8 PM) - vancomycin 250 mg oral liquid (VANCOCIN) 250 mg ORAL QID - NaCl 0.9% iv infusion 75 mL/hr INTRAVENOUS CONTINUOUS Objective PHYSICAL EXAM: BP 146/59 Pulse 72 Temp (Src) 98.4 (Oral) Resp 16 Ht 5' 3 (1.60m) Wt 161 lb (73.0kg) SpO2 100% LMP 09/29/2002 BMI 28.53 kg/(m2). O2 Therapy: Room Air Physical Exam Performed GENERAL: Alert, no distress, cooperative LUNGS: Lungs clear to auscultation, Good diaphragmatic excursion CARDIAC: Normal S1 and S2; no rubs, murmurs, or gallops ABDOMEN: Abdomen soft, non-tender, BS normal, EXTREMITIES: Extremities normal, no deformities, edema, clubbing or skin discoloration. Lines, Drains, and Airways Line Peripheral 12/27/21 1737 Short Right Forearm 20 Gauge <1 day DATA: Diagnostic tests reviewed for today's visit: Most recent labs Most recent imaging Assessment/Plan Problem List HANS (acute kidney injury) (HCC) POA: Yes C. difficile diarrhea POA: Yes Iron deficiency anemia POA: Yes Personal history of DVT (deep vein thrombosis) POA: Yes Pins and needles sensation POA: Yes Acquired hypothyroidism POA: Yes Hypomagnesemia POA: Yes Anxiety POA: Yes Other chronic pain POA: Yes HOSPITAL COURSE: Hina Nichole is a 66 year old female presented with past medical history of hypothyroidism, mild intermittent asthma, history of DVT/PE on Coumadin, anxiety on Xanax, chronic pain on tramadol, iron deficiency anemia, C. difficile diarrhea on oral vancomycin who presented to the ER on 12/27/2021 for evaluation of abnormal labs performed by her PCP. She was found to have ship boat or barge mate of 2.97 and K of 5.2 Principal Problem: HANS (acute kidney injury) (HCC) US kidneys negative for obstruction. UA essentially unremarkable ship boat or barge mate improved to 1.72 with IV hydration suggesting volume depletion Continue IVF and recheck ship boat or barge mate in am C. difficile diarrhea Diarrhea has stopped Continue on oral vanco planned 2 weeks course from 12/22/21 Iron deficiency anemia Continue home iron supplementation Has GI outpatient follow up Personal history of DVT (deep vein thrombosis) Supratherapeutic INR INR 7.2 today, possible from previous flagyl use Hold coumadin and recheck tomorrow Home dose coumadin MW 5mg. 2.5mg rest of the week Pins and needles sensation Electrolyte imbalance vs NATHALIA but also suspect could be a side effect of prolonged course of flagyl which should resolve on its own Acquired hypothyroidism TSH low but T4 and T3 ok Will resume home dose of synthroid Hypomagnesemia replete Anxiety Other chronic pain Continue wellbutrin, xanax, tramadol Medication and Non-Pharmacologic VTE Prophylaxis/Anticoagulants 12/28/21 0015 vte current anticoag therapy (me,oh) VTE Prophylaxis: VTE prophylaxis appropriate Disposition: (more content not included)... [facility] 12-28-2021 Note HNO ID: [id number] Author: Deanne Guaman RN Service: Care Management Author Type: Registered Nurse Type: Care Mgt Initial Assessment Filed: 12/28/2021 12:30 PM Note Text: CARE MANAGEMENT: ASSESSMENT AND DISCHARGE PLAN SERVICE DATE: December 28, 2021 SERVICE TIME: 12:24 PM PRIMARY CARE PHYSICIAN: Oneida Jennings APRN.WAREHOUSE ADMINISTRATOR Primary Contact: Extended Emergency Contact Information Primary Emergency Contact: DionisioEagle snow Stephanie Address: [address] [place] [address] [place] [address] Relation: Spouse ADMISSION STATUS: Inpatient Insurance Provider: MEDICARE A AND B NEEDS PRIOR TO DISCHARGE Needs Prior to Discharge: To Be Determined;Discharge Prescriptions;Discharge Transportation POTENTIAL TRANSITION PLANS Home Based on clinical judgement, Care Management will address the following needs: No transitional/discharge planning needs at this time Patient's perception of need for this admission: HANS ADVANCE DIRECTIVES Yes, not in chart. Advised to being in to scan into record. MS/BEHAVIOR Baseline Mental Status Prior to this Illness what was the patient's Baseline Mental Status?: Alert AND Oriented Prior to this illness, has anyone described the patient having any of the following behaviors?: Not Applicable Relationship of the informant to the patient:: Self READMISSION Last Discharge Date: N/A Is this Within the Past 30 days? From what level of care did patient present?: Home Last discharge within 30 days: No PATIENT SCREEN Patient/Lead Systems Developer Stated Goals: To have reduction in symptoms;To return home to life as it was;To be cured/healed Under the care of a PCP?: Yes, External Provider Provider Name: Oneida Jennings [facility] [phone] Does the patient have transportation upon discharge?: Yes Does the patient have a stable and supportive living arrangement and home setting?: Yes Are there any potential risks or gaps identified by risk/functional/fall,etc. scores in the EMR?: No Any potential risks related to substance abuse and/or behavioral health?: No Based on clinical judgement, Care Management will address the following needs: No transitional/discharge planning needs at this time CAREGIVER ASSESSMENT Caregiver is ready, willing and able to meet the patient's needs as recommended by the inter-professional team:: No Caregiver needed Patient's transition needs and plan for meeting these needs: D/C Home with , Self Care MEDICAL Medical Needs: Two or more chronic diseases Health Issues Impacting Discharge Plan: Newly diagnosed Newly Diagnosed: HANS Medication Adherance I am convinced of the importance of my prescription medication: 0 - Agree Completely I worry that my prescription medication will do more harm than good to me : 0 - Disagree Completely I feel financially burdened by my sij-oe-zfwwmi expenses for my prescription medication:: 0 - Disagree Completely Risk Score: 0 Patient is categorized as: Low risk < 2 SOCIAL Living Arrangements: Home Lives With: Spouse Financial Resources: Retired Health Literacy How often do you need to have someone help you when you read instructions, pamphlets, or other written material from your doctor or pharmacy? : 2 - Rarely How confident are you filling out medical forms by yourself?: 2 - Quite a bit Food Insecurity: No Food Insecurity ? ? Worried About Running Out of Food in the Last Year: Never true ? ? Ran Out of Food in the Last Year: Never true Financial Resource Strain: Low Risk ? ? Difficulty of Paying Living Expenses: Not hard at all Transportation Needs: No Transportation Needs ? ? Lack of Transportation (Medical): No ? ? Lack of Transportation (Non-Medical): No Housing Stability: Unknown ? ? Unable to Pay for Housing in the Last Year: No ? ? Number of Places Lived in the Last Year: Not on file ? ? Unstable Housing in the Last Year: No BEHAVIORAL/COGNITIVE Psychosocial Psychosocial Needs: None FUNCTIONAL How do you manage to accomplish the following: Independent: Ambulation;Bathe/Shower;Dress; Meals/Meal Prep;Going to the bathroom;Medication Management Services/Needs//Equipment Does Patient Currently Receive Any Community Services or Home Care?: None Equipment Prior to Admission: None No medical discharge barriers identified at this time. No social discharge barriers identified at this time. No behavioral/cognitive discharge barriers identified at this time. No functional discharge barriers identified at this time. FREEDOM OF CHOICE EXPLAINED: Are you interested in bedside delivery of your medications? No , uses [facility], [place], [place] ASSESSMENT AND PLAN:66 yr female admitted with HANS. Hx: hypothyroidism, Asthma, DVT/PE, Anxiety, Chronic Pain, Fe Deficiency Anemia, C Diff. Pt. is independent, lives with her and has no outside services in the home. pt. plans to retur (more content not included)... [facility] documented as of this encounter (statuses as of 01/03/2022) [facility]07-14-2022 History of Past illness Narrative* Problem Noted Date Resolved Date Metabolic acidosis 12/28/2021 12/28/2021 Hyperparathyroidism 10/19/2002 10/25/2010 documented as of this encounter (statuses as of 01/04/2022) [facility]-14-2022 History of Past illness Narrative* Problem Noted Date Resolved Date Metabolic acidosis 12/28/2021 12/28/2021 Hyperparathyroidism 10/19/2002 10/25/2010 documented as of this encounter (statuses as of 01/04/2022) [facility]-14[facility]2022 History of Past illness Narrative* Problem Noted Date Resolved Date Metabolic acidosis 12/28/2021 12/28/2021 Hyperparathyroidism 10/19/2002 10/25/2010 documented as of this encounter (statuses as of 06/20/2022) [facility]07-14-2022 NoteHNO ID: [id number] Author: Lionel North MD Service: Hospital Medicine Author Type: Physician Type: Plan of Care Filed: 12/28/2021 2:53 AM Note Text: Was informed by the bedside nurse that the patient stated that she would like to be full code. Per my discussion at the patient's bedside at the time of admission earlier in the evening the patient stated that she wanted to be DNR CCA DNI. I would recommend readdressing patient's CODE STATUS in the morning by the rounding team. Lionel North MD [facility]02-28-2022 History of Present illness Narrative * Hina is a 66 year old female presenting 3 months status post left L5-S1 decompression and cyst resection, TLIF, with posterior percutaneous instrumentation performed due to lumbar stenosis, scoliosis, facet cyst, and radiculopathy. She reports some days to be better than others. Today she is feeling some left lateral PAIN. It is not as intense as before surgery. She also is having some back and hip pain. She rates this at 4/10. * had trouble with right calmed down * had b/l inj * . [id number] [address] Work Phone: [phone] 151-109902-15-2022 History of Present illness Narrative* Hina is a 66 year old female presenting 3 months status post left L5-S1 decompression and cyst resection, TLIF, with posterior percutaneous instrumentation performed due to lumbar stenosis, scoliosis, facet cyst, and radiculopathy. She reports some days to be better than others. Today she is feeling some left lateral PAIN. It is not as intense as before surgery. She also is having some back and hip pain. She rates this at 4/10. * had trouble with right calmed down * had b/l inj * . [employer] [address] Work Phone: [phone]) 857-974801-14-2022 History of Present illness NarrativeHina is a 66 year old female presenting 3 weeks status post left L5-S1 decompression and cyst resection, TLIF, with posterior percutaneous instrumentation performed due to lumbar stenosis, scoliosis, facet cyst, and radiculopathy. She reports some days to be better than others. Today she is feeling some left lateral PAIN. It is not as intense as before surgery. She also is having some back and hip pain. She rates this at 4/10.[employer] Work Phone: Evaluation noteThere may be information available, but it has not been provided by the sender.[facility] Work Phone: Evaluation note* Diagnosis Recurrent colitis due to Clostridium difficile- Primary [facility] Recurrent colitis due to Clostridium difficile- Primary Body mass index (BMI) 28.0-28.9, adult [facility] Diagnosis Recurrent colitis due to Clostridium difficile- Primary [facility] Diagnosis Diarrhea, unspecified type- Primary [facility] illness NarrativeHina is a 65-year-old woman who comes in with a close to 3-year history of back pain and intractable left leg pain. The pain in the left leg is constant. There is numbness in the foot. It has persisted despite extensive nonoperative management including regular chiropractic treatment and upwards of 3 steroid injections. The pain at this point is intolerable and she would like to consider surgical intervention. [id number] [address] Work Phone: History of Present illness Narrative* Hina is a 66 year old female presenting 3 weeks status post left L5-S1 decompression and cyst resection, TLIF, with posterior percutaneous instrumentation performed due to lumbar stenosis, scoliosis, facet cyst, and radiculopathy. * some days better than others * today feeling some in the left lateral calf, not as intense * some back and hip pain * 4/10. [employer] [address] Work Phone: History of Present illness NarrativeDebra 66-year-old woman who is 1 year status post L5-S1 cyst resection and TLIF. She is doing very well. She has no back or leg pain. She is quite happy with how she is doing. [id number] [address] Work Phone: Instructions* Instruction Description Start Date Patient advised to follow-up with Primary Care Physician for BMI management. [facility] Work Phone: Patient's home Plan of care note* Visit Details Visit Type -PT SOC Discipline -Physical Therapy Problems Problem Description Start Date Status Goals Interve ntions Medication Education Disciplines: Skilled Services 01/04/2022 Resolved on 01/04/2022 1 goal linked to scheduled/document ed intervention 1 goal intervention scheduled/document ed in this visit Sepsis Disciplines: Skilled Services 01/04/2022 Resolved on 01/04/2022 1 goal linked to scheduled/document ed intervention 1 goal intervention scheduled/document ed in this visit Physician Specific Parameters Disciplines: Skilled Services 01/04/2022 Resolved on 01/04/2022 1 goal linked to scheduled/document ed intervention 1 goal intervention scheduled/document ed in this visit Risk for Falls Disciplines: Skilled Services 01/04/2022 Resolved on 01/04/2022 1 goal linked to scheduled/document ed intervention 1 goal intervention scheduled/document ed in this visit Pain Disciplines: Skilled Services 01/04/2022 Resolved on 01/04/2022 1 goal linked to scheduled/document ed intervention 1 goal intervention scheduled/document ed in this visit High Risk Medications Disciplines: Skilled Services 01/04/2022 Resolved on 01/04/2022 1 goal linked to scheduled/document ed intervention 1 goal intervention scheduled/document ed in this visit Discharge Disciplines: Skilled Services 01/04/2022 Resolved on 01/04/2022 1 goal linked to scheduled/document ed intervention 1 goal intervention scheduled/document ed in this visit Advance Directives Disciplines: Skilled Services 01/04/2022 Resolved on 01/04/2022 1 goal linked to scheduled/document ed intervention 1 goal intervention scheduled/document ed in this visit PT Impaired gait Disciplines: PT 01/04/2022 Resolved on 01/04/2022 2 goals linked to scheduled/document ed interventions 2 goal interventions scheduled/document ed in this visit Goals Goal Associated Problem Outcome Goal Met? Visit Notes Patient/caregiver will demonstrate ability to obtain, store, identify and administer ordered medications, keep accurate medication list in home, and adhere to medication schedule Description: Patient/caregiver will demonstrate ability to obtain, store, identify and administer ordered medications, keep accurate medication list in home, and adhere to medication schedule by 01/04/22. Medication Education Completed Yes Goal Met Patient/caregiver will be able to identify and report symptoms of sepsis Description: Patient/caregiver will be able to identify signs/symptoms of sepsis infection and will verbalize actions to take if suspected by 01/04/22. Sepsis Completed Yes Goal Met Patient to maintain parameters within physician-specified ranges throughout certification period Physician Specific Parameters Completed Yes Goal Met Manage Risk for falls Description: Patient/caregiver will verbalize knowledge of individualized fall prevention strategies by 01/04/22. Risk for Falls Completed Yes Goal Met Manage Pain Description: Patient and/or caregiver will verbalize knowledge and understanding of appropriate techniques to control pain, including pain medication and non-pharmacological techniques. Patient will verbalize or demonstrate an acceptable level of pain as evidenced by pain of 5/10 or less at rest. To be achieved by 01/04/22. Pain Completed Yes Goal Met Patient/caregiver will teach back high risk medication side effect and precaution education High Risk Medications Completed Yes Goal Met Manage discharge planning Description: Patient/caregiver will verbalize understanding of ongoing discharge plan provided related to disease management, arrangements for outpatient and/or community services, obtaining medications, supplies, and DME, as needed throughout certification period. Discharge Completed Yes Goal Met Patient/caregiver will make healthcare providers aware of and any changes to Advance Directives throughout certification period Advance Directives Completed Yes Goal Met Improved Stair Climbing Description: STG:: Patient will demonstrate improved stair negotiation as evidenced by ascend/descend 7 steps with railing Independently, to be achieved by 01/04/22. PT Impaired gait Completed Yes Goal Met Improved Gait Description: STG: Patient will demonstrate improved gait ability as evidenced by ambulation 150 feet Independently, in order to access the home, to be achieved by 01/04/22. PT Impaired gait Completed Yes Goal Met Interventions Intervention Associated Problem/Goal Status Variance Visit Notes Medication Education Description: Evaluate/instruct patient/caregiver on obtaining, storing, identifying and administering ordered medications as well as keeping accurate medication list in the home and adhereing to medication schedule Problem:Medication Education Goal:Patient/caregive r will demonstrate ability to obtain, store, identify and administer ordered medications, keep accurate medication list in home, and adhere to medication schedule Completed Patient instructed on importance of keeping accurate medication list in home, adhering to medication schedule, proper storage of medications and Medication, route, dose, frequency, purpose, and side effects of medications. Risk of Sepsis Description: Patient is at risk for sepsis. Monitor closely for s/s of sepsis. Problem:Sepsis Goal:Patient/caregive r will be able to identify and report symptoms of sepsis Completed SPO2 Description: Notify Oneida Jennings APRN.WAREHOUSE ADMINISTRATOR if pulse ox is <92% at rest. Problem:Physician Specific Parameters Goal:Patient to maintain parameters within physician-specified ranges throughout certification period Completed Instruct on individual fall risk factors and strategies to prevent falls and injuries caused by falls. Problem:Risk for Falls Goal:Manage Risk for falls Completed Interventions implemented and instructions provided this visit to reduce risk of falls. Learning Assessment Patient verbalizes understanding and demonstrates understanding of instructions. Teaching methods used were verbal and demonstration. Instruct on pain and instruct on strategies to control pain Problem:Pain Goal:Manage Pain Completed Pain Assessment Patient report pain has been affecting physical activity. Patient report using the following pain control techniques: activity modification, positioning techniques and strength and mobility exercises. Patient report satisfaction with progress toward pain goal. Pain Education Patient educated on using a pain log to document pain, progress toward goal, response to, and any side effects or adverse events from treatment and potential side effects of medications and measures to control them. Learning Assessment Patient verbalizes understanding of instructions regarding pain medications/modalitie s. Teaching methods used were: verbal, written. Coumadin/Warfarin-Inst ruct on high risk medication Problem:High Risk Medications Goal:Patient/caregive r will teach back high risk medication side effect and precaution education Completed patient instructed on Warfarin Take your warfarin as instructed and at the same time each day. Have your blood tested as instructed to check how quickly your blood is clotting. Discuss all medications you are taking -- even [id number] medicines -- with your doctor and pharmacist since many drugs can interact with warfarin. Tell anyone providing medical or dental care that you are taking warfarin. Watch for signs of abnormal or excessive bleeding and bruising. Call your health care provider right away if you suspect something is wrong. DO NOT STOP your warfarin even for a minor procedure like dental work without first checking with the doctor who monitors your therapy. Instruct on final discharge plan and deliver discharge instructions Problem:Discharge Goal:Manage discharge planning Completed Delivered Discharge plan: Discharge plan discussed with patient for plan for transition to: live independently at home without ongoing services Determine patient's Advance Directive Status Description: Patient does not have advance directives. Patient/Caregiver provided Advance Directive information in SOC booklet. Problem:Advance Directives Goal:Patient/caregive r will make healthcare providers aware of and any changes to Advance Directives throughout certification period Completed Discussed Advance Directives with Patient and/or Caregiver. Referred patient to Home Care handbook for further information on Healthcare DPOA & Living Will. Physical Therapy Stair Training Problem:PT Impaired gait Goal:Improved Stair Climbing Completed Stair training and instruction to patient and/or caregiver on safe stair climbing up/down 7 steps withrailing Independently. Learning Assessment Patient verbalizes understanding and demonstrates understanding of instructions. Teaching methods used were verbal and demonstration. Physical Therapy Gait Training Problem:PT Impaired gait Goal:Improved Gait Completed Patient ambulated 150ft without AD independently without LOB. documented in this encounter [facility] Chief Complaint Chief Complaint Description Start Date bilateral hand pain Preliminary chief co mplaint data, not yet signed by the author as of Summary Purpose Family History No Family History Records FoundThere may be information available, but it has not been provided by the sender.No Family History Records FoundNo Family History Records FoundNo Family History Records FoundNo Family History Records FoundNo Family History Records FoundNo Family History Records FoundNo Family History Records FoundNo Family History Records Found Advance Directives Documents on File Type Date Recorded Patient Lead Systems Developer Expl anation Advance Directive(s) 12/27/2021 5:51 PM Latest Code Status on File Code Status Date Activated Date Inactivated Comments Full Code 12/28/2021 11:15 AM 12/29/2021 5:46 PM Full Code Order Discussed With: Patient DNR-CCA 12/28/2021 12:09 AM 12/28/2021 11:15 AM DNR Order Discussed With: Patient Latest Code Status on File Code Status Date Activated Date Inactivated Comments Full Code 01/04/2022 1:00 PM Full Code 12/28/2021 11:15 AM 12/29/2021 5:46 PM Additional Source Comments INFORMATION SOURCE (unrecogn ized section and content) DATE CREATED AUTHOR AUTHOR'S ORGANIZ ATION 01/03/2022 [facility] DATE CREATED AUTHOR AUTHOR'S ORGANIZ ATION 03/25/2022 [facility] DATE CREATED AUTHOR AUTHOR'S ORGANIZ ATION 05/09/2022 [facility] DATE CREATED AUTHOR AUTHOR'S ORGANIZ ATION 05/09/2022 [employer] DATE CREATED AUTHOR AUTHOR'S ORGANIZ ATION 05/12/[address] [facility] DATE CREATED AUTHOR AUTHOR'S ORGANIZ ATION 06/14/[address] [facility] DATE CREATED AUTHOR AUTHOR'S ORGANIZ ATION 08/02/2022 [facility] DATE CREATED AUTHOR AUTHOR'S ORGANIZ ATION 12/21/2022 [facility] [employer] [facility] Reason for Visit (unrecogniz ed section and content) Reason Comments Home Care Delay in PT SOC Reason Comments Referral Information Reason Onset Date Comments ID Care Coordination 09/03/2022 FMT Reason Comments follow up Reason Comments Monitoring/follow-up Reason Onset Date Comments ID Care Coordination 09/27/2022 FMT Reason Comments Labs Reason Onset Date Comments ID Care Coordination 01/11/2023 Source Comments (unrecognize d section and content) In the event this informatio n is protected by the Federal Confidentiality of Alcohol and Drug Abuse Patient Records regulations: The Federal rules restrict any use of the information to criminally investigate or prosecute any alcohol or drug abuse patient.[facility] the event this information is protected by the Federal Confidentiality of Alcohol and Drug Abuse Patient Records regulations: The Federal rules restrict any use of the information to criminally investigate or prosecute any alcohol or drug abuse patient.[facility] the event this information is protected by the Federal Confidentiality of Alcohol and Drug Abuse Patient Records regulations: The Federal rules restrict any use of the information to criminally investigate or prosecute any alcohol or drug abuse patient.[facility] the event this information is protected by the Federal Confidentiality of Alcohol and Drug Abuse Patient Records regulations: The Federal rules restrict any use of the information to criminally investigate or prosecute any alcohol or drug abuse patient.[facility] the event this information is protected by the Federal Confidentiality of Alcohol and Drug Abuse Patient Records regulations: The Federal rules restrict any use of the information to criminally investigate or prosecute any alcohol or drug abuse patient.[facility] Care Teams (unrecognized sec tion and content) Director Of Rotc Relationship Specialty Start Date End Date Oneida Jennings, MARCIO.[facility] [address] [phone] PCP - General Family Practice 10/28/21 Pradeep Harris MD [address] [place] [id number] Referring Internal Medicine 12/29/21 Oneida Jennings, MARCIO.WAREHOUSE ADMINISTRATOR [address] [place] [address] Home Care Physician Family Practice 01/02/22 Derrick Aleman, PT [address] [place] [address] Solar Installation Manager Post Acute Care 01/02/22 Director Of Rotc Relationship Specialty Start Date End Date Oneida Jennings APRN.WAREHOUSE ADMINISTRATOR [address] [place] [address] PCP - General Family Practice 10/28/21 Pradeep Harris MD [address] [place] [id number] Referring Internal Medicine 12/29/21 Oneida Jennings, HR OPERATIONS ADVISOR.WAREHOUSE ADMINISTRATOR [address] [place] [address] Home Care Physician Family Practice 01/02/22 Derrick Aleman, PT [address] [place] [address] Solar Installation Manager Post Acute Care 01/02/22 Director Of Rotc Relationship Specialty Start Date End Date Oneida Jennings APRN.WAREHOUSE ADMINISTRATOR [address] [place] [address] PCP - General Family Medicine 10/28/21 Pradeep Harris MD [address] [place] [address] Referring Internal Medicine 12/29/21 Oneida Jennings, HR OPERATIONS ADVISOR.WAREHOUSE ADMINISTRATOR [address] [place], [place] [id number] Home Care Provider Family Medicine 01/02/22 Derrick Aleman, PT [address] [place] [place] [id number] Solar Installation Manager Post Acute Care 01/02/22 Director Of Rotc Relationship Specialty Start Date End Date Saira Carbone MD [address] [place] [address] Physician Infectious Diseases 08/18/22 Director Of Rotc Relationship Specialty Start Date End Date Saira Carbone MD [address] [place] [address] Physician Infectious Diseases 08/18/22 Director Of Rotc Relationship Specialty Start Date End Date Saira Carbone MD [address] [place] [address] Physician Infectious Diseases 08/18/22 Director Of Rotc Relationship Specialty Start Date End Date Saira Carbone MD [address] [place] [address] Physician Infectious Diseases 08/18/22 Director Of Rotc Relationship Specialty Start Date End Date Saira Carbone MD [address] [place] [address] Physician Infectious Diseases 08/18/22 Director Of Rotc Relationship Specialty Start Date End Date Saira Carbone MD [address] [place] [address] Physician Infectious Diseases 08/18/22 Director Of Rotc Relationship Specialty Start Date End Date Saira Carbone MD [address] [place] [address] Physician Infectious Diseases 08/18/22 Director Of [employer] Relationship Specialty Start Date End Date Saira Carbone MD [address] [place] [address] Physician Infectious Diseases 08/18/22 Director Of [employer] Relationship Specialty Start Date End Date Saira Carbone MD [address] [place] [address] Physician Infectious Diseases 08/18/22 Director Of [employer] Relationship Specialty Start Date End Date Saira Carbone MD [address] [place] [address] Physician Infectious Diseases 08/18/22 Director Of [employer] Relationship Specialty Start Date End Date Saira Carbone MD [address] [place] [address] Physician Infectious Diseases 08/18/22 FOR RECORDS PERTAINING TO PATIENTS WHO ARE OR HAVE BEEN ENROLLED IN A CHEMICAL DEPENDENCY/SUBSTANCEABUSE PROGRAM, SOME INFORMATION MAY BE OMITTED. This clinical summary was aggregated from multiple sources. Caution should be exercised in using it in the provision of clinical care. This summary normalizes information from multiple sources, and as a consequence, information in this document may materially change the coding, format and clinical context of patient data. In addition, data may be omitted in some cases. CLINICAL DECISIONS SHOULD BE BASED ON THE PRIMARY CLINICAL RECORDS. [facility]. provides no warranty or guarantee of the accuracy or completeness of information in this document.
== END | disposition home or self-care (01) ==
LOC: LAB 10:46
PROVIDERS: PCP Nurse Practitioner; Referring Provider Anesthesiology Pain Medicine; Visit Provider Anesthesiology Pain Medicine
DX: Z79.01 Long term (current) use of anticoagulants (principal)
CPT/HCPCS: 36415; 85610

== ENCOUNTER → 2023-08-15 | Outpatient (CLI) | payer MEDICARE, OTHER, SELFPAY ==
[2023-08-15 15:48] LABS: Hematocrit 40.8 % (37-47); Hemoglobin 13.5 g/dL (12.0-15.0); Mean Corp Hgb Conc 33.1 g/dL (32-36); Mean Corpuscular Hgb 32.1 pg (27.0-32.0); Mean Corpuscular Volume 96.9 fL (81-99); Mean Platelet Vol. 10.6 fl (6.2-12.0); Platelet Count 316 K/mm3 (150-450); RBC Distribution Width CV 12.9 % (11.6-14.6); RBC Distribution Width SD 45.4 fl (35.1-43.9); Red Blood Count 4.21 M/mm3 (4.2-5.4); White Blood Count 6.8 K/mm3 (4.4-11.0)
[2023-08-15 16:14] LABS: Albumin, Serum 3.8 g/dL (3.2-5.0); BUN 31 mg/dL (7-18); Chloride 107 mmol/L (98-107); Creatinine, Serum 1.63 mg/dL (0.55-1.02); EST Glomerular Filtration Rate 33 mL/min (>60); Est Glom Filt Rate - Afr Amer 40 mL/min (>60); Glucose 97 mg/dL (74-106); Potassium 5.2 mmol/L (3.5-5.1); Sodium Level 135 mmol/L (136-145)
[2023-08-15 16:19] LABS: Protein, Urine (Random) 10.2 mg/dL (<11.9); Protein:Creat Ratio 157 mg/g CRE (0-200)
[2023-08-15 16:23] LABS: PTHIN 0.7 pg/mL (18.4-80.1)
[2023-08-15 16:24] LABS: Vitamin D,25 Hydroxy 43.3 ng/mL
--- OUTSIDE RECORDS SUMMARY | 2023-08-15 22:24 | XMS RPT_ITS | CCD ---
Author Name Unknown Address [address] [place] [address] Organization [facility] Care Team Providers Care Web Site Designer Name Role Phone Oneida Jennings Stephanie Unavailable Unavailable Unavailable Fabrice Madsen MD Unavailable Michaela CRM DEVELOPER.Oneida ARAMBULA Primary Care Provide r Pradeep Harris MD Unavailable [phone] Michaela CRM DEVELOPER.RALFOneida Stephanie Unavailable Derrick Aleman PT Unavailable PROVIDER, [...] Unavailab le Tito Gore Attending Unavailable Michaela CRM DEVELOPER.RALF Oneida L Primary Care Provide r Pradeep Harris MD Unavailable Michaela CRM DEVELOPER.RALF Oneida Stephanie Unavailable [phone] Love PT, Derrick Unavailable ONEIDA JENNINGS L [...] 09-26-19 22 nasal congestion, runny nose, sneezing [facility] Work Phone: (6 sources) Fenofibrate; Translations: [FENOFIBRATE] Drug Allergy 11-19-19 14 Other: See Comments [facility] Work Phone: (7 sources) Niacin; Translations: [NIACIN] Drug Allergy 10-26-19 11 Anaphylaxis [facility] Work Phone: (5 sources) No Known Drug Allergies [Other] Propensity to adverse reactions 10-20-19 03 [facility] (1 source) OTHER; Translations: [OTHER] Propensity to adverse reactions (disorder) 10-20-19 03 [facility] Other [facility] (15 sources) Niacin Drug Allergy 10-26-19 11 Anaphylactic Shock [facility] Work Phone: Medications Current Medications Medication [...] Ordered: 10-May-2021 DO Start : 10-May-2021 Active [id number] 200 actuat albuterol 0.09 mg/actuat metered dose [...] sources) Long-term current use of anticoagulant; 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] Onset: 10-25-2010 06-12-2021 [...] 160 cm Saira Carbone MD Work Phone: [facility] 09-06-2022 13:59-0400 Body mass index (BMI) [Ratio] 28.56 kg/m2 Saira Carbone MD Work Phone: [facility] 09-06-2022 13:59-0400 Body temperature 98.01 [degF] Saira Carbone MD Work Phone: [facility] 09-06-2022 13:59-0400 Body weight 73.12 kg Saira Carbone MD Work Phone: [facility] 09-06-2022 13:59-0400 Diastolic blood pressure 79 mm[Hg] Saira Carbone MD Work Phone: [facility] 09-06-2022 13:59-0400 Heart rate 69 /min Saira Carbone MD Work Phone: [facility] 09-06-2022 13:59-0400 SaO2% (BldA) [Mass fraction] 100 % Saria Carbone MD Work Phone: [facility] 09-06-2022 13:59-0400 Systolic blood pressure 154 mm[Hg] Saira Carbone MD Work Phone: [facility] 08-16-2022 13:18-0500 Body temperature 98.01 [degF] [facility] 08-16-2022 13:18-0500 Body weight 72.76 kg Saira Carbone MD Work Phone: [facility] 08-16-2022 13:18-0500 Diastolic blood pressure 72 mm[Hg] Saira Carbone MD Work Phone: [facility] 08-16-2022 13:18-0500 Heart rate 75 /min Saira Carbone MD Work Phone: [facility] 08-16-2022 13:18-0500 SaO2% (BldA) [Mass fraction] 100 % Saira Carbone MD Work Phone: [facility] 08-16-2022 13:18-0500 Systolic blood pressure 152 mm[Hg] Saira Carbone MD Work Phone: [facility] 01-04-2022 10:48-0400 Body temperature 97.59 [degF] Derrick Rufener PT Work Phone: [facility] 01-04-2022 10:48-0400 Diastolic blood pressure 80 mm[Hg] Derrick Rufener PT Work Phone: [facility] 01-04-2022 10:48-0400 Heart rate 64 /min Derrick Rufener PT Work Phone: [facility] 01-04-2022 10:48-0400 Respiratory rate 16 /min Derrick Rufener PT Work Phone: [facility] 01-04-2022 10:48-0400 SaO2% (BldA) [Mass fraction] 99 % Derrick Rufener PT Work Phone: [facility] 01-04-2022 10:48-0400 Systolic blood pressure 126 mm[Hg] Derrick Rufener PT Work Phone: [facility] NEGATED: Highlighted [id number] 10:50-0400 Body height 158.75 cm Allison Wilcox AT [facility] Work Phone: NEGATED: Highlighted [id number] 10:50-0400 Body height 159 cm Allison Wilcox AT [facility] Work Phone: NEGATED: Highlighted [id number] 10:50-0400 Body mass index (BMI) [Ratio] 32.33 kg/m2 Allison Wilcox AT [facility] Work Phone: NEGATED: Highlighted [id number] 10:50-0400 Body weight 81.19 kg Allison Wilcox AT [facility] Work Phone: NEGATED: Highlighted [id number] 10:50-0400 Body weight 81 kg Allison Wilcox AT [facility] Work Phone: Encounters Encounter Date Encounter Type Care Provider Facility Start: 06-02-2023 Letter encounter Saira sanz MD Work Phone: [facility] Start: 02-23-2023 Letter encounter Saira sanz MD Work Phone: [facility] Start: 01-11-2023 Telephone encounter Karin mejia RN Work Phone: [facility] Infectious Disease [facility] Procedures Date [...] [facility] Start: 12-29-2024 DIABETES SCREEN DIABETES SCREEN [facility] Start: 03-17-2023 Influenza vaccination Influenza Vaccine (#1) [facility] Start: 02-15-2023 COVID-19 Vaccine () COVID-19 Vaccine () [facility] Start: 02-15-2023 Influenza vaccination Influenza Vaccine (#1) [facility] Start: 12-29-2022 HEMOGLOBIN/HEMATOCRIT HEMOGLOBIN/HEMATOCRIT [facility] Start: 12-29-2022 SERUM CREATININE SERUM CREATININE [facility] Start: 05-14-2023 COLORECTAL CANCER SCREENING COLORECTAL CANCER SCREENING [facility] Start: 10-28-2022 FECAL OCCULT BLOOD FECAL OCCULT BLOOD [facility] Start: 10-28-2022 Screening for malignant neoplasm of colon [facility] Start: 09-06-2022 End: 09-06-2022 Patient encounter procedure 09/06/2022 Office Visit Infectious Diseases Saira Carbone MD [address] [place] [address] [phone] [facility] Start: 05-08-2022 FUV, Provider: Tito Gore, Status: Pen, Time: 1:00 PM FUV, Provider: Tito Gore, Status: Pen, Time: 1:00 PM [id number] 210 Work Phone: Start: 03-17-2022 Influenza vaccination Influenza Vaccine (#1) [facility] Start: 02-15-2022 Influenza vaccination INFLUENZA (#1) [facility] Start: 10-02-2021 End: 10-02-2021 Patient encounter procedure Appointment [facility] Work Phone: Start: 09-25-2021 End: 09-25-2021 EMG/NCT bilateral upper extremity EMG/NCT bilateral upper extremity [facility] Work Phone: Start: 08-01-2021 POV, Provider: Jose Churchill, Status: Pen, Time: 1:00 PM POV, Provider: Jose Churchill, Status: Pen, Time: 1:00 PM [id number]-Fcethg 210 Work Phone: Start: 06-17-2021 ADVANCE DIRECTIVE DISCUSSION ADVANCE DIRECTIVE DISCUSSION [facility] Start: 06-17-2021 DEPRESSION ASSESSMENT DEPRESSION ASSESSMENT [facility] Start: 03-08-2021 COVID-19 VACCINE (3 - Booster for Moderna series) COVID-19 VACCINE (3 - Booster for Moderna series) [facility] Start: 12-15-2020 Annual wellness visit Annual Wellness Visit ([id number]) [facility] Start: 12-01-2020 COVID-19 VACCINE (3 - Booster for Moderna series) COVID-19 VACCINE (3 - Booster for Moderna series) [facility] Start: 2019 BONE DENSITY BONE DENSITY [facility] Start: 2019 Pneumococcal vaccination Pneumococcal Vaccine(s) (65+ yrs) (1 - PCV) [facility] Start: 2019 PNEUMOCOCCAL: 65+ (1 - PCV) PNEUMOCOCCAL: 65+ (1 - PCV) [facility] Start: 2019 Screening for osteoporosis Bone Densitometry [facility] Start: 09-17-2017 LIPID SCREEN LIPID SCREEN [facility] Start: 2014 RSV vaccine (optional 60+ years) RSV vaccine (optional 60+ years) [facility] Start: 10-17-2013 Mammography MAMMOGRAM [facility] Start: 2004 Shingles (RZV) Vaccine (1 of 2) Shingles (RZV) Vaccine (1 of 2) [facility] Start: 2004 SHINGRIX VACCINE (1 of 2) SHINGRIX VACCINE (1 of 2) [facility] Start: 1999 COLOGUARD (FIT-DNA) COLOGUARD (FIT-DNA) [facility] Start: 1999 Colonoscopy COLONOSCOPY [facility] Start: [address] COLONOGRAPHY [facility] Start: 1999 Screening for malignant neoplasm of colon [facility] Start: 1999 SIGMOIDOSCOPY SIGMOIDOSCOPY [facility] Start: 1994 Screening for malignant neoplasm of breast Mammography [facility] Start: 1973 Urine microalbumin profile DTAP,TDAP,TD (1 - Tdap) [facility] Start: 1972 ANNUAL PCP TEAM CHRONIC DISEASE VISIT ANNUAL PCP TEAM CHRONIC DISEASE VISIT [facility] Start: 1972 HEPATITIS C SCREENING HEPATITIS C SCREENING [facility] Start: 1972 Hepatitis C screening Hepatitis C Antibody [facility] Start: 1972 Tetanus + diphtheria + acellular pertussis vaccine (product) Tdap Booster [facility] Start: 1966 Adult depression screening assessment DEPRESSION SCREENING [facility] Start: 1954 Screening for malignant neoplasm of colon Colonoscopy [facility] Start: 1954 Thyroid stimulating hormone measurement TSH [facility] Inf agent det nuclei c acid clostridium amp probe CLOSTRIDIUM DIFFICILE Microbiology Routine Diarrhea, unspecified type 10/18/2022 4:40 PM EDT [employer] [facility] Immun[facility] Immunization Date Immunization Notes Care Provider Fa cility 10-06-2020 Moderna COVID-19 Vaccine 100 MCG/0.5ML Intramuscular Suspension Oneida Jennings Work Phone: [facility] 09-08-2020 Moderna COVID-19 Vaccine 100 MCG/0.5ML Intramuscular Suspension Oneida Stephanie Jennings Work Phone: [id number] Work Phone: Payers Date Payer Category Payer Unknown 2021 Private Health Insurance [facility] AARP SUPPLEMENT [id number] 2021-Present [phone] [address] [place] [address] Indemnity [id number] 2021 Private Health Insurance [facility] AARP SUPPLEMENT [id number] 2021-Present [phone] [address] [place] [address] Indemnity [id number] 2021 Unknown [id number] 2019 Medicare MEDICARE MEDICAR E A AND B [id number] 2019-Present [phone] [place] [address] Medicare [id number] 2019 Medicare 2019 Medicare [id number] 1954 Unknown [id number] 1954 Unknown [id number] 1954 Unknown [id number] 1954 Unknown [id number] 1954 Unknown [id number] 1954 Unknown [id number] 1954 Unknown [id number] 1954 Unknown [id number] 1954 Unknown [id number] 1954 Unknown [id number] 1954 Unknown [id number] Social History Date Type Detail Facility Start: 04-05-2019 End: 12-27-2021 Tobacco smoking status NHIS Ex-smoker [facility] End: 12-28-2015 History of tobacco use Current smoker [facility] End: 12-28-2015 History of tobacco use Cigarette Smoker [facility] Start: 04-05-2019 End: 12-27-2021 Cigarettes smoked current (pack per day) - Reported 0.5 [facility] Start: 04-05-2019 End: 12-27-2021 Tobacco use and exposure Smokeless tobacco non-user [facility] Start: 12-28-2021 Alcohol intake Current drinke r of alcohol (finding) [facility] Start: 12-27-2021 History SDOH Alcohol Comment Social [facility] Start: 12-28-2021 End: 09-03-2022 History SDOH Financial 5 [facility] Start: 12-28-2021 End: 09-03-2022 History SDOH Food Worry 1 [facility] Start: 12-28-2021 End: 09-03-2022 History SDOH Transport Med 2 [facility] Start: 1955 Sex Assigned At Not on file [facility] Start: 12-17-2021 End: 12-28-2021 Exposure to SARS-CoV-2 (event) Not sure [facility] Tobacco smoking status NHIS Tobacco smoking consumption unknown [facility] Start: 09-03-2022 History SDOH Social [facility] Start: 09-03-2022 [facility] SDOH [facility] Start: 09-03-2022 [facility] Start: 10-08-2022 End: 10-18-2022 Exposure to SARS-CoV-2 (event) Unable to assess [facility] Gender identity [facility] file [facility] NEGATED: Highlighted rowStart: 09-25-2021 End: 09-25-2021 Alcohol intake Alcohol intake [facility] Work Phone: NEGATED: Highlighted rowStart: 09-25-2021 End: 09-25-2021 Alcohol use Alcohol use [facility] Work Phone: NEGATED: Highlighted rowStart: 09-25-2021 End: 09-25-2021 Details of drug misuse behavior Details of drug misuse behavior [facility] Work Phone: NEGATED: Highlighted rowStart: 09-25-2021 End: 09-25-2021 Employment detail Employment detail [facility] Work Phone: NEGATED: Highlighted rowStart: 09-25-2021 End: 09-25-2021 Assertion Former smoker [facility] Work Phone: NEGATED: Highlighted rowStart: 09-25-2021 End: 09-25-2021 How many days of moderate to strenuous exercise, like a brisk walk, did you do in the last 7 days? How many days of moderate to strenuous exercise, like a brisk walk, did you do in the last 7 days? [facility] Work Phone: Clinical Notes 06-30-2021 [...] and 09/06/22) faxed to patient's pcp at [phone] Karin Sanches RN [facility] 01-11-2023 Miscellaneous Notes Notes from last [address] Carbone (10/09/22 and 09/06/22) faxed to patient's pcp at [phone] Karin Sanches RN documented in this encounter [facility] 12-20-2022 Telephone encounter Note Images from the original note were not included. What is the need: Situation: Pt calling reporting she has missed call from the office. Wondering what that was about. Background: see [employer] messages from 12/07 Assessment: Message reads 12/20/22 4:32 PM Ashley, You will need to call medical records, , to have Dr. Carbone's notes faxed to Dr. Jennings. Lana Sanches RN Recommendation: Pt verbalized understanding of advice and denied any additional questions, concerns or needs at this time. Transferred to medical records. Charo Redman RN [facility] 12-20-2022 Miscellaneous Notes Images from the original note were not included. What is the need: Situation: Pt calling reporting she has missed call from the office. Wondering what that was about. Background: see [employer] messages from 12/07 Assessment: Message reads 12/20/22 4:32 PM Ashley, You will need to call medical records, , to have Dr. Carbone's notes faxed to Dr. Jennings. Lana Sanches RN Recommendation: Pt verbalized understanding of advice and denied any additional questions, concerns or needs at this time. Transferred to medical records. Charo Redman RN documented in this encounter [facility] 12-20-2022 Telephone encounter Note Chart reviewed, response sent to patient Time: 30min Patient ID confirmed by name and Lana Sanches RN [facility] Work Phone: 12-20-2022 Miscellaneous Notes Chart reviewed, response sent to patient Time: 30min Patient ID confirmed by name and Lana Sanches RN Chart reviewed, response sent to patient, and message forwarded to provider. Time: 30min Patient ID confirmed by name and Lana Sanches RN documented in this encounter [facility] 12-07-2022 Telephone encounter Note Chart reviewed, response sent to patient, and message forwarded to provider. Time: 30min Patient ID confirmed by name and Lana Sanches RN [facility] Work Phone: 12-07-2022 Miscellaneous Notes Chart reviewed, response sent to patient, and message forwarded to provider. Time: 30min Patient ID confirmed by name and Lana Sanches RN documented in this encounter [facility] 10-18-2022 History of Presen t illness Narrative Pt Eagle dropped off specimin. Patient was identified by name and date of . Fidelina Erwin documented in this encounter [facility] 10-08-2022 History of Presen t illness Narrative Documentation: Mode: Telephone Patient Patient Work Phone: Patient Cell Preferred phone: [phone] Consent: I confirmed patient understanding of the [...] Saira Carbone MD documented in this encounter [facility] 10-01-2022 Telephone encounter Note Please call or message patient and advise her that we can set up a telemedicine visit to discuss her symptoms if they are continuing. Thanks Saira Carbone MD [facility] 10-01-2022 Miscellaneous Notes Please call or [...] Tona Sanches RN documented in this encounter [facility] 09-27-2022 Telephone encounter Note Received VMM [...] forward message to Dr. Tona Sanches RN [facility] 09-06-2022 Instructions Saira Carbone MD - 09/06/2022 2:48 PM EDT You can eat at 3:45 pm. Do not take any probiotics. Contact me if you are concerned about diarrhea or if you are concerned that C diff is back. Please contact me if anyone prescribes you an antibiotic. You can send my chart message or call [phone]. Avoid antibiotics unless absolutely necessary. documented in this encounter [facility] 09-06-2022 History of Presen t illness [...] medication today. MS documented in this encounter [facility] 09-03-2022 Telephone encounter Note Received VMM from Hina Nichole re: Medicare coverage for FMT Stated she called Medicare and was told billing code could not be verified. Patient advised to call [facility] billing at [phone] Lana Sanches RN [facility] 09-03-2022 Miscellaneous Notes Received VMM from Hina Nichole re: Medicare coverage for FMT Stated she called Medicare and was told billing code could not be verified. Patient advised to call [facility] billing at [phone] Lana Sanches RN documented in this encounter [facility] 08-20-2022 Telephone encounter Note Chart reviewed, response sent to patient, and message forwarded to provider. Time: 30min Patient ID confirmed by name and Lana Sanches RN [facility] Work Phone: 08-20-2022 Miscellaneous Notes Chart reviewed, response sent to patient, and message forwarded to provider. Time: 30min Patient ID confirmed by name and Lana Sanches RN documented in this encounter [facility] 08-16-2022 Note CPT 89547 billing co de for transplant material. I will send you the phone number for billing questions. Soonest I could do the procedure is 09/06/22. I will email you. [facility] Instructions Saira Carbone MD - 08/16/2022 2:01 PM EST CPT 44594 billing code for transplant material. I will send you the phone number for billing questions. Soonest I could do the procedure is 09/06/22. I will email you. documented in this encounter [facility] 08-16-2022 History of Presen t illness [...] yes Pets: no Last inpatient, ED or long-term contact: a few years prior Do you [...] spike protein, LNP, PF, 100 mcg/0.5 mL (FMW=941) 09/08/2020, 10/06/2020 PHYSICAL EXAMINATION: BP 152/72 Pulse [...] Saira Carbone MD documented in this encounter [facility] 06-13-2022 Note HNO ID: [id number] Author: Cee Souza MD Service: ? Author Type: Physician Type: Progress Notes Filed: 06/13/2022 5:05 PM Note Text: Patient being referred by Oneida Jennings for recurrent C diff colitis. It looks like she had seen ID who recommended dificid which she could not afford. Will be happy to see her. Will have our schedulers arrange for next week. Cee Souza MD [facility] 06-13-2022 History of Presen t illness Narrative Patient being referred by Oneida Jennings for recurrent C diff colitis. It looks like she had seen ID who recommended dificid which she could not afford. Will be happy to see her. Will have our schedulers arrange for next week. Cee Souza MD documented in this encounter [facility] 01-04-2022 Miscellaneous Notes PT Agency Discharge after SOC. documented in this encounter [facility] 01-04-2022 Miscellaneous Notes SITUATION: spouse present [...] Surgical Precautions: NA ASSESSMENT: Patient evaluated by [facility] Homecare physical therapy. Reviewed and explained [...] for intervention/education details. documented in this encounter [facility] 01-03-2022 Miscellaneous Notes Patient declined PT SOC for today stating she has other appointments and is not available. Patient requests PT SOC be rescheduled for tomorrow. PT SOC has been rescheduled for tomorrow, 01/04/22. documented in this encounter [facility] 01-03-2022 Miscellaneous Notes Attempted to schedule SOC visit for today. Unable to complete due to patient/caregiver declined visit offered. SOC/REUBEN will be rescheduled for next available appointment (01/04/22). documented in this encounter [facility] 12-28-2021 Note HNO ID: [id number] Author: Tona Juan DO Service: Hospital Medicine Author Type: Physician Type: Progress Notes Filed: 12/28/2021 3:14 PM Note Text: DEPARTMENT OF HOSPITAL MEDICINE PROGRESS NOTE SERVICE DATE: 12/28/2021 SERVICE TIME: 2:59 PM Hospital Medicine/Primary Attending: Tona Juan DO NIGHT AND WEEKEND COVERAGE: IRENE COVERAGE: Days: [phone], please page attending physician. Nights: [phone], please page [place] Hospital[facility] Night coverage pager [phone]. Subjective INTERVAL HPI: feels better today. Still having tingling in her feet. Very little diarrhea over past 2 days. No fever or chills. Denies CP, SOB abd pain, N/V D/w GI WATER MECHANIC, Radha who saw her in the office. [...] her PCP. She was found to have racker octave board of 2.97 and K of 5.2 Principal Problem: HANS (acute kidney injury) (HCC) US kidneys negative for obstruction. UA essentially unremarkable racker octave board improved to 1.72 with IV hydration suggesting volume depletion Continue IVF and recheck racker octave board in am C. difficile diarrhea Diarrhea has [...] Prophylaxis/Anticoagulants 12/28/21 0015 vte current anticoag therapy (nd,oh) VTE Prophylaxis: VTE prophylaxis appropriate Disposition: (more content not included)... [facility] 12-28-2021 Note HNO ID: [id number] Author: Deanne Guaman RN Service: Care Management Author Type: Registered Nurse Type: Care Mgt Initial Assessment Filed: 12/28/2021 12:30 PM Note Text: CARE MANAGEMENT: ASSESSMENT AND DISCHARGE PLAN SERVICE DATE: December 28, 2021 SERVICE TIME: 12:24 PM PRIMARY CARE PHYSICIAN: Oneida Jennings APRN.MUSIC ASSISTANT Primary Contact: Extended Emergency Contact Information Primary Emergency Contact: DionisioEagle snow Stephanie Address: [address] [place] [address] [place] [address] Relation: Spouse ADMISSION STATUS: Inpatient Insurance Provider: [...] discharge within 30 days: No PATIENT SCREEN Patient/Marionette Performer Stated Goals: To have reduction in symptoms;To return home to life as it was;To be cured/healed Under the care of a PCP?: Yes, External Provider Provider Name: Oneida Jennings [facility] [phone] Does the patient have transportation upon discharge?: [...] Completely I feel financially burdened by my ekc-tg-kizvvg expenses for my prescription medication:: 0 - [...] delivery of your medications? No , uses [facility], [place], [place] ASSESSMENT AND PLAN:66 yr female admitted with HANS. Hx: hypothyroidism, Asthma, DVT/PE, Anxiety, Chronic Pain, Fe Deficiency Anemia, C Diff. Pt. is independent, lives with her and has no outside services in the home. pt. plans to retur (more content not included)... [facility] documented as of this encounter (statuses as of 01/03/2022) [facility]07-14-2022 History of Past illness Narrative* Problem Noted Date Resolved Date Metabolic acidosis 12/28/2021 12/28/2021 Hyperparathyroidism 10/19/2002 10/25/2010 documented as of this encounter (statuses as of 01/04/2022) [facility]07-14-2022 History of Past illness Narrative* Problem Noted Date Resolved Date Metabolic acidosis 12/28/2021 12/28/2021 Hyperparathyroidism 10/19/2002 10/25/2010 documented as of this encounter (statuses as of 01/04/2022) [facility]07-14-2022 History of Past illness Narrative* Problem Noted Date Resolved Date Metabolic acidosis 12/28/2021 12/28/2021 Hyperparathyroidism 10/19/2002 10/25/2010 documented as of this encounter (statuses as of 06/20/2022) [facility]07-14-2022 NoteHNO ID: [id number] Author: Lionel North MD Service: Hospital Medicine [...] down * had b/l inj * . [id number] 210 Work Phone: [phone] 485-581902-15-2022 History of Present illness Narrative* Hina is [...] down * had b/l inj * . [employer] Work Phone: [phone] 543-343501-14-2022 History of Present illness NarrativeHina is a [...] and hip pain. She rates this at 4/10.[employer] Work Phone: Evaluation noteThere may be information available, but it has not been provided by the sender.[facility] Work Phone: Evaluation note* Diagnosis Recurrent [...] she would like to consider surgical intervention. [id number] 209 Work Phone: History of Present illness [...] some back and hip pain * 4/10. [employer] Work Phone: History of Present illness NarrativeDebra 66-year-old woman who is 1 year status post L5-S1 cyst resection and TLIF. She is doing very well. She has no back or leg pain. She is quite happy with how she is doing. [id number] 209 Work Phone: Instructions* Instruction Description Start Date Patient advised to follow-up with Primary Care Physician for BMI management. [facility] Work Phone: Patient's home Plan [...] sepsis Completed SPO2 Description: Notify Oneida Jennings APRN.MUSIC ASSISTANT if pulse ox is <92% at rest. [...] all medications you are taking -- even ltmi-igz-cwckczh medicines -- with your doctor and pharmacist [...] independently without LOB. documented in this encounter [facility] Chief Complaint Chief Complaint Description Start [...] Documents on File Type Date Recorded Patient Marionette Performer Expl anation Advance Directive(s) 12/27/2021 5:51 PM [...] DATE CREATED AUTHOR AUTHOR'S ORGANIZ ATION 01/03/2022 [facility] DATE CREATED AUTHOR AUTHOR'S ORGANIZ ATION 03/25/2022 [facility] DATE CREATED AUTHOR AUTHOR'S ORGANIZ ATION 05/09/2022 [facility] DATE CREATED AUTHOR AUTHOR'S ORGANIZ ATION 05/09/2022 [employer] DATE CREATED AUTHOR AUTHOR'S ORGANIZ ATION 05/12/2022 [facility] DATE CREATED AUTHOR AUTHOR'S ORGANIZ ATION 06/14/2022 [facility] DATE CREATED AUTHOR AUTHOR'S ORGANIZ ATION 08/02/2022 [facility] DATE CREATED AUTHOR AUTHOR'S ORGANIZ ATION 12/21/2022 [employer] Reason for Visit (unrecogniz ed section [...] or prosecute any alcohol or drug abuse patient.[facility] the event this information is protected by the Federal Confidentiality of Alcohol and Drug Abuse Patient Records regulations: The Federal rules restrict any use of the information to criminally investigate or prosecute any alcohol or drug abuse patient.[facility] the event this information is protected by the Federal Confidentiality of Alcohol and Drug Abuse Patient Records regulations: The Federal rules restrict any use of the information to criminally investigate or prosecute any alcohol or drug abuse patient.[facility] the event this information is protected by the Federal Confidentiality of Alcohol and Drug Abuse Patient Records regulations: The Federal rules restrict any use of the information to criminally investigate or prosecute any alcohol or drug abuse patient.[facility] the event this information is protected by the Federal Confidentiality of Alcohol and Drug Abuse Patient Records regulations: The Federal rules restrict any use of the information to criminally investigate or prosecute any alcohol or drug abuse patient.[facility] Care Teams (unrecognized sec tion and content) Web Site Designer Relationship Specialty Start Date End Date Oneida Jennings, MARCIO.[facility] [address] [phone] PCP - General Family Practice 10/28/21 Pradeep Harris MD [address] [place] [phone] Referring Internal Medicine 12/29/21 Oneida Jennings, MARCIO.MUSIC ASSISTANT [address] [place] [address] Home Care Physician Family Practice 01/02/22 Derrick Aleman, PT [address] [place] [address] Clerical Transcriber Post Acute Care 01/02/22 Web Site Designer Relationship Specialty Start Date End Date Oneida Jennings APRN.MUSIC ASSISTANT [address] [place] [address] PCP - General Family Practice 10/28/21 Pradeep Harris MD [address] [place] [phone] Referring Internal Medicine 12/29/21 Oneida Jennings, CRM DEVELOPER.MUSIC ASSISTANT [address] [place] [address] Home Care Physician Family Practice 01/02/22 Derrick Aleman, PT [address] [place] [address] Clerical Transcriber Post Acute Care 01/02/22 Web Site Designer Relationship Specialty Start Date End Date Oneida Jennings APRN.MUSIC ASSISTANT [address] [place] [address] PCP - General Family Medicine 10/28/21 Pradeep Harris MD [address] [place] [address] Referring Internal Medicine 12/29/21 Oneida Jennings, CRM DEVELOPER.MUSIC ASSISTANT [address] [place], [place] [phone] Home Care Provider Family Medicine 01/02/22 Derrick Aleman, PT [address] [place] [place] [phone] Clerical Transcriber Post Acute Care 01/02/22 Web Site Designer Relationship Specialty Start Date End Date Saira Carbone MD [address] [place] [address] Physician Infectious Diseases 08/18/22 Web Site Designer Relationship Specialty Start Date End Date Saira Carbone MD [address] [place] [address] Physician Infectious Diseases 08/18/22 Web Site Designer Relationship Specialty Start Date End Date Saira Carbone MD [address] [place] [address] Physician Infectious Diseases 08/18/22 Web Site Designer Relationship Specialty Start Date End Date Saira Carbone MD [address] [place] [address] Physician Infectious Diseases 08/18/22 Web Site Designer Relationship Specialty Start Date End Date Saira Carbone MD [address] [place] [address] Physician Infectious Diseases 08/18/22 Web Site Designer Relationship Specialty Start Date End Date Saira Carbone MD [address] [place] [address] Physician Infectious Diseases 08/18/22 Web Site Designer Relationship Specialty Start Date End Date Saira Carbone MD [address] [place] [address] Physician Infectious Diseases 08/18/22 Web Site Designer Relationship Specialty Start Date End Date Saira Carbone MD [address] [place] [address] Physician Infectious Diseases 08/18/22 Web Site Designer Relationship Specialty Start Date End Date Saira Carbone MD [address] [place] [address] Physician Infectious Diseases 08/18/22 Web Site Designer Relationship Specialty Start Date End Date Saira Carbone MD [address] [place] [address] Physician Infectious Diseases 08/18/22 Web Site Designer Relationship Specialty Start Date End Date Saira Carbone MD [address] [place] [address] Physician Infectious Diseases 08/18/22 FOR RECORDS PERTAINING [...] BE BASED ON THE PRIMARY CLINICAL RECORDS. [facility]. provides no warranty or guarantee of the accuracy or completeness of information in this document.
== END | disposition home or self-care (01) ==
LOC: LAB 15:15
PROVIDERS: PCP Nurse Practitioner; Referring Provider Internal Medicine Nephrology; Visit Provider Internal Medicine Nephrology
DX: N18.31 Chronic kidney disease, stage 3a (principal); E21.3 Hyperparathyroidism, unspecified; D64.9 Anemia, unspecified
CPT/HCPCS: 36415; 80069; 82306; 82570; 83970; 84156; 85027

== ENCOUNTER → 2023-12-04 | Outpatient (CLI) | payer MEDICARE, OTHER, SELFPAY ==
[2023-12-04 16:20] LABS: Hematocrit 40.9 % (37-47); Hemoglobin 13.2 g/dL (12.0-15.0); Mean Corp Hgb Conc 32.3 g/dL (32-36); Mean Corpuscular Hgb 31.7 pg (27.0-32.0); Mean Corpuscular Volume 98.1 fL (81-99); Mean Platelet Vol. 10.5 fl (6.2-12.0); Platelet Count 374 K/mm3 (150-450); RBC Distribution Width CV 13.2 % (11.6-14.6); RBC Distribution Width SD 46.7 fl (35.1-43.9); Red Blood Count 4.17 M/mm3 (4.2-5.4); White Blood Count 19.2 K/mm3 (4.4-11.0)
[2023-12-04 16:34] LABS: Protein, Urine (Random) 28.8 mg/dL (<11.9); Protein:Creat Ratio 240 mg/g CRE (0-200)
[2023-12-04 16:46] LABS: Vitamin D,25 Hydroxy 30.2 ng/mL
[2023-12-04 16:47] LABS: Albumin, Serum 3.3 g/dL (3.2-5.0); BUN 60 mg/dL (7-18); BUN/Creat Ratio 32.3 RATIO (10-20); Calcium,Total 8.6 mg/dL (8.5-10.1); Chloride 107 mmol/L (98-107); Creatinine, Serum 1.86 mg/dL (0.55-1.02); EST Glomerular Filtration Rate 29 mL/min (>60); Est Glom Filt Rate - Afr Amer 35 mL/min (>60); Glucose 96 mg/dL (74-106); Phosphorus 2.7 mg/dL (2.5-4.9); Potassium 4.6 mmol/L (3.5-5.1); Sodium Level 138 mmol/L (136-145)
[2023-12-04 16:50] LABS: PTHIN 65.3 pg/mL (18.4-80.1)
== END | disposition home or self-care (01) ==
LOC: LAB 15:37
PROVIDERS: PCP Nurse Practitioner; Referring Provider Internal Medicine Nephrology; Visit Provider Internal Medicine Nephrology
DX: E21.3 Hyperparathyroidism, unspecified (principal); N18.31 Chronic kidney disease, stage 3a; D64.9 Anemia, unspecified
CPT/HCPCS: 36415; 80069; 82306; 82570; 83970; 84156; 85027

== ENCOUNTER → 2024-02-20 | Outpatient (CLI) | payer MEDICARE, OTHER, SELFPAY ==
[2024-02-20 21:54] LABS: Absolute Lymphocyte Count 1.14 X10^3/uL (0.83-4.51); Absolute Neutrophil Count 7.5 X10^3/uL (2.0-7.7); Basophil# 0.05 X10^3/uL; Basophil% 0.5 % (0-1); Eosinophil# 0.29 X10^3/uL; Hematocrit 39.8 % (37-47); Hemoglobin 13.1 g/dL (12.0-15.0); Lymphocyte # 1.14 X10^3/ul (0.83-4.51); Lymphocyte % 11.9 % (19-41); Mean Corp Hgb Conc 32.9 g/dL (32-36); Mean Corpuscular Hgb 32.1 pg (27.0-32.0); Mean Corpuscular Volume 97.5 fL (81-99); Monocyte# 0.61 X10^3/uL; Monocyte% 6.3 % (0-10); NRBC Flagged by Analyzer 0 % (0-5); Neutrophil # 7.48 X10^3/uL (2.7-7.7); Neutrophil % 77.9 % (47-70); Platelet Count 291 K/mm3 (150-450); RBC Distribution Width CV 13.2 % (11.6-14.6); RBC Distribution Width SD 46.9 fl (35.1-43.9); Red Blood Count 4.08 M/mm3 (4.2-5.4); White Blood Count 9.6 K/mm3 (4.4-11.0)
[2024-02-20 22:28] LABS: ALB/GLOB Ratio 0.9 RATIO (0.9-2.4); AST(SGOT) 28 U/L (15-37); Alanine Aminotransfer ALT/SGPT 38 U/L (13-56); Albumin, Serum 3.5 g/dL (3.2-5.0); Alkaline Phosphatase 89 U/L (45-117); Anion Gap 5 (5-15); BUN 28 mg/dL (7-18); BUN/Creat Ratio 22.6 RATIO (10-20); Calcium,Total 8.9 mg/dL (8.5-10.1); Chloride 110 mmol/L (98-107); Cholesterol 193 mg/dL (200); Creatinine, Serum 1.24 mg/dL (0.55-1.02); EST Glomerular Filtration Rate 46 mL/min (>60); Est Glom Filt Rate - Afr Amer 55 mL/min (>60); Globulin 3.8 g/dL (2.2-4.2); Glucose 124 mg/dL (74-106); High Density Lipoprotein 30 mg/dL; Potassium 4.6 mmol/L (3.5-5.1); Protein, Total 7.3 g/dL (6.4-8.2); Sodium Level 138 mmol/L (136-145); Thyroid Stim Hormone (TSH) 0.794 uIU/mL (0.358-3.740); Triglycerides 511 mg/dL
== END | disposition home or self-care (01) ==
PROVIDERS: PCP Nurse Practitioner; Referring Provider Nurse Practitioner; Visit Provider Nurse Practitioner
DX: I10 Essential (primary) hypertension (principal); N28.9 Disorder of kidney and ureter, unspecified; E83.42 Hypomagnesemia; E03.9 Hypothyroidism, unspecified; F41.9 Anxiety disorder, unspecified
CPT/HCPCS: 80053; 80061; 84443; 85025

== ENCOUNTER → 2024-03-30 | Outpatient (CLI) | payer MEDICARE, OTHER, SELFPAY ==
[2024-03-30 14:26] LABS: Amphetamine Urine VISTA NEGATIVE (<1000 ng/mL); Barbiturate Urine VISTA NEGATIVE (< 200 ng/mL); Benzodiazepine Urine VISTA POSITIVE (< 200 ng/mL); Cocaine Urine VISTA NEGATIVE (< 300 ng/mL); Ecstacy Urine VISTA POSITIVE (< 500 ng/mL); Methadone Urine VISTA NEGATIVE (< 300 ng/mL); PCP Urine VISTA NEGATIVE (< 25 ng/mL); THC Urine VISTA NEGATIVE (< 50 ng/mL); Vista UDS pH Range 5
== END | disposition home or self-care (01) ==
PROVIDERS: PCP Nurse Practitioner; Referring Provider Anesthesiology Pain Medicine; Visit Provider Anesthesiology Pain Medicine
DX: F11.20 Opioid dependence, uncomplicated (principal)
CPT/HCPCS: 80307

== ENCOUNTER → 2024-04-27 | Outpatient (CLI) | payer MEDICARE, OTHER, SELFPAY ==
--- NOTE | 2024-04-27 16:20 | RAD_ITS ---
EXAM: XR CHEST, 2 VIEWS CLINICAL INDICATION: cough for 1 month TECHNIQUE: Frontal and lateral views of the chest. COMPARISON: 06/05/2022. FINDINGS: LUNGS AND PLEURAL SPACES: Unremarkable. No consolidation or edema. No pneumothorax. No effusion. HEART: Unremarkable. Cardiac silhouette not enlarged. MEDIASTINUM: Central airways and mediastinal contour are unremarkable. BONES/JOINTS: Metallic threaded screws in the right humeral head from previous rotator cuff repair. No acute fracture. SOFT TISSUES: Unremarkable. RAD/Chest 2 V w/ Apical/Lordotic IMPRESSION: No acute findings in the chest and unchanged. Electronically Signed: Blanco Mosher MD at 14:04 EST ,
== END | disposition home or self-care (01) ==
LOC: RAD 16:13
PROVIDERS: PCP Nurse Practitioner; Referring Provider Nurse Practitioner; Visit Provider Nurse Practitioner
DX: R06.02 Shortness of breath (principal); R05.9 Cough, unspecified
CPT/HCPCS: 71047

== ENCOUNTER 2024-05-01 15:35 | Emergency (ER) | payer MEDICARE, OTHER, SELFPAY ==
[2024-05-01 15:36] VITALS: BP 175/72; PULSE 62; RESP 18; TEMP 36.8; O2SAT 100; BMI 29.9
--- NOTE | 2024-05-01 15:56 | EDS_ITS ---
HPI <MOISES Mauricio - Last Filed: 05/01/24 17:19> History of Present Illness Chief Complaint: Headache Narrative Narrative: Patient presenting today with a posterior headache she has had intermittently over the past month, she reports that over the past week it has been more constant. She reports that the pain starts in the back of the neck and radiates into the back of her head. The pain is worse with range of motion of her neck, she does admit that she has been under a lot of stress recently as her mom was recently put into a senior care. She is in pain management and takes tramadol for chronic back pain which provides minimal relief of her pain. She denies any visual changes. She has no personal or familial history of brain aneurysm. She denies any visual changes, nausea, or vomiting. She has a PMH of HTN, chronic back pain, CKD, history of PE, and anxiety. PFSH <MOISES Mauricio - Last Filed: 05/01/24 17:19> [facility] Medical History Colitis Diverticulitis Anxiety Hypomagnesemia Polycystic kidney disease C. 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 Knee pain, right Medication side effects Hyperkalemia Acute kidney injury Anxiety Hypothyroidism (acquired) Bilateral hearing loss Allergic rhinitis with postnasal drip Adverse reaction to antidepressant drug Hyperlipidemia LDL goal <130 Idiopathic parathyroidism Home Medications ?Medication ?Instructions ?Recorded ?Last Taken ?Type acetaminophen 500 mg tablet 1,000 mg PO DAILY PRN PRN Pain 04/12/22 04/12/22 History melatonin 3 mg tablet 3 mg PO QHS PRN sleep 06/05/22 Unknown History tramadol 50 mg tablet 50 mg PO TID PRN Pain 06/05/22 Unknown History metoprolol succinate 50 mg 75 mg (1.5 x 50 mg) PO QDAY 90 05/27/23 Unknown Rx tablet,extended release 24 hr days #135 tabs albuterol sulfate 90 mcg/actuation 2 puff inhalation Q4H PRN asthma 3 11/27/23 Unknown Rx aerosol inhaler (Ventolin HFA) months #6.7 grams benzonatate 200 mg capsule 200 mg PO TID PRN cough #45 caps 11/27/23 Unknown Rx alprazolam 0.5 mg tablet (Xanax) 0.5 mg PO DAILY #30 tabs 02/20/24 Unknown Rx amlodipine 5 mg tablet 5 mg PO DAILY #90 tabs 02/20/24 Unknown Rx bupropion HCl 150 mg tablet,12 hr 150 mg PO BID DEPRESSION #180 ea 02/20/24 Unknown Rx sustained-release ezetimibe 10 mg tablet 10 mg PO DAILY #90 tabs 02/20/24 Unknown Rx warfarin 5 mg tablet 5 mg PO DAILY #90 tabs 02/20/24 Unknown Rx levothyroxine 100 mcg tablet 100 mcg PO DAILY THYROID #90 tabs 02/21/24 Unknown Rx prednisone 20 mg tablet 40 mg (2 x 20 mg) PO DAILY #20 tabs 04/27/24 Unknown Rx dicyclomine 10 mg capsule 10 mg PO BID PRN PRN pain 05/01/24 Unknown History hydrocodone-acetaminophen 5-325mg 1 tab PO Q4H PRN PRN Pain 3 days 05/01/24 Unknown Rx 5mg-325mg #10 TABLETS ipratropium bromide 42 mcg (0.06 2 spray intranasal DAILY 05/01/24 Unknown History %) nasal spray tizanidine 4 mg capsule 4 mg PO QHS 05/01/24 Unknown History Allergy/AdvReac Type Severity Reaction Status Date / Time niacin (From Niaspan Allergy Anaphylaxis Verified 05/01/24 15:38 Extended-Release) metronidazole (From Flagyl) AdvReac Severe diarrhea Verified 05/01/24 15:38 and hypokalcemia peripheral neuropathy simvastatin (From Zocor) AdvReac Severe muscle Verified 05/01/24 15:38 cramps Family History Father , at age 78 of [place] Heart disease Mother Diabetes Surgical History History of total right knee replacement (TKR) History of repair of rotator cuff History of elective section S/P rotator cuff repair Social History Smoking Status: Former smoker quit date: 03/30/18 Electronic Cigarette Use: not used second hand exposure: No alcohol intake: current alcohol intake frequency: a few times a month substance use type: does not use ROS <MOISES Mauricio - Last Filed: 05/01/24 17:19> ROS ED Constitutional Constitutional ED: Denies chills or fever(s) Eyes Eyes: Denies change in vision Cardiovascular Cardiovascular: Denies chest pain Respiratory/Chest Respiratory/Chest: Denies dyspnea Gastrointestinal Gastrointestinal: Denies abdominal pain, nausea or vomiting Musculoskeletal Musculoskeletal: Reports neck pain Integumentary Denies rash Neurologic Neurologic: Reports headache(s); Denies weakness EXAM <MOISES Mauricio - Last Filed: 05/01/24 17:19> Physical Exam Const Vital Signs: 05/01/24 15:36 05/01/24 16:35 Temperature 98.2 F 98.2 F Temperature Source Oral Pulse Rate 62 62 Respiratory Rate 18 18 Blood Pressure 175/72 H 156/65 H Blood Pressure Mean 106 95 Pulse Ox 100 100 Oxygen Delivery Method Room Air Positive well nourished, well developed and no apparent distress General Appearance ED: well developed HEENT Reports normocephalic and head/scalp atraumatic Mouth ED: Yes moist mucous membranes normal Eyes PERRL and EOMs intact bilaterally Neck full ROM, supple and no meningeal signs Neck Narrative: Tenderness to palpation to the bilateral trapezius muscles and paracervical muscles, no midline cervical tenderness. Chest Wall inspection of chest normal Resp normal respiratory effort and clear to auscultation bilaterally Cardio regular rate and regular rhythm Back/Spine normal ROM and normal to inspection Extremity normal to inspection and full ROM Neuro oriented x3, CN's II-XII intact bilaterally, moves all extremities, no focal motor deficits and no sensory deficits noted Sensorium / Orientation: awake and alert Psych mental status grossly normal and thought process normal Skin no rashes or lesions noted and no wounds <Dr. Arsen Lay MD - Last Filed: 05/01/24 17:02> Physical Exam Const Vital Signs: 05/01/24 15:36 05/01/24 16:35 Temperature 98.2 F 98.2 F Temperature Source Oral Pulse Rate 62 62 Respiratory Rate 18 18 Blood Pressure 175/72 H 156/65 H Blood Pressure Mean 106 95 Pulse Ox 100 100 Oxygen Delivery Method Room Air MDM <MOISES Mauricio - Last Filed: 05/01/24 17:19> MDM MDM Narrative Medical decision making narrative: Patient presenting today with a posterior headache and neck pain she has had for a month that had recently worsened over the past week. She does have reproducible tenderness to her bilateral trapezius and paracervical muscles, consistent with muscular strain. She does not have any meningeal signs on exam. She has a normal neurological exam. Her examination is consistent with a tension headache. Do not feel that any imaging is indicated. She is in pain management and takes tramadol which does not seem to be helping, we did speak with on-call physician for Dr. Li's office, they were comfortable with patient being on a short course of [place] for her pain, she was given the first dose here. They would like to see her on Saturday. Patient discharged home in stable condition. I have personally performed a face to face assessment of the patient and have reviewed the KELSEA Note. I performed a substantive portion of the visit including all aspects of the following. My murray findings include: History is remarkable for head pain for approximate 1 month. Localizes pain to the occiput and posterior neck. She recently saw her pain management physician Dr. Renner. She did not inform Dr. Li of this pain. She denies double vision blurred vision loss of vision. No trouble speech or swallowing. She denies paresthesia, anesthesia or motor weakness or radicular pain upper extremity. She denies problems with fine motor movement of her fingers or problems with coordination. Movement does exacerbate her pain. Nothing alleviates her pain. She localizes the pain to the paracervical region bilaterally and occiput bilaterally there is no history of direct or indirect trauma. She denies chest pain or back pain. She is presently on prednisone and has been on steroids intermittently. There is no complaint of fever, chills night sweats. She denies ringing or ears or decreased hearing Exam is remarkable for pain palpation of the right and left paracervical area and insertion site of the paracervical muscles on the occiput bilaterally. Having her extend against resistance as well as pushing her head to the left and right against resistance causes discomfort. She has more discomfort with rotation to the left. Ears normal. Nares patent. Posterior pharynx is normal. Pupils equal round reactive. Extract muscle intact. Sclera is anicteric. There is no nystagmus. Trachea is midline. No carotid bruits. Axillary, median, radial and ulnar function intact. Bicep, brachialis and tricep reflexes 3+ and symmetric. She has normal sensation over C4-C7 dermatomes bilaterally. Radial pulses palpable and symmetric. There are no dermatologic lesions noted posterior scalp or neck. She has have a buffalo hump noted. Medical Decision Making patient's history physical is consistent with muscular pain. Patient was informed imaging is not indicated i.e. plain films or advanced imaging i.e. CT. Other additions or changes: Spoke with cardio Dr. Beatty's office. Patient placed on short course of opiate analgesia. She is to call the office to be seen on Saturday. She was discharged in stable condition. <Dr. Arsen Lay MD - Last Filed: 05/01/24 17:02> [facility] Narrative Medical decision making narrative: I have personally performed a face to face assessment of the patient and have reviewed the KELSEA Note. I performed a substantive portion of the visit including all aspects of the following. My murray findings include: History is remarkable for head pain for approximate 1 month. Localizes pain to the occiput and posterior neck. She recently saw her pain management physician Dr. Renenr. She did not inform Dr. Li of this pain. She denies double vision blurred vision loss of vision. No trouble speech or swallowing. She denies paresthesia, anesthesia or motor weakness or radicular pain upper extremity. She denies problems with fine motor movement of her fingers or problems with coordination. Movement does exacerbate her pain. Nothing alleviates her pain. She localizes the pain to the paracervical region bilaterally and occiput bilaterally there is no history of direct or indirect trauma. She denies chest pain or back pain. She is presently on prednisone and has been on steroids intermittently. There is no complaint of fever, chills night sweats. She denies ringing or ears or decreased hearing Exam is remarkable for pain palpation of the right and left paracervical area and insertion site of the paracervical muscles on the occiput bilaterally. Having her extend against resistance as well as pushing her head to the left and right against resistance causes discomfort. She has more discomfort with rotation to the left. Ears normal. Nares patent. Posterior pharynx is normal. Pupils equal round reactive. Extract muscle intact. Sclera is anicteric. There is no nystagmus. Trachea is midline. No carotid bruits. Axillary, median, radial and ulnar function intact. Bicep, brachialis and tricep reflexes 3+ and symmetric. She has normal sensation over C4-C7 dermatomes bilaterally. Radial pulses palpable and symmetric. There are no dermatologic lesions noted posterior scalp or neck. She has have a buffalo hump noted. Medical Decision Making patient's history physical is consistent with muscular pain. Patient was informed imaging is not indicated i.e. plain films or advanced imaging i.e. CT. Other additions or changes: Spoke with cardio Dr. Beatty's office. Patient placed on short course of opiate analgesia. She is to call the office to be seen on Saturday. She was discharged in stable condition. Discharge Plan Triage Chief Complaint: Headache ED Midlevel Provider: Angeles Schaefer ED Provider: Arsen Lay Dx/Rx/DC Orders Clinical Impression: Acute tension headache, Cervical strain Instructions: ED Headache, Tension, ED Neck Sprain or Strain Prescriptions: New hydrocodone-acetaminophen 5-325 mg tablet 1 tab PO Q4H PRN PRN (Reason: Pain) 3 Days Qty: 10 0RF No Action metoprolol succinate 50 mg tablet extended release 24 hr 75 mg PO QDAY 90 Days Qty: 135 3RF alprazolam [Xanax] 0.5 mg tablet 0.5 mg PO DAILY Qty: 30 5RF amlodipine 5 mg tablet 5 mg PO DAILY Qty: 90 3RF bupropion HCl 150 mg tablet sustained-release 12 hr 150 mg PO BID Qty: 180 3RF ezetimibe 10 mg tablet 10 mg PO DAILY Qty: 90 3RF warfarin 5 mg tablet 5 mg PO DAILY Qty: 90 3RF levothyroxine 100 mcg tablet 100 mcg PO DAILY Qty: 90 3RF prednisone 20 mg tablet 40 mg PO DAILY Qty: 20 0RF acetaminophen 500 MG tablet 1,000 mg PO DAILY PRN PRN (Reason: Pain) melatonin 3 mg Tablet 3 mg PO QHS PRN (Reason: sleep) tramadol 50 mg Tablet 50 mg PO TID PRN (Reason: Pain) ipratropium bromide 42 mcg (0.06 %) spray,non-aerosol 2 spray INTRANASAL DAILY Patient Comments: [NO ORIGINAL SIG] dicyclomine 10 mg capsule 10 mg PO BID PRN PRN (Reason: pain) tizanidine 4 mg capsule 4 mg PO QHS benzonatate 200 mg capsule 200 mg PO TID PRN (Reason: cough) Qty: 45 4RF albuterol sulfate [Ventolin HFA] 90 mcg/actuation HFA aerosol inhaler 2 puff inhalation Q4H PRN (Reason: asthma) 90 Days Qty: 6.7 3RF Primary Care Provider: Teresa Rowe NP Referrals: Teresa Rowe NP, MANAGER [employer] [Primary Care Provider] - Activity Restrictions/Additional Instructions: Follow-up with pain management on Saturday, return for any worsening of your symptoms or other concerns. Print Language: Bengali Disposition Disposition: Home, Self Care Discharge Date/Time: 05/01/24 16:38
[2024-05-01 16:35] VITALS: BP 156/65; PULSE 62; RESP 18; TEMP 36.8; O2SAT 100
[2024-05-01] MEDS: HYDROcodone Bitartrate/Apap 5/325 Tablet PO (16:35)
== END 2024-05-01 16:38 | disposition home or self-care (01) ==
PROVIDERS: Emergency Provider Emergency Medicine; PCP Nurse Practitioner; Visit Provider Emergency Medicine
DX: G44.209 Tension-type headache, unspecified, not intractable (principal); S16.1XXA Strain of muscle, fascia and tendon at neck level, initial encounter; Z79.891 Long term (current) use of opiate analgesic; I12.9 Hypertensive chronic kidney disease with stage 1 through stage 4 chronic kidney disease, or unspecified chronic kidney disease; Z87.891 Personal history of nicotine dependence; G89.29 Other chronic pain; N18.9 Chronic kidney disease, unspecified; Z86.711 Personal history of pulmonary embolism; E78.5 Hyperlipidemia, unspecified; X58.XXXA Exposure to other specified factors, initial encounter
CPT/HCPCS: 99282

== ENCOUNTER → 2024-05-04 | Outpatient (CLI) | payer MEDICARE, OTHER, SELFPAY ==
--- NOTE | 2024-05-04 13:48 | RAD_ITS ---
INDICATION: CERVICAL SPONDYLOSIS EXAMINATION/TECHNIQUE: X-RAY - XR Spine Cervical 2 or 3 Views COMPARISON: No relevant prior comparison study available FINDINGS: VERTEBRAE: Preserved vertebral body height. No evidence of acute compression fracture. No spondylolisthesis. Taking of the cervical spine. Facet arthropathy at multiple levels. DISCS: Multilevel disc space narrowing. Mild endplate spondylosis. NECK SOFT TISSUES: No prevertebral soft tissue widening. LUNG APICES: Clear. RAD/Cerv Spine 2 or 3 Views IMPRESSION: Degenerative changes as described above.. Electronically Signed: Kevan Barker MD at 8:21 EST ,
== END | disposition home or self-care (01) ==
LOC: RAD 13:44
PROVIDERS: PCP Nurse Practitioner; Referring Provider Anesthesiology Pain Medicine; Visit Provider Anesthesiology Pain Medicine
DX: M47.812 Spondylosis without myelopathy or radiculopathy, cervical region (principal)
CPT/HCPCS: 72040

== ENCOUNTER → 2024-06-11 | Outpatient (CLI) | payer MEDICARE, OTHER, SELFPAY ==
[2024-06-11 17:18] LABS: Hematocrit 42.3 % (37-47); Hemoglobin 13.6 g/dL (12.0-15.0); Mean Corp Hgb Conc 32.2 g/dL (32-36); Mean Corpuscular Hgb 31.3 pg (27.0-32.0); Mean Corpuscular Volume 97.2 fL (81-99); Platelet Count 244 K/mm3 (150-450); RBC Distribution Width CV 12.8 % (11.6-14.6); RBC Distribution Width SD 45.8 fl (35.1-43.9); Red Blood Count 4.35 M/mm3 (4.2-5.4); White Blood Count 6.7 K/mm3 (4.4-11.0)
[2024-06-11 18:00] LABS: Vitamin D,25 Hydroxy 33.6 ng/mL
[2024-06-11 18:01] LABS: PTHIN 56.3 pg/mL (18.4-80.1)
[2024-06-11 18:15] LABS: Albumin, Serum 3.9 g/dL (3.2-5.0); BUN 27 mg/dL (7-18); BUN/Creat Ratio 20.6 RATIO (10-20); Calcium,Total 9.2 mg/dL (8.5-10.1); Chloride 110 mmol/L (98-107); Creatinine, Serum 1.31 mg/dL (0.55-1.02); EST Glomerular Filtration Rate 43 mL/min (>60); Est Glom Filt Rate - Afr Amer 52 mL/min (>60); Glucose 96 mg/dL (74-106); Phosphorus 2.6 mg/dL (2.5-4.9); Potassium 4.4 mmol/L (3.5-5.1); Sodium Level 138 mmol/L (136-145)
[2024-06-11 18:23] LABS: Protein, Urine (Random) 28.4 mg/dL (<11.9); Protein:Creat Ratio 200 mg/g CRE (0-200)
== END | disposition home or self-care (01) ==
LOC: LAB 16:58
PROVIDERS: PCP Nurse Practitioner; Referring Provider Internal Medicine Nephrology; Visit Provider Internal Medicine Nephrology
DX: E21.3 Hyperparathyroidism, unspecified (principal); N18.31 Chronic kidney disease, stage 3a; D64.9 Anemia, unspecified
CPT/HCPCS: 36415; 80069; 82306; 82570; 83970; 84156; 85027

== ENCOUNTER → 2024-08-13 | Outpatient (CLI) | payer MEDICARE, OTHER, SELFPAY ==
[2024-08-13 13:06] LABS: Hematocrit 41.3 % (37-47); Hemoglobin 13.9 g/dL (12.0-15.0); Mean Corp Hgb Conc 33.7 g/dL (32-36); Mean Corpuscular Hgb 32.4 pg (27.0-32.0); Mean Corpuscular Volume 96.3 fL (81-99); Mean Platelet Vol. 10.4 fl (6.2-12.0); Platelet Count 260 K/mm3 (150-450); RBC Distribution Width CV 12.8 % (11.6-14.6); RBC Distribution Width SD 44.8 fl (35.1-43.9); Red Blood Count 4.29 M/mm3 (4.2-5.4); White Blood Count 8.1 K/mm3 (4.4-11.0)
[2024-08-13 13:45] LABS: PTHIN 41 pg/mL (11-61)
[2024-08-13 14:02] LABS: Albumin, Serum 4.5 g/dL (3.4-4.8); BUN 36 mg/dL (4-19); BUN/Creat Ratio 26.7 RATIO (10-20); Calcium 9.4 mg/dL (7.6-11.0); Carbon Dioxide 22.2 mmol/L (22.0-29.0); Chloride 104 mmol/L (96-108); Creatinine, Serum 1.4 mg/dL (0.6-1.0); EST Glomerular Filtration Rate 42 (>60); Glucose 125 mg/dL (70-99); Phosphorus 3.1 mg/dL (2.7-4.5); Potassium 4.7 mmol/L (3.3-5.1); Sodium Level 137 mmol/L (133-145); Vitamin D,25 Hydroxy 30.9 ng/mL (30-100)
[2024-08-13 16:15] LABS: Protein, Urine (Random) 15 mg/dL (<=12); Protein:Creat Ratio 199 mg/g CRE (0-200)
== END | disposition home or self-care (01) ==
LOC: LAB 12:37
PROVIDERS: PCP Nurse Practitioner; Referring Provider Internal Medicine Nephrology; Visit Provider Internal Medicine Nephrology
DX: E21.3 Hyperparathyroidism, unspecified (principal); N18.31 Chronic kidney disease, stage 3a; D64.9 Anemia, unspecified
CPT/HCPCS: 36415; 80069; 82306; 82570; 83970; 84156; 85027

== ENCOUNTER → 2024-11-30 | Outpatient (CLI) | payer MEDICARE, OTHER, SELFPAY ==
--- NOTE | 2024-11-30 08:57 | RAD_ITS ---
PROCEDURE: ESOPHAGUS DUAL CONTRAST 11/30/2024 REASON FOR EXAM: DYSPHAGIA, UNSPECIFIED TECHNIQUE: ESOPHAGUS DUAL CONTRAST The patient ingested barium. Multiple images were obtained. Fluoroscopy: 42 seconds. 5.74 mGy. COMPARISON: None FINDINGS: The patient ingested barium. Multiple images were obtained. No evidence of esophageal obstruction. No mass lesion is seen. No evidence of gastroesophageal reflux. The patient ingested a 12 mm tablet the barium. The tablet is trapped at the gastroesophageal junction. Endoscopic correlation recommended. RAD/Esophagus Dual Contrast IMPRESSION: The ingested a 12 mm tablet the barium is trapped at the gastroesophageal junct ion. Endoscopic correlation recommended for further evaluation. Reading Location: [facility]
== END | disposition home or self-care (01) ==
LOC: RAD 08:47
PROVIDERS: PCP Nurse Practitioner; Referring Provider Otolaryngology; Visit Provider Otolaryngology
DX: R13.10 Dysphagia, unspecified (principal)
CPT/HCPCS: 74221

== ENCOUNTER → 2025-02-03 | Outpatient (CLI) | payer MEDICARE, OTHER, SELFPAY ==
[2025-02-03 11:35] LABS: Barbiturate Urine NEGATIVE (< 200 ng/mL); Benzodiazepine Urine PRESUMPTIVE POSITIVE (< 200 ng/mL); PCP Urine NEGATIVE (< 25 ng/mL); THC Urine NEGATIVE (< 50 ng/mL)
== END | disposition home or self-care (01) ==
LOC: LAB 10:30
PROVIDERS: PCP Nurse Practitioner; Referring Provider Anesthesiology Pain Medicine; Visit Provider Anesthesiology Pain Medicine
DX: F11.20 Opioid dependence, uncomplicated (principal)
CPT/HCPCS: 80307